=== PATIENT | female | born 1970 | race Caucasian/White ===

== ENCOUNTER 2020-01-19 14:26 | Emergency (ER) | payer OTHER, SELFPAY ==
[2020-01-19] VITALS (16 sets, daily range): BP systolic 124–138; BP diastolic 59–90; PULSE 84; RESP 18; TEMP 36.9; O2SAT 97–100
--- NOTE | ~2020-01-19 | CT_ITS ---
EXAMINATION: CT abdomen pelvis wo con DATE: 01/19/2020 16:30 INDICATION: Left flank pain. TECHNIQUE: Computed tomography (CT) of the abdomen and pelvis was performed without intravenous contr ast. Automated exposure control and iterative reconstruction technique were employed. The dose-length product was 1478.43 mGy-cm. COMPARISON: None FINDINGS: Lung bases are clear. Heart size is normal. No pericardial or pleural effusion. Diffuse hepatic steat osis. Cholecystectomy clips at the gallbladder fossa. Spleen, pancreas, bilateral adrenal glands are normal. 2-3 mm at least partially obstructing stone at the left ureteropelvic junction with mild juan c ectasis at the lower pole of the left kidney. No other urolithiasis including in the normal right kid terry or along the course of the ureters. Several phleboliths in the pelvis. Bladder and anteverted [place] maria teresa are normal. There is mild colonic diverticulosis with a sigmoid predominance. There is no adjace nt inflammatory change to suggest diverticulitis. Small bowel and appendix are normal. No free intrap eritoneal gas or fluid. No pathologically enlarged abdominal or pelvic lymphadenopathy. Bones are unr emarkable. IMPRESSION: 1. At least partially obstructing 2-3 mm stone at the left ureteropelvic junction with mild caliect[place] is at the lower pole of the left kidney. 2. Diffuse hepatic steatosis. Reviewed, dictated and finalized at location A. IMPRESSION: 1. At least partially obstructing 2-3 mm stone at the left ureteropelvic juncti on with mild caliectasis at the lower pole of the left kidney. 2. Diffuse hepatic steatosis.
[2020-01-19 15:20] LABS: Add Urine Microscopic? YES; Appearance Urine Clear (Clear); Bacteria Urine Trace /hpf; Bilirubin Urine Negative (Negative); Blood Urine 3+ (Negative); Color Urine Straw (Yellow); Glucose Urine UA Negative (Negative); Ketones Urine Negative (Negative); Leukocyte Esterase Ur Negative LEU/UL (Negative); Mucus Urine Rare /lpf; Nitrate Urine Negative (Negative); Protein Urine Negative (Negative); Specific Grav Ur 1.008 (1.001-1.035); Squamous Epithelial Cell Urine Rare /hpf (Few); Urobilinogen Urine Negative mg/dL (<2.0); WBC Urine 0-3 /hpf
--- NOTE | 2020-01-19 15:45 | ED.GENADULT ---
HPI - General Adult General Chief complaint: Urogenital-Female Stated complaint: left flank pain Time Seen by Provider: 01/19/20 15:33 History of Present Illness HPI narrative: Patient is a 49 y/o female complaining of left back pain starting yesterdays. She describes her pain an aching sensation. There is no pain radiation. She rates her pain as 7/10. She took Tylenol earlier which did not provide any relief. She has some nausea, but no vomiting. She has some blood in urine. She was seen in urgent care and was sent here for evaluation of possible kidney stone. Related Data Allergies Allergy/AdvReac Type Severity Reaction Status Date / Time No Known Allergies Allergy Mild Unverified 07/02/08 10:23 Review of Systems Constitutional: Constitutional: Denies chills, Denies fever(s), Denies headache(s) and Denies weakness Eyes: Eyes: Denies blurry vision ENT: Denies headache(s) and Denies neck pain Cardiovascular: Cardiovascular: Denies chest pain and Denies dyspnea Respiratory: Respiratory: Denies cough and Denies dyspnea Gastrointestinal: Gastrointestinal: Denies abdominal pain, Denies diarrhea, Denies nausea and Denies vomiting Genitourinary: Genitourinary: Reports hematuria, Denies dysuria and Reports flank pain Musculoskeletal: Musculoskeletal: Denies back pain and Denies neck pain Neurologic: Denies headache(s) and Denies weakness PMFSH Social History Social History Gender identity (if verbalized by the patient): Female Exam Const: General: no acute distress and well developed Orientation/consciousness: oriented to person, oriented to place, oriented to time and patient oriented x3 HENMT: Head: normocephalic Ears: external ears normal General nose exam: Normal external nose present Eyes: General: appearance normal, both eyes and all related structures Conjunctivae: conjunctivae normal Neck: Neck: normal visual inspection and full ROM Chest: Chest palpation & inspection: normal inspection of the chest and no tenderness Resp: Effort & Inspection: normal respiratory effort Auscultation: clear to auscultation bilaterally Cardio: Rate: regular rate Rhythm: regular rhythm GI: GI Palp: No abdominal tenderness and Yes Soft to palpation Skin: General skin exam: normal color and turgor normal Neuro: General: oriented to person, oriented to place, oriented to time and patient oriented x3 Cognition (Neuro): normal cognition Extrem: General: normal to inspection, full ROM and no pedal edema Psych: Appearance: grossly normal Mental Status: mental status grossly normal Affect: normal affect Course Reevaluation(s) Reevaluation #1: Patient is rechecked. She feels better and wants to go home. Date: 01/19/20 Time: 16:55 Vital Signs Vital signs: Vital Signs Temperature 36.9 C 01/19/20 14:29 Pulse Rate 84 01/19/20 14:29 Respiratory Rate 18 01/19/20 14:29 Blood Pressure 138/90 01/19/20 14:29 Pulse Oximetry 100 01/19/20 14:29 Temperature 36.9 C 01/19/20 14:29 Pulse Rate 84 01/19/20 14:29 Respiratory Rate 18 01/19/20 14:29 Blood Pressure 136/70 01/19/20 16:45 Pulse Oximetry 100 01/19/20 16:45 Medical Decision Making Vital Signs Vital Signs: Vital Signs Temperature 36.9 C 01/19/20 14:29 Pulse Rate 84 01/19/20 14:29 Respiratory Rate 18 01/19/20 14:29 Blood Pressure 138/90 01/19/20 14:29 Pulse Oximetry 100 01/19/20 14:29 Temperature 36.9 C 01/19/20 14:29 Pulse Rate 84 01/19/20 14:29 Respiratory Rate 18 01/19/20 14:29 Blood Pressure 136/70 01/19/20 16:45 Pulse Oximetry 100 01/19/20 16:45 Lab Data Result diagrams: 01/19/20 15:53 01/19/20 15:53 Labs: Lab Results 01/19/20 01/19/20 01/19/20 Range/Units 15:11 15:53 15:53 WBC 8.2 (4.5-10.0) K/mm3 RBC 4.80 (4.2-5.4) M/mm3 Hgb 15.0 (12.0-15.0) g/dL Hct 44.2 (37.0-47.0) % M
[2020-01-19] MEDS: SODIUM CHLORIDE 0.9% IV 1,000 ML 999 ML IV CONT (15:53)
[2020-01-19] MEDS: KETOROLAC 30 MG/ML VIAL (*BKC) IV PUSH (15:53)
[2020-01-19 15:59] LABS: Basophils Percent Auto 0.5 % (0.2-1.2); Eosinophils Absolute Auto 0.1 K/mm3 (0-0.3); Eosinophils Percent Auto 1.1 % (0-4.4); Hematocrit 44.2 % (37.0-47.0); Immature Granulocyte Absolute 0.03 K/mm3 (0.00-0.031); Immature Granulocyte Percent A 0.4 % (0-0.5); Lymphocytes Absolute Auto 1.61 K/mm3 (0.9-3.2); Lymphocytes Percent Auto 19.6 % (18.3-44.2); Mean Corpuscular HGB Conc 33.9 g/dl (32-36); Mean Corpuscular Hemoglobin 31.3 pg (26-34); Mean Corpuscular Volume 92.1 fl (80-100); Monocytes Absolute Auto 0.7 K/mm3 (0.1-0.6); Monocytes Percent Auto 8.9 % (2.6-8.5); Neutrophils Absolute Auto 5.7 K/mm3 (1.3-6.7); Neutrophils Percent Auto 69.5 % (45.5-73.1); Platelet Count Result 214 k/mm3 (150-375); Red Cell Distribution Width 12.2 % (11.5-14.5); White Blood Count 8.2 K/mm3 (4.5-10.0)
[2020-01-19 16:10] LABS: Alanine Aminotransferase 33 U/L (4-35); Albumin Level 4.5 g/dL (3.5-5.1); Alkaline Phosphatase 98 U/L (38-126); Aspartate Amino Transferase 36 U/L (14-36); Bilirubin,Total 0.6 mg/dL (0.2-1.3); Blood Urea Nitrogen 13 mg/dL (7-17); Calcium 9.2 mg/dL (8.4-10.2); Carbon Dioxide 26 mmol/L (22-30); Chloride 105 mmol/L (98-107); Estimated CRCL calculation 106 ml/min; Estimated Glomerular Filt Rate > 60; Glucose 101 mg/dL (65-105); Potassium 3.9 mmol/L (3.4-5.0); Sodium 138 mmol/L (137-145)
== END 2020-01-19 17:19 | disposition home or self-care (01) ==
PROVIDERS: Emergency Provider Emergency Medicine; PCP Family Medicine
DX: N20.1 Calculus of ureter (principal); K76.0 Fatty (change of) liver, not elsewhere classified
CPT/HCPCS: 36415; 74176; 80053; 81001; 81025; 85025; 96361; 96374; 99284; J1885; J7030

== ENCOUNTER 2020-01-24 13:05 | Outpatient (CLI) | payer OTHER, SELFPAY ==
--- NOTE | ~2020-01-24 | XR_ITS ---
XR abdomen/kub 1V DATE: 01/24/2020 13:18 INDICATION: Kidney stone TECHNIQUE: AP projection, 2 views COMPARISON: 01/19/[address] abdomen pelvis FINDINGS: There is a several millimeter faint calcific density overlying the expected position of the left ureter at the L4-5 level. There are multiple bilateral pelvic calcifications; there is a 4 mm calcification overlying the dista l left ureter. There is no KUB from 01/19/2024 comparison. Consider follow-up KUB examination or repea t noncontrast CT abdomen pelvis examination. No evidence of bowel obstruction. The psoas shadows are intact. No visceromegaly is evident. Surgical clips, right upper quadrant, consistent with cholecystectomy IMPRESSION: Possible mid left ureteral or distal left ureteral calcified stone Reviewed, dictated and finalized at Location A. Reviewed, dictated and finalized at location A.
== END 2020-01-24 13:06 | disposition home or self-care (01) ==
PROVIDERS: PCP Family Medicine; Visit Provider Urology
DX: N20.0 Calculus of kidney (principal)
CPT/HCPCS: 74018

== ENCOUNTER 2020-02-10 07:52 | Outpatient (CLI) | payer OTHER, SELFPAY ==
--- NOTE | ~2020-02-10 | CT_ITS ---
EXAMINATION: CT abdomen pelvis wo con DATE: 02/10/2020 08:29 INDICATION: Left ureteral stone TECHNIQUE: Computed tomography (CT) of the abdomen and pelvis was performed without intravenous contr ast. The dose-length product was 751.13 mGy-cm. Automated exposure control and iterative reconstructi on technique were employed. COMPARISON: CT dated 01/19/2020 FINDINGS: Lung bases are unremarkable. Borderline heart size. No pleural or pericardial effusion. No significant vascular abnormality. No lymphadenopathy. Fatty infiltration of the liver. Status post cholecystectomy. The spleen, pancreas, adrenal glands an d right kidney are unremarkable. There is a proximal left ureteral stone measuring 3 mm. Mild left hy dronephrosis. Nonobstructive bowel gas pattern. No abnormal pelvic masses or fluid collections. No fr ee air or free fluid. No significant soft tissue abnormality. IMPRESSION: 1. Proximal left ureteral stone measuring 3 mm with mild hydronephrosis. Reviewed, dictated and finalized at location B.
--- NOTE | ~2020-02-10 | XR_ITS ---
XR abdomen/kub 1V DATE: 02/10/2020 08:18 INDICATION: Left ureteral stone TECHNIQUE: AP projection, 2 views COMPARISON: 01/24/2020 KUB 01/19/2020 CT abdomen pelvis FINDINGS: There is no change in position of the previously reported calculus of the distal left urete r since 01/24/2020, measuring approximately 2 x 4 mm. No other urinary tract calcification is evident. The psoas shadows are intact. No visceromegaly is evident. Surgical clips overlying right upper quadrant, consistent with cholecystectomy. The bowel gas pattern is unremarkable, without evidence of obstruction. IMPRESSION: Persistent distal left ureteral approximately 2 x 4 mm calcified calculus Reviewed, dictated and finalized at Location A. Reviewed, dictated and finalized at location A. IMPRESSION: Persistent distal left ureteral approximately 2 x 4 mm calcified ca lculus
== END 2020-02-10 07:53 | disposition home or self-care (01) ==
LOC: ANHIMG 07:54
PROVIDERS: PCP Family Medicine; Visit Provider Urology
DX: N20.1 Calculus of ureter (principal)
CPT/HCPCS: 74018; 74176

== ENCOUNTER 2020-02-13 00:34 | Outpatient (CLI) | payer OTHER, SELFPAY ==
[2020-02-13 19:12] LABS: SARS-CoV-2 RNA PCR Negative
== END 2020-02-13 00:35 | disposition home or self-care (01) ==
LOC: ANHCOVIDDT 00:35
PROVIDERS: Anesthesiology; PCP Family Medicine; Visit Provider Urology
DX: Z01.812 Encounter for preprocedural laboratory examination (principal); Z11.59 Encounter for screening for other viral diseases
CPT/HCPCS: 87635; C9803; U0003

== ENCOUNTER 2020-02-13 08:52 | Outpatient (CLI) | payer OTHER, SELFPAY ==
--- NOTE | 2020-02-13 08:53 | ECG_ITS ---
Measurements Intervals [place] Rate: 73 P: 53 MO: 163 QRS: 18 QRSD: 88 T: 30 QT: 394 QTc: 435 Interpretive Statements SINUS RHYTHM LOW QRS VOLTAGE IN PRECORDIAL LEADS BORDERLINE ECG Electronically Signed On 02-13-2020 11:53:13 CDT by Lionel Koenig D.O.
== END 2020-02-13 08:53 | disposition home or self-care (01) ==
LOC: ANHSURGERY 08:53
PROVIDERS: PCP Family Medicine; Visit Provider Urology
DX: I10 Essential (primary) hypertension (principal); R94.31 Abnormal electrocardiogram [ECG] [EKG]
CPT/HCPCS: 93005

== ENCOUNTER 2020-02-14 04:06 | Day surgery (SDC) | payer OTHER, SELFPAY ==
[2020-02-12 14:53] VITALS: BMI 39.2
[2020-02-14] VITALS (10 sets, daily range): BP systolic 106–159; BP diastolic 68–95; PULSE 63–81; RESP 11–22; TEMP 36.2–36.6; O2SAT 97–100
--- NOTE | ~2020-02-14 | XR_ITS ---
XR abdomen/kub 1V 02/14/2020 12:27 INDICATION: Flank pain TECHNIQUE: KUB COMPARISON: None FINDINGS: Bowel gas pattern is normal. There is no evidence of free air, mass, organomegaly, ascites or obstruction. No abnormal calculi are seen. Calcifications in the pelvis are believed to be phleb oliths. The bones appear intact. IMPRESSION: 1: No acute abdominal abnormality identified. Reviewed, dictated and finalized at location B.
--- NOTE | ~2020-02-14 | XR_ITS ---
EXAMINATION: XR retrograde pyelo w/stent LT DATE: 02/14/2020 14:56 INDICATION: Left ureteral stone extraction TECHNIQUE: Fluoroscopic images from a left internal ureteral stent placement are submitted for review . 24 seconds of fluoroscopy time. 6 fluoroscopic images. FINDINGS: There is a left double-J internal ureteral stent projecting in expected position, with proximal [place] loop at the level of the renal pelvis and distal loop in the pelvis within the bladder lumen. IMPRESSION: 1. Left internal ureteral stent placement. Please refer to real-time procedural findings for detail s. Reviewed, dictated and finalized at location B. IMPRESSION: 1. Left internal ureteral stent placement. Please refer to real-time procedur al findings for details.
[2020-02-14] MEDS: LACTATED RINGERS 1,000 ML 30 ML IV CONT ×2 (13:10→15:00)
[2020-02-14 13:11] LABS: Glucose Point of Care 101 (65-105)
--- NOTE | 2020-02-14 13:34 | WPDANESEPPF ---
Anes - Initial Pre Proc Eval Procedure: Operation Date: 02/14/20 14:30 Proposed Procedures p Cystoscopy, Left Ureteroscopy, Left Retrograde Pyelogram, Left Stone Extraction, Left Stent Placement - Scott Leon MD s Possible Holmium Laser Procedure - Scott Leon MD Date/Time: 02/14/20 13:34 Surgeon: Scott Leon MD Pre Op Diagnosis: Left Kidney Stone Patient Data Age: 49 Gender: F Height: 5 ft 7 in Weight: 112.7 kg Last Vital Signs Temp 36.2 C L 02/14/20 12:36 Pulse 81 02/14/20 12:36 Resp 16 02/14/20 12:36 BP 121/76 02/14/20 12:36 Pulse Ox 97 02/14/20 12:36 Allergies Allergy/AdvReac Type Severity Reaction Status Date / Time No Known Allergies Allergy Verified 02/14/20 12:49 Home Medications Medication Instructions Recorded Confirmed Type hydrocodone-acetaminophen [Anna] 1 tablet PO Q6H PRN #20 tablet 01/19/20 02/14/20 Rx tamsulosin [Flomax] 0.4 mg PO DAILY #10 cap 01/19/20 02/14/20 Rx alprazolam 0.5 mg PO TID PRN 02/12/20 02/14/20 History aspirin [Aspir-81] 81 mg PO DAILY 02/12/20 02/14/20 History blood sugar diagnostic [Accu-Chek 02/12/20 02/12/20 History Susie Plus test strp] blood-glucose sensor [Dexcom G6 02/12/20 02/12/20 History Sensor] ergocalciferol (vitamin D2) 1,250 mcg PO WEEKLY 02/12/20 02/14/20 History [Vitamin D2] glimepiride 2 mg PO BID 02/12/20 02/14/20 History hydrochlorothiazide 25 mg PO DAILY 02/12/20 02/14/20 History levothyroxine 112 mcg PO DAILY 02/12/20 02/14/20 History meclizine 25 mg PO TID PRN 02/12/20 02/14/20 History metaxalone 800 mg PO TID PRN 02/12/20 02/14/20 History metformin 1,000 mg PO BID 02/12/20 02/14/20 History rosuvastatin 40 mg PO QTUTH 02/12/20 02/14/20 History semaglutide [Ozempic] 1 mg SUBCUT WEEKLY 02/12/20 02/14/20 History sumatriptan succinate [Zembrace 3 mg SUBCUT PRN PRN 02/12/20 02/14/20 History Symtouch] Laboratory Tests 02/14/20 13:09 POC Capillary Glucose 101 mg/dl mg/dl (65-105) Patient hx anesthesia problems: post op nausea/vomiting Family hx anesthesia problems: none [facility] Past Medical History Medical History (Updated 02/14/20 @ 13:36 by Mick Bahena MD) Diabetes Hypertension Hypothyroid Social History Social History Smoking packs per day: 0.5 Smoking cigarettes per day: 10.0 Smoking status: Former smoker Alcohol intake: never Last use: 1997 Living arrangements: with family Gender identity (if verbalized by the patient): Female Spiritual care concerns: No Anes - Eval Final PreProcedure Day of Procedure 02/14/20 13:34 Patient weight: obese Heart: regular rate and rhythm Lungs: clear to auscultation Airway: Mallampati scale class II Neurological: alert and oriented Last oral intake: >/= 8 hours ASA classification: III Emergent: no Anesthetic plan: proceed Anesthesia type and monitoring: general GIVS and standard monitoring Informed Consent: The patient's anesthetic plan and its attendant risks and benefits were discussed with the patient/family/POA. Questions were solicited and answers provided to the satisfaction of the patient/family/POA.
--- NOTE | 2020-02-14 14:16 | WPDHPUPDATE1 ---
History and Physical Update Update Date/Time: 02/14/20 14:16 History and Physical has been reviewed, including an updated exam of the patient. There are NO changes in the patient's condition. Risks, benefits, and alternatives have been discussed and questions answered. Patient agrees to proceed with procedure.
[2020-02-14] MEDS: ceFAZolin 2 GM/D5W 50 ML 2 GM/50 ML BAG IVPB (14:24)
[2020-02-14] MEDS: LIDOCAINE HCL 2% GEL UROJET 10 ML PKG MUCOUS MEM (14:55)
--- NOTE | 2020-02-14 14:57 | PM.PROC ---
Procedure Note - Detailed Date of procedure: 02/14/20 Pre-op diagnosis: Left Kidney Stone Left UPJ calculus 4-5 mm Post-op diagnosis: same Procedure performed: Cystoscopy, left retrograde pyelogram, left ureteroscopy with stone extraction, left ureteral stent placement 4.8 Syriac contour Description of procedure: Patient was taken to the operative suite and correctly identified. Once anesthesia was obtained she was placed in the dorsal lithotomy position and prepped and draped usual sterile fashion. Twenty-two Syriac scope was inserted in the bladder. There are no tumors noted. The left ureteral orifice was cannulated with a guidewire. Distal ureter was examined with a rigid ureteral scope. She did have some tightness in that distal ureter no stone was noted at this time. We thus used an 810 dilator as well as ureteral access sheath. A mini flexible ureteroscope was then inserted. The stone was noted lodged at the proximal UPJ area. Using an escape basket we retrieved the stone. This was sent for analysis. Reinspection of the ureter and collecting system revealed no residual stone. Pyelogram was then performed to confirm placement of the stent. 4.8 contour stent was then placed with the proximal end coiled in the renal pelvis and distal in the bladder. Bladder was drained. 2% viscous lidocaine was inserted into the urethra and patient is taken recovery room stable condition. She will be discharged home with follow-up in a week's time for stent removal. Anesthesia: GLMA Surgeon: Scott Leon MD Drains: Yes Packing: No Pathology: none sent Complications: No immediate complications Condition: stable Disposition: PACU
[2020-02-14 15:08] LABS: Glucose Point of Care 71 (65-105)
[2020-02-14] MEDS: SCOPOLAMINE 1.5 MG PATCH TRANSDERM (15:55)
[2020-02-14] MEDS: HYOSCYAMINE SULFATE 0.125 MG TABLET PO (16:06)
== END 2020-02-14 17:25 | disposition home or self-care (01) ==
PROVIDERS: PCP Family Medicine; Visit Provider Urology
PROC: (CPT 52352; principal; 2020-02-14 14:30)
DX: N20.1 Calculus of ureter (principal); I10 Essential (primary) hypertension; E03.9 Hypothyroidism, unspecified; E11.9 Type 2 diabetes mellitus without complications; Z87.891 Personal history of nicotine dependence; Z79.84 Long term (current) use of oral hypoglycemic drugs; Z79.82 Long term (current) use of aspirin; E66.9 Obesity, unspecified; Z68.38 Body mass index [BMI] 38.0-38.9, adult
CPT/HCPCS: 52332; 52352; 74018; 74420; 82365; 88300; A9270; C1769; C1894; C2617; J0690; J1100; J2250; J2405; J2704; J3010; J7120; Q9966

== ENCOUNTER 2021-01-15 15:50 | Outpatient (CLI) | payer OTHER, SELFPAY ==
--- NOTE | 2021-01-15 | ECG_ITS ---
Measurements Intervals [place] Rate: 72 P: 44 VA: 170 QRS: 34 QRSD: 89 T: 34 QT: 429 QTc: 473 Interpretive Statements SINUS RHYTHM BASELINE ARTIFACT- I, II, III, AVR, AVL NORMAL ECG Electronically Signed On 01-15-2021 16:16:38 CDT by Lionel Koenig D.O.
[2021-01-15 16:55] LABS: Anion Gap 5 mmol/L (8-16); Blood Urea Nitrogen 18 mg/dL (7-17); Calcium 9.2 mg/dL (8.4-10.2); Carbon Dioxide 31 mmol/L (22-30); Chloride 104 mmol/L (98-107); Estimated Glomerular Filt Rate > 60; Glucose 89 mg/dL (65-105); Potassium 3.6 mmol/L (3.4-5.0); Sodium 140 mmol/L (137-145)
== END 2021-01-15 15:51 | disposition home or self-care (01) ==
LOC: ANHLAB 15:52
PROVIDERS: PCP Family Medicine; Visit Provider Physician Assistant Surgical
DX: Z01.818 Encounter for other preprocedural examination (principal)
CPT/HCPCS: 36415; 80048; 93005

== ENCOUNTER 2021-03-12 14:45 | Outpatient (CLI) | payer OTHER, SELFPAY ==
--- NOTE | ~2021-03-12 | US_ITS ---
EXAMINATION: US thyroid DATE: 03/12/2021 15:06 INDICATION: Goiter. TECHNIQUE: Multiple ultrasound images of the thyroid were obtained. COMPARISON: Ultrasound 11/21/2018 FINDINGS: The right thyroid lobe measures 4.4 x 1.9 x 1.2 cm. The left thyroid lobe measures 3.7 x 1.3 x 1.1 c m. The thyroid is diffusely heterogeneous and hypoechoic. Vascularity is normal. IMPRESSION: 1. Heterogeneous thyroid, likely chronic lymphocytic ([place]) thyroiditis. Reviewed, dictated and finalized at location A.
== END 2021-03-12 14:46 | disposition home or self-care (01) ==
PROVIDERS: PCP Family Medicine; Visit Provider Internal Medicine Endocrinology, Diabetes & Metabolism
DX: E04.9 Nontoxic goiter, unspecified (principal)
CPT/HCPCS: 76536

== ENCOUNTER 2021-08-03 16:06 | Outpatient (CLI) | payer OTHER, SELFPAY ==
--- NOTE | ~2021-08-03 | CT_ITS ---
EXAMINATION: CT abdomen pelvis wo con EXAM DATE: 08/03/2021 16:23 INDICATION: Right flank pain. TECHNIQUE: Spiral CT of the abdomen and pelvis was performed without contrast. Axial, coronal and sag ittal images were reviewed. The dose-length product (DLP) for this examination was 603.70 mGy-cm. T he exposure was tailored according to patient size (auto mA exposure control), and iterative reconstr uction (ASIR) was used as additional dose reduction technique. Comparison is made to prior examinatio n from 02/10/2020. FINDINGS: Calcifications in the pelvis are believed to be phleboliths. There is no nephrolithiasis o r hydronephrosis. The uterus is unremarkable. The bladder is unremarkable. There is hepatic stea tosis without suspicious focal lesion identified. Spleen, adrenal glands, pancreas are unremarkable. There are cholecystectomy clips. There is no retroperitoneal or pelvic lymphadenopathy. The appendix is normal. The stomach and small bowel are unremarkable. There is expected amount of c olonic stool. No free intraperitoneal gas. The heart is normal in size. There are no pericardial or pleural effusions. The lung bases are unremarkable. There are no osteoblastic or osteolytic les ions identified. IMPRESSION: 1. No nephrolithiasis, hydronephrosis or acute intra-abdominal findings. 2. Hepatic steatosis. Reviewed, dictated and finalized at location A. ENTER INSPECTOR
== END 2021-08-03 16:07 | disposition home or self-care (01) ==
LOC: ANHIMG 16:11
PROVIDERS: PCP Family Medicine; Visit Provider Family Medicine
DX: R10.9 Unspecified abdominal pain (principal); K76.0 Fatty (change of) liver, not elsewhere classified
CPT/HCPCS: 74176

== ENCOUNTER 2022-03-04 07:03 | Outpatient (CLI) | payer OTHER, SELFPAY ==
--- NOTE | ~2022-03-04 | CT_ITS ---
EXAMINATION: CT brain wo con DATE: 03/04/2022 07:19 INDICATION: Generalized headache frontal and vertex pain and distention. Retro-orbital pain.. Intermi ttent dizziness. TECHNIQUE: Computed tomography (CT) of the head was performed without intravenous contrast. The mA wa s adjusted according to patient size. Iterative reconstruction technique was employed. Exam dose: 60 5.33 mGy-cm total exam DLP. COMPARISON: 12/23/2011 CT brain FINDINGS: There is mild cerebral atherosclerotic calcification. No intracranial mass lesion or hemorr mildred or cerebrovascular accident is detected. No midline shift or mass effect. Normal ventricular siz e. Normal israle-white matter differentiation. No subdural or epidural hematoma. No fracture or bone destruction of the cranial vault. The mastoid air cells and included paranasal si nuses are normally developed and aerated. No orbital mass lesion. IMPRESSION: Mild cerebral atherosclerosis Reviewed, dictated and finalized at Location A. Reviewed, dictated and finalized at location B.
== END 2022-03-04 07:04 | disposition home or self-care (01) ==
LOC: ANHIMG 07:06
PROVIDERS: PCP Family Medicine; Visit Provider Family Medicine
DX: R51.9 Headache, unspecified (principal); I67.2 Cerebral atherosclerosis
CPT/HCPCS: 70450

== ENCOUNTER → 2022-04-05 14:54 | Outpatient (CLI) | payer OTHER, SELFPAY ==
--- NOTE | ~2022-04-05 | MM_ITS ---
EXAMINATION: MM screening srinivas BI w megan HISTORY: Screening mammogram TECHNIQUE: Craniocaudal and mediolateral oblique 3-D tomosynthesis images were obtained and synthetic 2-D images were generated. CAD analysis was submitted and interpreted. COMPARISON: 10/01/2012 bilateral screening mammogram BREAST PARENCHYMAL COMPOSITION: The breasts are almost entirely fatty. FINDINGS: There is no evidence of suspicious mass, calcification, or architectural distortion to sugg est malignancy in either breast. There has been no suspicious interval change. IMPRESSION: 1. No mammographic evidence of malignancy. 2. Recommend routine screening mammography in one year. BI-RADS Category 1: Negative Reviewed, dictated and finalized at location A.
== END ==
PROVIDERS: PCP Family Medicine; Visit Provider Family Medicine
DX: Z12.31 Encounter for screening mammogram for malignant neoplasm of breast (principal)
CPT/HCPCS: 77063; 77067

== ENCOUNTER 2022-04-26 16:55 | Emergency (ER) | payer OTHER, SELFPAY ==
--- NOTE | 2022-04-26 17:04 | ED.URI ---
HPI - URI/Sore Throat General Chief Complaint: Upper Respiratory Infection Stated Complaint: sore throat, headache Time Seen by Provider: 04/26/22 17:04 History of Present Illness HPI Narrative: 51-year-old female presented for complaint of sore throat, headache, and sinus congestion, onset today. Endorses mild nausea and occasional cough. Denies shortness of breath, wheezing, vomiting, fevers or chills. She took Tylenol today for symptoms. 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 She states this is how it feels when she has strep throat. Related Data Home Medications Medication Instructions Recorded Confirmed alprazolam 0.5 mg tablet 0.5 mg PO TID PRN Anxiety 02/12/20 02/14/20 aspirin 81 mg tablet,delayed 81 mg PO DAILY 02/12/20 02/14/20 release (Aspir-) blood sugar diagnostic (Accu-Chek 02/12/20 02/12/20 Susie Plus test strips) blood-glucose sensor (Funtactix G6 02/12/20 02/12/20 Sensor device) ergocalciferol (vitamin D2) 1,250 1,250 mcg PO WEEKLY 02/12/20 02/14/20 mcg (50,000 unit) capsule (Vitamin D2) glimepiride 2 mg tablet 2 mg PO BID 02/12/20 02/14/20 hydrochlorothiazide 25 mg tablet 25 mg PO DAILY 02/12/20 02/14/20 levothyroxine 112 mcg capsule 112 mcg PO DAILY 02/12/20 02/14/20 meclizine 25 mg tablet 25 mg PO TID PRN Vertigo 02/12/20 02/14/20 metaxalone 800 mg tablet 800 mg PO TID PRN Pain 02/12/20 02/14/20 metformin 500 mg tablet,extended 1,000 mg PO BID 02/12/20 02/14/20 release 24 hr rosuvastatin 40 mg tablet 40 mg PO QTUTH 02/12/20 02/14/20 semaglutide 1 mg/dose (2 mg/1.5 1 mg subcut WEEKLY 02/12/20 02/14/20 mL) subcutaneous pen injector (Ozempic) sumatriptan succinate 3 mg/0.5 mL 3 mg subcut PRN PRN MIGRAINES 02/12/20 02/14/20 subcutaneous pen injector (ZembraLiazon Symtouch) semaglutide (weight loss) 2.4 mg subcut 04/26/22 mg/0.75 mL subcutaneous pen injector (Wegovy) Allergies Allergy/AdvReac Type Severity Reaction Status Date / Time No Known Allergies Allergy Verified 02/14/20 12:49 Review of Systems Review of Systems: CONSTITUTIONAL: Denies body aches, fever, chills, or sweats. EYES: Denies visual changes, redness, or discharge. ENT: Denies otalgia CARDIOVASCULAR: Denies chest pain, palpitations, or edema. RESPIRATORY: Denies dyspnea. GASTROINTESTINAL: Denies abdominal pain, vomiting, or diarrhea. SKIN: Denies rash, itching, or wounds. MUSCULOSKELETAL: Denies back pain, joint pain, or myalgia. NEUROLOGIC: Denies headache PMFSH Past Medical History Medical History Diabetes Hypertension Hypothyroid Social History Social History Smoking packs per day: 0.5 Smoking cigarettes per day: 10.0 Smoking status: Former smoker Alcohol intake: never Last use: 1997 Gender identity (if verbalized by the patient): Female Spiritual care concerns: No Exam Narrative: GENERAL: well-appearing EYES: conjunctivae clear ENT: Mucous membranes moist. TMs pearly [place] with normal light reflex bilaterally; no tragal tenderness. Oropharynx erythematous without lesions. Tonsils not enlarged. No drooling, no hoarseness, no trismus, uvula midline. No tripod positioning, hot potato voice, or soft palate swelling. NECK: Supple. No lymphadenopathy CHEST: Clear to auscultation, breath sounds equal. HEART: Regular rate and rhythm. No murmur heard. SKIN: Warm, dry, no rash. NEURO: Alert and oriented x3. Course Course Emergency Course: Patient is aware of diagnosis, understands and agrees to treatment plan. Anticipatory guidance given. Patient agrees to follow-up as directed and is aware of reasons to seek care at the emergency department. Portions of this record may have been created with voice recognition software Level of Care: Express Care Visit MDM - URI/Sore Throat MDM Narrative Medical decision making narrative: strep resul
[2022-04-26 17:06] VITALS: BP 127/80; PULSE 92; RESP 16; TEMP 36.6; O2SAT 100
== END 2022-04-26 17:21 | disposition home or self-care (01) ==
PROVIDERS: Emergency Provider Nurse Practitioner Family; PCP Family Medicine
DX: J02.9 Acute pharyngitis, unspecified (principal); E11.9 Type 2 diabetes mellitus without complications; I10 Essential (primary) hypertension; E03.9 Hypothyroidism, unspecified; Z87.891 Personal history of nicotine dependence; Z79.82 Long term (current) use of aspirin
CPT/HCPCS: 87081; 87880; 99213; G0463

== ENCOUNTER 2024-02-02 18:24 | Emergency (ER) | payer OTHER, SELFPAY ==
[2024-02-02 18:40] VITALS: BP 109/76; PULSE 72; RESP 16; TEMP 36.6; O2SAT 100
--- NOTE | 2024-02-02 19:21 | ED.GENADULT ---
HPI - General Adult General Chief complaint: Dental/Oral Stated complaint: JAW PAIN Time Seen by Provider: 02/02/24 19:12 Source: patient and RN notes reviewed Mode of arrival: ambulatory Limitations: no limitations History of Present Illness HPI narrative: Patient presents today complaining of pain to her right jaw area x3 days with some popping with opening and closing her mouth in the mornings. States pain has been worsening since onset. Currently rates her pain 5/10 and has been taking ibuprofen without much relief. States she does not grind or clench at night. Related Data Home Medications Medication Instructions Recorded Confirmed alprazolam 0.5 mg tablet 0.5 mg PO TID PRN Anxiety 02/12/20 02/14/20 aspirin 81 mg tablet,delayed 81 mg PO DAILY 02/12/20 02/14/20 release (Aspir-) blood sugar diagnostic (Accu-Chek 02/12/20 02/12/20 Susie Plus test strips) blood-glucose sensor (DexKineMed G6 02/12/20 02/12/20 Sensor device) ergocalciferol (vitamin D2) 1,250 1,250 mcg PO WEEKLY 02/12/20 02/14/20 mcg (50,000 unit) capsule (Vitamin D2) glimepiride 2 mg tablet 2 mg PO BID 02/12/20 02/14/20 hydrochlorothiazide 25 mg tablet 25 mg PO DAILY 02/12/20 02/14/20 levothyroxine 112 mcg capsule 112 mcg PO DAILY 02/12/20 02/14/20 meclizine 25 mg tablet 25 mg PO TID PRN Vertigo 02/12/20 02/14/20 metaxalone 800 mg tablet 800 mg PO TID PRN Pain 02/12/20 02/14/20 metformin 500 mg tablet,extended 1,000 mg PO BID 02/12/20 02/14/20 release 24 hr rosuvastatin 40 mg tablet 40 mg PO QTUTH 02/12/20 02/14/20 semaglutide 1 mg/dose (2 mg/1.5 1 mg subcut WEEKLY 02/12/20 02/14/20 mL) subcutaneous pen injector (Ozempic) sumatriptan succinate 3 mg/0.5 mL 3 mg subcut PRN PRN MIGRAINES 02/12/20 02/14/20 subcutaneous pen injector (Zembrace Symtouch) semaglutide (weight loss) 2.4 mg subcut 04/26/22 mg/0.75 mL subcutaneous pen injector (Wegovy) propranolol 80 mg capsule,24 mg PO 02/02/24 hr,extended release rimegepant 75 mg disintegrating mg 02/02/24 tablet (Nurtec ODT) tirzepatide 7.5 mg/0.5 mL mg subcut 02/02/24 02/02/24 subcutaneous pen injector (Mounjaro) Allergies Allergy/AdvReac Type Severity Reaction Status Date / Time No Known Allergies Allergy Verified 02/14/20 12:49 Review of Systems Review of Systems: CONSTITUTIONAL: Denies body aches, fever, chills, or sweats. EYES: Denies visual changes, redness, or discharge. ENT: Denies rhinorrhea, congestion, sore throat, or otalgia.+ right jaw pain CARDIOVASCULAR: Denies chest pain, palpitations, or edema. RESPIRATORY: Denies cough or dyspnea. GASTROINTESTINAL: Denies abdominal pain, nausea, vomiting, or diarrhea. GENITOURINARY: Denies dysuria or hematuria. SKIN: Denies rash, itching, or wounds. MUSCULOSKELETAL: Denies back pain, joint pain, or myalgia. NEUROLOGIC: Denies headache, numbness, tingling, or weakness. PSYCH: Denies depression or anxiety. [facility] Past Medical History Medical History Diabetes Hypertension Hypothyroid Social History Social History Smoking packs per day: 0.5 Smoking cigarettes per day: 10.0 Smoking status: Former smoker Alcohol intake: never Last use: 1997 Living arrangements: with family Gender identity (if verbalized by the patient): Female Spiritual care concerns: No Comments At time of signature, I have reviewed and agree with nursing past medical, surgical, social and family history unless otherwise noted. Please see nursing chart for further information. There is no relevant family history pertinent to the presenting complaint Exam Narrative: GENERAL: Well-appearing, well-nourished, and in no acute distress. HEAD: Normocephalic, atraumatic. EYES: EOMI. No redness or drainage. Conjunctivae normal. ENT: Mucous membranes pink and moist. Tenderness to the right TM j
== END 2024-02-02 19:31 | disposition home or self-care (01) ==
PROVIDERS: Emergency Provider Nurse Practitioner; PCP Physician Assistant
DX: M26.621 Arthralgia of right temporomandibular joint (principal); E11.9 Type 2 diabetes mellitus without complications; I10 Essential (primary) hypertension; E03.9 Hypothyroidism, unspecified; Z87.891 Personal history of nicotine dependence; Z79.82 Long term (current) use of aspirin
CPT/HCPCS: 99213; G0463

== ENCOUNTER 2024-05-23 09:13 | Emergency (ER) | payer OTHER, SELFPAY ==
[2024-05-23 09:37] VITALS: BP 124/86; PULSE 78; RESP 16; TEMP 36.6; O2SAT 100
--- NOTE | 2024-05-23 09:48 | ED.FEMALEGU ---
HPI - Female Genitourinary General Chief complaint: Urogenital-Female Stated complaint: Uti symptoms Source: patient and RN notes reviewed Mode of arrival: ambulatory Limitations: no limitations History of Present Illness HPI Narrative: 53-year-old female with hx DM presented for complaint of bilateral flank pain, urinary urgency and spasms at the end of urination. Onset yesterday. Also reports feeling cold and clammy and started with nausea and vomiting today. Took Pyridium this morning. Last UTI was about 4 months ago. History of nephrolithiasis 2019. Denies hematuria, abdominal pain, constipation, diarrhea. Related Data Home Medications Medication Instructions Recorded Confirmed alprazolam 0.5 mg tablet 0.5 mg PO TID PRN Anxiety 02/12/20 05/23/24 blood sugar diagnostic (Accu-Chek 02/12/20 05/23/24 Susie Plus test strips) blood-glucose sensor ([employer] [facility] G6 02/12/20 05/23/24 Sensor device) glimepiride 2 mg tablet 2 mg PO BID 02/12/20 02/02/24 hydrochlorothiazide 25 mg tablet 25 mg PO DAILY 02/12/20 05/23/24 levothyroxine 112 mcg capsule 112 mcg PO DAILY 02/12/20 05/23/24 propranolol 80 mg capsule,24 80 mg PO DIRECTED 02/02/24 05/23/24 hr,extended release rimegepant 75 mg disintegrating 75 mg DIRECTED 02/02/24 05/23/24 tablet (Nurtec ODT) tirzepatide 7.5 mg/0.5 mL 7.5 mg subcut DIRECTED 02/02/24 05/23/24 subcutaneous pen injector (Mounjaro) galcanezumab-gnlm 120 mg/mL 120 mg subcut MONTHLY 05/23/24 05/23/24 subcutaneous pen injector (Emgality Pen) Allergies Allergy/AdvReac Type Severity Reaction Status Date / Time No Known Allergies Allergy Verified 05/23/24 09:35 Review of Systems Review of Systems: CONSTITUTIONAL: Denies body aches, reports fever, chills CARDIOVASCULAR: Denies chest pain, palpitations, or edema. RESPIRATORY: Denies cough or dyspnea. GASTROINTESTINAL: Denies abdominal pain, nausea, vomiting, or diarrhea. GENITOURINARY: Reports dysuria, frequency, urgency, flank pain SKIN: Denies rash, itching, or wounds. [facility] Past Medical History Medical History Diabetes Hypertension Hypothyroid Social History Social History Smoking packs per day: 0.5 Smoking cigarettes per day: 10.0 Smoking status: Former smoker Alcohol intake: never Last use: 1997 Living arrangements: with family Gender identity (if verbalized by the patient): Female Spiritual care concerns: No Comments At time of signature, I have reviewed and agree with nursing past medical, surgical, social and family history unless otherwise noted. Please see nursing chart for further information. There is no relevant family history pertinent to the presenting complaint Exam Narrative: GENERAL: Well-appearing ENT: Mucous membranes pink and moist. NECK: Normal AROM. Supple. CHEST: No respiratory distress. Clear to auscultation. HEART: Regular rate and rhythm. ABDOMEN: Soft, nontender, nondistended, normal active bowel sounds. Bilateral CVA tenderness, R>L. SKIN: Warm, dry NEURO: No focal deficits. Alert and oriented x3. Gait steady. PSYCH: Normal affect. Course Course Emergency Course: Patient is aware of diagnosis, understands and agrees to treatment plan. Anticipatory guidance given. Patient agrees to follow-up as directed and is aware of reasons to seek care at the emergency department. Portions of this record may have been created with voice recognition software Level of Care: Express Care Visit Vital Signs Vital signs: Vital Signs Temperature 97.8 F 05/23/24 09:37 Pulse Rate 78 05/23/24 09:37 Respiratory Rate 16 05/23/24 09:37 Blood Pressure 124/86 05/23/24 09:37 Pulse Oximetry 100 05/23/24 09:37 Oxygen Delivery Room Air 05/23/24 09:37 Temperature 97.8 F 05/23/24 09:37 Pulse Rate 78 05/23/24 09:37 Respiratory Rate 16 05/23/24 09:37 Blood Pressure 124/86 05/23/24 09:37 Pulse Oximetry 100 05/23/24 09:37 Oxygen Delivery Room Air 05/23/24 09:37 Reviewed MDM - Female Genitourinary MDM Narrative Medical decision making narrative: Discussed physical exam findings c/w pyelonephritis, advised ER transfer. 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 She is overall stable, vss. Rx reviewed. She is aware of the risk of pyelonephritis and other worsening conditions. Advised supportive measures and signs/symptoms to go to the ER. Pt is appropriate for outpt treatment and f/u. Differential Diagnosis Differential diagnosis: Likely urinary tract infection, cystitis and other (pyelonephritis, renal colic, nephrolithiasis, bowel obstruction, dehydration, viral infection) Discharge Plan Discharge Clinical Impression: Urinary tract infection Patient Disposition: Home, Self-Care Condition: Stable Instructions: Antibiotic Form, Kidney Infection (ED) Additional Instructions: You were advised to transfer to the ER and you decline at this time. You were made aware of the risk of refusal including worsening of your condition and . Report to the ER immediately by calling 911 for any worsening symptoms. Take the antibiotic as prescribed The urine will be sent of for a culture to identify what type of bacteria is causing your infection. If the culture shows that the antibiotic will not get rid of your infection, you will be notified and a new antibiotic will be called in for you. Increase water intake you will need to follow up with your PCP, call to schedule an appointment. Go to the ER for any worsening symptoms or concerns (Fever, pain, vomiting and inability to maintain adequate hydration etc) Prescriptions: New ciprofloxacin HCl [Cipro] 500 mg tablet 500 mg PO Q12H 7 Days Qty: 14 0RF ondansetron 4 mg tablet,disintegrating 4 mg PO Q8H PRN (Reason: nausea and vomiting) Qty: 10 0RF No Action propranolol 80 mg capsule,extended release 24hr 80 mg PO DIRECTED Nurtec ODT 75 mg tablet,disintegrating 75 mg DIRECTED Mounjaro 7.5 mg/0.5 mL pen injector 7.5 mg SUBCUT DIRECTED Emgality Pen 120 mg/mL pen injector 120 mg SUBCUT MONTHLY glimepiride 2 mg tablet 2 mg PO BID Patient Comments: BEFORE MEALS Rx Instructions: BEFORE MEALS alprazolam 0.5 mg tablet 0.5 mg PO TID PRN (Reason: Anxiety) hydrochlorothiazide 25 mg tablet 25 mg PO DAILY (DME) [employer] G6 Sensor Device MISCELLANEOUS levothyroxine 112 mcg Capsule 112 mcg PO DAILY (DME) Accu-Chek Susie Plus test strp Strip MISCELLANEOUS Follow-up/Referrals: Jesse,MEG Garcia [Primary Care Provider] - Time of Disposition: 10:05
[2024-05-23] MEDS: ONDANSETRON HCL ODT 4 MG TABLET SUBLINGUAL (10:08)
[2024-05-23 10:32] LABS: EDUAAPPEAR Clear; EDUABILI 2+ (Negative); EDUABLOOD 3+ (Negative); EDUACOLOR1 Orange; EDUAGLUCOSE 1+ (Negative); EDUAKETONE 1+ (Negative); EDUALEUKO 3+ (Negative); EDUANITRATE Positive (Negative); EDUAPROTEIN 3+ (Negative)
== END 2024-05-23 10:11 | disposition home or self-care (01) ==
PROVIDERS: Emergency Provider Nurse Practitioner Family; PCP Physician Assistant
DX: N39.0 Urinary tract infection, site not specified (principal); E11.9 Type 2 diabetes mellitus without complications; I10 Essential (primary) hypertension; E03.9 Hypothyroidism, unspecified; Z87.891 Personal history of nicotine dependence; Z87.440 Personal history of urinary (tract) infections; Z87.442 Personal history of urinary calculi
CPT/HCPCS: 81003; 87086; 99213; A9270; G0463

== ENCOUNTER 2024-05-23 11:14 | Emergency (ER) | payer OTHER, SELFPAY ==
--- NOTE | ~2024-05-23 | CT_ITS ---
CT abdomen pelvis wo con Ordering provider: Vinny Perez PA-C History: 53 years Female with . L flank pain, N/V, Hx of stones . Comparison: August 03, 2021 Technique: CT abdomen and pelvis without IV and without oral contrast. Automated exposure control and iterative reconstruction technique were employed. The dose-length product was 1444.09 mGy-cm. Findings: VISUALIZED LOWER CHEST: Tiny nodule measuring 4 mm seen in the right lower lobe posteriorly. Pleural base tiny nodule also seen in the left lung base. [address] follow-up advised. UPPER ABDOMINAL ORGANS: Liver: Fat infiltration. Hepatomegaly. Gallbladder: Status post cholecystectomy. Spleen: Normal. Stomach/duodenum: Normal. Pancreas: Normal. Adrenals: Normal. Kidneys: Normal. PELVIC ORGANS: The bladder is underfilled. BOWEL AND MESENTERY: Colon: No evidence of diverticulitis. No evidence of appendicitis. Small Bowel: Normal. No obstruction. Peritoneum/mesentery: No free air or free fluid. No mesenteric lymphadenopathy. RETROPERITONEUM: Mild atheromatous disease of the abdominal aorta. No retroperitoneal lymphadenopat hy. MUSCULOSKELETAL: Superficial soft tissues: The superficial soft tissues are normal. Bones: Age appropriate degenerative changes of the spine. IMPRESSION: 1. No evidence of appendicitis, diverticulitis or intestinal obstruction. 2. Slight hepatomegaly with fat infiltration. Reviewed, dictated and finalized at location A.
[2024-05-23 11:16] VITALS: BP 135/93; PULSE 68; RESP 14; TEMP 36.3; O2SAT 100
--- NOTE | 2024-05-23 11:38 | PC.NURSE ---
Pt c/o increased nausea. Pt dry heaving in bed. made aware. Dr. Cole JUDD to administer 15mg toradol IVP stat, 4mg zofran IVP stat, 1L of NS IV bolus stat.
--- NOTE | 2024-05-23 11:40 | PC.NURSE ---
Pt reports unable to urinate at this time, will try again shortly.
[2024-05-23 11:42] LABS: Basophils Absolute Auto 0.1 K/mm3 (0.0-0.1); Basophils Percent Auto 0.4 % (0.2-1.2); Eosinophils Absolute Auto 0.1 K/mm3 (0-0.3); Eosinophils Percent Auto 0.6 % (0-4.4); Hematocrit 45.6 % (37.0-47.0); Hemoglobin 15.5 g/dL (12.0-15.0); Immature Granulocyte Absolute 0.04 K/mm3 (0.00-0.031); Immature Granulocyte Percent A 0.3 % (0-0.5); Lymphocytes Absolute Auto 2.06 K/mm3 (0.9-3.2); Lymphocytes Percent Auto 16.1 % (18.3-44.2); Mean Corpuscular Hemoglobin 30.8 pg (26-34); Mean Corpuscular Volume 90.7 fl (80-100); Mean Platelet Volume 11.5 fl (7.4-10.4); Monocytes Absolute Auto 0.8 K/mm3 (0.1-0.6); Monocytes Percent Auto 6.5 % (2.6-8.5); Neutrophils Absolute Auto 9.8 K/mm3 (1.3-6.7); Neutrophils Percent Auto 76.1 % (45.5-73.1); Platelet Count Result 220 k/mm3 (150-375); Red Blood Count 5.03 M/mm3 (4.2-5.4); Red Cell Distribution Width 11.8 % (11.5-14.5); White Blood Count 12.8 K/mm3 (4.5-10.0)
--- NOTE | 2024-05-23 11:47 | ED.FEMALEGU ---
HPI - Female Genitourinary General Chief complaint: Urogenital-Female Stated complaint: flank pain Time Seen by Provider: 05/23/24 11:42 Source: patient Mode of arrival: ambulatory Limitations: no limitations History of Present Illness HPI Narrative: This is a 53-year-old female with PMH of HTN, diabetes, ureteral stones who presents to the ED for chief complaint of left sided flank pain times 1-2 days. Reports yesterday she started having some urgency and frequency and mild left-sided flank pain. Today states the pain got much worse. Reports that she has had history of ureteral stones in the past with last occurrence in 2019 where she had to have the stone removed. Endorses nausea and vomiting. Denies associated fevers, chills, diarrhea, chest pain, shortness of breath, back pain. Related Data Home Medications Medication Instructions Recorded Confirmed alprazolam 0.5 mg tablet 0.5 mg PO TID PRN Anxiety 02/12/20 05/23/24 blood sugar diagnostic (Accu-Chek 02/12/20 05/23/24 Susie Plus test strips) blood-glucose sensor (Dexcom G6 02/12/20 05/23/24 Sensor device) glimepiride 2 mg tablet 2 mg PO BID 02/12/20 05/23/24 hydrochlorothiazide 25 mg tablet 25 mg PO DAILY 02/12/20 05/23/24 levothyroxine 112 mcg capsule 112 mcg PO DAILY 02/12/20 05/23/24 propranolol 80 mg capsule,24 80 mg PO DIRECTED 02/02/24 05/23/24 hr,extended release rimegepant 75 mg disintegrating 75 mg DIRECTED 02/02/24 05/23/24 tablet (Nurtec ODT) tirzepatide 7.5 mg/0.5 mL 7.5 mg subcut DIRECTED 02/02/24 05/23/24 subcutaneous pen injector (Mounjaro) galcanezumab-gnlm 120 mg/mL 120 mg subcut MONTHLY 05/23/24 05/23/24 subcutaneous pen injector (Emgality Pen) Allergies Allergy/AdvReac Type Severity Reaction Status Date / Time No Known Allergies Allergy Verified 05/23/24 09:35 Review of Systems Review of Systems: All systems as dictated in [facility] Past Medical History Medical History Diabetes Hypertension Hypothyroid Social History Social History Smoking packs per day: 0.5 Smoking cigarettes per day: 10.0 Smoking status: Former smoker Alcohol intake: never Last use: 1997 Living arrangements: with family Gender identity (if verbalized by the patient): Female Spiritual care concerns: No Exam Narrative: GENERAL: Well-appearing, well-nourished, and in no acute distress. HEAD: Normocephalic, atraumatic. EYES: PERRLA and EOMI. ENT: Nares clear, no rhinorrhea or epistaxis. Mucous membranes moist. Oropharynx without tonsillar hypertrophy exudate or other lesions. NECK: Supple. No adenopathy or masses. CHEST: No respiratory distress. Clear to auscultation. No wheezes rales or rhonchi HEART: Regular rate and rhythm. No murmur heard. Normal peripheral pulses. ABDOMEN: Left flank tenderness present. Negative right flank tenderness. Soft, otherwise nontender, nondistended, normal active bowel sounds. MSK: Normal range of motion. No edema. SKIN: Warm, dry, no rash. NEURO: Alert and oriented x4. No focal deficits. PSYCH: Normal mood and affect. Course Vital Signs Vital signs: Vital Signs Temperature 97.4 F L 05/23/24 11:16 Pulse Rate 68 05/23/24 11:16 Respiratory Rate 14 05/23/24 11:16 Blood Pressure 135/93 H 05/23/24 11:16 Pulse Oximetry 100 05/23/24 11:16 Oxygen Delivery Room Air 05/23/24 11:16 Temperature 97.4 F L 05/23/24 11:16 Pulse Rate 71 05/23/24 13:40 Respiratory Rate 16 05/23/24 13:40 Blood Pressure 121/82 05/23/24 13:40 Pulse Oximetry 100 05/23/24 13:40 Oxygen Delivery Room Air 05/23/24 11:16 MDM - Female Genitourinary MDM Narrative Medical decision making narrative: This is a 53-year-old female who presents to the ED for chief complaint of left flank pain beginning yesterday. Vitals are normal. Exam shows left flank tenderness. Lab work shows elevated white count of 12.8. CMP shows elevated blood glucose of 241. Urinalysis obscured due to using peridium however there is evidence of UTI with white blood cells and this does clinically fit the picture. CT abdomen pelvis: IMPRESSION: 1. No evidence of appendicitis, diverticulitis or intestinal obstruction. 2. Slight hepatomegaly with fat infiltration. Patient improved greatly with fluid, Toradol, Zofran. She was also given Rocephin IV here. Rx for cefdinir given. Patient will be discharged in stable condition. Supportive measures discussed and return precautions given. Patient is understanding and agreeable with plan for discharge with PCP follow-up. Lab Data 05/23/24 11:33 05/23/24 11:33 Labs: Lab Results 05/23/24 05/23/24 05/23/24 Range/Units 11:33 12:34 12:50 WBC 12.8 H (4.5-10.0) K/mm3 RBC 5.03 (4.2-5.4) M/mm3 Hgb 15.5 H (12.0-15.0) g/dL Hct 45.6 (37.0-47.0) % MCV 90.7 (80-100) fl MCH 30.8 (26-34) pg MCHC 34.0 (32-36) g/dl RDW 11.8 (11.5-14.5) % Plt Count 220 (150-375) k/mm3 MPV 11.5 H (7.4-10.4) fl Immature Gran % (Auto) 0.3 (0-0.5) % Neut % (Auto) 76.1 H (45.5-73.1) % Lymph % (Auto) 16.1 L (18.3-44.2) % [place] % (Auto) 6.5 (2.6-8.5) % Eos % (Auto) 0.6 (0-4.4) % Baso % (Auto) 0.4 (0.2-1.2) % Lymph # (Auto) 2.06 (0.9-3.2) K/mm3 [place] # (Auto) 0.8 H (0.1-0.6) K/mm3 Eos # (Auto) 0.1 (0-0.3) K/mm3 Baso # (Auto) 0.1 (0.0-0.1) K/mm3 Abs Immat Gran (auto) 0.04 H (0.00-0.031) K/mm3 Absolute Neuts (auto) 9.8 H (1.3-6.7) K/mm3 Absolute Nucleated RBC 0.000 (0.0-0.012) K/mm3 Nucleated RBC % 0.0 (0.0-0.2) % Sodium 135 L (137-145) mmol/L Potassium 3.4 (3.4-5.0) mmol/L Chloride 99 (98-107) mmol/L Carbon Dioxide 24 (22-30) mmol/L Anion Gap 12 (4-12) mmol/L BUN 12 D (7-17) mg/dL Creatinine 0.80 (0.7-1.0) mg/dL Estim Creat Clear Calc 82 ml/min Estimated GFR > 60 (59 - ) Glucose 241 H (65-110) mg/dL Calcium 9.4 (8.4-10.2) mg/dL Total Bilirubin 1.7 H (0.2-1.3) mg/dL AST 49 H (14-36) U/L ALT 41 H (6-35) U/L Alkaline Phosphatase 108 (38-126) U/L Total Protein 8.0 (6.3-8.2) g/dL Albumin 4.4 (3.5-5.1) g/dL Urine Color [place] H (Yellow) Urine Appearance Clear (Clear) Urine pH 5.5 (5.0-9.0) Ur Specific [employer] Mdl 1.020 (1.001-1.035) Urine Protein TNP Urine Glucose (UA) TNP Urine Ketones TNP Ur Blood (Man) TNP Urine Nitrate TNP Urine Bilirubin TNP Urine Urobilinogen TNP Add Ur Microanalysis Reviewed Leukocyte Esterase Rfl TNP Urine RBC 6-10 H (0-2) /hpf Urine WBC 51-100 H (0-3) /hpf Ur Squamous Epith Cells Occasional (Few) /hpf Urine Bacteria None seen /hpf Urine Casts 0-2 POC Urine HCG, Qual Negative (Negative) 05/23/24 Range/Units 12:50 WBC (4.5-10.0) K/mm3 RBC (4.2-5.4) M/mm3 Hgb (12.0-15.0) g/dL Hct (37.0-47.0) % MCV (80-100) fl MCH (26-34) pg MCHC (32-36) g/dl RDW (11.5-14.5) % Plt Count (150-375) k/mm3 MPV (7.4-10.4) fl Immature Gran % (Auto) (0-0.5) % Neut % (Auto) (45.5-73.1) % Lymph % (Auto) (18.3-44.2) % [place] % (Auto) (2.6-8.5) % Eos % (Auto) (0-4.4) % Baso % (Auto) (0.2-1.2) % Lymph # (Auto) (0.9-3.2) K/mm3 [place] # (Auto) (0.1-0.6) K/mm3 Eos # (Auto) (0-0.3) K/mm3 Baso # (Auto) (0.0-0.1) K/mm3 Abs Immat Gran (auto) (0.00-0.031) K/mm3 Absolute Neuts (auto) (1.3-6.7) K/mm3 Absolute Nucleated RBC (0.0-0.012) K/mm3 Nucleated RBC % (0.0-0.2) % Sodium (137-145) mmol/L Potassium (3.4-5.0) mmol/L Chloride (98-107) mmol/L Carbon Dioxide (22-30) mmol/L Anion Gap (4-12) mmol/L BUN (7-17) mg/dL Creatinine (0.7-1.0) mg/dL Estim Creat Clear Calc ml/min Estimated GFR (59 - ) Glucose (65-110) mg/dL Calcium (8.4-10.2) mg/dL Total Bilirubin (0.2-1.3) mg/dL AST (14-36) U/L ALT (6-35) U/L Alkaline Phosphatase (38-126) U/L Total Protein (6.3-8.2) g/dL Albumin (3.5-5.1) g/dL Urine Color (Yellow) Urine Appearance (Clear) Urine pH (5.0-9.0) Ur Specific [employer] Mdl (1.001-1.035) Urine Protein Urine Glucose (UA) Urine Ketones Ur Blood (Man) Urine Nitrate Urine Bilirubin Urine Urobilinogen Add Ur Microanalysis Leukocyte Esterase Rfl Urine RBC (0-2) /hpf Urine WBC (0-3) /hpf Ur Squamous Epith Cells (Few) /hpf Urine Bacteria /hpf Urine Casts POC Urine HCG, Qual Negative (Negative) Discharge Plan Discharge Clinical Impression: Urinary tract infection Patient Disposition: Home, Self-Care Condition: Stable Instructions: Antibiotic Form Additional Instructions: Your exam and workup today show no kidney stones. There is evidence of UTI. Please take cefdinir and Zofran as prescribed. Use Tylenol and ibuprofen regularly for pain control. Follow-up with PCP. If you have any new or worsening symptoms please return to the ER for further evaluation. Prescriptions: New cefdinir 300 mg capsule 300 mg PO Q12H 7 Days Qty: 14 0RF No Action propranolol 80 mg capsule,extended release 24hr 80 mg PO DIRECTED Nurtec ODT 75 mg tablet,disintegrating 75 mg DIRECTED Mounjaro 7.5 mg/0.5 mL pen injector 7.5 mg SUBCUT DIRECTED Emgality Pen 120 mg/mL pen injector 120 mg SUBCUT MONTHLY ciprofloxacin HCl [Cipro] 500 mg tablet 500 mg PO Q12H 7 Days Qty: 14 0RF ondansetron 4 mg tablet,disintegrating 4 mg PO Q8H PRN (Reason: nausea and vomiting) Qty: 10 0RF glimepiride 2 mg tablet 2 mg PO BID Patient Comments: BEFORE MEALS Rx Instructions: BEFORE MEALS alprazolam 0.5 mg tablet 0.5 mg PO TID PRN (Reason: Anxiety) hydrochlorothiazide 25 mg tablet 25 mg PO DAILY (DME) Dexcom G6 Sensor Device MISCELLANEOUS levothyroxine 112 mcg Capsule 112 mcg PO DAILY (DME) Accu-Chek Susie Plus test strp Strip MISCELLANEOUS Follow-up/Referrals: Jesse,MEG Garcia [Primary Care Provider] - Time of Disposition: 13:21
[2024-05-23] MEDS: KETOROLAC 15 MG/ML VIAL (*BKC) IV PUSH (11:50)
[2024-05-23] MEDS: SODIUM CHLORIDE 0.9% IV 1,000 ML 999 ML IV CONT (11:50)
[2024-05-23] MEDS: ONDANSETRON INJ 4 MG/2 ML VIAL IV PUSH (11:50)
[2024-05-23 11:53] LABS: Alanine Aminotransferase 41 U/L (6-35); Albumin Level 4.4 g/dL (3.5-5.1); Alkaline Phosphatase 108 U/L (38-126); Anion Gap 12 mmol/L (4-12); Aspartate Amino Transferase 49 U/L (14-36); Bilirubin,Total 1.7 mg/dL (0.2-1.3); Blood Urea Nitrogen 12 mg/dL (7-17); Calcium 9.4 mg/dL (8.4-10.2); Carbon Dioxide 24 mmol/L (22-30); Chloride 99 mmol/L (98-107); Estimated CRCL calculation 82 ml/min; Estimated Glomerular Filt Rate > 60; Glucose 241 mg/dL (65-110); Potassium 3.4 mmol/L (3.4-5.0); Sodium 135 mmol/L (137-145)
[2024-05-23 12:49] VITALS: BP 101/81; PULSE 73; RESP 20; O2SAT 97
[2024-05-23 12:52] LABS: BEDSIDEPREGUCG Negative (Negative)
[2024-05-23 13:03] LABS: Bacteria Urine None Seen /hpf; Need Manual Microscopic Reviewed; Non Pathogenic Casts 0-2; Squamous Epithelial Cell Urine Occasional /hpf (Few); WBC Urine 51-100 /hpf (0-3)
[2024-05-23 13:04] LABS: Add Urine Microscopic? YES; Appearance Urine Clear (Clear); Color Urine Orange (Yellow); pH Urine 5.5 (5.0-9.0)
[2024-05-23 13:40] VITALS: BP 121/82; PULSE 71; RESP 16; O2SAT 100
== END 2024-05-23 13:44 | disposition home or self-care (01) ==
PROVIDERS: Family Medicine; Emergency Provider Physician Assistant; PCP Physician Assistant
DX: N39.0 Urinary tract infection, site not specified (principal); I10 Essential (primary) hypertension; E11.9 Type 2 diabetes mellitus without complications; E03.9 Hypothyroidism, unspecified; Z87.442 Personal history of urinary calculi; Z87.891 Personal history of nicotine dependence; Z79.84 Long term (current) use of oral hypoglycemic drugs; Z79.85 Long-term (current) use of injectable non-insulin antidiabetic drugs; Z79.899 Other long term (current) drug therapy
CPT/HCPCS: 36415; 74176; 80053; 81001; 81025; 85025; 96361; 96374; 96375; 99284; J0696; J1885; J2405; J7030

== ENCOUNTER 2024-07-06 10:26 | Emergency (ER) | payer OTHER, SELFPAY ==
--- NOTE | 2024-07-06 11:21 | ED.URI ---
HPI - URI/Sore Throat General Chief Complaint: Upper Respiratory Infection Stated Complaint: Sore Throat/Cough/Headache Time Seen by Provider: 07/06/24 11:21 Source: patient and RN notes reviewed Mode of arrival: ambulatory Limitations: no limitations History of Present Illness HPI Narrative: 53-year-old female presented for complaint of cough, nasal congestion and drainage, sinus pressure, sore throat and fever. Onset 3 days. States she feels like it is hard to take deep breaths in the center chest hurts with coughing. Cough is nonproductive. Denies wheezing, nausea, vomiting, diarrhea or lethargy. Taking [id number] medicine without relief. MD elicited complaint: cough Related Data Home Medications Medication Instructions Recorded Confirmed alprazolam 0.5 mg tablet 0.5 mg PO TID PRN Anxiety 02/12/20 07/06/24 blood sugar diagnostic (Accu-Chek 02/12/20 05/23/24 Susie Plus test strips) blood-glucose sensor (So1 G6 02/12/20 05/23/24 Sensor device) glimepiride 2 mg tablet 2 mg PO BID 02/12/20 07/06/24 hydrochlorothiazide 25 mg tablet 25 mg PO DAILY 02/12/20 07/06/24 levothyroxine 112 mcg capsule 112 mcg PO DAILY 02/12/20 07/06/24 propranolol 80 mg capsule,24 80 mg PO DIRECTED 02/02/24 07/06/24 hr,extended release rimegepant 75 mg disintegrating 75 mg DIRECTED 02/02/24 07/06/24 tablet (Nurtec ODT) tirzepatide 7.5 mg/0.5 mL 7.5 mg subcut DIRECTED 02/02/24 07/06/24 subcutaneous pen injector (Mounjaro) galcanezumab-gnlm 120 mg/mL 120 mg subcut MONTHLY 05/23/24 07/06/24 subcutaneous pen injector (Emgality Pen) cyanocobalamin (vitamin B-12) 1,000 mcg IM DIRECTED 07/06/24 07/06/24 1,000 mcg/mL injection solution penicillin V potassium 500 mg 500 mg PO DIRECTED 07/06/24 07/06/24 tablet Allergies Allergy/AdvReac Type Severity Reaction Status Date / Time No Known Allergies Allergy Verified 07/06/24 11:28 Review of Systems Review of Systems: CONSTITUTIONAL: Endorses malaise, chills, sweats, fever EYES: Denies visual changes, redness, or discharge ENT: Reports rhinorrhea, congestion, sinus pain, sore throat CARDIOVASCULAR: Denies chest pain, palpitations, edema RESPIRATORY: Reports cough,dyspnea GASTROINTESTINAL: Denies abdominal pain, nausea, vomiting, diarrhea MUSCULOSKELETAL: Denies myalgia NEUROLOGIC: reports headache PMFSH Past Medical History Medical History Diabetes Hypertension Hypothyroid Social History Social History Smoking packs per day: 0.5 Smoking cigarettes per day: 10.0 Smoking status: Former smoker Alcohol intake: never Last use: 1997 Living arrangements: with family Gender identity (if verbalized by the patient): Female Spiritual care concerns: No Exam Narrative: GENERAL: Ill-appearing, nontoxic no acute distress. EYES: PERRLA, conjunctivae clear ENT: Mucous membranes moist. TM pearly is[place] with dull light reflex bilaterally; no tragal tenderness. Oropharynx not erythematous without lesions or exudate, no drooling, no hoarseness, no trismus, uvula midline. No tripod positioning, muffled voice, soft palate or pharyngeal wall bulging NECK: Supple. No lymphadenopathy CHEST: Right lower lung coarse. Frequent import coordination and production head cough. No respiratory distress, speaks in full sentences. HEART: Regular rate and rhythm. No murmur heard. SKIN: Warm, dry, no rash. NEURO: Alert and oriented x3. PSYCH: Normal mood and affect Course Course Emergency Course: Patient is aware of diagnosis, understands and agrees to treatment plan. Anticipatory guidance given. Patient agrees to follow-up as directed and is aware of reasons to seek care at the emergency department. Portions of this record may have been created with voice recognition software Level of Care: Express Care Visit Vital Signs Vital signs: reviewed MDM - URI/Sore Throat MDM Narrative Medical decision making narrative: Discussed physical exam findings negative flu, COVID. declined cxr. Advised stop penicillin, start azithromycin. Advised supportive measures and signs/symptoms to go to the ER. Pt is appropriate for outpt treatment and f/u. Differential Diagnosis Differential diagnosis: Likely upper respiratory infection, viral infection, bronchitis, pharyngitis and other (Pneumonia) Discharge Plan Discharge Clinical Impression: Acute lower respiratory infection Patient Disposition: Home, Self-Care Condition: Stable Instructions: Antibiotic Form, Pneumonia (ED) Additional Instructions: Pneumonia is a lung infection that can cause a fever, cough, and trouble breathing. How it spreads: When someone with bacterial pneumonia coughs, sneezes, or talks, they release respiratory droplets into the air that can be inhaled by others.?You can also get pneumonia by touching a contaminated surface or object and then touching your mouth or nose. You're generally contagious for around 48 hours after starting antibiotics and your fever goes away.? To prevent the spread of pneumonia, you can:? ? Get vaccinated? ? Wash your hands often with soap and water for 20 seconds? ? Cover your mouth with a tissue when you cough or sneeze? ? Avoid people who are already sick with pneumonia? ? Stay home when you have pneumonia Take antibiotics as directed until complete. Stop penicillin, start azithromycin Continue the steroid as previously prescribed eat small frequent meals. Get lots of rest and drink fluids. Alternate Tylenol and ibuprofen for pain/fever [id number] cough medication can cause drowsiness, take according to package directions If you have nasal congestion, you can take Zyrtec, Claritin along with Flonase spray Call your Primary Care Doctor and make a follow-up appointment in 3 days. Go to the ER for worsening symptoms or concerns Prescriptions: New azithromycin [Zithromax Z-Vincent] 250 mg tablet See Rx Instructions .ROUTE .COMPLEX Qty: 6 0RF Rx Instructions: For 250 mg dose pack: take 500 mg today (day 1), then 250 mg for 4 days (days 2-5) No Action propranolol 80 mg capsule,extended release 24hr 80 mg PO DIRECTED Nurtec ODT 75 mg tablet,disintegrating 75 mg DIRECTED Mounjaro 7.5 mg/0.5 mL pen injector 7.5 mg SUBCUT DIRECTED Emgality Pen 120 mg/mL pen injector 120 mg SUBCUT MONTHLY penicillin V potassium 500 mg tablet cyanocobalamin (vitamin B-12) 1,000 mcg/mL solution glimepiride 2 mg tablet 2 mg PO BID Patient Comments: BEFORE MEALS Rx Instructions: BEFORE MEALS alprazolam 0.5 mg tablet 0.5 mg PO TID PRN (Reason: Anxiety) hydrochlorothiazide 25 mg tablet 25 mg PO DAILY (DME) Dexcom G6 Sensor Device MISCELLANEOUS levothyroxine 112 mcg Capsule 112 mcg PO DAILY (DME) Accu-Chek Susie Plus test strp Strip MISCELLANEOUS Follow-up/Referrals: Jesse,MEG Garcia [Primary Care Provider] -
[2024-07-06 11:22] VITALS: BP 123/87; PULSE 77; RESP 16; TEMP 36.4; O2SAT 99
[2024-07-06 11:22] LABS: EDCOVIDSCREEN Negative (Negative); EDINFLUASCREEN Negative (Negative); EDINFLUBSCREEN Negative (Negative)
== END 2024-07-06 11:32 | disposition home or self-care (01) ==
PROVIDERS: Emergency Provider Nurse Practitioner Family; PCP Physician Assistant
DX: J22 Unspecified acute lower respiratory infection (principal); Z20.822 Contact with and (suspected) exposure to COVID-19; E11.9 Type 2 diabetes mellitus without complications; I10 Essential (primary) hypertension; E03.9 Hypothyroidism, unspecified; Z87.891 Personal history of nicotine dependence
CPT/HCPCS: 87426; 87804; 99213; G0463

== ENCOUNTER 2024-07-16 13:19 | Emergency (ER) | payer OTHER, SELFPAY ==
--- NOTE | ~2024-07-16 | XR_ITS ---
EXAMINATION: XR chest 2V 07/16/2024 14:14 INDICATION: Cough and wheezing PROCEDURE: 2 view chest COMPARISON: No prior studies for comparison. FINDINGS: The lungs are clear. The cardiomediastinal silhouette is within normal limits. There are no pleural effusions. There is no pneumothorax suspected. IMPRESSION: 1: NO ACUTE CARDIOPULMONARY DISEASE. Reviewed, dictated and finalized at location B. TOR
[2024-07-16 13:31] VITALS: BP 127/76; PULSE 76; RESP 16; TEMP 36.4; O2SAT 98
[2024-07-16 13:45] VITALS: PULSE 72; RESP 18; O2SAT 100
--- NOTE | 2024-07-16 13:53 | ED_ITS ---
HPI - URI/Sore Throat General Chief Complaint: Upper Respiratory Infection Stated Complaint: coughing/wheezing/congestion Time Seen by Provider: 07/16/24 13:42 Source: patient, RN notes reviewed and old records reviewed Mode of arrival: ambulatory Limitations: no limitations History of Present Illness HPI Narrative: 53 year old female presents to [facility] care with complaints of cough, wheezing and congestion which started the of this month with initially fevers, chills and sweats. Patient reports that she did a telemed visit on the and she was started on PCN and some prednisone but not feeling any better and came to clinic on the and they changed her medication to Azithromycin and gave her some Tessalon Perles. She was also given some promethazine cough syrup and Albuterol by her PCP office on the .. Patient presents today with continued cough and some congestion with no fever noted at this time but wheezing with feelings of congestion also MD elicited complaint: cough, rhinorrhea, nasal congestion and other (wheezing) Onset (ago): day(s) (12 days of total symptoms) Able to tolerate fluids by mouth: Yes Treatments prior to arrival: acetaminophen, ibuprofen, antibiotics and other (steroids, Benzonatate and inhaler) Related Data Home Medications ?Medication ?Instructions ?Recorded ?Confirmed ?Last Taken ?Type alprazolam 0.5 mg tablet 0.5 mg PO TID PRN Anxiety 02/12/20 07/06/24 02/14/20 11:00 History blood sugar diagnostic (Accu-Chek 02/12/20 05/23/24 Unknown History Susie Plus test strips) blood-glucose sensor (Dexcom G6 02/12/20 05/23/24 Unknown History Sensor device) glimepiride 2 mg tablet 2 mg PO BID 02/12/20 07/06/24 02/14/20 08:30 History hydrochlorothiazide 25 mg tablet 25 mg PO DAILY 02/12/20 07/06/24 02/13/20 History levothyroxine 112 mcg capsule 112 mcg PO DAILY 02/12/20 07/06/24 02/14/20 08:30 History propranolol 80 mg capsule,24 80 mg PO DIRECTED 02/02/24 07/06/24 Unknown History hr,extended release rimegepant 75 mg disintegrating 75 mg DIRECTED 02/02/24 07/06/24 Unknown History tablet (Nurtec ODT) tirzepatide 7.5 mg/0.5 mL 7.5 mg subcut DIRECTED 02/02/24 07/06/24 Unknown History subcutaneous pen injector (Mounjaro) galcanezumab-gnlm 120 mg/mL 120 mg subcut MONTHLY 05/23/24 07/06/24 Unknown History subcutaneous pen injector (Emgality Pen) cyanocobalamin (vitamin B-12) 1,000 mcg IM DIRECTED 07/06/24 07/06/24 Unknown History 1,000 mcg/mL injection solution albuterol 90 mcg-budesonide 80 inh inhalation 07/16/24 Unknown History mcg/actuation HFA aerosol inhaler (Airsupra) promethazine-DM 6.25 mg-15 mg/5 mL ml 07/16/24 Unknown History oral syrup Allergies Allergy/AdvReac Type Severity Reaction Status Date / Time No Known Allergies Allergy Verified 07/16/24 13:54 Review of Systems Review of Systems: CONSTITUTIONAL: Reports malaise, no recent chills, sweats, or fever. EYES: Denies visual changes, redness, or discharge. ENT: Reports rhinorrhea, congestion, sinus pain,no otalgia and no sore throat. CARDIOVASCULAR: Denies chest pain, palpitations, or edema. RESPIRATORY: Reports cough.?wheezing and some dyspnea GASTROINTESTINAL: Denies abdominal pain, nausea, vomiting, diarrhea SKIN: Denies rash or itching. MUSCULOSKELETAL: Denies myalgia. NEUROLOGIC: Denies headache. All systems reviewed & are unremarkable except as noted in HPI and below PMFSH Past Medical History Medical History (Updated 07/17/24 @ 00:01 by Cortez Allred) Hypothyroid Hypertension Diabetes Surgical History Surgical History (Updated 07/16/24 @ 14:15 by Farzana Valente NP) Hx of cholecystectomy Social History Social History Smoking packs per day: 0.5 Smoking cigarettes per day: 10.0 Smoking status: Former smoker Alcohol intake: never Last use: 1997 Living arrangements: with family Gender identity (if verbalized by the patient): Female Spiritual care concerns: No Comments At time of signature, agree with nursing past medical, surgical, social and family history. There is no relevant family history pertinent to the presenting complaint Exam Narrative: GENERAL: Well-appearing, well-nourished, and in no acute distress. HEAD: Normocephalic EYES: PERRLA, conjunctivae clear ENT: Nares clear, turbinates edematous and erythematous, clear discharge. Mucous membranes moist. TM pearly is[place] with dull light reflex bilaterally; no tragal tenderness. Oropharynx erythematous without lesions. Tonsils not enlarged and without exudate, no drooling, no hoarseness, no trismus, uvula midline.post nasal discharge NECK: Supple. No lymphadenopathy CHEST: Scattered wheezing throughout lung florez, breath sounds equal.positive for wheezing,no rhonchi, rales, or stridor. No respiratory distress, speaks in full sentences. cough SAO2 98% on room air HEART: Regular rate and rhythm. No murmur heard. SKIN: Warm, dry, no rash. NEURO: Alert and oriented x3. PSYCH: Normal mood and affect Course Course Emergency Course: Patient is aware of diagnosis, understands and agrees to treatment plan.? Anticipatory guidance given.? Patient agrees to follow-up as directed and is aware of reasons to seek care at the emergency department. Portions of this record may have been created with voice recognition software Level of Care: Express Care Visit Vital Signs Vital signs: Vital Signs Temperature 36.4 C 07/16/24 13:31 Pulse Rate 76 07/16/24 13:31 Respiratory Rate 16 07/16/24 13:31 Blood Pressure 127/76 07/16/24 13:31 Pulse Oximetry 98 07/16/24 13:31 Temperature 36.4 C 07/16/24 13:31 Pulse Rate 75 07/16/24 14:40 Respiratory Rate 20 07/16/24 14:40 Blood Pressure 127/76 07/16/24 13:31 Pulse Oximetry 100 07/16/24 14:40 Oxygen Delivery Room Air 07/16/24 13:45 Reviewed MDM - URI/Sore Throat MDM Narrative Medical decision making narrative: Differential diagnosis considered: Read virus, strep pharyngitis, allergic rhinitis, upper respiratory tract infection, sinusitis, rhinosinusitis, nasopharyngitis. viral pharyngitis, otitis media, otitis externa, pneumonia, bronchitis, viral cough syndrome, viral syndrome, and influenza.? Exam findings show no acute concerns or changes; patient is non-toxic appearing and is in no distress.? Patient is appropriate for outpatient treatment and follow-up. Patient received respiratory treatment while in clinic of Duo Nebulizer solution with decreased wheezing noted after treatment noted on auscultation Differential Diagnosis Differential diagnosis: Likely upper respiratory infection, sinusitis, viral infection, bronchitis and other (accute cough) Medical Records Attestation: I reviewed the patient's medical records. Lab Data Attestation: I reviewed the patient's lab results. Imaging Data Attestation: I personally reviewed and interpreted this imaging study as foll ows: My impression: no acute cardiopulmonary disease Radiologist's impression: [facility] [address] [facility] [address] XRay Report Signed Patient: Danielle Keller : 1970 MR#: [id number] Age: 53 Acct:[id number] Loc: [id number] ADM Date: 07/16/24Attending Dr: Ordering Physician: Farzana Valente APRN Date of Service: 07/16/24 Procedure(s): XR chest 2V Accession Number(s): [id number] cc: Jesse, Dannie WEAVER; Farzana Valente APRN~ EXAMINATION: XR chest 2V 07/16/2024 14:14 INDICATION: Cough and wheezing PROCEDURE: 2 view chest COMPARISON: No prior studies for comparison. FINDINGS: The lungs are clear. The cardiomediastinal silhouette is within normal limits. There are no pleural effusions. There is no pneumothorax suspected. IMPRESSION: 1: NO ACUTE CARDIOPULMONARY DISEASE. Reviewed, dictated and finalized at location B. [employer] Dictated By: Floyd Saldivar MD 07/16/24 1421 Signed By: <Electronically signed by Floyd Saldivar MD in OV> Critical Care Time Critical Care Time Critical Care Time: No Discharge Plan Discharge Clinical Impression: Bronchitis Patient Disposition: Home, Self-Care Condition: Stable Instructions: Antibiotic Form, Acute Bronchitis (ED) Additional Instructions: Increase fluids especially juices and water Fqop-wbi-jaxigij cough and cold medicine of your choice for your symptoms Tylenol ibuprofen for any fever pain Zyrtec Claritin or Slime daily include Coricidin brand decongestant Continue your inhaler/nebulizer as directed Steroids as directed--take with food heat to the face 20-30 minutes 4-6 times a day for pain Salt water gargles, throat lozenges or throat sprays as desired If your symptoms persist, change or worsen significantly before you can contact your personal physician then please, without delay, go to the emergency department for further evaluation. Follow-up with PCP in 7-10 days or sooner if needed Follow up with PCP soon in regards to your blood pressure which is elevated above threshold for referral. Blood pressure above 120/80 may indicate pre- hypertension. minimally elevated at 127/76 Patient Language: [place] Island[place] Prescriptions: New prednisone 20 mg tablet 20 mg PO BID Qty: 10 0RF Rx Instructions: take with food No Action propranolol 80 mg capsule,extended release 24hr 80 mg PO DIRECTED Nurtec ODT 75 mg tablet,disintegrating 75 mg DIRECTED Mounjaro 7.5 mg/0.5 mL pen injector 7.5 mg SUBCUT DIRECTED Emgality Pen 120 mg/mL pen injector 120 mg SUBCUT MONTHLY cyanocobalamin (vitamin B-12) 1,000 mcg/mL solution 1,000 mcg IM DIRECTED benzonatate 200 mg capsule 200 mg PO TID PRN (Reason: cough) Qty: 20 0RF promethazine-DM 6.25-15 mg/5 mL syrup Airsupra 90-80 mcg/actuation HFA aerosol inhaler INHALATION glimepiride 2 mg tablet 2 mg PO BID Patient Comments: BEFORE MEALS Rx Instructions: BEFORE MEALS alprazolam 0.5 mg tablet 0.5 mg PO TID PRN (Reason: Anxiety) hydrochlorothiazide 25 mg tablet 25 mg PO DAILY (DME) Dexcom G6 Sensor Device MISCELLANEOUS levothyroxine 112 mcg Capsule 112 mcg PO DAILY (DME) Accu-Chek Susie Plus test strp Strip MISCELLANEOUS Follow-up/Referrals: Jesse,MEG Garcia [Primary Care Provider] - Time of Disposition: 14:49 Quality Sara Coma Scale Eyes: Open Verbal: Oriented and Alert Motor: Follows Commands [place] Coma Total Score: 15
[2024-07-16] MEDS: ALBUTEROL SULFATE NEB 2.5 MG/3 ML INH INHALATION (14:18)
[2024-07-16] MEDS: IPRATROPIUM 0.5 MG/ALBUTEROL SULFATE 2.5 MG AMPUL.NEB 3 ML INHALATION (14:19)
[2024-07-16 14:40] VITALS: PULSE 75; RESP 20; O2SAT 100
== END 2024-07-16 14:52 | disposition home or self-care (01) ==
PROVIDERS: Emergency Provider Registered Nurse; PCP Physician Assistant
DX: J40 Bronchitis, not specified as acute or chronic (principal); E11.9 Type 2 diabetes mellitus without complications; I10 Essential (primary) hypertension; E03.9 Hypothyroidism, unspecified; Z87.891 Personal history of nicotine dependence
CPT/HCPCS: 71046; 99213; G0463

== ENCOUNTER 2024-08-26 08:03 | Emergency (ER) | payer OTHER, SELFPAY ==
[2024-08-26 08:10] VITALS: BP 116/72; PULSE 74; RESP 18; TEMP 36.2; O2SAT 100
--- NOTE | 2024-08-26 08:17 | ED.FEMALEGU ---
HPI - Female Genitourinary General Chief complaint: Urogenital-Female Stated complaint: UTI Symptoms Time Seen by Provider: 08/26/24 08:18 Source: patient and RN notes reviewed Mode of arrival: ambulatory Limitations: no limitations History of Present Illness HPI Narrative: 54-year-old female presented for complaint of suprapubic discomfort, bladder spasms with urinating, frequency and urgency. Onset this morning. Also endorses nausea and vomiting this morning. Denies hematuria, flank pain, constipation, diarrhea, fevers or chills. Took Pyridium this morning. Denies frequent UTIs. Related Data Home Medications ?Medication ?Instructions ?Recorded ?Confirmed ?Last Taken ?Type alprazolam 0.5 mg tablet 0.5 mg PO TID PRN Anxiety 02/12/20 08/26/24 02/14/20 11:00 History blood sugar diagnostic (Accu-Chek 02/12/20 05/23/24 Unknown History Susie Plus test strips) blood-glucose sensor (Dexcom G6 02/12/20 08/26/24 Unknown History Sensor device) glimepiride 2 mg tablet 2 mg PO BID 02/12/20 08/26/24 02/14/20 08:30 History hydrochlorothiazide 25 mg tablet 25 mg PO DAILY 02/12/20 08/26/24 02/13/20 History levothyroxine 112 mcg capsule 112 mcg PO DAILY 02/12/20 08/26/24 02/14/20 08:30 History propranolol 80 mg capsule,24 80 mg PO DIRECTED 02/02/24 08/26/24 Unknown History hr,extended release rimegepant 75 mg disintegrating 75 mg PO DIRECTED 02/02/24 08/26/24 Unknown History tablet (Nurtec ODT) tirzepatide 7.5 mg/0.5 mL 7.5 mg subcut DIRECTED 02/02/24 08/26/24 Unknown History subcutaneous pen injector (Mounjaro) galcanezumab-gnlm 120 mg/mL 120 mg subcut MONTHLY 05/23/24 08/26/24 Unknown History subcutaneous pen injector (Emgality Pen) cyanocobalamin (vitamin B-12) 1,000 mcg IM DIRECTED 07/06/24 08/26/24 Unknown History 1,000 mcg/mL injection solution Allergies Allergy/AdvReac Type Severity Reaction Status Date / Time No Known Allergies Allergy Verified 08/26/24 08:08 Review of Systems Review of Systems: CONSTITUTIONAL: Denies body aches, fever, chills, or sweats. CARDIOVASCULAR: Denies chest pain, palpitations, or edema. RESPIRATORY: Denies cough or dyspnea. GASTROINTESTINAL: Denies abdominal pain, nausea, vomiting, or diarrhea. GENITOURINARY: Reports dysuria, frequency, urgency, denies hematuria, flank pain SKIN: Denies rash, itching, or wounds. MUSCULOSKELETAL: Denies back pain or myalgia. [facility] Past Medical History Medical History Hypothyroid Hypertension Diabetes Surgical History Surgical History Hx of cholecystectomy Social History Social History Smoking packs per day: 0.5 Smoking cigarettes per day: 10.0 Smoking status: Former smoker Alcohol intake: never Last use: 1997 Living arrangements: with family Gender identity (if verbalized by the patient): Female Spiritual care concerns: No Comments At time of signature, I have reviewed and agree with nursing past medical, surgical, social and family history unless otherwise noted. Please see nursing chart for further information. There is no relevant family history pertinent to the presenting complaint Exam Narrative: GENERAL: Well-appearing ENT: Mucous membranes pink and moist. NECK: Normal AROM. Supple. CHEST: No respiratory distress. Clear to auscultation. HEART: Regular rate and rhythm. ABDOMEN: Soft, nontender, nondistended, normal active bowel sounds. No CVA tenderness SKIN: Warm, dry NEURO: No focal deficits. Alert and oriented x3. Gait steady. PSYCH: Normal affect. Course Course Emergency Course: Patient is aware of diagnosis, understands and agrees to treatment plan. Anticipatory guidance given. Patient agrees to follow-up as directed and is aware of reasons to seek care at the emergency department. Portions of this record may have been created with voice recognition software Level of Care: Express Care Visit Vital Signs Vital signs: Vital Signs Temperature 97.1 F L 08/26/24 08:10 Pulse Rate 74 08/26/24 08:10 Respiratory Rate 18 08/26/24 08:10 Blood Pressure 116/72 01/27/25 08:10 Pulse Oximetry 100 08/26/24 08:10 Oxygen Delivery Room Air 08/26/24 08:10 Temperature 97.1 F L 08/26/24 08:10 Pulse Rate 74 08/26/24 08:10 Respiratory Rate 18 08/26/24 08:10 Blood Pressure 116/72 08/26/24 08:10 Pulse Oximetry 100 08/26/24 08:10 Oxygen Delivery Room Air 08/26/24 08:10 Reviewed MDM - Female Genitourinary MDM Narrative Medical decision making narrative: Discussed physical exam findings Neg flu and Covid. Rx Cipro and ondansetron, will culture. Advised supportive measures and signs/symptoms to go to the ER. Pt is appropriate for outpt treatment and f/u. Differential Diagnosis Differential diagnosis: Likely urinary tract infection, vaginitis, cystitis and other Lab Data Labs: Lab Results 08/26/24 Range/Units 08:22 POC Urine Color [place] POC Urine Clarity Cloudy POC Urine pH 7.0 POC Ur Specif [place] 1.020 POC Urine Protein 2+ (Negative) POC Ur Glucose (UA) Trace (Negative) POC Urine Ketones Negative (Negative) POC Urine Blood 2+ (Negative) POC Urine Nitrite Positive (Negative) POC Urine Bilirubin Negative (Negative) POC Urine Urobilinogen 1.0 POC U Leukocyte Esteras Trace (Negative) Discharge Plan Discharge Clinical Impression: Dysuria Patient Disposition: Home, Self-Care Condition: Stable Instructions: Antibiotic Form, Urinary Tract Infection in Women (ED) Additional Instructions: Take the antibiotic as prescribed The urine will be sent of for a culture to identify what type of bacteria is causing your infection. If the culture shows that the antibiotic will not get rid of your infection, you will be notified and a new antibiotic will be called in for you. Increase water intake you will need to follow up with your PCP, call to schedule an appointment. Go to the ER for any worsening symptoms or concerns Patient Language: Bengali Prescriptions: New ciprofloxacin HCl [Cipro] 500 mg tablet 500 mg PO DAILY 3 Days Qty: 3 0RF ondansetron 4 mg tablet,disintegrating 4 mg PO Q8H PRN (Reason: nausea and vomiting) Qty: 8 0RF No Action propranolol 80 mg capsule,extended release 24hr 80 mg PO DIRECTED Nurtec ODT 75 mg tablet,disintegrating 75 mg PO DIRECTED Mounjaro 7.5 mg/0.5 mL pen injector 7.5 mg SUBCUT DIRECTED Emgality Pen 120 mg/mL pen injector 120 mg SUBCUT MONTHLY cyanocobalamin (vitamin B-12) 1,000 mcg/mL solution 1,000 mcg IM DIRECTED glimepiride 2 mg tablet 2 mg PO BID Patient Comments: BEFORE MEALS Rx Instructions: BEFORE MEALS alprazolam 0.5 mg tablet 0.5 mg PO TID PRN (Reason: Anxiety) hydrochlorothiazide 25 mg tablet 25 mg PO DAILY (DME) [employer] G6 Sensor Device MISCELLANEOUS levothyroxine 112 mcg Capsule 112 mcg PO DAILY (DME) Accu-Chek Susie Plus test strp Strip MISCELLANEOUS Follow-up/Referrals: Jesse,MEG Garcia [Primary Care Provider] - Stand Alone Forms: Work/School Release IP Time of Disposition: 08:58
[2024-08-26 08:24] LABS: EDUAAPPEAR Cloudy; EDUABILI Negative (Negative); EDUABLOOD 2+ (Negative); EDUACOLOR1 Orange; EDUAGLUCOSE Trace (Negative); EDUAKETONE Negative (Negative); EDUALEUKO Trace (Negative); EDUANITRATE Positive (Negative); EDUAPROTEIN 2+ (Negative)
[2024-08-26] MEDS: ONDANSETRON HCL ODT 4 MG TABLET SUBLINGUAL (08:32)
[2024-08-26 09:03] LABS: EDCOVIDSCREEN Negative (Negative); EDINFLUASCREEN Negative (Negative); EDINFLUBSCREEN Negative (Negative)
== END 2024-08-26 09:04 | disposition home or self-care (01) ==
PROVIDERS: Emergency Provider Nurse Practitioner Family; PCP Physician Assistant
DX: R30.0 Dysuria (principal); Z20.822 Contact with and (suspected) exposure to COVID-19; Z87.891 Personal history of nicotine dependence; E11.9 Type 2 diabetes mellitus without complications; Z79.84 Long term (current) use of oral hypoglycemic drugs; I10 Essential (primary) hypertension; E03.9 Hypothyroidism, unspecified
CPT/HCPCS: 81003; 87086; 87426; 87804; 99213; A9270; G0463

== ENCOUNTER 2024-10-08 12:27 | Emergency (ER) | payer OTHER, SELFPAY ==
--- NOTE | 2024-10-08 12:38 | ED_ITS ---
HPI - URI/Sore Throat General Chief Complaint: Upper Respiratory Infection Stated Complaint: flu like symptoms Time Seen by Provider: 10/08/24 12:50 Source: patient Mode of arrival: ambulatory Limitations: no limitations History of Present Illness HPI Narrative: Danielle is a 54-year-old female patient presenting to the clinic today with complaints possible flu like symptoms. She reports she has got cough, fatigue, nasal drainage, congestion, headache, scratchy throat, and body aches. No known fever. MD elicited complaint: sore throat and nasal congestion Related Data Home Medications ?Medication ?Instructions ?Recorded ?Confirmed ?Last Taken ?Type alprazolam 0.5 mg tablet 0.5 mg PO TID PRN Anxiety 02/12/20 10/08/24 02/14/20 11:00 History blood sugar diagnostic (Accu-Chek 02/12/20 05/23/24 Unknown History Susie Plus test strips) blood-glucose sensor (Dexcom G6 02/12/20 08/26/24 Unknown History Sensor device) hydrochlorothiazide 25 mg tablet 25 mg PO DAILY 02/12/20 10/08/24 02/13/20 History levothyroxine 112 mcg capsule 112 mcg PO DAILY 02/12/20 10/08/24 02/14/20 08:30 History propranolol 80 mg capsule,24 80 mg PO DIRECTED 02/02/24 10/08/24 Unknown History hr,extended release rimegepant 75 mg disintegrating 75 mg PO DIRECTED 02/02/24 10/08/24 Unknown History tablet (Nurtec ODT) tirzepatide 7.5 mg/0.5 mL 7.5 mg subcut DIRECTED 02/02/24 10/08/24 Unknown History subcutaneous pen injector (Mounjaro) galcanezumab-gnlm 120 mg/mL 120 mg subcut MONTHLY 05/23/24 10/08/24 Unknown History subcutaneous pen injector (Emgality Pen) cyanocobalamin (vitamin B-12) 1,000 mcg IM DIRECTED 07/06/24 10/08/24 Unknown History 1,000 mcg/mL injection solution Allergies Allergy/AdvReac Type Severity Reaction Status Date / Time No Known Allergies Allergy Verified 10/08/24 12:40 Review of Systems Review of Systems: Pertinent positives per HPI. Patient denies any fever, chills, rash, headache, visual changes, dizziness, shortness of breath, chest pain, palpitations, nausea, vomiting, diarrhea, constipation, abdominal pain, or any urinary issues. [facility] Past Medical History Medical History Hypothyroid Hypertension Diabetes Surgical History Surgical History Hx of cholecystectomy Social History Social History Smoking packs per day: 0.5 Smoking cigarettes per day: 10.0 Smoking status: Former smoker Alcohol intake: never Last use: 1997 Living arrangements: with family Gender identity (if verbalized by the patient): Female Spiritual care concerns: No Comments At the time of my signature, I reviewed and agree with the nursing past medical, surgical, social, and family history. There is no relevant family history pertinent to the patient complaint. Exam Narrative: General: Well-developed, well nourished, in no apparent distress Head: Normocephalic, atraumatic Eyes: Pupils equally round and reactive to light bilaterally, EOM intact, sclera and conjunctive clear, no discharge, lids normal Ears: TMs intact and clear, ear canals clear, no drainage, grossly hearing normal. Nose: Nares patent, clear nasal discharge, mild inflammation, no sinus tenderness. Mouth: Oral pharynx without lesions or masses, good dentition, MMM. Postnasal drip Neck: Supple, trachea midline, no enlargement of anterior or posterior cervical nodes, no thyroid masses or goiter palpable. Cardio: Regular rate and rhythm, s1 and s2 normal, no murmur appreciated. Resp: Clear to auscultation bilaterally, no rhonchi, rales, wheezing or rubs Course Course Emergency Course: Portions of this record may have been created with voice recognition software. Level of Care: Express Care Visit Vital Signs Vital signs: Vital Signs Temperature 36.4 C L 10/08/24 12:45 Pulse Rate 78 10/08/24 12:45 Respiratory Rate 16 10/08/24 12:45 Blood Pressure 124/90 10/08/24 12:45 Pulse Oximetry 100 10/08/24 12:45 Temperature 36.4 C L 10/08/24 12:45 Pulse Rate 78 10/08/24 12:45 Respiratory Rate 16 10/08/24 12:45 Blood Pressure 124/90 10/08/24 12:45 Pulse Oximetry 100 10/08/24 12:45 Vital signs reviewed MDM - URI/Sore Throat MDM Narrative Medical decision making narrative: At the time of visit patient is resting comfortably on the exam table. Patient appears to be nontoxic. Labs: Influenza testing was negative in the clinic today. Plan: I suspect patient has URI/viral syndrome. Supportive measures were d iscussed with the patient and they voiced understanding discharge instructions and agrees to treatment plan. Return precautions reviewed Differential Diagnosis Differential diagnosis: Likely upper respiratory infection, otitis media, sinusitis, viral infection, bronchitis, influenza, pharyngitis and other (COVID) Lab Data Labs: Lab Results 10/08/24 Range/Units 12:59 POC Influenza A Ag Negative (Negative) POC Influenza B Ag Negative (Negative) Discharge Plan Discharge Clinical Impression: Viral infection Upper respiratory infection Qualifiers: URI type: unspecified URI Qualified Code(s): J06.9 - Acute upper respiratory infection, unspecified Patient Disposition: Home, Self-Care Condition: Stable Instructions: Antibiotic Form, Viral Syndrome (ED), Cold Symptoms (ED) Additional Instructions: Influenza testing was negative in the clinic today. Take prescription medications only as prescribed Increase fluids and stay well hydrated Tylenol/motrin for pain/fever Flonase and OTC antihistamines as directed Vicks vapor rub to open sinuses Sinus rinses for congestion Cepacol spray, cough drops, throat lozenges, warm tea with honey/lemon, gargle salt water to soothe throat BRAT diet for diarrhea Clear liquids x 24 hours then advance as tolerated for nausea/vomiting Go to the ED if you develop a worsening in your condition- high fever not controlled by Tylenol or Motrin, dehydration, weakness, lethargy, shortness of breath, or chest pain. Follow up with your PCP in 3-5 days if symptoms persist. Patient Language: Tristanian Prescriptions: No Action propranolol 80 mg capsule,extended release 24hr 80 mg PO DIRECTED Nurtec ODT 75 mg tablet,disintegrating 75 mg PO DIRECTED Mounjaro 7.5 mg/0.5 mL pen injector 7.5 mg SUBCUT DIRECTED Emgality Pen 120 mg/mL pen injector 120 mg SUBCUT MONTHLY cyanocobalamin (vitamin B-12) 1,000 mcg/mL solution 1,000 mcg IM DIRECTED ondansetron 4 mg tablet,disintegrating 4 mg PO Q8H PRN (Reason: nausea and vomiting) Qty: 8 0RF alprazolam 0.5 mg tablet 0.5 mg PO TID PRN (Reason: Anxiety) hydrochlorothiazide 25 mg tablet 25 mg PO DAILY (DME) Dexcom G6 Sensor Device MISCELLANEOUS levothyroxine 112 mcg Capsule 112 mcg PO DAILY (DME) Accu-Chek Susie Plus test strp Strip MISCELLANEOUS Follow-up/Referrals: Jesse,MEG Garcia [Primary Care Provider] - Stand Alone Forms: Work/School Release IP Time of Disposition: 12:59 Quality NIHSS Nursing Documentation ED NIHSS nursing documentation: reviewed/agree
[2024-10-08 12:45] VITALS: BP 124/90; PULSE 78; RESP 16; TEMP 36.4; O2SAT 100
[2024-10-08 13:01] LABS: EDINFLUASCREEN Negative (Negative); EDINFLUBSCREEN Negative (Negative)
== END 2024-10-08 13:04 | disposition home or self-care (01) ==
PROVIDERS: Emergency Provider Nurse Practitioner Family; PCP Physician Assistant
DX: B34.9 Viral infection, unspecified (principal); J06.9 Acute upper respiratory infection, unspecified; F17.210 Nicotine dependence, cigarettes, uncomplicated; I10 Essential (primary) hypertension; E11.9 Type 2 diabetes mellitus without complications; E03.9 Hypothyroidism, unspecified
CPT/HCPCS: 87804; 99212; G0463

== ENCOUNTER 2024-10-31 18:35 | Emergency (ER) | payer OTHER, SELFPAY ==
--- NOTE | ~2024-10-31 | CT_ITS ---
EXAMINATION: CT cervical spine wo con DATE: 10/31/2024 19:33 INDICATION: Fall down stairs TECHNIQUE: Computed tomography (CT) of the cervical spine was performed without intravenous contrast. Automated exposure control and iterative reconstruction technique were employed. The dose-length pro duct was 510.19 mGy-cm. COMPARISON: None. FINDINGS: Vertebral Body Alignment: Intact. Reversed lordosis centered at C4-5. Craniocervical and atlantoaxial alignment: Moderate degenerative change. Alignment intact. Osseous structures/fracture: No evidence of a lytic or blastic process in the visualized spine. No e vidence of acute fracture. Cervical soft tissues: The paraspinal soft tissues planes are maintained. Degenerative changes: Mild degenerative changes are present, without severe central canal or neural f oraminal narrowing. IMPRESSION: No acute fracture or traumatic malalignment in the cervical spine. Reviewed, dictated and finalized at location K.
--- NOTE | ~2024-10-31 | XR_ITS ---
EXAM: XR knee RT 3V, XR knee LT 3V DATE: 10/31/2024 19:53 HISTORY: Fall down stairs . COMPARISON: None available. FINDINGS: Normal mineralization. No fracture or dislocation. No lytic or blastic lesion. Mild bilate ral tricompartmental osteoarthritic changes, more progressive in the left knee. Bilateral quadriceps enthesopathy. Small bilateral joint effusions. No erosion or periosteal change. Scattered vascular ca lcifications. IMPRESSION: No acute osseous finding in the left or right knees. Reviewed, dictated and finalized at location K. IMPRESSION: No acute osseous finding in the left or right knees.
--- NOTE | ~2024-10-31 | XR_ITS ---
EXAMINATION: XR ribs RT 2V Exam Date/Time: 10/31/2024 19:45 CDT HISTORY: Fall down stairs Comparison: 07/16/2024. RESULT: Lines, tubes, and devices: Cholecystectomy clips. Lungs and pleura: Clear. Cardiothymic silhouette: Stable. Other: No acute osseous or upper abdominal finding. IMPRESSION: No acute cardiopulmonary process. No acute osseous finding in the right ribs Reviewed, dictated and finalized at location K.
--- NOTE | ~2024-10-31 | XR_ITS ---
EXAM: XR scapula RT DATE: 10/31/2024 19:54 HISTORY: Fall down stairs . COMPARISON: None available. FINDINGS: Normal mineralization. No fracture or dislocation. No lytic or blastic lesion. Joint space s and physes are maintained. No erosion or periosteal change. Soft tissues within normal limits. IMPRESSION: No acute osseous finding in the right scapula. Reviewed, dictated and finalized at location K.
--- NOTE | ~2024-10-31 | CT_ITS ---
EXAMINATION: CT brain wo con DATE: 10/31/2024 19:33 INDICATION: Fall down stairs . TECHNIQUE: Computed tomography (CT) of the head was performed without intravenous contrast. The mA wa s adjusted according to patient size. Iterative reconstruction technique was employed. The dose-lengt h product was 605.33 mGy-cm. COMPARISON: 03/04/2022. FINDINGS: No acute intracranial hemorrhage or extra-axial fluid collection. No hydrocephalus, mass, or herniation. No acute ischemic infarct. Unremarkable dural venous sinus attenuation. No acute osseous abnormality. The aerated spaces are clear. 7 mm, saccular right MCA cerebral aneurysm at the level of the inferior right sylvian fissure, probab ly at a M2 branch origin. IMPRESSION: No acute intracranial process. 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 Recom mend CTA of the head and appropriate referral for future monitoring and potential intervention. Results reported telephonically to Dr. Watkins by Dr. Mendez at 7:53 PM and 7:56 PM on 10/31/2024. Reviewed, dictated and finalized at location K. IMPRESSION: No acute intracranial process. 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 Recommend CTA of the head and appropriate referral for future monitoring and potential intervention. Results reported telephonically to Dr. Watkins by Dr. Mendez at 7:53 PM and 7 :56 PM on 10/31/2024.
--- NOTE | ~2024-10-31 | CT_ITS ---
EXAMINATION: CTA brain DATE: 10/31/2024 21:13 INDICATION: anerusym TECHNIQUE: Computed tomographic angiography (CTA) of the head was performed without and with 100 mL O mnipaque-350 intravenous contrast. Automated exposure control and iterative reconstruction technique were employed. The dose-length product was 1062.16 mGy-cm. Maximum intensity projection and volume r endered 3D-reconstructions were created by the technologist on a separate workstation. COMPARISON: CT brain, same date. FINDINGS: CT BRAIN: No acute large vessel infarct, intracranial hemorrhage, mass, or hydrocephalus. CTA HEAD: Right anterior circulation saccular cerebral aneurysm at the level of the inferior right sylvian fiss ure, measuring up to 8x 5 mm, 3 mm neck. Aneurysm is directed laterally and originates at the bifurca tion of M2 branches. Lobular contour the inferior margin of the aneurysm (seen best in the axial and sagittal images). No large vessel occlusion, high flow vascular malformation, nidus or extravasation. Hypoplastic bilateral P1 segments, with a dominant flow coming from the bilateral posterior communic ating arteries. Symmetric parenchymal enhancement. Patent cerebral veins. IMPRESSION: No acute intracranial process. 8 x 5 mm right anterior circulation saccular cerebral aneurysm. Lobulated inferior margin may indicat e increased risk of aneurysm rupture. Recommend neurosurgical or neuro interventional consultation. Results reported telephonically to Dr. Watkins by Dr. Mendez at 9:33 PM on 10/31/2024. Reviewed, dictated and finalized at location K. IMPRESSION: No acute intracranial process. 8 x 5 mm right anterior circulation saccular cerebral aneurysm. Lobulated infer ior margin may indicate increased risk of aneurysm rupture. Recommend neurosurg ical or neuro interventional consultation. Results reported telephonically to Dr. Watkins by Dr. Mendez at 9:33 PM on 10/31/2024.
--- OUTSIDE RECORDS SUMMARY | 2024-10-31 18:37 | XMS_ITS | Clinical Summary ---
Author Organization [facility] Address [address] [place] [address] Care Team Providers Care Draw End Hand Name Role Phone Nhung Mello MD Primary Care Provider [phone] Source Comments [facility],non-owned Affiliates and Associated Physician Practices is amultiple site organization consisting of ambulatory clinics and hospital sitesin [place], [place], [place] and [place]. This disclosure is being madepursuant to the Care Everywhere program and may not contain all information available regarding this patient. Last updated 18.[facility] Allergies No known active allergies Medications * Be aware that medications may not be up to date on this document. Alwaysverify current medications with the patient. Medication Sig Dispensed Refills Start Date End Date Status LEVOTHYROXINE SODIUM PO Active fluticasone propionate (FLONASE) 50 MCG/ACT nasal spray Butterfield 2 sprays into each nostril once daily Active METFORMIN HCL PO Active POTASSIUM CHLORIDE ER PO Active SUMAtriptan Succinate (ZEMBRACE SYMTOUCH SC) Active fluticasone propionate (FLONASE) 50 MCG/ACT nasal sprayIndications:Acut e ethmoidal sinusitis, recurrence not specified Butterfield 2 sprays into each nostril once daily 1 bottles 10/04/2018 Active Semaglutide (OZEMPIC SC) Active ROSUVASTATIN CALCIUM PO Active HYDROCHLOROTHIAZIDE PO Active albuterol HFA (PROVENTIL;VENTOLIN;P ROAIR) 108 (90 Base) MCG/ACT inhalerIndications:Wh eezing Inhale 2 puffs by mouth every 6 hours as needed 1 Inhaler 11/30/2018 Active Family History Medical History Relation Name Comments Diabetes - Type 2 Father Hypertension Father Other - Cardiac Father heart diseas e Other - Cardiac Mother Heart diseas e Relation Name Status Comments Father Mother Social History Tobacco Use Types Packs/Day Years Used Date Smoking Tobacco: Former Smokeless Tobacco: Never PHQ-2 Answer Date Recorded PHQ2 TOTAL SCORE 0 02/20/2021 Sex and Gender Information Value Date Recorded Sex Assigned at Not on file Gender Identity Not on file Sexual Orientation Not on file Last Filed Vital Signs Vital Sign Reading Time Taken Comments Blood Pressure 136/90 11/30/2018 11:04 AM CDT Pulse 88 11/30/2018 11:04 AM CDT Temperature 36.7 C (98.1 F) 11/30/2018 11:04 AM CDT Respiratory Rate 16 11/30/2018 11:04 AM CDT Oxygen Saturation 98% 11/30/2018 11:04 AM CDT Inhaled Oxygen Concentration - - Weight 112.5 kg (248 lb) 11/30/2018 11:04 AM CDT Height 170.2 cm (5' 7 ) 11/30/2018 11:04 AM CDT Body Mass Index 38.84 11/30/2018 11:04 AM CDT Plan of Treatment Health Maintenance Due Date Last Done Comments COLOGUARD (AGES 45-75) - COL ON CA SCREENING 1968 COLON MONITORING 1968 COLONOSCOPY - COLON CA SCREENING 1968 CT COLONOGRAPHY - COLON CA SCREENING 1968 Colorectal Cancer Screening 1968 FIT - COLON CA SCREENING 1968 FLEX SIG - COLON CA SCREENING 1968 MAMMOGRAM 1968 PAP SMEAR 1968 HIV SCREENING 1983 HEPATITIS C SCREENING 07/18/1986 DTAP/TDAP/TD VACCINES (1 - Tdap) 1987 HEPATITIS B VACCINE (1 of 3 - 19+ 3-dose series) 1987 PNEUMOCOCCAL VACCINE 50+ (1 of 1 - PCV) 2018 ZOSTER VACCINE (1 of 2) 2018 COVID-19 VACCINE ( - 2023-2 5 season) 2024 INFLUENZA VACCINE (#1) 2024 04/30/2015 DEPRESSION SCREENING 07/31/2024 HIB VACCINE Aged Out No longer eligi ble based on patient's age to complete this topic HPV VACCINE Aged Out No longer eligi ble based on patient's age to complete this topic MENINGOCOCCAL (Group B) VACC INE SHARED DECISION-MAKING Aged Out No longer eligibl e based on patient's age to complete this topic MENINGOCOCCAL GROUPS A/C/Y/W VACCINE Aged Out No longer eligible b ased on patient's age to complete this topic PNEUMOCOCCAL VACCINE Aged Out No long er eligible based on patient's age to complete this topic Care Teams Draw End Hand Relationship Specialty Start Date End Date Nhung Mello MD [address] [place] [address] [address] [place] [address] PCP - General Family Medicine 11/23/16
--- OUTSIDE RECORDS SUMMARY | 2024-10-31 18:37 | XMS_ITS | Clinical Summary ---
Author Organization [facility] Address [address] [place] [address] Care Team Providers Care Chip Mucker Name Role Phone Unavailable Primary Care Provider Unavailabl e Social History Tobacco Use Types Packs/Day Years Used Date Smoking Tobacco: Never Assessed Comments Unknown Sex and Gender Information Value Date Recorded Sex Assigned at Not on file Legal Sex Female 3:05 PM CDT Gender Identity Not on file Sexual Orientation Not on file Plan of Treatment Health Maintenance Due Date Last Done Comments Hepatitis C Virus (HCV) Screening 1968 TdaP Immunization 1968 Hepatitis B Immunization (1 of 3 - 19+ 3-dose series) 1987 Pap Smear 1989 Cervical Cancer Screening (CCS) 1998 HPV/Cotest 1998 Colonoscopy 2013 Colorectal Cancer Screening 2013 Cologuard 2018 Immunochemical Fecal Occult Blood 2018 Mammogram 2018 Pneumococcal Immunization (50+ years) (1 of 1 - PCV) 2018 Zoster Immunization (1 of 2) 2018 Influenza Immunization (#1) 2024 10/0 09/2019, 05/01/2018, 04/29/2017, Additional history exists SARS-COV-2 Immunization ( season) 2024 09/16/2020, 08/06/2020 Respiratory Syncytial Virus (RSV) Immunization (Adult) (1 - 1-dose 75+ series) 2043 Meningococcal Immunization (ACWY) Aged Out No longer eligible based on patient's age to complete this topic Pneumococcal Immunization Combined Aged Out No longer eligible based on patient's age to complete this topic Rotavirus Immunization Aged Out No lo nger eligible based on patient's age to complete this topic
--- OUTSIDE RECORDS SUMMARY | 2024-10-31 18:38 | XMS_ITS | Continuity of Care Document ---
Author Organization [facility] Address [address] [place] [address] Phone Care Team Providers Care Child Care Associate Teacher Name Role Phone Jefferson PT,MPT,ATC, Vinny Unavailable Unavai lable Procedures Procedure Date PT Evaluation Low Complexity Therapeutic Activities Neuromuscular Re-Ed Advance Directives Directive Yes / No Effective Date File Name No Information Encounters Encounter Description Practice Location Reason(s) For Visit Diagnoses Date Provider Providers Copied on Encounter [facility], [address], [place], [place], [id number], tel:[phone] [place] No Information 4 Ronny [place], [place], [place]. [facility], [address], [place], [place], [id number], tel:[phone] [place] No Information 3 Ligia [place]. . Referring Provider: Sylvester Layne, [address], [place], [address]. tel:[phone] Family History Family Member Type Diagnosis Age At Onset No Information Payers Payer name Insurance type Covered green party ID Authoriza tiike(s) [employer] CI [id number] Social History Type Description Quantity Date Captured Comments Sex Female Smoking Status No Information Chief Complaint And Reason For Visit No Information Reason For Referral Reason For Referral No Information History Of Present Illness Encounter Date Complaint History Of Prese nt Illness No Information Functional Status Date Functional Assessmen t No Information Instructions Date Instruction Additional Infor darya Giving encouragement to exercise Related to Overweight Giving encouragement to exercise Related to Overweight Assessments Type Assessment Date No Information Patient Care Teams Name Effective Dates (start - stop) Status Members No Information
--- OUTSIDE RECORDS SUMMARY | 2024-10-31 18:38 | XMS_ITS | Encounter Summary ---
Author Organization [facility] Address [address] [place] [address] Care Team Providers Care Security System Administrator Name Role Phone Nhung Mello MD Primary Care Provider [phone] Dannie Molina Primary Care Provider + Encounter Details Date Type Department Care Team (Late st Contact Info) Description 12/22/2011 Orders Only [facility] [place] [facility] Information Management [address] [place] [id number] Scanning, Provider Social History Tobacco Use Types Packs/Day Years Used Date Smoking Tobacco: Never Assessed Alcohol Use Standard Drinks/Week Comments Yes 0 (1 standard drink = 0.6 oz pur e alcohol) Comments Unknown Sex and Gender Information Value Date Recorded Sex Assigned at Not on file Legal Sex Female 2:02 AM SURVEYOR HELPER Gender Identity Female 11/28/2018 12:54 PM CDT Sexual Orientation Straight 11/28/2018 12 :54 PM CDT documented as of this encounter Plan of Treatment Not on file documented as of this encounter Procedures Procedure Name Priority Date/Time Associated Diagnosis Comments CARDIOLOGY DOCUMENT SCAN 12/22/2011 documented in this encounter Results * SCAN - CARDIOLOGY (12/22/2011) Anatomical Region Laterality Modality Other us Provider Scanning CV CARDIAC SERVICES PROCEDURES Final Result documented in this encounter Visit Diagnoses Not on filedocumented in this encounter Care Teams Security System Administrator Relationship Specialty Start Date End Date Nhung Mello MD [address] [place] [address] [place] [address] PCP - General 12/21/11 03/25/24 Dannie Molina PA [address] [place] [address] PCP - General Internal Medicine 03/26/24 documented as of this encounter
--- OUTSIDE RECORDS SUMMARY | 2024-10-31 18:38 | XMS_ITS | Clinical Summary ---
Author [place] [facility] [place] [address] Address [address] [place] [address] Care Team Providers Care Wheat Washer Name Role Phone Dannie Molina Primary Care Provider + Allergies Active Allergy Reactions Criticality Noted Date Comments Rjzmifh-Mcm-Uuq Reductase Inhibitors Muscle pain Medium 03/25/2024 Medications ALPRAZolam (XANAX) 0.5 mg tablet Take 1 tablet (0.5 mg total) by mouth as needed 09/18/19 19 Active ibuprofen (ADVIL,MOTRIN) 200 mg tab/cap Take by mouth as needed for pain Active cyanocobalamin (Vitamin B-12) 1,000 mcg/mL injection INJECT 1 ML ONCE A WEEK IN THE MORNING 01/13/20 24 Active Emgality Pen 120 mg/mL pen injector 03/12/20 24 Active propranolol LA (INDERAL LA) 80 mg 24 hr capsule Take by mouth daily 01/16/20 24 Active hydroCHLOROthiazi de (HYDRODIURIL) 50 mg tablet Take 1 tablet (50 mg total) by mouth daily Active ondansetron ODT (ZOFRAN-ODT) 4 mg disintegrating tablet DISSOLVE 1 TABLET IN MOUTH EVERY 8 HOURS NEEDED FOR NAUSEA AND VOMITING 05/23/20 24 Active Nurtec ODT tablet,disintegra ting 07/08/20 24 Active glimepiride (AMARYL) 2 mg tabletIndications :type 2 diabetes mellitus Take 1 tablet (2 mg total) by mouth daily before dinner 90 tablet 3 07/15/20 24 2024 Active Dexcom G7 Sensor deviceIndications :Type 2 diabetes mellitus with hyperglycemia, without long-term current use of insulin ([facility]) Continuous glucose monitor. Change every 10 days. 10 each 3 07/15/20 Active Synthroid 100 mcg tabletIndications :Acquired hypothyroidism Take 1 tablet (100 mcg total) by mouth daily 90 tablet 3 10/08/19 25 2025 Active glucose blood test stripIndications: Type 2 diabetes mellitus with hyperglycemia, without long-term current use of insulin ([facility]) Use to check blood sugars 2x a day 300 strip 10/08/19 Active tirzepatide (Mounjaro) 12.5 mg/0.5 mL pen injector injectionIndicati ons:Type 2 diabetes mellitus with hyperglycemia, without long-term current use of insulin ([facility]) Inject 0.5 mL (12.5 mg total) under the skin every 7 days 2 mL 2 10/22/19 Active Dexcom G6 Transmitter device One each every 90 days 3 each 3 03/26/20 24 2024 Discontinued Airsupra 90-80 mcg/actuation HFA aerosol inhaler INHALE 2 PUFFS BY MOUTH FOUR TIMES DAILY FOR 10 DAYS NEEDED 07/12/20 24 2024 Discontinued promethazine-DM (PROMETHAZINE-DM) 1.25-3 mg/mL syrup TAKE 5 ML BY MOUTH EVERY 4 HOURS FOR 10 DAYS NEEDED 07/12/20 24 2024 Discontinued tirzepatide (MOUNJARO) 7.5 mg/0.5 mL pen injectorIndicatio ns:Type 2 diabetes mellitus with hyperglycemia, without long-term current use of insulin ([facility]) Inject 7.5 mg under the skin every 7 days 6 mL 3 07/15/20 24 2024 Discontinued Synthroid 112 mcg tabletIndications :Acquired hypothyroidism Take 1 tablet (112 mcg total) by mouth daily 90 tablet 3 07/16/20 24 2024 Discontinued Active Problems Problem Noted Date Diagnosed Date Statin intolerance 10/07/2024 Hypertension associated with type 2 diabetes gabriel litus 07/15/2024 Assessment & Plan (07/15/2024 9:27 AM MAKEUP SALES ADVISOR): Chronic problem. Controlled on current propranolol LA 80mg daily, HCTZ 50mg daily Type 2 diabetes mellitus wit h hyperglycemia, without long-term current use of insulin 03/25/2024 Assessment & Plan (07/15/2024 10:09 AM MAKEUP SALES ADVISOR): Chronic problem. A1c worsened from 6.5% 03/25/24 to now 7.9%. Increased nausea with 10mg mounjaro & very little intake. BG still have risen. Will put Dexcom back on & then restart Glimepiride 2mg with dinner. Decrease your Mounjaro back to 7.5mg due to nausea & very low appetite with the Mounjaro 10mg Dexcom G7 sent in. Current medications: Glimepiride 2mg with dinner Mounjaro 7.5 mg weekly DM eye exam UTD on labs. Discussed with Danielle Keller: Strive for regular exercise (30min most days) and diet (get at least 4-5 servings of fruit and veggies daily, avoid processed foods, increase lean protein intake and decrease carb portions as well as fruit juices, regular soda & desserts). Watch carbs and simple sugars. Check the blood sugar: Dexcom G7. Check the feet daily for skin breakdown and infection. Assessment & Plan (03/25/2024 4:20 PM CDT): Chronic overall well controlled A1c 6.5%, at goal Plan to stop glimepiride Increase Mounjaro to 10 mg subcu weekly Recommend annual dilated eye exam We will try to be obtain patient last eye exam copy Hyperlipidemia associated with type 2 diabetes quentin watson 03/25/2024 Assessment & Plan (07/15/2024 9:24 AM MAKEUP SALES ADVISOR): Chronic problem. Not on any statins; statin intolerance (myalgias). Last lipid panel: 03/27/24 LDL=81, QR=042. Assessment & Plan (03/25/2024 4:20 PM CDT): Patient defers statin therapy she failed atorvastatin due to myalgias Patient did not want to try other statin therapy Acquired hypothyroidism 03/25/2024 Assessment & Plan (07/15/2024 9:26 AM MAKEUP SALES ADVISOR): Chronic problem. Currently taking Synthroid 112 mcg daily. Aware to take 1st thing in morning, 30-60 minutes before food/drink/other medications. Clinically euthyroid but biochemically subclinical hyperthyroidism. Will repeat TFTs today. Verified that she uses mychart. Aware to check results/results letter in mychart. Will contact by phone if needed. Assessment & Plan (03/25/2024 4:19 PM CDT): Chronic, unknown status Patient currently on Synthroid 100 mcg oral daily Recheck thyroid function test today and further plans based on it Class 2 severe obesity due t o excess calories with serious comorbidity and body mass index (BMI) of 37.0 to 37.9 in adult 03/25/2024 Assessment & Plan (03/25/2024 4:19 PM CDT): Chronic, worsening Discussed about healthy lifestyle habits advise to work on healthy diet, avoid processed foods , increase vegetables and protein and cut back on carb portions and also avoid fruit juices and regular soda and desserts Increase physical activity , recommend at least 150 min of aerobic activity per week and include resistance training 2 x weekly Vitamin D deficiency 03/25/2024 Assessment & Plan (07/15/2024 10:02 AM MAKEUP SALES ADVISOR): Vitamin D normal when checked 03/27/24. Assessment & Plan (03/25/2024 4:21 PM CDT): Check levels today and further plans based on it Tinnitus 09/16/2022 Encounters Date Type Department Care Team Description 10/21/2024 Telephone [facility] Diabetes and Endocrinology [address] [place] [phone] Flaca Merritt MD 10/07/2024 9:15 AM CDT Office Visit [facility] Diabetes and Endocrinology [address] [place] [phone] Flaca Merritt MD Type 2 diabetes mellitus with hyperglycemia, without long-term current use of insulin (HCC) (Primary Dx); Acquired hypothyroidism; Statin intolerance 10/07/2024 Telephone [facility] [address] [address] Flaca Merritt MD 10/02/2024 Results Follow-Up [facility] Diabetes and Endocrinology [address] [place] [address] Herminia Noguera NP from Last 3 Months Surgical History Surgery Date Site/Laterality Comments ENDOMETRIAL ABLATION CHOLECYSTECTOMY KNEE ARTHROSCOPY W/ LATERAL RELEASE 07/31/2020 - 021 SPLENECTOMY, TOTAL Medical History Medical History Date Comments Hypertension Hypertension Hypothyroidism Hypothyroidism Hx Other Medical Glucose intoler ance Adiposity Obesity Hx Other Medical Migraines Dizziness Diabetes mellitus (HCC) Acid indigestion Migraines Anxiety Kidney stone Family History Medical History Relation Name Comments Hypertension Brother 2 1 Hypertension; Depression Father Get settles Diabetes Father Get settles Heart attack Father Get settles Myocardial I nfarction; Heart disease Father Get settles Hypertension Father Get settles Atrial fibrillation Mother Yana settles COPD Mother Yana settles Hypertension Mother Yana settles Other Sister 2 ruptured cerebr al aneurysm; Relation Name Status Comments Brother 1 Alive Brother 2 1 Father Get settles (Age 74) Mother Yana settles Alive Sister 1 Alive Sister 2 Social History Tobacco Use Types Packs/Day Years Used Date Smoking Tobacco: Former Cigarettes Q uit: 07/31/1997 Smokeless Tobacco: Never Tobacco Cessation:Counseling Given: Not Answered Alcohol Use Standard Drinks/Week Comments Yes 0 (1 standard drink = 0.6 oz pur e alcohol) 1-2 drinks monthly Comments No Sex and Gender Information Value Date Recorded Sex Assigned at Not on file Legal Sex Female 2:02 AM MAKEUP SALES ADVISOR Gender Identity Female 11/28/2018 12:54 PM CDT Sexual Orientation Straight 11/28/2018 12 :54 PM CDT Obstetrics History Last Filed Vital Signs Vital Sign Reading Time Taken Comments Blood Pressure 122/80 10/07/2024 9:16 AM CDT Pulse 68 10/07/2024 9:16 AM CDT Temperature - - Respiratory Rate 15 10/07/2024 9:16 AM CDT Oxygen Saturation 98% 10/27/2021 1:51 PM CDT Inhaled Oxygen Concentration - - Weight 93.4 kg (206 lb) 10/07/2024 9:16 AM CDT Height 168.9 cm (5' 6.5 ) 10/07/2024 9:16 AM CDT Body Mass Index 32.75 10/07/2024 9:16 AM CDT Plan of Treatment Health Maintenance Due Date Last Done Comments Breast Cancer Screening-Mammogram 1968 Cervical Cancer Screening 1968 Colon Cancer Screening-Colonoscopy 1968 Depression Screening 1968 Hepatitis C Screening 1968 Hepatitis B Screening 1986 Regular Well Visit/Exam 18-64 1986 Pneumococcal vaccine <65 (1 of 2 - PCV) 1987 Zoster Vaccine (1 of 2) 2018 Covid-19 Vaccine (3 - 2023-2 5 season) 2024 09/16/2020, 08/06/2020 Dilated Eye Exam 07/17/2024 07/17/2023 Foot Exam 03/25/2025 03/25/2024 Albumin Creatinine Ratio, Urine 03/27/2025 Lipid Panel 03/27/2025 03/27/2024, 09/01, 08/03/2018 eGFR 03/27/2025 03/27/2024 Hemoglobin A1C 04/09/2025 10/07/2024, 06/30, 03/25/2024 DTaP/Tdap/Td Vaccine (2 - Td or Tdap) 04/11/2032 04/11/2022 Influenza Vaccine Completed 05/18/2024, , 05/02/2020, Additional history exists Procedures Procedure Name Priority Date/Time Associated Diagnosis Comments POCT HEMOGLOBIN A1C Routine 10/07/2024 9 :18 AM CDT Type 2 diabetes mellitus with hyperglycemia, without long-term current use of insulin (HCC) POCT GLUCOSE Routine 10/07/2024 9:17 AM CDT Type 2 diabetes mellitus with hyperglycemia, without long-term current use of insulin (HCC) TSH Routine 10/01/2024 7:35 AM MAKEUP SALES ADVISOR Acquired hypothyroidism T4, FREE Routine 10/01/2024 7:35 AM MAKEUP SALES ADVISOR Acquired hypothyroidism COMPREHENSIVE METABOLIC PANEL Routine 03/27/2024 8:49 AM CDT LIPID PANEL Routine 03/27/2024 8:49 AM CDT ALBUMIN CREATININE RATIO, URINE Routine 03/27/2024 8:49 AM CDT HM DIABETES EYE EXAM Routine 07/17/2023 8:29 AM MAKEUP SALES ADVISOR from Last 3 Months or Most Recently Relevant to Health Maintenance Results * POCT hemoglobin A1c (10/07/2024 9:18 AM CDT) Hemoglobin A1C, POC 6.3 4.0 - 5.6 % Blood 10/07/2024 9:18 AM CDT Flaca Alaniz MD POINT OF CARE TEST ORDERABLES Final Result * POCT glucose (10/07/2024 9:17 AM CDT) Glucose Blood, POC 191 mg/dL Blood 10/07/2024 9:17 AM CDT Flaca Alaniz MD POINT OF CARE TEST ORDERABLES Final Result * (ABNORMAL) TSH (10/01/2024 7:35 AM MAKEUP SALES ADVISOR) TSH 0.08(L) 0.40 - 4.50 mIU/L [email or web address] Blood 10/01/2024 7:35 AM MAKEUP SALES ADVISOR 10/01/2024 7:36 AM MAKEUP SALES ADVISOR Narrative [facility] - 10/01/2024 5:33 PM MAKEUP SALES ADVISOR FASTING:YES FASTING: YES us Herminia Noguera EPIC AMBULATORY ANALYST LAB BLOOD ORDERABLES Janki l Result [email or web address] [address] [place] [address] * T4, free (10/01/2024 7:35 AM MAKEUP SALES ADVISOR) Pathologist [facility] Free T4 1.7 0.8 - 1.8 ng/dL [email or web address] Blood 10/01/2024 7:35 AM MAKEUP SALES ADVISOR 10/01/2024 7:36 AM MAKEUP SALES ADVISOR Narrative [facility] - 10/01/2024 5:33 PM MAKEUP SALES ADVISOR FASTING:YES FASTING: YES us Herminia Noguera NP LAB BLOOD ORDERABLES Janki l Result [facility] [address] [place] [address] * Albumin Creatinine Ratio, Urine (03/27/2024 8:49 AM CDT) Pathologist [facility] Creatinine, ur 20 20 - 275 mg/dL [facility] Microalbumin, ur <0.2 See Note: mg/dL [facility] Comment: Reference Range: Reference Range Not established Microalbumin/creat ratio NOTE <30 mg/g creat [facility] Comment: NOTE: The urine albumin value is less than 0.2 mg/dL therefore we are unable to calculate excretion and/or creatinine ratio. The ADA defines abnormalities in albumin excretion as follows: Albuminuria Category Result (mg/g creatinine) Normal to Mildly increased <30 Moderately increased 30-299 Severely increased > OR = 300 The ADA recommends that at least two of three specimens collected within a 3-6 month period be abnormal before considering a patient to be within a diagnostic category. 03/27/2024 8:49 AM CDT 03/27/2024 8:50 AM CDT Flaca Alaniz MD LAB URINE ORDERABLE S Final Result [facility] [address] [phone] * Lipid panel (03/27/2024 8:49 AM CDT) [facility] Cholesterol 167 <200 mg/dL Kirit KaboodleSuha Cervantes HDL 66 > OR = 50 mg/dL [facility] Triglycerides 103 <150 mg/dL [facility] Cervantes LDL 81 mg/dL (calc) [facility] Cerv[facility] Comment: Reference range: <100 Desirable range <100 mg/dL for primary prevention; <70 mg/dL for patients with CHD or diabetic patients with > or = 2 CHD risk factors. LDL-C is now calculated using the Johnathon calculation, which is a validated novel method providing better accuracy than the Friedewald equation in the estimation of LDL-C. Camilo RIVERS et al. SWEETIE. 2013;310(19): 9690-9812 (http://education.[employer]/faq/HWZ205) Chol/HDL ratio 2.5 <5.0 (calc) [facility] Cervantes Non-HDL, (LDL+VLDL) 101 <130 mg/dL (calc) [facility] Cervantes Comment: For patients with diabetes plus 1 major ASCVD risk factor, treating to a non-HDL-C goal of <100 mg/dL (LDL-C of <70 mg/dL) is considered a therapeutic option. 03/27/2024 8:49 AM CDT 03/27/2024 8:50 AM CDT Flaca Alaniz MD LAB BLOOD ORDERABLE S Final Result [facility] [address] [place] [address] * (ABNORMAL) Comprehensive metabolic panel (03/27/2024 8:49 AM CDT) Pathologist [facility] Glucose 148(H) 65 - 99 mg/dL Kirit Cervantes Comment: Fasting reference interval For someone without known diabetes, a glucose value >125 mg/dL indicates that they may have diabetes and this should be confirmed with a follow-up test. BUN 15 7 - 25 mg/dL Kirit KaboodleSuha Cervantes Creatinine 0.81 0.50 - 1.03 mg/dL [email or web address] Cervantes eGFR 86 > OR = 60 mL/min/1.7 3m2 Kirit KaboodleSuha Cervantes BUN/creat ratio SEE NOTE: 6 - 22 (calc) Kirit Oreilly-Letty Cervantes Comment: Not Reported: BUN and Creatinine are within reference range. Sodium 136 135 - 146 mmol/L [facility]-Let[facility] Cervantes Potassium, pl 4.1 3.5 - 5.3 mmol/L [facility]Let[facility] Cervantes Chloride 102 98 - 110 mmol/L [facility] Oreilly-Letty Cervantes CO2 27 20 - 32 mmol/L [facility] Calcium 9.0 8.6 - 10.4 mg/dL Kirit Oreilly-Letty Cervantes Protein, sr 6.6 6.1 - 8.1 g/dL [facility] Oreilly-Letty Cervantes Albumin 4.2 3.6 - 5.1 g/dL Kirit Oreilly-S benson Cervantes GLOBULIN 2.4 1.9 - 3.7 g/dL (calc) Kirit Oreilly-Letty Cervantes Alb/glob ratio 1.8 1.0 - 2.5 (calc) Kirit Oreilly-Letty Cervantes Bilirubin, total 0.8 0.2 - 1.2 mg/dL [facility] Oreilly-Letty Cervantes Alk phos 78 37 - 153 U/L [facility] Oreilly-Letty Cervantes AST 31 10 - 35 U/L Kirit Oreilly-Letty Cervantes ALT (SGPT) 38(H) 6 - 29 U/L Kirit Oreilly-Letty Cervantes 03/27/2024 8:49 AM CDT 03/27/2024 8:50 AM CDT Flaca Alaniz MD LAB BLOOD ORDERABLE S Final Result [facility] [address] [place] [address] * DIABETES EYE EXAM (07/17/2023 8:29 AM MAKEUP SALES ADVISOR) us Historical Provider HEALTH MAINTENANCE Edited Result - Final from Last 3 Months or Most Recently Relevant to Health Maintenance Insurance [facility] [id number] Care Teams Wheat Washer Relationship Specialty Start Date End Date Dannie Molina PA [address] [place] [address] PCP - General Internal Medicine 03/26/24
--- OUTSIDE RECORDS SUMMARY | 2024-10-31 18:38 | XMS_ITS | Referral Summary ---
Author Organization [facility] [address] Address [address] [place] [address] Care Team Providers Care Body Component Engineer Name Role Phone Dannie Molina Primary Care Provider + Encounters Date Type Department Care Team Description 10/21/2024 Telephone [facility] Diabetes and Endocrinology [address] [place] [phone] Flaca Merritt MD 10/07/[address] [address] Flaca Merritt MD 10/07/2024 9:15 AM CDT Office Visit [facility] Diabetes and Endocrinology [address] [place] [phone] Flaca Merritt MD Type 2 diabetes mellitus with hyperglycemia, without long-term current use of insulin (HCC) (Primary Dx); Acquired hypothyroidism; Statin intolerance 10/02/2024 Results Follow-Up [facility] Diabetes and Endocrinology [address] [place] [phone] Herminia Noguera NP from Last 3 Months Allergies Active Allergy Reactions Criticality Noted Date Comments Vtchdnp-Ral-Tud Reductase Inhibitors Muscle pain Medium 03/25/2024 Medications ALPRAZolam (XANAX) 0.5 mg tablet Take 1 tablet (0.5 mg total) by mouth as needed 09/18/19 Active ibuprofen (ADVIL,MOTRIN) 200 mg tab/cap Take by mouth as needed for pain Active cyanocobalamin (Vitamin B-12) 1,000 mcg/mL injection INJECT 1 ML ONCE A WEEK IN THE MORNING 01/13/20 Active Emgality Pen 120 mg/mL pen injector 03/12/20 Active propranolol LA (INDERAL LA) 80 mg 24 hr capsule Take by mouth daily 01/16/20 Active hydroCHLOROthiazi de (HYDRODIURIL) 50 mg tablet Take 1 tablet (50 mg total) by mouth daily Active ondansetron ODT (ZOFRAN-ODT) 4 mg disintegrating tablet DISSOLVE 1 TABLET IN MOUTH EVERY 8 HOURS NEEDED FOR NAUSEA AND VOMITING 05/23/20 Active Nurtec ODT tablet,disintegra ting 07/08/20 Active glimepiride (AMARYL) 2 mg tabletIndications :type 2 diabetes mellitus Take 1 tablet (2 mg total) by mouth daily before dinner 90 tablet 3 07/15/20 24 2024 Active Dexcom G7 Sensor deviceIndications :Type 2 diabetes mellitus with hyperglycemia, without long-term current use of insulin ([facility]) Continuous glucose monitor. Change every 10 days. 10 each 3 07/15/20 24 Active Synthroid 100 mcg tabletIndications :Acquired hypothyroidism Take 1 tablet (100 mcg total) by mouth daily 90 tablet 3 10/08/19 25 2025 Active glucose blood test stripIndications: Type 2 diabetes mellitus with hyperglycemia, without long-term current use of insulin ([facility]) Use to check blood sugars 2x a day 300 strip 10/08/19 Active tirzepatide (Mounjaro) 12.5 mg/0.5 mL pen injector injectionIndicati ons:Type 2 diabetes mellitus with hyperglycemia, without long-term current use of insulin ([facility]) Inject 0.5 mL (12.5 mg total) under the skin every 7 days 2 mL 2 10/22/19 25 Active Dexcom G6 Transmitter device One each [...] without long-term current use of insulin (HCC) Inject 7.5 mg under the skin every 7 days 6 mL 3 07/15/20 24 2024 Discontinued Synthroid 112 mcg tabletIndications :Acquired hypothyroidism Take 1 tablet (112 mcg total) by mouth daily 90 tablet 3 07/16/20 24 2024 Discontinued Active Problems Problem Noted Date Diagnosed Date Statin intolerance 10/07/2024 Hypertension associated with type 2 diabetes gabriel litus 07/15/2024 Assessment & Plan (07/15/2024 9:27 AM MACHINE OPERATOR HAY STACKER): Chronic problem. Controlled on current propranolol LA 80mg daily, HCTZ 50mg daily Type 2 diabetes mellitus wit h hyperglycemia, without long-term current use of insulin 03/25/2024 Assessment & Plan (07/15/2024 10:09 AM MACHINE OPERATOR HAY STACKER): Chronic problem. A1c worsened from 6.5% 03/25/24 [...] 03/25/2024 Assessment & Plan (07/15/2024 9:24 AM MACHINE OPERATOR HAY STACKER): Chronic problem. Not on any statins; statin intolerance (myalgias). Last lipid panel: 03/27/24 LDL=81, MW=524. Assessment & Plan (03/25/2024 4:20 PM CDT): Patient defers statin therapy she failed atorvastatin due to myalgias Patient did not want to try other statin therapy Acquired hypothyroidism 03/25/2024 Assessment & Plan (07/15/2024 9:26 AM MACHINE OPERATOR HAY STACKER): Chronic problem. Currently taking Synthroid 112 mcg [...] 03/25/2024 Assessment & Plan (07/15/2024 10:02 AM MACHINE OPERATOR HAY STACKER): Vitamin D normal when checked 03/27/24. Assessment & Plan (03/25/2024 4:21 PM CDT): Check levels today and further plans based on it Tinnitus 09/16/2022 Social History Tobacco Use Types Packs/Day Years Used Date Smoking Tobacco: Former Cigarettes Q uit: 07/31/1997 Smokeless Tobacco: Never Tobacco Cessation:Counseling Given: Not Answered Alcohol Use Standard Drinks/Week Comments Yes 0 (1 standard drink = 0.6 oz pur e alcohol) 1-2 drinks monthly Comments No Sex and Gender Information Value Date Recorded Sex Assigned at Not on file Legal Sex Female 2:02 AM MACHINE OPERATOR HAY STACKER Gender Identity Female 11/28/2018 12:54 PM CDT Sexual Orientation Straight 11/28/2018 12 :54 PM CDT Last Filed Vital Signs Vital Sign Reading [...] 10/07/2024 9:16 AM CDT Plan of Treatment Not on file Procedures Procedure Name Priority Date/Time Associated Diagnosis Comments POCT HEMOGLOBIN A1C Routine 10/07/2024 9 :18 AM CDT Type 2 diabetes mellitus with hyperglycemia, without long-term current use of insulin (HCC) POCT GLUCOSE Routine 10/07/2024 9:17 AM CDT Type 2 diabetes mellitus with hyperglycemia, without long-term current use of insulin (HCC) TSH Routine 10/01/2024 7:35 AM MACHINE OPERATOR HAY STACKER Acquired hypothyroidism T4, FREE Routine 10/01/2024 7:35 AM MACHINE OPERATOR HAY STACKER Acquired hypothyroidism COMPREHENSIVE METABOLIC PANEL Routine 03/27/2024 8:49 AM CDT LIPID PANEL Routine 03/27/2024 8:49 AM CDT ALBUMIN CREATININE RATIO, URINE Routine 03/27/2024 8:49 AM CDT DIABETES EYE EXAM Routine 07/17/2023 8:29 AM MACHINE OPERATOR HAY STACKER from Last 3 Months or Most Recently [...] Result * (ABNORMAL) TSH (10/01/2024 7:35 AM MACHINE OPERATOR HAY STACKER) TSH 0.08(L) 0.40 - 4.50 mIU/L [email or web address] Blood 10/01/2024 7:35 AM MACHINE OPERATOR HAY STACKER 10/01/2024 7:36 AM MACHINE OPERATOR HAY STACKER Narrative [facility] - 10/01/2024 5:33 PM MACHINE OPERATOR HAY STACKER FASTING:YES FASTING: YES Herminia Noguera BUSINESS EXECUTIVE LAB BLOOD ORDERABLES Janki l Result [email or web address] [address] [place] [address] * T4, free (10/01/2024 7:35 AM MACHINE OPERATOR HAY STACKER) [facility] Free T4 1.7 0.8 - 1.8 ng/dL [email or web address] Blood 10/01/2024 7:35 AM MACHINE OPERATOR HAY STACKER 10/01/2024 7:36 AM MACHINE OPERATOR HAY STACKER Narrative [facility] - 10/01/2024 5:33 PM MACHINE OPERATOR HAY STACKER FASTING:YES FASTING: YES us Herminia Noguera NP LAB BLOOD ORDERABLES Janki l Result [facility] [address] [place] [address] * Albumin Creatinine Ratio, Urine (03/27/2024 8:49 AM CDT) [facility] Creatinine, ur 20 20 - 275 mg/dL [...] MD LAB URINE ORDERABLE S Final Result [facility] [address] [address] * Lipid panel (03/27/2024 8:49 AM CDT) [facility] Cholesterol 167 <200 mg/dL [facility] Cervantes HDL 66 > OR = 50 [...] of LDL-C. Camilo RIVERS et al. SWEETIE. 2013;310(23): 2455-9606 (http://education.TimeLab/faq/LTB733) Chol/HDL ratio 2.5 <5.0 (calc) [facility] Non-HDL, (LDL+VLDL) 101 <130 mg/dL (calc) [facility] C[facility] Comment: For patients with diabetes plus 1 major ASCVD risk factor, treating to a non-HDL-C goal of <100 mg/dL (LDL-C of <70 mg/dL) is considered a therapeutic option. 03/27/2024 8:49 AM CDT 03/27/2024 8:50 AM CDT Flaca Alaniz MD LAB BLOOD ORDERABLE S Final Result [facility] [address] [place] [address] * (ABNORMAL) Comprehensive metabolic panel (03/27/2024 8:49 AM CDT) [facility] Glucose 148(H) 65 - 99 mg/dL [facility] Comment: Fasting reference interval For someone without known diabetes, a glucose value >125 mg/dL indicates that they may have diabetes and this should be confirmed with a follow-up test. BUN 15 7 - 25 mg/dL [facility] Creatinine 0.81 0.50 - 1.03 mg/dL [facility] eGFR 86 > OR = 60 mL/min/1.7 3m2 [facility] BUN/creat ratio SEE NOTE: 6 - 22 (calc) [facility] C[facility] Comment: Not Reported: BUN and Creatinine are within reference range. Sodium 136 135 - 146 mmol/L [facility] Potassium, pl 4.1 3.5 - 5.3 mmol/L [facility] Chloride 102 98 - 110 mmol/L [facility] CO2 27 20 - 32 mmol/L [facility] Calcium 9.0 8.6 - 10.4 mg/dL [facility] Protein, sr 6.6 6.1 - 8.1 g/dL [facility] Albumin 4.2 3.6 - 5.1 g/dL [facility] GLOBULIN 2.4 1.9 - 3.7 [...] LAB BLOOD ORDERABLE S Final Result [facility] Cervantes [address] [place] [address] * DIABETES EYE EXAM (07/17/2023 8:29 AM MACHINE OPERATOR HAY STACKER) us Historical Provider HEALTH MAINTENANCE Edited Result - Final from Last 3 Months or Most Recently Relevant to Health Maintenance Insurance [facility] [id number] Care Teams Body Component Engineer Relationship Specialty Start Date End Date Dannie Molina PA [address] [place] [address] PCP - General Internal Medicine 03/26/24
--- OUTSIDE RECORDS SUMMARY | 2024-10-31 18:38 | XMS_ITS | Encounter Summary ---
Author Organization [facility] Address [address] [place] [address] Care Team Providers Care Tree Care Foreman Name Role Phone Dannie Molina Primary Care Provider + Encounter Details Date Type Department Care Team (Late st Contact Info) Description 10/02/2024 Results Follow-Up [facility] Diabetes and Endocrinology [address] [place] [phone] [place] [address] [address] Social History Tobacco Use Types Packs/Day Years Used Date Smoking Tobacco: Former Cigarettes Q uit: 07/31/1997 Smokeless Tobacco: Never Alcohol Use Standard Drinks/Week Comments Yes 0 (1 standard drink = 0.6 oz pur e alcohol) 1-2 drinks monthly Comments No Sex and Gender Information Value Date Recorded Sex Assigned at Not on file Legal Sex Female 2:02 AM CLINICAL DATA RESEARCH Gender Identity Female 11/28/2018 12:54 PM CDT Sexual Orientation Straight 11/28/2018 12 :54 PM CDT documented as of this encounter Miscellaneous Notes * Result Encounter Note - Herminia Noguera NP - 10/02/2024 4:27 PM CLINICAL DATA RESEARCH Will discuss results at 10/07/24 appt. ICAL DATA RESEARCH documented in this encounter Plan of Treatment Not on file documented as of this encounter Visit Diagnoses Not on filedocumented in this encounter Care Teams Tree Care Foreman Relationship Specialty Start Date End Date Dannie Molina PA [address] [place] [address] PCP - General Internal Medicine 03/26/24 documented as of this encounter
[2024-10-31 18:40] VITALS: BP 140/82; PULSE 70; RESP 18; TEMP 36; O2SAT 100
--- OUTSIDE RECORDS SUMMARY | 2024-10-31 19:27 | XMS_ITS | Clinical Summary ---
Author Organization [facility] [address] Address [address] [place] [address] Care Team Providers Care Dental Hygiene Professor Name Role Phone Dannie Moilna Primary Care Provider + Allergies Active Allergy Reactions Criticality Noted Date Comments Ddfijpu-Nqz-Niz Reductase Inhibitors Muscle pain Medium 03/25/2024 Medications [...] hyperglycemia, without long-term current use of insulin ([facility]) Continuous glucose monitor. Change every 10 days. 10 each 3 07/15/20 Active Synthroid 100 mcg tabletIndications :Acquired hypothyroidism Take 1 tablet (100 mcg total) by mouth daily 90 tablet 3 10/08/19 25 2025 Active glucose blood test stripIndications: Type 2 diabetes mellitus with hyperglycemia, without long-term current use of insulin ([facility]) Use to check blood sugars 2x a day 300 strip 10/08/19 Active tirzepatide (Mounjaro) 12.5 mg/0.5 mL pen injector injectionIndicati ons:Type 2 diabetes mellitus with hyperglycemia, without long-term current use of insulin ([facility]) Inject 0.5 mL (12.5 mg [...] hyperglycemia, without long-term current use of insulin ([facility]) Inject 7.5 mg under the [...] 07/15/2024 Assessment & Plan (07/15/2024 9:27 AM ETHANOL OPERATIONS MANAGER): Chronic problem. Controlled on current propranolol LA 80mg daily, HCTZ 50mg daily Type 2 diabetes mellitus wit h hyperglycemia, without long-term current use of insulin 03/25/2024 Assessment & Plan (07/15/2024 10:09 AM ETHANOL OPERATIONS MANAGER): Chronic problem. A1c worsened from 6.5% 03/25/24 [...] 03/25/2024 Assessment & Plan (07/15/2024 9:24 AM ETHANOL OPERATIONS MANAGER): Chronic problem. Not on any statins; statin intolerance (myalgias). Last lipid panel: 03/27/24 LDL=81, XI=066. Assessment & Plan (03/25/2024 4:20 PM CDT): Patient defers statin therapy she failed atorvastatin due to myalgias Patient did not want to try other statin therapy Acquired hypothyroidism 03/25/2024 Assessment & Plan (07/15/2024 9:26 AM ETHANOL OPERATIONS MANAGER): Chronic problem. Currently taking Synthroid 112 mcg [...] 03/25/2024 Assessment & Plan (07/15/2024 10:02 AM ETHANOL OPERATIONS MANAGER): Vitamin D normal when checked 03/27/24. Assessment & Plan (03/25/2024 4:21 PM CDT): Check levels today and further plans based on it Tinnitus 09/16/2022 Encounters Date Type Department Care Team Description 10/21/[address] [facility] Diabetes and Endocrinology [address] [place] [phone] Flaca Merritt MD 10/07/2024 9:15 AM CDT Office Visit [facility] Diabetes and Endocrinology [address] [place] [phone] Flaca Merritt MD Type 2 diabetes mellitus with hyperglycemia, without long-term current use of insulin (HCC) (Primary Dx); Acquired hypothyroidism; Statin intolerance 10/07/2024 Telephone [facility] [address] [facility] [address], [place] [address] Flaca Merritt MD 10/02/2024 Results Follow-Up [facility] Diabetes and Endocrinology [address] [place] [address] Herminia Noguera NP from Last [...] on file Legal Sex Female 2:02 AM ETHANOL OPERATIONS MANAGER Gender Identity Female 11/28/2018 12:54 PM CDT [...] insulin (HCC) TSH Routine 10/01/2024 7:35 AM ETHANOL OPERATIONS MANAGER Acquired hypothyroidism T4, FREE Routine 10/01/2024 7:35 AM ETHANOL OPERATIONS MANAGER Acquired hypothyroidism COMPREHENSIVE METABOLIC PANEL Routine 03/27/2024 8:49 AM CDT LIPID PANEL Routine 03/27/2024 8:49 AM CDT ALBUMIN CREATININE RATIO, URINE Routine 03/27/2024 8:49 AM CDT HM DIABETES EYE EXAM Routine 07/17/2023 8:29 AM ETHANOL OPERATIONS MANAGER from Last 3 Months or Most Recently [...] Result * (ABNORMAL) TSH (10/01/2024 7:35 AM ETHANOL OPERATIONS MANAGER) TSH 0.08(L) 0.40 - 4.50 mIU/L [facility] Blood 10/01/2024 7:35 AM ETHANOL OPERATIONS MANAGER 10/01/2024 7:36 AM ETHANOL OPERATIONS MANAGER Narrative [facility] - 10/01/2024 5:33 PM ETHANOL OPERATIONS MANAGER FASTING:YES FASTING: YES us Herminia Noguera GOURMET COFFEE ATTENDANT LAB BLOOD ORDERABLES Janki l Result [facility] [address] [place] [address] * T4, free (10/01/2024 7:35 AM ETHANOL OPERATIONS MANAGER) Pathologist [facility] Free T4 1.7 0.8 - 1.8 ng/dL [facility] Blood 10/01/2024 7:35 AM ETHANOL OPERATIONS MANAGER 10/01/2024 7:36 AM ETHANOL OPERATIONS MANAGER Narrative [facility] - 10/01/2024 5:33 PM ETHANOL OPERATIONS MANAGER FASTING:YES FASTING: YES us Herminia Noguera NP LAB BLOOD ORDERABLES Janki l Result [facility] [address] [place] [address] * Albumin Creatinine Ratio, Urine (03/27/2024 8:49 AM CDT) Pathologist [facility] Creatinine, ur 20 20 - 275 mg/dL [...] MD LAB URINE ORDERABLE S Final Result [facility] [address] [address] * Lipid panel (03/27/2024 8:49 AM CDT) [facility] Cholesterol 167 <200 mg/dL [facility] HDL 66 > OR = 50 [...] LDL-C. Camilo RIVERS et al. SWEETIE. 2013;310(19): 3251-2114 (http://education.Celsion/faq/LJJ623) Chol/HDL ratio 2.5 <5.0 (calc) [facility] Non-HDL, (LDL+VLDL) 101 <130 mg/dL (calc) [facility] C[facility] Comment: For patients with diabetes plus 1 major ASCVD risk factor, treating to a non-HDL-C goal of <100 mg/dL (LDL-C of <70 mg/dL) is considered a therapeutic option. 03/27/2024 8:49 AM CDT 03/27/2024 8:50 AM CDT Flaca Alaniz MD LAB BLOOD ORDERABLE S Final Result [facility] [address] [place] [address] * (ABNORMAL) Comprehensive metabolic panel (03/27/2024 8:49 AM CDT) Pathologist [facility] Glucose 148(H) 65 - 99 mg/dL [facility] C[facility] Comment: Fasting reference interval For someone without known diabetes, a glucose value >125 mg/dL indicates that they may have diabetes and this should be confirmed with a follow-up test. BUN 15 7 - 25 mg/dL [facility] Creatinine 0.81 0.50 - 1.03 mg/dL [facility] C[facility] eGFR 86 > OR = 60 mL/min/1.7 3m2 [facility] BUN/creat ratio SEE NOTE: 6 - [...] LAB BLOOD ORDERABLE S Final Result [facility] [address] [place] [address] * DIABETES EYE EXAM (07/17/2023 8:29 AM ETHANOL OPERATIONS MANAGER) us Historical Provider HEALTH MAINTENANCE Edited Result - Final from Last 3 Months or Most Recently Relevant to Health Maintenance Insurance [facility] [id number] Care Teams Dental Hygiene Professor Relationship Specialty Start Date End Date Dannie Molina PA [address] [place] [address] PCP - General Internal Medicine 03/26/24
--- OUTSIDE RECORDS SUMMARY | 2024-10-31 19:27 | XMS_ITS | Encounter Summary ---
Author Organization [facility] Address [address] [facility] [facility] [address] [place] [address] Care Team Providers Care Dental Scheduling Coordinator Name Role Phone Nhung Mello MD Primary Care Provider [phone] Dannie Molina Primary Care Provider + Encounter Details Date Type Department Care Team (Late st Contact Info) Description 12/22/2011 Orders Only [facility] Information Management [address] [place] [address] Scanning, Provider Social History Tobacco Use Types Packs/Day Years Used Date Smoking Tobacco: Never Assessed Alcohol Use Standard Drinks/Week Comments Yes 0 (1 standard drink = 0.6 oz pur e alcohol) Comments Unknown Sex and Gender Information Value Date Recorded Sex Assigned at Not on file Legal Sex Female 2:02 AM NATIONAL EXPANSION RECRUITER Gender Identity Female 11/28/2018 12:54 PM CDT [...] on filedocumented in this encounter Care Teams Dental Scheduling Coordinator Relationship Specialty Start Date End Date Nhung Mello MD [address] [place] [address] [place] [address] PCP - General 12/21/11 03/25/24 Dannie Molina PA [address] [place] [address] PCP - General Internal Medicine 03/26/24 documented as of this encounter
--- OUTSIDE RECORDS SUMMARY | 2024-10-31 19:27 | XMS_ITS | Encounter Summary ---
Author Organization [facility] Address [address] [place] [address] Care Team Providers Care Header Up Name Role Phone Dannie Molina Primary Care Provider + Encounter Details Date Type Department Care Team (Late st Contact Info) Description 10/02/2024 Results Follow-Up [facility] Diabetes and Endocrinology [address] [place] [phone] [place] [address] [address] Social History Tobacco Use Types Packs/Day Years Used Date Smoking Tobacco: Former Cigarettes Q uit: 07/31/1997 Smokeless Tobacco: Never Alcohol Use Standard Drinks/Week Comments Yes 0 (1 standard drink = 0.6 oz pur e alcohol) 1-2 drinks monthly Comments No Sex and Gender Information Value Date Recorded Sex Assigned at Not on file Legal Sex Female 2:02 AM FRONT LOAD TRASH TRUCK DRIVER Gender Identity Female 11/28/2018 12:54 PM CDT Sexual Orientation Straight 11/28/2018 12 :54 PM CDT documented as of this encounter Miscellaneous Notes * Result Encounter Note - Herminia Noguera NP - 10/02/2024 4:27 PM FRONT LOAD TRASH TRUCK DRIVER Will discuss results at 10/07/24 appt. T LOAD TRASH TRUCK DRIVER documented in this encounter Plan of Treatment Not on file documented as of this encounter Visit Diagnoses Not on filedocumented in this encounter Care Teams Header Up Relationship Specialty Start Date End Date Dannie Molina PA [address] [place] [address] PCP - General Internal Medicine 03/26/24 documented as of this encounter
--- OUTSIDE RECORDS SUMMARY | 2024-10-31 19:27 | XMS_ITS | Clinical Summary ---
Author Organization [facility] Address [address] [place] [address] Care Team Providers Care Band Cutter Name Role Phone Nhung Mello MD Primary Care Provider [phone] Source Comments [facility],non-owned Affiliates and Associated Physician Practices is amultiple site organization consisting of ambulatory clinics and hospital sitesin [place], [place], [place] and [place]. This disclosure is being madepursuant to the Care Everywhere program and may not contain all information available regarding this patient. Last updated 18.[facility] Allergies No known active allergies Medications * Be aware that medications may not be up to date on this document. Alwaysverify current medications with the patient. Medication Sig Dispensed Refills Start Date End Date Status LEVOTHYROXINE SODIUM PO Active fluticasone propionate (FLONASE) 50 MCG/ACT nasal spray Lazbuddie 2 sprays into each nostril once daily Active METFORMIN HCL PO Active POTASSIUM CHLORIDE ER PO Active SUMAtriptan Succinate (ZEMBRACE SYMTOUCH SC) Active fluticasone propionate (FLONASE) 50 MCG/ACT nasal sprayIndications:Acut e ethmoidal sinusitis, recurrence not specified Lazbuddie 2 sprays into each nostril once daily [...] age to complete this topic Care Teams Band Cutter Relationship Specialty Start Date End Date Nhung Mello MD [address] [place] [address] [address] [place] [address] PCP - General Family Medicine 11/23/16
--- OUTSIDE RECORDS SUMMARY | 2024-10-31 19:27 | XMS_ITS | Data Portability ---
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 She is here for follow-up of her left shoulder. She feels that the diclofenac has helped more than the naproxen. She went to physical therapy for 1 visit has been doing home exercise program. Her recent MRI scan demonstrated a partial-thicknes s tear of the supraspinatus tendon that involves approximately 60% of the bursal side of the tendon and measures 9.5 mm anterior to posterior. I have discussed with her that it is not uncommon for a tear of this type to continue to be symptomatic despite non operative treatment and if so she can undergo surgical repair. She notes that some days her symptoms are still severe but some days her shoulder hardly bothers her so she has noticed some improvement. 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 She notes that she will be unable to take any time off work for the 1st 90 days Due to job requirements. I have discussed with her that if her shoulder becomes asymptomatic it would be very reasonable to observe. If at some point in the future she develops worsening symptoms again a new MRI scan would be recommended as usually worsening symptoms indicates enlargement of the tear. I have discussed with her that I would not recommend cortisone injections which tend to soften the tendon and are not going to help her avoid surgery but only give her temporary relief and the results of surgery after more than 1 injection are poor. She would like to stay in the diclofenac for now. We discussed the possibility of side effects such as bleeding ulcer liver problems kidney problems and I would recommend that she have blood work done including a CMP and CBC in 2 months since she will be on the diclofenac by for 3 months by then. She plans to follow-up for further evaluation approximately 3 months and if anything changes the meantime she will call. Impression: Moderately high-grade bursal sided partial thickness tear supraspinatus tendon left shoulder. Patient like to observe for now. 20 minutes were spent total care this patient more than half the time spent in [id number] care. [email or web address] Not available 10/01/2023 17:05:45 Plan of Treatment Reminders Order Date Submit Date Provider Last Modified By Organization Details Last Modified Time Details Appointments Follow Up 15 2024 09:00A M MEG Sanabria Not available Not available Not available Lab ccp (cyclic citrullin ated peptide) igg, serum 2024 025 [facility], [address], [place], [address], 10/14/2024 14:18:08 amylase, serum or plasma 2024 025 [employer] [facility], [address], [place], [address], 10/14/2024 14:18:13 lipase, serum or plasma 2024 025 [employer] [facility], [address], [place], [address], 10/14/2024 14:18:14 noninvasi ve colorecta l cancer DNA + occult blood screening , QL, stool 2024 025 [email or web address] [facility] (Cologuard Orders Only), [address], [address], [place], [address], 10/22/2024 09:32:58 TSH + free T4, serum 2024 025 [email or web address] [facility], [address], [place], [address], 10/22/2024 09:32:58 vitamin B12 + folate, serum or blood 2024 025 EUGENIA [facility], [address], [place], [address], 10/14/2024 14:18:11 vitamin D, 25-hydrox y, total, serum 2024 025 [facility], [address], [place], [address], 10/14/2024 14:18:12 TSH, serum or plasma 2024 025 [facility], [address], [place], [address], 10/14/2024 14:18:09 T4, free, serum 2024 025 [email or web address] [facility], [address], [place], [address], 10/22/2024 09:32:58 CBC w/ auto diff 2024 025 [email or web address] [facility], [address], [place], [address], 10/22/2024 09:32:58 iron + TIBC + ferritin, serum 2024 025 [facility], [address], [place], [address], 10/14/2024 14:17:59 erythrocy te sedimenta tion rate by westergre n method 2024 025 [facility], [address], [place], [address], 10/14/2024 14:18:02 ALEENA (antinucl ear antibodie s) screen, ifa, serum 2024 025 [facility], [address], [place], [address], 10/14/2024 14:18:05 rf (rheumato id factor), serum 2024 025 [place] [facility], [address], [place], [address], 10/14/2024 14:18:06 erythrocy te sedimenta tion rate by westergre n method 2024 [email or web address] [facility], [address], [place], [address], 10/22/2024 09:32:58 C-reactiv e protein, quantitat manjinder, serum or plasma 2024 025 [place] [facility], [address], [place], [address], 10/14/2024 14:18:07 magnesium , serum or plasma 2024 025 [facility], [address], [place], [address], 10/14/2024 14:18:00 CBC w/ auto diff 2024 025 [place] [facility], [address], [place], [address], 10/14/2024 14:18:03 vitamin B1 (thiamine ), blood 2023 024 [facility], [address], [place], [address], 04/05/2024 09:50:41 folate, serum 2023 024 [email or web address], [address], [place], [address], 04/05/2024 09:50:41 vitamin B12, serum 2023 024 [email or web address], [address], [place], [address], 04/05/2024 09:50:42 ALEENA (antinucl ear antibodie s) screen, ifa, serum 2023 024 [facility], [address], [place], [address], 04/05/2024 09:50:42 ccp (cyclic citrullin ated peptide) igg, serum 2023 024 [email or web address] [facility], [address], [place], [address], 04/05/2024 09:50:42 rheumatoi d factor IgM, QN, IA, serum 2023 024 [email or web address], [address], [place], [address], 04/05/2024 09:50:42 erythrocy te sedimenta tion rate by westergre n method 2023 024 [email or web address] [facility], [address] [place], [place] [address], [place], [address], 04/05/2024 09:50:42 CRP, high sensitivi ty, csf 2023 024 [email or web address] [facility], [address], [place], [address], 04/05/2024 09:50:42 ESR (erythroc yte sedimenta tion rate), blood 2023 024 [email or web address] [employer] [facility], [address], [place], [address], 04/05/2024 09:50:42 HbA1c (hemoglob in A1c), blood 2023 024 [email or web address] [facility], [address], [place], [address], 04/05/2024 09:50:41 PPD (purified protein derivativ e), skin test [address] [place], [place], [address], 01/17/2024 11:50:45 Referral None recorded. Procedures None recorded. Surgeries None recorded. Imaging CT, chest, w/o contrast 2024 025 [email or web address] Not available 09/04/2024 11:01:15 MAMMO, screening , digital, bilateral 2023 024 56 [facility], [address] [place] [address] , [place], [address], 04/12/2024 09:15:04 Medication Orders meclizine 12.5 mg tablet 2024 025 [facility] [place], [address], 10/10/2024 12:40:06 metoclopr amide 10 mg tablet 2024 025 [email or web address] 00 [facility] [address], [address] [place], [address], 10/11/2024 12:00:16 ondansetr on 8 mg disintegr ating tablet 2024 025 [facility] [address], [address] [place], [address], 10/10/2024 12:40:06 ciproflox acin 500 mg tablet 2024 025 [facility] [address] [place], [address], 10/11/2024 12:00:46 thiamine HCl (vitamin B1) 100 mg tablet 2024 025 [facility] [address] [place], [address], 10/10/2024 12:40:58 triamcino lone acetonide 40 mg/mL suspensio n for injection 2024 025 Not available 09/04/2024 13:37:14 hydrocodo ne 10 mg-acetam inophen 325 mg tablet 2023 024 [facility] [address] [place], [address], 09/04/2024 10:42:46 Patient TargetsNo targets recorded. Patient InstructionsNo instructions recorded. Reason for Referral None Reported. Results Created Date Observation Date Name Description Value Unit Range Abnormal Flag Note LastModifiedBy Organization Detail LastModifiedTime 01/17/2001/17/2024 PPD (connor fied prote in deriv ative ), skin test TB negati ve Not Available [facility]_[address], [place], [address], 01/15/2024 09:06:23 03/12/20 24 03/15/2024 MEASL ES, MUMPS , AND RUBEL LA (MMR) AB (IGG) PANEL , IMMUN E STATU S measles Ab (IgG), immune status 118.00 AU/mL normal AU/mL Inter preta tion ----- ----- ----- ---- <13.5 0 Not consi stent with immun ity 13.50 -16.4 9 Equiv ocal >16.4 9 Consi stent with immun ity The prese nce of measl es IgG sugge sts immun izati on or past or curre nt infec tion with measl es virus . For addit ional infor tao monzon e refer to http: //[facility] adriano lora ics.c om/fa q/FAQ 162 (This link is being provi ded for infor purvi burdick/ educa brock l purpo ses only. ) Not Available [facility] [address] [address] [place], [address], 03/15/2024 17:12:27 03/12/2003/15/2024 MEASL ES, MUMPS , AND RUBEL LA (MMR) AB (IGG) PANEL , IMMUN E STATU S mumps virus Ab (IgG), immune status 51.30 AU/mL normal AU/mL Inter preta tion ----- -- ----- ----- ----- - <9.00 Not consi stent with immun ity 9.00- 10.99 Equiv ocal >10.9 9 Consi stent with immun ity The prese nce of mumps IgG antib corbin sugge sts immun izati on or past or curre nt infec tion with mumps virus . Not Available [facility] [address] [address] [place], [address], 03/15/2024 17:12:27 03/12/20 24 03/15/2024 MEASL ES, MUMPS , AND RUBEL LA (MMR) AB (IGG) PANEL , IMMUN E STATU S rubella Ab (IgG), immune status 10.50 index normal Index Inter preta tion ----- ----- ----- ---- <0.90 Not consi stent with immun ity 0.90- 0.99 Equiv ocal > or = 1.00 Consi stent with immun ity The prese nce of rubel la IgG antib corbin sugge sts immun izati on or past or curre nt infec tion with rubel la virus . Not Available [facility] [address] [address] [place], [address], 03/15/2024 17:12:27 03/12/20 24 03/15/2024 TEST AUTHO RIZAT ION test name: TERENCE Saenz, AJAY, AND ELLY Peter ( Not Available [facility] [address] [address] , [place], [address], 03/15/2024 17:12:28 03/12/20 24 03/15/2024 TEST AUTHO RIZAT ION test code: 5259SB Not Available [facility] [address] [address] , [place], [address], 03/15/2024 17:12:28 03/12/2003/15/2024 TEST AUTHO RIZAT ION client contact: FRANCHESKA Greenberg Not Available [address] , [place], [address], 03/15/2024 17:12:28 03/12/2003/15/2024 TEST AUTHO RIZAT ION report always message signature The labor atory testi ng on this patie nt was verba lly reque sted or confi rmed by the order ing physi tyrell or his or her autho rized repre senta tive after conta ct with an emplo sanderson of [facility] ostjoann sShaquille Gale al regul ation s requi re that we maint ain on file writt en autho rizat ion for all labor atory testi ng. Accor dingl y we are askin g that the order ing physi tyrell or his or her autho rized repre senta tive sign a copy of this repor t and promp tly retur n it to the clien t servi ce repre senta tive. Signa ture: __ Not Available [facility] [address], [place], [address], 03/15/2024 17:12:28 03/12/20 24 03/15/2024 TEST AUTHO ZANDER MA ro Fax florentino agosto: [phone] Not Available [address], [address], 03/15/2024 17:12:28 03/12/20 24 03/15/2024 QUANT IFERO N(R)- TB GOLD PLUS, 1 TUBE quantiferon( R)-TB gold plus, 1 tube NEGATI VE negati ve normal Negat manjinder test resul t. M. tuber culos is compl ex infec tion unlik ugo. Not Available [address], [address], 03/15/2024 17:12:28 03/12/20 24 03/15/2024 QUANT IFERO N(R)- TB GOLD PLUS, 1 TUBE nil 0.02 IU/mL normal Not Available [address], [address], 03/15/2024 17:12:28 03/12/20 24 03/15/2024 QUANT IFERO N(R)- TB GOLD PLUS, 1 TUBE mitogen-nil 9.85 IU/mL normal Not Available [address], [address], 03/15/2024 17:12:28 03/12/20 24 03/15/2024 QUANT IFERO N(R)- TB GOLD PLUS, 1 TUBE TB1-nil 0.03 IU/mL normal Not Available [address], [address], 03/15/2024 17:12:28 03/12/20 24 03/15/2024 QUANT IFERO N(R)- TB GOLD PLUS, 1 TUBE TB2-nil 0.01 IU/mL normal The Nil tube value refle cts the backg round inter feron gamma immun e respo nse of the patie nt's blood sampl e. This value has been subtr acted from the patie nt's displ ayed TB and Mitog en resul ts. Lower than expec lynn resul ts with the Mitog en tube preve nt false -nega tive Quant ifero n readi ngs by detec robert a patie nt with a poten tial immun e suppr essiv e condi tion and/o r subop timal pre-a nalyt ical speci men handl ing. The TB1 Antig en tube is coate d with the M. tuber culos is-sp ecifi c antig ens desig arnoldo to elici t respo nses from TB antig en prime d CD4+ helpe r T-lym phocy fabiana. The TB2 Antig en tube is coate d with the M. tuber culos is-sp ecifi c antig ens desig arnoldo to elici t respo nses from TB antig en prime d CD4+ helpe r and CD8+ cytot oxic T-lym phocy fabiana. For addit ional infor tao monzon e refer to https ://ed ucati on.qu mendelHashParade/f aq/FA Q204 (This link is being provi ded for infor purvi burdick/ kelli gutiérrez l purpo ses only. ) Not Available [facility] [address] [place], [address], 03/15/2024 17:12:28 04/10/20 24 04/13/2024 FOLAT E, SERUM folate, serum 6.8 NG/mL normal Refer ence Range Low: <3.4 Borde rline : 3.4-5 .4 Yana l: >5.4 Not Available [facility] [address] [place], [address], 04/13/2024 18:27:15 04/10/20 24 04/13/2024 VITAM IN B12 vitamin B12 1186 pg/mL 200-11 00 high Not Available [facility] [address] [place], [address], 04/13/2024 18:27:15 04/10/20 24 04/13/2024 VITAM IN B1 (THIA MINE) , SERUM /PLAS MA, LC/MS /MS vitamin B1 (thiamine), serum/plasma , lc/MS/MS 6 nmol/ L 8-30 low (Note ) Vitam in suppl ement ation withi n 24 hours prior to blood draw may affec t the accur acy of the resul ts. This test was devel oped and its edwin tical perfo rmanc e lorin cteri stics have been deter mined by AIT ostic s. It has not been clear ed or appro christiana by FDA. This assay has been valid ated pursu ant to the CLIA regul ation s and is used for clini alhaji purpo ses. MDF med fusio n [address] [facility] [address] [place] [address] [phone] Kelly Rodriguez MD, PhD Not Available [facility] [address] [place], [address], 04/13/2024 18:27:15 04/10/20 24 04/13/2024 HEMOG LOBIN A1C hemoglobin A1C 7.0 %_of_ total _HGB <5.7 high For someo ne witho ut known diabe fabiana, a hemog lobin A1c value of 6.5% or great er indic ates that they may have diabe fabiana and this shoul d be confi rmed with a follo w-up test. For someo ne with known diabe fabiana, a value <7% indic ates that their diabe fabiana is well contr olled and a value great er than or equal to 7% indic ates subop timal contr ol. A1c targe ts shoul d be indiv idual ized based on durat ion of diabe fabiana, age, comor bid condi tions , and other consi derat ions. Curre ntly, no conse nsus exist s regar ding use of hemog lobin A1c for diagn osis of diabe fabiana for child pradeep. This test was perfo rmed on the [employer]by xochilt c503 platf orm. Effec tive , a chapman e in test platf orms from the Abbot t Archi tect to the [employer] xochilt c503 may have shift ed HbA1c resul ts robin red to histo rical resul ts. Based on labor atory valid ation testi ng condu cted at [facility] , the [employer] platf orm relat manjinder to the Abbot Wander (f. [employer]) platf orm had an avera ge incre ase in HbA1c value of < or = 0.3%. This diffe rence is withi n accep lynn varia bilit y estab lishe d by the Sheryl burdick [employer] hemog lobin Stand alisonz ation Progr am. Note that not all indiv idual s will have had a shift in their resul ts and direc t robin rison s betwe en histo rical and curre nt resul ts for testi ng condu cted on diffe rent platf orms is not recom shayan d. Not Available [address] [address] [place], [address], 04/13/2024 18:27:16 04/10/20 24 04/17/2024 RHEUM ATOID FACTO R (IGM) rheumatoid factor (IgM) <5 U <=6 Not Available [address] [address] [place], [address], 04/17/2024 13:30:55 04/10/20 24 04/17/2024 SED RATE BY MODIF IED WESTE RGREN sed rate by modified westergren 2 mm/h < or = 30 normal Not Available [facility] [address] [address] [place], [address], 04/17/2024 13:30:55 04/10/20 24 04/17/2024 RHEUM ATOID FACTO R rheumatoid factor <10 IU/mL <14 normal Not Available [facility] [address] [address] [place], [address], 04/17/2024 13:30:56 04/10/2004/17/2024 C-ESAU CTIVE PROTE IN C-reactive protein <3.0 mg/L <8.0 normal Not Available [facility] [address] [address], [place], [address], 04/17/2024 13:30:56 04/10/20 24 04/17/2024 ALEENA CASCA DE(AN A,IFA W/RFL AND REFL 11 AB CASCA DE) ALEENA screen, ifa NEGATI VE negati ve normal ALEENA IFA is a first line scree n for detec ting the prese nce of up to appro ximat ugo 150 autoa ntibo dies in vario us autoi mmune disea ses. A negat manjinder ALEENA IFA resul t sugge sts an ALEENA-a ssoci ated autoi mmune disea se is not prese nt at this time, and does not refle x furth er. If there is high clini alhaji suspi cion for Sjogr en's syndr ome, testi ng for anti- SS-A/ Ro antib corbin shoul d be consi dered . Anti- Priya-1 antib corbin shoul d be consi dered for clini irving suspe cted infla mmato ry myopa alvaro . AC-0: Negat manjinder Inter natio nal Conse nsus on ALEENA Patte rns (http s://d oi.or g/10. 1515/ ccl- 2017- 0052) For addit ional infor tao monzon e refer to http: //[facility] adriano mclain.Que stDia gnost ics.c om/fa q/FAQ 177 (This link is being provi ded for infor purvi burdick/ educa brock l purpo ses only. ) Not Available [facility] [address], [place], [address], 04/17/2024 13:30:57 07/16/20 24 07/16/2024 XR, chest , 2 view No observ ation record ed. [email or web address] [address] [facility] , [place], [address], 07/18/2024 14:20:18 Result Notes None recorded. Problems Name Problem SNOMED Code Status Onset Date Resolution Date Notes Provider Name and Address Organization Details Recorded Time Mixed anxiety and depressive disorder 603907280 Active 2022 Not Available [facility] 3 14:11:49 Essential tremor 971216324 Active 2022 [facility] Available [facility] 3 14:11:49 Dyslipidem ia 322876149 Active 2022 Not Available [facility] 3 14:11:49 Nausea and vomiting 63210856 Active 2022 Not Available [facility] 3 14:11:49 Migraine 24458055 Active 2022 Not Available [facility] 3 14:11:49 Nausea 656682573 Active 2022 Not Available [facility] 3 14:11:49 Type 2 diabetes mellitus without complicati on 207344584 Active 2022 Not Available [facility] 3 14:11:49 Restless legs 57824051 Active 2022 Not Available [facility] 3 14:11:49 Dizziness 409860827 Active 2022 Not Available [facility] 3 14:11:49 Chronic low back pain 101846952 Active 2022 Not Available [facility] 3 14:11:49 Vitamin B12 deficiency (non anemic) 77709132 Active 2022 Not Available [facility] 3 14:11:49 Painful urging to urinate 07738025 Active 2022 Not Available [facility] 3 14:11:49 Strain of muscle of left shoulder 8149364012837 9105 Active 2022 Not Available [facility] 3 14:11:49 Acute sinusitis 20412852 Active 2022 MEG Sanabria [address], [address] [facility], [place], [address] , [facility] [employer] [facility] 3 09:26:51 Acute pharyngiti s 056359002 Active 2022 MEG Sanabria [address], [address], [place], [address] , [employer] [facility] [employer] [facility] 3 09:30:34 Supraspina tus tear 819000765 Active 2022 MEG Sanabria [address], [address], [place], [address] , [facility] [employer] [facility] [employer] [facility] 3 15:03:10 Pain of left shoulder joint 8536374189022 9109 Active 2022 DULCE [place] null, [place] [employer] [facility] [employer] [facility] 3 10:29:09 Tuberculos is screening Active 2023 MEG Sanabria [address], [address], [place], [address] , [employer] [facility] [employer] [facility] 4 14:00:17 Under immunized 654729193 Active 2023 MEG Sanabria [address], [address], [place], [address] , [employer] [facility] 4 14:01:02 Eruption of skin of face Active 2023 MEG Sanabria [address], [address], [place], [address] , [employer] [facility] 4 09:46:51 Screening for malignant neoplasm of breast Active 2023 MEG Sanabria [address], [address], [place], [address] , [employer] [facility] 4 09:49:25 Adult health examinatio n Active 2023 MEG Sanabria [address], [address], [place], [address] , [employer] [facility] 4 09:58:37 Thiamine deficiency 418685213 Active 2023 MEG Sanabria [address], [address], [place], [address] , [employer] [facility] 4 15:59:36 Pneumonia 821807199 Active 2023 MEG Sanabria [address], [address], [place], [address] , [employer] [place] [employer] [facility] 4 11:28:29 Perioral dermatitis 401163400 Active 2024 HOLLY Carbajal [address], [address], [place], [address] , [place] [facility] 5 10:50:35 Allergic contact dermatitis 598331014 Active 2024 HOLLY Carbajal [address], [address], [place], [address] , [employer] [facility] 5 10:51:12 Nodule of lung 089221462 Active 2024 HOLLY Carbajal [address], [address], [place], [address] , [employer] [place] [employer] [facility] 5 11:00:23 Vertigo 965371281 Active 2024 MEG Sanabria [address], [address], [place], [address] , [employer] [employer] [facility] 5 12:38:42 Screening for malignant neoplasm of colon Active 2024 MEG Sanabria [address], [address], [place], [address] , [employer] [facility] [employer] [facility] 5 12:45:05 Benign paroxysmal positional vertigo 722907801 Active Not Available [facility] 3 14:11:49 Hypothyroi dism due to Sierra' s thyroiditi s 119919257 Active 2021 Not Available [facility] 3 14:11:49 Labyrinthi tis [id number] Active Not Available [facility] 3 14:11:49 Fibromyosi tis 82667545 Active Not Available [facility] 3 14:11:49 Low back pain 749224651 Active Not Available [facility] 3 14:11:49 Polyuria 31061084 Active Not Available [facility] 3 14:11:49 Current tear of medial cartilage AND/OR meniscus of knee Active 2020 Not Available [facility] 3 14:11:49 Sinusitis 01291537 Active Not Available [facility] 3 14:11:49 Hypertensi ve disorder 85614006 Active Not Available [facility] 3 14:11:49 Hypothyroi dism 07021496 Active Not Available [facility] 3 14:11:49 Dizziness of unknown cause 767321735 Active Not Available [facility] 3 14:11:49 Type 2 diabetes mellitus 15697700 Active 2021 Not Available [facility] 3 14:11:49 Uncontroll ed type 2 diabetes mellitus 301769132 Active Not Available [facility] 3 14:11:49 Well controlled type 2 diabetes mellitus 662468917 Active 2021 Not Available [facility] 3 14:11:49 Anxiety 82542518 Active 2021 Not Available [facility] 3 14:11:49 Essential hypertensi on 62175624 Active Not Available [facility] 3 14:11:49 Diarrhea 39367403 Active Not Available [facility] 3 14:11:49 Candidiasi s of vagina 68718962 Active Not Available [facility] 3 14:11:49 Diabetes mellitus 03594226 Active Not Available [facility] 3 14:11:49 Fatigue 24162701 Active Not Available [facility] 3 14:11:49 Problem Notes None recorded. Procedures Surgical History Date Name Laterality Status Provider Name and Address Organization Details Recorded Time 04/05/20 22 mammography completed Not Available [facility] 09/28/2022 04:41:38 02/10/20 21 Knee Surgery completed Not Available [facility] 09/28/2022 04:41:38 Cholecystectomy completed Not Available [facility] 09/28/2022 04:41:38 endometrial ablation completed Not Available [facility] 09/28/2022 04:41:38 Imaging Results Imaging Date Name Status LastModified by Organiz [facility] Details LastModified Time 07/16/2024 XR, chest, 2 view completed [email or web address] [facility] [address], [place], [address], 07/18/2024 14:20:18 Procedure Notes None recorded. Medical Equipment None Reported. Allergies No known drug allergies Medications Name Sig Start Date Stop Date Status Note LastModified by Organization Details LastModified Time Prescript ion - Renewal active Not Available Not Available Not Available Prescript ion - Prior Authoriza tion Request active Not Available Not Available Not Available carisopro dol 350 mg tablet Take 1 tablet 3 times a day by oral route for 30 days. 07/19 completed Not Available Not Available Not Available cyclobenz aprine 10 mg tablet Take 1 tablet at bedtime , po a day 09/04 completed Not Available Not Available Not Available amoxicill in 500 mg capsule 01/08 completed Not Available Not Available Not Available metformin 500 mg tablet Take 1 tablet by oral route. 12/15 completed Not Available Not Available Not Available promethaz ine-DM 6.25 mg-15 mg/5 mL oral syrup Take 5 mL every 4 hours by oral route as needed for 10 days. 09/04 completed Not Available Not Available Not Available potassium chloride ER 10 mEq capsule,e xtended release TAKE 1 CAPSULE BY MOUTH ONCE DAILY 04/12 completed Not Available Not Available Not Available prednison e 10 mg tablet TAKE 3 TABLETS BY MOUTH ONCE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 hour to eat or have her coffee in morning and up to 4 hours if ever taking any heartburn or reflux medication s to help optimize absorption . Discussed paleo like diet with restrictio n of GMOs to help with energy and to optimize absorption of vitamins and minerals and reduce inflammati on. Vitamin B1 2 deficiency (non anemic) 84394936 E53.8 Trial on B12 injections as her levels are low normal range and she has fatigue. Spent up to 25 minutes preparing to see the patient (eg, review of tests), obtaining and/or reviewing separately obtained history, performing a medically appropriat e examinatio n and evaluation , counseling and educating the patient, ordering medication s, tests, along with documentin g clinical informatio n in the electronic health record, independen tly interpreti ng results and communicat ing results to the patient. Patient can be followed by PCP - she/he is aware of my resignatio n and last day of May 12. If needed his/her PCP can refer patient to another endocrinol ogist in the area. All questions /concerns answered and refills necessary at visit today. [id number] MEG Sanabria [facility] Shekhar ruiz [address] [facility] [place] [address] 06/09/2023 11:35:54 06/09/2023 12:10:38 Chronic low back pain 551263672 M54.50 Strain of muscle of left shoulder 8734587072 1950799 S46.912A [id number] MEG Sanabria [facility] Shekhar ruiz [address] [place] [address] [place] [address] 06/29/2023 09:12:41 06/29/2023 09:57:01 Acute sinusitis 02110713 J01.90 Acute pharyngitis 158240 003 J02.9 [id number] Sylvester Layne MD [facility] [place] [address] [place] [address] 07/19/2023 09:47:44 07/26/2023 15:09:49 Pain of left shoulder joint 0330287499 3708546 M25.536 [id number] MEG Florez [facility] [place] [address] [place] [address] 09/01/2023 09:34:00 09/01/2023 10:25:56 Pain of left shoulder joint 5864342508 6788533 M25.106 [id number] Sylvester Layne MD [facility] [place] [address] [place] [address] 09/29/2023 08:49:10 10/02/2023 08:41:56 Pain of left shoulder joint 4263082882 3204380 M25.523 [id number] MEG Sanabria [facility] [address] [place] [address] [place] [address] 01/15/2024 08:58:24 01/29/2024 11:12:50 Tuberculosis screening 352537298 Z11.1 [id number] MEG Sanabria [facility] [address] [place] [address] 03/29/2024 09:03:00 03/29/2024 09:53:04 Type 2 diabetes mellitus without complication 006121628 E11.9 Chronic low back pain 27 8479987 M54.50 Vitamin B1 2 deficiency (non anemic) 79277282 E53.8 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 Nodule of lung 485746411 R91.1 Incidental finding 4 mm [id number] MEG Sanabria [facility] [address] [address] 10/10/2024 12:13:26 10/10/2024 14:04:14 Nausea and vomiting 82676542 R11.2 Vertigo 360736505 R42 Thiamine deficiency 3993 84237 E51.9 Fatigue 45790735 R53.83 Screening for malignant neoplasm of colon 507276258 Z12.11 Health Concerns Section Related Observation LastModified by Organization Detai ls LastModified Time None Recorded Concern Status LastModified by Organization Details LastModified Time None Recorded Advance Directives Directive None Recorded Payers Encounter Date Sequence Insurance Name Policy Number Policy Montalvo Covered Member ID Montalvo Member ID Guarantor Name 09/29/2023 1 [employer] Danielle G Krishna [id number] OI [id number] SOI Danielle G Krishna 01/15/2024 1 [employer] Danielle G Krishna [id number] OI [id number] SOI Danielle G Krishna 03/29/2024 1 [employer] Danielle G Krishna [id number] OI [id number] SOI Danielle G Krishna 09/04/2024 1 [employer] Danielle G Krishna [id number] OI [id number] SOI Danielle G Krishna 10/10/2024 1 [employer] Danielle G Krishna [id number] OI [id number] SOI Danielle G Krishna Notes Date Note Type Note Provider Name and Address Organization Details Recorded Time 09/29/2023 text/html Sylvester Layne MD [address], [place], [address], [facility] [employer] [facility] 10/01/2023 17:06:00 03/29/2024 text/html fatigue , insomnia , brain fog , some nausea , facial rash , comes and goes , not affected by the sun MEG Sanabria [address], [place], [address], [place] [employer] 04/02/2024 08:36:28 09/04/2024 text/html Gladis Keller is a 54 year old female patient here today with concerns of rash around eyes States this occurred first on 08/18/24 after using new eye cream. Took 2 weeks to resolve.On 08/23/24 this began again. She notes she has not used anything new this timeDry and flaking on JUAN FRANCISCO eyelids. Notes all serums are burning. Had CT abdomin in 04/2024 that showed lung nodules, recommend CT in 6 month for FU HOLLY Carbajal [address], [place], [address], [employer] 09/04/2024 11:04:01 10/10/2024 text/html facial rash helped with prednisone MEG Sanabria [address], [place], [address], [employer] 10/19/2024 11:26:28 OBGyn Episode No OBEpisode recorded.
--- OUTSIDE RECORDS SUMMARY | 2024-10-31 19:27 | XMS_ITS | Clinical Summary ---
Author Organization [facility] Address [address] [place] [address] Care Team Providers Care Four Slide Machine Setter Name Role Phone Unavailable Primary Care Provider [...]
--- OUTSIDE RECORDS SUMMARY | 2024-10-31 19:27 | XMS_ITS | Referral Summary ---
Author Organization [facility] [address] Address [address] [place] [address] Care Team Providers Care Tinner Helper Name Role Phone Dannie Molina Primary Care Provider + Encounters Date Type Department Care Team Description 10/21/2024 Telephone [facility] Diabetes and Endocrinology [address] [place] [address] Flaca Merritt MD 10/07/[address] [address] Flaca Merritt MD 10/07/2024 9:15 AM CDT Office Visit [facility] Diabetes and Endocrinology [address] [place] [address] Flaca Merritt MD Type 2 diabetes mellitus with hyperglycemia, without long-term current use of insulin (HCC) (Primary Dx); Acquired hypothyroidism; Statin intolerance 10/02/2024 Results Follow-Up [facility] Diabetes and Endocrinology [address] [place] [address] Herminia Noguera NP from Last 3 Months Allergies Active Allergy Reactions Criticality Noted Date Comments Rhvjqba-Xvu-Nbd Reductase Inhibitors Muscle pain Medium 03/25/2024 Medications [...] long-term current use of insulin ([facility]) Continuous glucose monitor. Change every 10 days. 10 each 3 07/15/20 24 Active Synthroid 100 mcg tabletIndications :Acquired hypothyroidism Take 1 tablet (100 mcg total) by mouth daily 90 tablet 3 10/08/19 25 2025 Active glucose blood test stripIndications: Type 2 diabetes mellitus with hyperglycemia, without long-term current use of insulin ([facility]) Use to check blood sugars 2x a day 300 strip 10/08/19 Active tirzepatide (Mounjaro) 12.5 mg/0.5 mL pen injector injectionIndicati ons:Type 2 diabetes mellitus with hyperglycemia, without long-term current use of insulin ([facility]) Inject 0.5 mL (12.5 mg total) [...] 07/15/2024 Assessment & Plan (07/15/2024 9:27 AM CISO): Chronic problem. Controlled on current propranolol [place] 80mg daily, HCTZ 50mg daily Type 2 diabetes mellitus wit h hyperglycemia, without long-term current use of insulin 03/25/2024 Assessment & Plan (07/15/2024 10:09 AM CISO): Chronic problem. A1c worsened from 6.5% 03/25/24 [...] 03/25/2024 Assessment & Plan (07/15/2024 9:24 AM CISO): Chronic problem. Not on any statins; statin intolerance (myalgias). Last lipid panel: 03/27/24 LDL=81, SI=620. Assessment & Plan (03/25/2024 4:20 PM CDT): Patient defers statin therapy she failed atorvastatin due to myalgias Patient did not want to try other statin therapy Acquired hypothyroidism 03/25/2024 Assessment & Plan (07/15/2024 9:26 AM CISO): Chronic problem. Currently taking Synthroid 112 mcg [...] 03/25/2024 Assessment & Plan (07/15/2024 10:02 AM CISO): Vitamin D normal when checked 03/27/24. Assessment [...] on file Legal Sex Female 2:02 AM CISO Gender Identity Female 11/28/2018 12:54 PM CDT [...] insulin (HCC) TSH Routine 10/01/2024 7:35 AM CISO Acquired hypothyroidism T4, FREE Routine 10/01/2024 7:35 AM CISO Acquired hypothyroidism COMPREHENSIVE METABOLIC PANEL Routine 03/27/2024 8:49 AM CDT LIPID PANEL Routine 03/27/2024 8:49 AM CDT ALBUMIN CREATININE RATIO, URINE Routine 03/27/2024 8:49 AM CDT DIABETES EYE EXAM Routine 07/17/2023 8:29 AM CISO from Last 3 Months or Most Recently [...] Result * (ABNORMAL) TSH (10/01/2024 7:35 AM CISO) TSH 0.08(L) 0.40 - 4.50 mIU/L [facility] Blood 10/01/2024 7:35 AM CISO 10/01/2024 7:36 AM CISO Narrative [facility] - 10/01/2024 5:33 PM CISO FASTING:YES FASTING: YES Herminia Noguera PUBLIC INFORMATION OFFICER LAB BLOOD ORDERABLES Janki l Result [facility] [address] [place] [address] * T4, free (10/01/2024 7:35 AM CISO) [facility] Free T4 1.7 0.8 - 1.8 ng/dL [facility] Blood 10/01/2024 7:35 AM CISO 10/01/2024 7:36 AM CISO Narrative [facility] - 10/01/2024 5:33 PM CISO FASTING:YES FASTING: YES us Herminia Noguera NP LAB BLOOD ORDERABLES Janki l Result [facility] [address] [place] [address] * Albumin Creatinine Ratio, Urine (03/27/2024 8:49 AM CDT) [facility] Creatinine, ur 20 20 - 275 [...] MD LAB URINE ORDERABLE S Final Result [facility] [address] [address] * Lipid panel (03/27/2024 8:49 AM CDT) [facility] Cholesterol 167 <200 mg/dL Kirit WakeMateSuha Cervantes HDL 66 > OR = 50 [...] of LDL-C. Camilo RIVERS et al. SWEETIE. 2013;310(64): 4463-0414 (http://education.G-mode/faq/KZX348) Chol/HDL ratio 2.5 <5.0 (calc) Kirit Cervantes Non-HDL, (LDL+VLDL) 101 <130 mg/dL (calc) [facility]irit Cervantes Comment: For patients with diabetes plus 1 major ASCVD risk factor, treating to a non-HDL-C goal of <100 mg/dL (LDL-C of <70 mg/dL) is considered a therapeutic option. 03/27/2024 8:49 AM CDT 03/27/2024 8:50 AM CDT Flaca Alaniz MD LAB BLOOD ORDERABLE S Final Result KIRIT VizcarraMaira [address] [place] [address] * (ABNORMAL) Comprehensive metabolic panel (03/27/2024 8:49 AM CDT) [facility] Glucose 148(H) 65 - 99 mg/dL [...] ORDERABLE S Final Result KIRIT [address]reillySt Cervantes [address] [place] [address] * DIABETES EYE EXAM (07/17/2023 8:29 AM CISO) us Historical Provider HEALTH MAINTENANCE Edited Result - Final from Last 3 Months or Most Recently Relevant to Health Maintenance Insurance [facility] [id number] Care Teams Tinner Helper Relationship Specialty Start Date End Date Dannie Molina PA [address] [place] [address] PCP - General Internal Medicine 03/26/24
--- OUTSIDE RECORDS SUMMARY | 2024-10-31 19:27 | XMS_ITS | Continuity of Care Document ---
Author Organization [facility] Address [address] [place] [address] [place] [address] Phone Care Team Providers Care Delimer Name Role Phone Jefferson PT,MPT,ATC, Vinny Unavailable Unavai lable Procedures Procedure Date PT Evaluation Low Complexity Neuromuscular Re-Ed Therapeutic Activities Advance Directives Directive Yes / No Effective Date File Name No Information Encounters Encounter Description Practice Location Reason(s) For Visit Diagnoses Date Provider Providers Copied on Encounter [facility], [address] [place] [address], [place], [place], [id number], tel:[phone] [place] No Information 4 [place]. [facility], [address], [place], [place], [address], tel:[phone] [place] No Information 3 Ligia Westfall. . Referring Provider: Sylvester Layne, [address] [facility] [address], [place], [address]. tel:[phone] Family History Family Member Type Diagnosis Age At Onset No Information Payers Payer name Insurance type Covered green party ID Authoriza tiike(s) [employer] [id number] Social History Type Description Quantity Date Captured [...]
--- NOTE | 2024-10-31 19:29 | ED.FALL ---
HPI - Fall General Chief Complaint: Fall Stated Complaint: Fall down stairs-multiple injuries. No LOC Time Seen by Provider: 10/31/24 19:02 History of Present Illness HPI Narrative: 54-year-old female with no pertinent past medical history presenting to the emergency department after falling down 4-5 stairs. She tripped accidentally while carrying some laundry and fell forward. Did strike her head on the right side and her knees on the ground. Carpeted surface and denies any loss consciousness. Patient does not take any blood thinners. She is complaining of a headache in the right side of her head as well as some nauseousness. Headache has worsened in intensity but she is not taking anything for pain prior to arrival. This occurred several hours ago. Patient has a history of migraines and takes Nurtec as well as monthly injections for this but her headache does not feel similar to a migraine headache. She does not have any symptoms prior to the fall and there is no prodromal event. She was otherwise in her normal state of health. Currently complaining of left knee pain, right scapular/shoulder pain and head and neck pain. No vision changes, chest pain, shortness a breath, abdominal pain, low back pain, neuropathy or any neurological complaints. No loss consciousness or continence. Related Data Home Medications ?Medication ?Instructions ?Recorded ?Confirmed ?Last Taken ?Type alprazolam 0.5 mg tablet 0.5 mg PO TID PRN Anxiety 02/12/20 10/08/24 02/14/20 11:00 History blood sugar diagnostic (Accu-Chek 02/12/20 05/23/24 Unknown History Susie Plus test strips) blood-glucose sensor (Dexcom G6 02/12/20 08/26/24 Unknown History Sensor device) hydrochlorothiazide 25 mg tablet 25 mg PO DAILY 02/12/20 10/08/24 02/13/20 History levothyroxine 112 mcg capsule 112 mcg PO DAILY 02/12/20 10/08/24 02/14/20 08:30 History propranolol 80 mg capsule,24 80 mg PO DIRECTED 02/02/24 10/08/24 Unknown History hr,extended release rimegepant 75 mg disintegrating 75 mg PO DIRECTED 02/02/24 10/08/24 Unknown History tablet (Nurtec ODT) tirzepatide 7.5 mg/0.5 mL 7.5 mg subcut DIRECTED 02/02/24 10/08/24 Unknown History subcutaneous pen injector (Mounjaro) galcanezumab-gnlm 120 mg/mL 120 mg subcut MONTHLY 05/23/24 10/08/24 Unknown History subcutaneous pen injector (Emgality Pen) cyanocobalamin (vitamin B-12) 1,000 mcg IM DIRECTED 07/06/24 10/08/24 Unknown History 1,000 mcg/mL injection solution Allergies Allergy/AdvReac Type Severity Reaction Status Date / Time No Known Allergies Allergy Verified 10/31/24 18:36 Review of Systems Review of Systems: As reviewed above in [facility] Past Medical History Medical History Hypothyroid Hypertension Diabetes Surgical History Surgical History Hx of cholecystectomy Social History Social History Smoking packs per day: 0.5 Smoking cigarettes per day: 10.0 Smoking status: Former smoker Alcohol intake: never Last use: 1997 Living arrangements: with family Gender identity (if verbalized by the patient): Female Spiritual care concerns: No Exam Narrative: GENERAL: [Well-appearing, well-nourished, and in no acute distress.] HEAD: Normocephalic, right-sided occipital/parietal scalp hematoma without bleeding. EYES: [PERRLA and EOMI.] ENT: Nares clear, no rhinorrhea or epistaxis. Mucous membranes moist. NECK: Supple. Tenderness over the paracervical muscles in the right-sided neck, no restricted range of motion. CHEST: [Clear to auscultation. No respiratory distress.] HEART: [Regular rate and rhythm]. No murmur heard. [Normal peripheral pulses.] ABDOMEN: [Soft, nondistended], [nontender], [No rigidity or guarding] EXTREMITIES: Normal range of motion. [No edema.] Tenderness over the left patella medially, no overlying skin changes. Full range of motion and extensor mechanisms are intact bilaterally. Tenderness over the right scapula without any deformity. No midline tenderness to the spine. Moving all extremities. SKIN: Warm, dry, no rash. NEURO: [No focal deficits]. Alert and oriented [x3.] PSYCH: [Normal mood and affect.] Course Vital Signs Vital signs: Vital Signs Temperature 36.0 C L 10/31/24 18:40 Pulse Rate 70 10/31/24 18:40 Respiratory Rate 18 10/31/24 18:40 Blood Pressure 140/82 10/31/24 18:40 Pulse Oximetry 100 10/31/24 18:40 Oxygen Delivery Room Air 10/31/24 18:40 Temperature 36.9 C 10/31/24 21:58 Pulse Rate 78 10/31/24 22:02 Respiratory Rate 20 10/31/24 22:02 Blood Pressure 135/88 10/31/24 22:02 Pulse Oximetry 99 10/31/24 22:02 Oxygen Delivery Room Air 10/31/24 18:40 MDM - Fall MDM Narrative Medical decision making narrative: 54-year-old otherwise healthy female presenting after a fall down several stairs. Fall was mechanical in nature, no prodromal symptoms. She started developing a headache afterwards with some nauseousness. She has a history of migraines but this headache does not resemble a migraine. She is complaining of bilateral knee pain left worse than right, some paracervical neck pain and right scapular pain. Patient's examination is very reassuring. She does have a parietal/occipital scalp hematoma but no bleeding. No neurological deficits. Moving all extremities and has an intact extensor mechanism in both knees. Able ambulate. Vital signs are normal. Suspicion presently is for potential concussion versus musculoskeletal strain from the fall. Intracranial pathology such as subarachnoid or epidural/subdural hematoma or less likely. Rib fractures or scapular fracture less likely but still on the differential. She was provide analgesia with morphine, Toradol and Zofran. Basic laboratory studies were obtained as well as CT images of her head neck and x-rays of her bilateral knees, rib series, scapula on the right side. Patient was re-evaluated frequently. She was also given Robaxin for her muscle pain. Patient's laboratory studies show a leukocytosis of 13.8, hemoglobin 15.1, normal platelet count. Coagulation panel within normal limits, electrolytes unremarkable. Normal renal function panel. Normal glucose. Patient's x-rays were unremarkable without any traumatic injuries. CT of the cervical spine showed no fracture. CT noncontrast of the brain shows a 7 mm saccular cerebral aneurysm in the M1/M2 distribution. Radiology Dr. Mendez called and told me but these findings. Previous CT scans did not have this evident which means that this has largely enlarged and over the proceeding CT most recently in 2021. I went and re-evaluated the patient and she is still having headache and nausea. History is provided additional antiemetics. Recommendations are to obtain a CT angiography at this time for better delineation and how urgent this would be. CT angiography ordered which shows concerning findings including an interval increase by 1 mm compared to the scan just 2 hours prior. Saccular aneurysm measuring 8 x 5 mm with inferior margin that is lobulated with increased risk for rupture. Recommendations for neuro surgical/Neurointerventional evaluation per my discussions with Dr. Mendez about these findings. Given patient's traumatic injury with the underlying newly found cerebral aneurysm with interval enlargement between scans and morphology concerning for impending rupture patient was made emergent transfer to a higher level of care center for trauma evaluation and neurosurgical evaluation. I discussed the CT findings with the patient and the at bedside and they verbalized understanding the need for emergent transfer to higher level of care. [facility] was contacted and I was connected with the emergency department and spoke to Dr. Diop. We went over patient's clinical exam and history as well as the imaging findings with concern for aneurysm enlargement with increased risk of rupture. Patient was accepted to the emergency department and an air evac ambulance was arranged as there is a significant delay in ground transportation at this time per our discussions with the construction secretary and ground units. Patient remains hemodynamically stable and neurovascularly intact during my reassessments. Air evac has arrived within 10 minutes and she is transferred successfully. Medical Records Attestation: I reviewed the patient's medical records. Lab Data Attestation: I reviewed the patient's lab results. 10/31/24 19:56 10/31/24 19:56 Labs: Lab Results 10/31/24 Range/Units 19:56 WBC 13.8 H (4.5-10.0) K/mm3 RBC 4.77 (4.2-5.4) M/mm3 Hgb 15.1 H (12.0-15.0) g/dL Hct 43.9 (37.0-47.0) % MCV 92.0 (80-100) fl MCH 31.7 (26-34) pg MCHC 34.4 (32-36) g/dl RDW 12.0 (11.5-14.5) % Plt Count 242 (150-375) k/mm3 MPV 10.8 H (7.4-10.4) fl Immature Gran % (Auto) 0.3 (0-0.5) % Neut % (Auto) 65.6 (45.5-73.1) % Lymph % (Auto) 23.8 (18.3-44.2) % [place] % (Auto) 9.6 H (2.6-8.5) % Eos % (Auto) 0.3 (0-4.4) % Baso % (Auto) 0.4 (0.2-1.2) % Lymph # (Auto) 3.28 H (0.9-3.2) K/mm3 [place] # (Auto) 1.3 H (0.1-0.6) K/mm3 Eos # (Auto) 0.0 (0-0.3) K/mm3 Baso # (Auto) 0.1 (0.0-0.1) K/mm3 Abs Immat Gran (auto) 0.04 H (0.00-0.031) K/mm3 Absolute Neuts (auto) 9.1 H (1.3-6.7) K/mm3 Absolute Nucleated RBC 0.000 (0.0-0.012) K/mm3 Nucleated RBC % 0.0 (0.0-0.2) % PT 13.2 (11.1-14.7) Seconds INR 1.0 APTT 23.2 (22.3-36.8) Seconds Sodium 138 (137-145) mmol/L Potassium 3.8 (3.4-5.0) mmol/L Chloride 106 (98-107) mmol/L Carbon Dioxide 22 (22-30) mmol/L Anion Gap 10 (4-12) mmol/L BUN 19 H (7-17) mg/dL Creatinine 0.91 (0.7-1.0) mg/dL Estim Creat Clear Calc 69 ml/min Estimated GFR > 60 (59 - ) Glucose 87 (65-110) mg/dL Calcium 9.4 (8.4-10.2) mg/dL Imaging Data Attestation: I personally reviewed and interpreted this imaging study as follows: My impression: Impressions Head CT 10/31/24 19:40 IMPRESSION: No acute intracranial process. 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 Recommend CTA of the head and appropriate referral for future monitoring and potential intervention. Results reported telephonically to Dr. Watkins by Dr. Mendez at 7:53 PM and 7:56 PM on 10/31/2024. Cervical Spine CT 10/31/24 20:02 IMPRESSION: No acute fracture or traumatic malalignment in the cervical spine. Knee X-Ray 10/31/24 20:16 IMPRESSION: No acute osseous finding in the left or right knees. Knee X-Ray 10/31/24 20:16 IMPRESSION: No acute osseous finding in the left or right knees. Scapula X-Ray 10/31/24 20:17 IMPRESSION: No acute osseous finding in the right scapula. Ribs X-Ray 10/31/24 20:18 IMPRESSION: No acute cardiopulmonary process. No acute osseous finding in the right ribs CT Brain Angiography 10/31/24 21:24 IMPRESSION: No acute intracranial process. 8 x 5 mm right anterior circulation saccular cerebral aneurysm. Lobulated inferior margin may indicate increased risk of aneurysm rupture. Recommend neurosurgical or neuro interventional consultation. Results reported telephonically to Dr. Watkins by Dr. Mendez at 9:33 PM on 10/31/2024. Critical Care Time Critical Care Time Critical Care Time: Yes Total Critical Care Time: 75 Discharge Plan Discharge Clinical Impression: Cerebral aneurysm without rupture, CHI (closed head injury), Hematoma of right parietal scalp, Fall down stairs, Headache, post-traumatic, acute Patient Disposition: Acute Care Hospital Condition: Serious Patient Language: Citizen Of [place] Prescriptions: No Action propranolol 80 mg capsule,extended release 24hr 80 mg PO DIRECTED Nurtec ODT 75 mg tablet,disintegrating 75 mg PO DIRECTED Mounjaro 7.5 mg/0.5 mL pen injector 7.5 mg SUBCUT DIRECTED Emgality Pen 120 mg/mL pen injector 120 mg SUBCUT MONTHLY cyanocobalamin (vitamin B-12) 1,000 mcg/mL solution 1,000 mcg IM DIRECTED ondansetron 4 mg tablet,disintegrating 4 mg PO Q8H PRN (Reason: nausea and vomiting) Qty: 8 0RF alprazolam 0.5 mg tablet 0.5 mg PO TID PRN (Reason: Anxiety) hydrochlorothiazide 25 mg tablet 25 mg PO DAILY (DME) Dexcom G6 Sensor Device MISCELLANEOUS levothyroxine 112 mcg Capsule 112 mcg PO DAILY (DME) Accu-Chek Susie Plus test strp Strip MISCELLANEOUS Follow-up/Referrals: Jesse,MEG Garcia [Primary Care Provider] - Time of Disposition: 22:00
[2024-10-31] MEDS: methocarbamoL 750 MG TABLET PO (20:01)
[2024-10-31] MEDS: MORPHINE SULFATE (*CRX) 4 MG/ML INJ IV PUSH (20:01)
[2024-10-31] MEDS: ONDANSETRON INJ 4 MG/2 ML VIAL IV PUSH ×2 (20:01→21:55)
[2024-10-31] MEDS: KETOROLAC 15 MG/ML VIAL (*BKC) IV PUSH (20:01)
[2024-10-31 20:04] LABS: Basophils Absolute Auto 0.1 K/mm3 (0.0-0.1); Basophils Percent Auto 0.4 % (0.2-1.2); Eosinophils Percent Auto 0.3 % (0-4.4); Hematocrit 43.9 % (37.0-47.0); Hemoglobin 15.1 g/dL (12.0-15.0); Immature Granulocyte Absolute 0.04 K/mm3 (0.00-0.031); Immature Granulocyte Percent A 0.3 % (0-0.5); Lymphocytes Absolute Auto 3.28 K/mm3 (0.9-3.2); Lymphocytes Percent Auto 23.8 % (18.3-44.2); Mean Corpuscular HGB Conc 34.4 g/dl (32-36); Mean Corpuscular Hemoglobin 31.7 pg (26-34); Mean Platelet Volume 10.8 fl (7.4-10.4); Monocytes Absolute Auto 1.3 K/mm3 (0.1-0.6); Monocytes Percent Auto 9.6 % (2.6-8.5); Neutrophils Absolute Auto 9.1 K/mm3 (1.3-6.7); Neutrophils Percent Auto 65.6 % (45.5-73.1); Platelet Count Result 242 k/mm3 (150-375); Red Blood Count 4.77 M/mm3 (4.2-5.4); White Blood Count 13.8 K/mm3 (4.5-10.0)
[2024-10-31 20:13] LABS: Anion Gap 10 mmol/L (4-12); Blood Urea Nitrogen 19 mg/dL (7-17); Calcium 9.4 mg/dL (8.4-10.2); Carbon Dioxide 22 mmol/L (22-30); Chloride 106 mmol/L (98-107); Estimated CRCL calculation 69 ml/min; Estimated Glomerular Filt Rate > 60; Glucose 87 mg/dL (65-110); Potassium 3.8 mmol/L (3.4-5.0); Sodium 138 mmol/L (137-145)
[2024-10-31 20:16] LABS: Prothrombin Time 13.2 Seconds (11.1-14.7)
[2024-10-31 20:17] LABS: Partial Thromboplastin Time 23.2 Seconds (22.3-36.8)
[2024-10-31 21:45] VITALS: BP 133/87; PULSE 79; RESP 18; O2SAT 100
[2024-10-31] MEDS: LORazepam INJ (*CRX) 2 MG/ML VIAL 1 MG IV PUSH (21:55)
--- NOTE | 2024-10-31 21:55 | PC.NURSE ---
upon return from CTA patient was vomiting. spoke with dr calloway, ativan and khoi orders placed. meds given. patient updated at this time on plan to transfer to [facility] ER via helicopter.
[2024-10-31 21:58] VITALS: BP 133/87; PULSE 80; RESP 18; TEMP 36.9; O2SAT 98
[2024-10-31 22:02] VITALS: BP 135/88; PULSE 78; RESP 20; O2SAT 99
== END 2024-10-31 22:08 | disposition short-term general hospital (02) ==
LOC: ANHED 19:25
PROVIDERS: Emergency Provider Student in an Organized Health Care Education/Training Program; PCP Physician Assistant
DX: I67.1 Cerebral aneurysm, nonruptured (principal); S00.03XA Contusion of scalp, initial encounter; G44.319 Acute post-traumatic headache, not intractable; I10 Essential (primary) hypertension; E03.9 Hypothyroidism, unspecified; E11.9 Type 2 diabetes mellitus without complications; Z90.49 Acquired absence of other specified parts of digestive tract; Z87.891 Personal history of nicotine dependence; Z79.85 Long-term (current) use of injectable non-insulin antidiabetic drugs; Z79.899 Other long term (current) drug therapy; W10.9XXA Fall (on) (from) unspecified stairs and steps, initial encounter
CPT/HCPCS: 36415; 70450; 70496; 71100; 72125; 73010; 73562; 80048; 85025; 85610; 85730; 96374; 96375; 96376; 99291; A9270; J1885; J2060; J2270; J2405; Q9967

== ENCOUNTER 2025-02-15 09:54 | Emergency (ER) | payer OTHER, SELFPAY ==
[2025-02-15 10:02] VITALS: BP 132/88; PULSE 71; RESP 16; TEMP 36.1; O2SAT 100
--- NOTE | 2025-02-15 10:21 | ED.GENADULT ---
HPI - General Adult General Chief complaint: Extremity Problem,Nontraumatic Stated complaint: Shoulder Pain Time Seen by Provider: 02/15/25 10:09 Source: patient and RN notes reviewed Mode of arrival: ambulatory Limitations: no limitations History of Present Illness HPI narrative: Patient presents today with a 3 day history of right-sided neck and posterior shoulder pain. No injury, trauma, heavy lifting. Patient states the pain was present when she woke up in the morning. Pain increases with neck and right arm movements. She has tried a few doses of Flexeril, [place], ibuprofen without much improvement. She has also tried ice, heat, massage, and 10s unit without much improvement. She does report some very mild tingling to her fingers as well. Related Data Home Medications ?Medication ?Instructions ?Recorded ?Confirmed ?Last Taken ?Type alprazolam 0.5 mg tablet 0.5 mg PO TID PRN Anxiety 02/12/20 10/08/24 02/14/20 11:00 History blood sugar diagnostic (Accu-Chek 02/12/20 05/23/24 Unknown History Susie Plus test strips) blood-glucose sensor (Dexcom G6 02/12/20 08/26/24 Unknown History Sensor device) hydrochlorothiazide 25 mg tablet 25 mg PO DAILY 02/12/20 10/08/24 02/13/20 History levothyroxine 112 mcg capsule 112 mcg PO DAILY 02/12/20 10/08/24 02/14/20 08:30 History propranolol 80 mg capsule,24 80 mg PO DIRECTED 02/02/24 10/08/24 Unknown History hr,extended release rimegepant 75 mg disintegrating 75 mg PO DIRECTED 02/02/24 10/08/24 Unknown History tablet (Nurtec ODT) tirzepatide 7.5 mg/0.5 mL 7.5 mg subcut DIRECTED 02/02/24 10/08/24 Unknown History subcutaneous pen injector (Mounjaro) galcanezumab-gnlm 120 mg/mL 120 mg subcut MONTHLY 05/23/24 10/08/24 Unknown History subcutaneous pen injector (Emgality Pen) cyanocobalamin (vitamin B-12) 1,000 mcg IM DIRECTED 07/06/24 10/08/24 Unknown History 1,000 mcg/mL injection solution Allergies Allergy/AdvReac Type Severity Reaction Status Date / Time No Known Allergies Allergy Verified 10/31/24 18:36 [facility] Past Medical History Medical History Hypothyroid Hypertension Diabetes Surgical History Surgical History Hx of cholecystectomy Social History Social History Smoking packs per day: 0.5 Smoking cigarettes per day: 10.0 Smoking status: Former smoker Alcohol intake: never Last use: 1997 Living arrangements: with family Gender identity (if verbalized by the patient): Female Spiritual care concerns: No Comments At time of signature, I have reviewed and agree with nursing past medical, surgical, social and family history unless otherwise noted. Please see nursing chart for further information. There is no relevant family history pertinent to the presenting complaint Exam Narrative: GENERAL: Well-appearing, well-nourished, and in mild pain distress HEAD: Normocephalic, atraumatic. EYES: EOMI. No redness or drainage. Conjunctivae normal. ENT: Mucous membranes pink and moist. NECK: Decreased range of motion due to pain. No bony pain of the cervical spine. Tenderness to the right cervical paraspinal muscles that extends to the posterior shoulder at the scapular border. CHEST: No respiratory distress. MUSCULOSKELETAL: No bony tenderness the thoracic spine. Decreased range of motion of the right arm in all directions due to pain in the posterior shoulder. Distal sensation intact. Capillary refill normal. Radial pulse normal. 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 SKIN: Warm, dry, no rash. Capillary refill normal. Normal skin turgor. NEURO: No focal deficits. Alert and oriented x3. Gait steady. PSYCH: Normal affect. No signs of depression or anxiety. Course Course Level of Care: Express Care Visit Vital Signs Vital signs: Vital Signs Temperature 97 F L 02/15/25 10:02 Pulse Rate 71 02/15/25 10:02 Respiratory Rate 16 02/15/25 10:02 Blood Pressure 132/88 02/15/25 10:02 Pulse Oximetry 100 02/15/25 10:02 Temperature 97 F L 02/15/25 10:02 Pulse Rate 71 02/15/25 10:02 Respiratory Rate 16 02/15/25 10:02 Blood Pressure 132/88 02/15/25 10:02 Pulse Oximetry 100 02/15/25 10:02 Reviewed Medical Decision Making MDM Narrative Medical decision making narrative: 54-year-old female patient presents with right neck and posterior right shoulder pain that increases with movement of the neck and right arm x3 days without improvement of home interventions. Upon exam there is tenderness to the right trapezius and right cervical paraspinal muscles. Neurovascularly intact. Patient will be treated for muscle strain and spasms with prednisone, methocarbamol. She had a few Flexeril at home that she tried that were not helpful. Patient is diabetic and is aware that prednisone can raise her blood sugar. She will additionally take some Aleve for her discomfort. Vital signs stable. Anticipatory guidance given. Differential Diagnosis Differential Diagnosis: Cervical strain, trapezius strain, cervical radiculopathy Vital Signs Vital Signs: Vital Signs Temperature 97 F L 02/15/25 10:02 Pulse Rate 71 02/15/25 10:02 Respiratory Rate 16 02/15/25 10:02 Blood Pressure 132/88 02/15/25 10:02 Pulse Oximetry 100 02/15/25 10:02 Temperature 97 F L 02/15/25 10:02 Pulse Rate 71 02/15/25 10:02 Respiratory Rate 16 02/15/25 10:02 Blood Pressure 132/88 02/15/25 10:02 Pulse Oximetry 100 02/15/25 10:02 Critical Care Time Critical Care Time Critical Care Time: No Discharge Plan Discharge Clinical Impression: Spasm of right trapezius muscle, Cervical muscle strain Patient Disposition: Home Condition: Stable Instructions: Cervical Strain (ED), Muscle Strain (DC) Additional Instructions: Please take the prednisone and methocarbamol as directed. Do not drive within 6 hours of taking the methocarbamol as it can make you drowsy. Please follow-up with your PCP next week if symptoms are not improving. Start taking the Aleve or ibuprofen at home for pain as well. Use a heating pad to help relax your muscles. Your blood pressure was elevated above 120/80 today at Urgent Care. This puts you above the threshold for follow up. Please schedule a followup visit with your personal physician as soon as possible, for further evaluation and treatment. Even blood pressure exceeding 120/80 may indicate pre-hypertension. Patient Language: Surinamese Prescriptions: New prednisone 20 mg tablet 40 mg PO DAILY 5 Days Qty: 10 0RF methocarbamol 1,000 mg tablet 1,000 mg PO QID PRN (Reason: muscle spasm) Qty: 20 0RF No Action propranolol 80 mg capsule,extended release 24hr 80 mg PO DIRECTED Nurtec ODT 75 mg tablet,disintegrating 75 mg PO DIRECTED Mounjaro 7.5 mg/0.5 mL pen injector 7.5 mg SUBCUT DIRECTED Emgality Pen 120 mg/mL pen injector 120 mg SUBCUT MONTHLY cyanocobalamin (vitamin B-12) 1,000 mcg/mL solution 1,000 mcg IM DIRECTED ondansetron 4 mg tablet,disintegrating 4 mg PO Q8H PRN (Reason: nausea and vomiting) Qty: 8 0RF alprazolam 0.5 mg tablet 0.5 mg PO TID PRN (Reason: Anxiety) hydrochlorothiazide 25 mg tablet 25 mg PO DAILY (DME) Dexcom G6 Sensor Device MISCELLANEOUS levothyroxine 112 mcg Capsule 112 mcg PO DAILY (DME) Accu-Chek Susie Plus test strp Strip MISCELLANEOUS Follow-up/Referrals: Saúl,Deneen cMcormick, CORPORATE LAW ASSISTANT [Primary Care Provider] - Time of Disposition: 10:30
== END 2025-02-15 10:34 | disposition home or self-care (01) ==
PROVIDERS: Emergency Provider Nurse Practitioner
DX: R25.2 Cramp and spasm (principal); S16.1XXA Strain of muscle, fascia and tendon at neck level, initial encounter; X58.XXXA Exposure to other specified factors, initial encounter; E11.9 Type 2 diabetes mellitus without complications; Z79.85 Long-term (current) use of injectable non-insulin antidiabetic drugs; I10 Essential (primary) hypertension; E03.9 Hypothyroidism, unspecified; Z87.891 Personal history of nicotine dependence
CPT/HCPCS: 99213; G0463

== ENCOUNTER 2025-02-18 17:58 | Emergency (ER) | payer OTHER, SELFPAY ==
--- NOTE | ~2025-02-18 | CT_ITS ---
EXAMINATION: CT brain wo con DATE: 02/18/2025 18:14 INDICATION: aneurysm . TECHNIQUE: Computed tomography (CT) of the head was performed without intravenous contrast. The mA wa s adjusted according to patient size. Iterative reconstruction technique was employed. The dose-lengt h product was 681.00 mGy-cm. COMPARISON: None. FINDINGS: No acute intracranial hemorrhage or extra-axial fluid collection. No hydrocephalus, mass, or herniation. No acute ischemic infarct. Unremarkable dural venous sinus attenuation. No acute osseous abnormality. The aerated spaces are clear. Grossly stable right anterior circulation aneurysm. IMPRESSION: No acute intracranial process. Specific, there is no CT evidence of intracranial hemorrhage. Grossly stable right anterior circulation cerebral aneurysm in the inferior right sylvian fissure. Reviewed, dictated and finalized at location K. IMPRESSION: No acute intracranial process. Specific, there is no CT evidence of intracrania l hemorrhage. Grossly stable right anterior circulation cerebral aneurysm in the inferior rig ht sylvian fissure.
[2025-02-18 18:00] VITALS: BP 163/91; PULSE 64; RESP 16; TEMP 36.3; O2SAT 100
--- OUTSIDE RECORDS SUMMARY | 2025-02-18 18:01 | XMS_ITS | Clinical Summary ---
Author Organization [facility] [address] Address [address] [place] [address] Care Team Providers Care Toolroom Checker Name Role Phone Dannie Molina Primary Care Provider + Allergies Active Allergy Reactions Criticality Noted Date Comments Ggnhbtj-Oxh-Hec Reductase Inhibitors Muscle pain Medium 03/25/2024 Medications [...] Take by mouth daily 01/16/20 24 Active hydroCHLOROthiazid e (HYDRODIURIL) 50 mg tablet Take 1 tablet (50 mg total) by mouth daily Active ondansetron ODT (ZOFRAN-ODT) 4 mg disintegrating tablet DISSOLVE 1 TABLET IN MOUTH EVERY 8 HOURS NEEDED FOR NAUSEA AND VOMITING 05/23/20 24 Active Nurtec ODT tablet,disintegrat ing 07/08/20 24 Active Dexcom G7 Sensor deviceIndications: Type 2 diabetes mellitus with hyperglycemia, without long-term current use of insulin (HCC) Continuous glucose monitor. Change every 10 days. 10 each 3 07/15/20 24 Active Synthroid 100 mcg tabletIndications: Acquired hypothyroidism Take 1 tablet (100 mcg total) by mouth daily 90 tablet 3 10/08/19 25 026 Active glucose blood test stripIndications:T ype 2 diabetes mellitus with hyperglycemia, without long-term current use of insulin (HCC) Use to check blood sugars 2x a day 300 strip 10/08/19 25 Active metoclopramide (REGLAN) 10 mg tablet Take 1 tablet 4 times a day by oral route before meal(s) for 14 days. 10/11/19 25 Active amoxicillin-clavul anate (AUGMENTIN) 875-125 mg per tablet 09/18/19 25 Active methylPREDNISolone (MEDROL DOSEPACK) 4 mg Dosepack 09/20/19 25 Active tirzepatide (Mounjaro) 12.5 mg/0.5 mL pen injector injectionIndicatio ns:Type 2 diabetes mellitus with hyperglycemia, without long-term current use of insulin ([facility]) INJECT 12.5MG SUBCUTANEOUSLY ONCE WEEKLY 12 mL 1 12/31/19 25 Active tirzepatide (Mounjaro) 12.5 mg/0.5 mL pen injector injectionIndicatio ns:Type 2 diabetes mellitus with hyperglycemia, without long-term current use of insulin ([facility]) Inject 0.5 mL (12.5 mg total) under the skin every 7 days 6 mL 1 12/28/19 25 Active Active Problems Problem Noted Date Diagnosed Date Benign paroxysmal positional vertigo 11/15/2024 Labyrinthitis 11/15/2024 Candidiasis of vagina 11/15/2024 Diarrhea 11/15/2024 Dizziness of unknown cause 11/15/2024 Fatigue 11/15/2024 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 Controlled on current propranolol LA 80mg daily, HCTZ 50mg daily Pneumonia 07/11/2024 Thiamine deficiency 06/24/2024 Rash and other nonspecific skin eruption 024 Type 2 diabetes mellitus wit h hyperglycemia, without long-term current use of insulin 03/25/2024 Assessment & Plan (07/15/2024 10:09 AM ABRASIVE MIXER): Chronic problem. A1c worsened from 6.5% 03/25/24 [...] 03/25/2024 Assessment & Plan (07/15/2024 9:24 AM ABRASIVE MIXER): Chronic problem. Not on any statins; statin intolerance (myalgias). Last lipid panel: 03/27/24 LDL=81, PH=416. Assessment & Plan (03/25/2024 4:20 PM CDT): Patient defers statin therapy she failed atorvastatin due to myalgias Patient did not want to try other statin therapy Acquired hypothyroidism 03/25/2024 Assessment & Plan (07/15/2024 9:26 AM ABRASIVE MIXER): Chronic problem. Currently taking Synthroid 112 mcg daily. Aware to take 1st thing in morning, 30-60 minutes before food/drink/other medications. Clinically euthyroid but biochemically subclinical hyperthyroidism. Will repeat TFTs today. Verified that she uses mychart. Aware to check results/results letter in [employer]. Will contact by phone if needed. Assessment [...] 03/25/2024 Assessment & Plan (07/15/2024 10:02 AM ABRASIVE MIXER): Vitamin D normal when checked 03/27/24. Assessment & Plan (03/25/2024 4:21 PM CDT): Check levels today and further plans based on it Underimmunized 03/12/2024 Pain in joint of left shoulder 07/18/2023 Tear of supraspinatus tendon 07/02/2023 Acute pharyngitis 06/28/2023 Acute sinusitis 06/28/2023 Muscle strain of left shoulder 06/08/2023 Painful urging to urinate 05/03/2023 Vitamin B12 deficiency (non anemic) 04/27/2023 Chronic low back pain 03/27/2023 Dizziness 03/27/2023 Restless legs 03/27/2023 Nausea 11/29/2022 Migraine 11/24/2022 Nausea and vomiting 11/04/2022 Dyslipidemia 11/01/2022 Essential tremor 09/29/2022 Mixed anxiety and depressive disorder 09/29/2022 Tinnitus 09/16/2022 Anxiety 05/10/2022 Diabetes mellitus 05/10/2022 Well controlled type 2 diabetes mellitus 022 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 Other tear of medial meniscu s, current injury, left knee, initial encounter 12/08/2020 Encounters Date Type Department Care Team Description 12/24/2024 9:20 AM CDT Office Visit [facility] [address] [place] [address] [facility] 6th [place] [address] [place] [address] Gael Mendoaz MD Cerebral aneurysm, nonruptured (Primary Dx) 12/24/2024 8:31 AM CDT - 12/24/2024 11:59 PM CDT Hospital Encounter [facility] ([facility]) [address] [place] [address] Discharge Disposition: Discharge to home or self care 12/24/2024 8:29 AM CDT - 12/24/2024 11:59 PM CDT Hospital Encounter [facility] ([facility]) [address] [place] [address] Discharge Disposition: Discharge to home or self care 12/24/2024 8:28 AM CDT - 12/24/2024 11:59 PM CDT Hospital Encounter [facility] ([facility]) [address] [place] [address] Discharge Disposition: Discharge to home or self care 12/24/2024 8:26 AM CDT - 12/24/2024 11:59 PM CDT Hospital Encounter [facility] ([facility]) [address] [place] [address] Discharge Disposition: Discharge to home or self care 12/24/2024 8:18 AM CDT - 12/24/2024 11:59 PM CDT Hospital Encounter [facility] ([facility]) [address] [place] [address] Discharge Disposition: Discharge to home or self care 12/24/2024 7:51 AM CDT - 12/24/2024 11:59 PM CDT Hospital Encounter [facility] ([facility]) [address] [place] [address] Discharge Disposition: Discharge to home or self care 12/24/2024 Telephone [facility] [address] [facility] 6th [place] [address] [place] [address] Zunilda Moon, MEGHANN 11/25/2024 Telephone [facility] Special[facility] [id number] [place] [address] [address] [place] [address] Flaca Merritt MD from Last 3 Months Immunizations Immunization Administration Dates Next Due Hep A, Adult 10/22/2015 Influenza, Quadrivalent, Raina l Culture-based MDCK, Preservative Free, Antibiotic Free, Intramuscular 05/13/2016 Influenza, Quadrivalent, Spl it, Preservative Free, Intramuscular 06/01/2022,05/02/2020,05/01/2018,04/29 Influenza, Trivalent, IM (MDV) 04/30/2015 Influenza, Unspecified 05/18/2024 Tdap 04/11/2022 Surgical History Surgery Date Site/Laterality Comments ENDOMETRIAL [...] Father Get settles (Age 74) Mother Yana álvarez Alive Sister 1 Alive Sister 2 Social [...] on file Legal Sex Female 2:02 AM ABRASIVE MIXER Gender Identity Female 11/28/2018 12:54 PM CDT Sexual Orientation Straight 11/28/2018 12 :54 PM CDT Obstetrics History Last Filed Vital Signs Vital Sign Reading Time Taken Comments Blood Pressure 112/78 12/24/2024 9:03 AM CDT Pulse 61 12/24/2024 9:03 AM CDT Temperature - - Respiratory Rate 15 10/07/2024 9:16 AM CDT Oxygen Saturation 98% 10/27/2021 1:51 PM CDT Inhaled Oxygen Concentration - - Weight 95.1 kg (209 lb 9.6 oz) 12/24/2024 9:03 A M CDT Height 168.9 cm (5' 6.5) 12/24/2024 9:03 AM CDT Body Mass Index 33.32 12/24/2024 9:03 AM CDT Plan of Treatment Health Maintenance Due Date Last Done Comments Breast Cancer Screening-Mammogram 1968 Cervical Cancer Screening 1968 Colon Cancer Screening-Colonoscopy 1968 Depression Screening 1968 Hepatitis C Screening 1968 Meningococcal B Vaccine (1 o f 5 - Increased Risk) 1978 Hepatitis B Screening 1986 Regular Well Visit/Exam 18-64 1986 Pneumococcal vaccine <65 (1 of 2 - PCV) 1987 Zoster Vaccine (1 of 2) 2018 Covid-19 Vaccine (3 - 2023-2 5 season) 2024 09/16/2020, 08/06/2020 Dilated Eye Exam 07/17/2024 07/17/2023 Foot Exam 03/25/2025 03/25/2024 Albumin Creatinine Ratio, Urine 03/27/2025 Lipid Panel 03/27/2025 03/27/2024, 09/01, 08/03/2018 eGFR 03/27/2025 03/27/2024 Influenza Vaccine (#1) 2025 , 06/01/2022, 05/02/2020, Additional history exists Hemoglobin A1C 04/09/2025 10/07/2024, 06/30, 03/25/2024 DTaP/Tdap/Td Vaccine (2 - Td or Tdap) 04/11/2032 04/11/2022 Procedures Procedure Name Priority Date/Time Associated Diagnosis Comments NEURO CT OUTSIDE REFERENCE Routine 12/24/2024 8:[address] OUTSIDE REFERENCE Routine 12/24/2024 8:[address] OUTSIDE REFERENCE Routine 12/24/2024 8:28 AM CDT NEURO MR OUTSIDE REFERENCE Routine 12/24/2024 8:[address] OUTSIDE REFERENCE Routine 12/24/2024 8:[address] OUTSIDE REFERENCE Routine 12/24/2024 7:51 AM CDT POCT HEMOGLOBIN A1C Routine 10/07/2024 9 :18 AM CDT Type 2 diabetes mellitus with hyperglycemia, without long-term current use of insulin (HCC) COMPREHENSIVE METABOLIC PANEL Routine 03/27/2024 8:49 AM CDT LIPID PANEL Routine 03/27/2024 8:49 AM CDT ALBUMIN CREATININE RATIO, URINE Routine 03/27/2024 8:49 AM CDT HM DIABETES EYE EXAM Routine 07/17/2023 8:29 AM ABRASIVE MIXER from Last 3 Months or Most Recently Relevant to Health Maintenance Results * Neuro CT Outside Reference (12/24/2024 8:31 AM CDT) Impressions [facility] - 12/24/2024 8:31 AM CDT These images are for Reference purposes only and have not been reviewed by [facility]. There will be no report generated by a [facility] Radiologist. Narrative [facility] - 12/24/2024 8:31 AM CDT EXAMINATION: Images For Reference Purposes Only us Gael Mendoza MD IMG CT PROCEDURES Final Resul t Performing Organization Address [facility] de Phone Number [email or web address] * Neuro CT Outside Reference (12/24/2024 8:29 AM CDT) Impressions [facility] - 12/24/2024 8:29 AM CDT These images are for Reference purposes only and have not been reviewed by [facility]. There will be no report generated by a [facility] Radiologist. Narrative [facility] - 12/24/2024 8:29 AM CDT EXAMINATION: Images For Reference Purposes Only us Gael Mendoza MD IMG CT PROCEDURES Final Resul t Performing Organization Address [facility] de Phone Number [email or web address] * Neuro CT Outside Reference (12/24/2024 8:28 AM CDT) Impressions [facility] - 12/24/2024 8:28 AM CDT These images are for Reference purposes only and have not been reviewed by [facility]. There will be no report generated by a [facility] Radiologist. Narrative [facility] - 12/24/2024 8:28 AM CDT EXAMINATION: Images For Reference Purposes Only us Gael Mendoza MD IMG CT PROCEDURES Final Resul t Performing Organization Address [facility] de Phone Number [email or web address] * Neuro MR Outside Reference (12/24/2024 8:26 AM CDT) Impressions [facility] - 12/24/2024 8:26 AM CDT These images are for Reference purposes only and have not been reviewed by [facility]. There will be no report generated by a [facility] Radiologist. Narrative [facility] - 12/24/2024 8:26 AM CDT EXAMINATION: Images For Reference Purposes Only us Gael Mendoza MD IMG MRI PROCEDURES Final Resu lt Performing Organization Address [facility] de Phone Number [email or web address] * Neuro CT Outside Reference (12/24/2024 8:18 AM CDT) Impressions [facility] - 12/24/2024 8:18 AM CDT These images are for Reference purposes only and have not been reviewed by [facility]. There will be no report generated by a [facility] Radiologist. Narrative [facility] - 12/24/2024 8:18 AM CDT EXAMINATION: Images For Reference Purposes Only us Gael Mendoza MD IMG CT PROCEDURES Final Resul t Performing Organization Address [facility] de Phone Number [email or web address] * Neuro CT Outside Reference (12/24/2024 7:51 AM CDT) Impressions [facility] - 12/24/2024 7:51 AM CDT These images are for Reference purposes only and have not been reviewed by [facility]. There will be no report generated by a [facility] Radiologist. Narrative [facility] - 12/24/2024 7:51 AM CDT EXAMINATION: Images For Reference Purposes Only us Gael Mendoza MD IMG CT PROCEDURES Final Resul t Performing Organization Address [facility] de Phone Number [email or web address] * POCT hemoglobin A1c (10/07/2024 9:18 AM CDT) Hemoglobin A1C, POC 6.3 4.0 - 5.6 % Blood 10/07/2024 9:18 AM CDT Flaca Alaniz MD POINT OF CARE TEST ORDERABLES Final Result * Albumin Creatinine Ratio, Urine (03/27/2024 8:49 AM CDT) Creatinine, ur 20 20 - 275 mg/dL [...] MD LAB URINE ORDERABLE S Final Result [facility] [address] [place] [address] * Lipid panel (03/27/2024 8:49 AM CDT) Cholesterol 167 <200 mg/dL [facility] HDL 66 > OR = 50 mg/dL [facility] Triglycerides 103 <150 mg/dL [facility] LDL 81 mg/dL (calc) [facility] Comment: Reference range: <100 Desirable range <100 mg/dL for primary prevention; <70 mg/dL for patients with CHD or diabetic patients with > or = 2 CHD risk factors. LDL-C is now calculated using the Camilo-Cowan calculation, which is a validated novel method providing better accuracy than the Friedewald equation in the estimation of LDL-C. Camilo SS et al. SWEETIE. 2013;310(19): 4858-4830 (http://education.StyleTrek/faq/QJG101) Chol/HDL ratio 2.5 <5.0 (calc) [facility] Non-HDL, (LDL+VLDL) 101 <130 mg/dL (calc) [facility] Comment: For patients with diabetes plus 1 major ASCVD risk factor, treating to a non-HDL-C goal of <100 mg/dL (LDL-C of <70 mg/dL) is considered a therapeutic option. 03/27/2024 8:49 AM CDT 03/27/2024 8:50 AM CDT Flaca Alaniz MD LAB BLOOD ORDERABLE S Final Result [facility] [address] [place] [address] * (ABNORMAL) Comprehensive metabolic panel (03/27/2024 8:49 AM CDT) Glucose 148(H) 65 - 99 mg/dL [facility] Comment: Fasting reference interval For someone without known diabetes, a glucose value >125 mg/dL indicates that they may have diabetes and this should be confirmed with a follow-up test. BUN 15 7 - 25 mg/dL [facility] Creatinine 0.81 0.50 - 1.03 mg/dL [facility] eGFR 86 > OR = 60 mL/min/1.7 3m2 [facility] BUN/creat ratio SEE NOTE: 6 - 22 (calc) [facility] Comment: Not Reported: BUN and Creatinine are within reference range. Sodium 136 135 - 146 mmol/L [facility] Potassium, pl 4.1 3.5 - 5.3 mmol/L [facility] Chloride 102 98 - 110 mmol/L [facility] CO2 27 20 - 32 mmol/L [facility] Calcium 9.0 8.6 - 10.4 mg/dL [facility] Protein, sr 6.6 6.1 - 8.1 g/dL [facility] Albumin 4.2 3.6 - 5.1 g/dL [facility] GLOBULIN 2.4 1.9 - 3.7 g/dL (calc) [facility] Alb/glob ratio 1.8 1.0 - 2.5 (calc) [facility] Bilirubin, total 0.8 0.2 - 1.2 mg/dL [facility] Alk phos 78 37 - 153 U/L [facility] AST 31 10 - 35 U/L [facility] ALT (SGPT) 38(H) 6 - 29 U/L [facility] 03/27/2024 8:49 AM CDT 03/27/2024 8:50 AM CDT Flaca Alaniz MD LAB BLOOD ORDERABLE S Final Result [facility] [employer] [facility] [address] [place] [address] * DIABETES EYE EXAM (07/17/2023 8:29 AM ABRASIVE MIXER) Historical Provider HEALTH MAINTENANCE Edited Result - Final from Last 3 Months or Most Recently Relevant to Health Maintenance Insurance [employer] [facility] [id number] [facility] [id number] Care Teams Toolroom Checker Relationship Specialty Start Date End Date Dannie Molina PA [address] [place] [id number] PCP - General Internal Medicine 03/26/24
--- OUTSIDE RECORDS SUMMARY | 2025-02-18 18:01 | XMS_ITS | Data Portability ---
Author Organization [place] [facility] Kenzei, Main Office Address [address] [place] [address] Care Team Providers Care Housing Quality Standard Inspector Name Role Phone ERIK MOLINA Primary Care Provider [phone] ERIK MOLINA Referring Provider [phone] Assessment No assessment recorded. Plan of Treatment Reminders Order Date Submit Date Provider Last Modified By Organization Details Last Modified Time Details Appointments None recorded. Lab ccp (cyclic citrullina lynn peptide) igg, serum 2024 025 [facility], [address], [place], [address], 5 14:18:08 amylase, serum or plasma 2024 025 [facility], [address], [place], [address], 5 14:18:13 lipase, serum or plasma 2024 025 [facility], [address], [place], [address], 5 14:18:14 noninvasiv e colorectal cancer DNA + occult blood screening, QL, stool 2024 025 [facility] (Cologuard Orders Only), [address], [address], [place], [address], 5 09:32:58 TSH + free T4, serum 2024 025 [facility], [address], [place], [address], 09:32:58 vitamin B12 + folate, serum or blood 2024 025 EUGENIA [facility], [address], [place], [address], 14:18:11 vitamin D, 25-hydroxy , total, serum 2024 025 [facility], [address], [place], [address], 14:18:12 TSH, serum or plasma 2024 025 [facility], [address], [place], [address], 14:18:09 T4, free, serum 2024 025 [email or web address] [facility], [address], [place], [address], 5 09:32:58 CBC w/ auto diff 2024 025 [email or web address] [facility], [address], [place], [address], 5 09:32:58 iron + TIBC + ferritin, serum 2024 025 [facility], [address], [place], [address], 5 14:17:59 erythrocyt e sedimentat ion rate by westergren method 2024 025 [facility], [address], [place], [address], 5 14:18:02 ALEENA (antinucle ar antibodies ) screen, ifa, serum 2024 [facility], [address], [place], [address], 5 14:18:05 rf (rheumatoi d factor), serum 2024 [facility], [address], [place], [address], 5 14:18:06 erythrocyt e sedimentat ion rate by westergren method 2024 [email or web address] [facility], [address], [place], [address], 5 09:32:58 C-reactive protein, quantitati ve, serum or plasma 2024 [facility], [address], [place], [address], 14:18:07 magnesium, serum or plasma 2024 [facility], [address], [place], [address], 5 14:18:00 CBC w/ auto diff 2024 [facility], [address], [place], [address], 5 14:18:03 Referral counseling referral - Prefers Virtual. Please call patient to schedule an appointmen t. Thank you. 2024 [facility], [address] [place] [address], [address], 13:08:29 mental health counselor referral - Please call patient to schedule an appointmen viola Thank you. 2024 025 [facility], [address] [facility], [place], [address], 12:58:46 Procedures None recorded. Surgeries None recorded. Imaging CT, chest, w/o contrast - Please call patient to schedule. 2024 025 [email or web address] [facility] (One Call Scheduling), [address] [place] [address], [place], [address], 10:02:13 Medication Orders Mounjaro 10 mg/0.5 mL subcutaneo us pen injector 2024 025 [facility] [address] [place], [address], 5 08:59:58 omeprazole 20 mg capsule,de layed release 2024 025 [facility] [address] [place], [address], 5 08:59:59 alprazolam 0.5 mg tablet 2024 025 [facility] [address] [place], [address], 5 17:33:19 buspirone 10 mg tablet 2024 025 [facility] [address] [place], [address], 5 17:33:17 alprazolam 0.5 mg tablet 2024 025 [facility] [address], [address] [place], [address], 5 09:40:31 meclizine 12.5 mg tablet 2024 025 [facility] [address] [place], [address], 5 08:36:20 metoclopra mide 10 mg tablet 2024 025 [email or web address] [facility] [address] [place], [address], 5 12:00:16 ondansetro n 8 mg disintegra ting tablet 2024 025 [facility] [address], [address] [facility], [place], [address], 5 12:40:06 ciprofloxa farrah 500 mg tablet 2024 025 [email or web address] [facility] [address] [place], [address], 17:30:37 thiamine HCl (vitamin B1) 100 mg tablet 2024 025 [facility] [address] [place], [address], 5 12:40:58 triamcinol one acetonide 40 mg/mL suspension for injection 2024 025 Not available 08:37:08 Patient TargetsNo targets recorded. Patient Instructions Encounter Date Encounter Id Patient Instructions Last Modified By Organization Details Last Modified Time 11/11/2024 [id number] sees one neurologist tomorrow , then another the end of month , wants a second opinion . [email or web address] Not available 11/11/2024 09:54:49 Reason for Referral Mental Health Counselor Refe rral for Chronic depression Please call patient to schedule an appointment. Thank you. Referring Physician: Issac Onofre, Family Medicine, Encounter Date: 01/15/2025 Counseling Referral for Reac tive depression (situational) Prefers Virtual. Please call patient to schedule an appointment. Thank you. Referring Physician: Deneen Hays, Family Medicine, Encounter Date: 02/11/2025 Results Created Date Observation Date Name Description Value Unit Range Abnormal Flag Note LastModifiedBy Organization Detail LastModifiedTime 10/11/1910/14/2024 IRON, TIBC AND ANASTACIA TIN PANEL iron, total 195 mcg/d L 45-160 high Not Available [address], [address], 10/14/2024 14:17:59 10/11/19 25 10/14/2024 IRON, TIBC AND ANASTACIA TIN PANEL iron binding capacity 387 mcg/d L_(ca lc) 250-45 0 normal Not Available [address], [address], 10/14/2024 14:17:59 10/11/19 25 10/14/2024 IRON, TIBC AND ANASTACIA TIN PANEL % saturation 50 %_(ca lc) 16-45 high Not Available [address], [address], 10/14/2024 14:17:59 10/11/19 25 10/14/2024 IRON, TIBC AND ANASTACIA TIN PANEL ferritin 142 NG/mL 16-232 normal Not Available [address], [address], 10/14/2024 14:17:59 10/11/19 25 10/14/2024 MAGNE SIUM magnesium 1.9 mg/dL 1.5-2. 5 normal Not Available [address], [address], 10/14/2024 14:18:00 10/11/19 25 10/14/2024 SED RATE BY MODIF IED WESTE RGREN sed rate by modified westergren 6 mm/h < or = 30 normal Not Available [address], [address], 10/14/2024 14:18:02 10/11/19 25 10/14/2024 CBC (INCL UDES DIFF/ PLT) white blood cell count 8.6 thous and/u L 3.8-10 .8 normal Not Available [address], [address], 10/14/2024 14:18:03 10/11/19 25 10/14/2024 CBC (INCL UDES DIFF/ PLT) red blood cell count 5.36 marisa on/uL 3.80-5 .10 high Not Available [address], [address], 10/14/2024 14:18:03 10/11/19 25 10/14/2024 CBC (INCL UDES DIFF/ PLT) hemoglobin 17.4 g/dL 11.7-1 5.5 high Not Available [address], [address], 10/14/2024 14:18:03 10/11/19 25 10/14/2024 CBC (INCL UDES DIFF/ PLT) hematocrit 50.3 % 35.0-4 5.0 high Not Available [address], [address], 10/14/2024 14:18:03 10/11/19 25 10/14/2024 CBC (INCL UDES DIFF/ PLT) MCV 93.8 fL 80.0-1 00.0 normal Not Available [address], [address], 10/14/2024 14:18:03 10/11/19 25 10/14/2024 CBC (INCL UDES DIFF/ PLT) MCH 32.5 pg 27.0-3 3.0 normal Not Available [address], [address], 10/14/2024 14:18:03 10/11/19 25 10/14/2024 CBC (INCL UDES DIFF/ PLT) MCHC 34.6 g/dL 32.0-3 6.0 normal For adult s, a sligh t decre ase in the calcu lated MCHC value (in the range of 30 to 32 g/dL) is most likel y not clini irving signi ficshelby t; fran er, it shoul d be inter prete d with cauti on in corre latio n with other red cell bao eters and the patie nt's clini alhaji condi tion. Not Available [address], [address], 10/14/2024 14:18:03 10/11/1910/14/2024 CBC (INCL UDES DIFF/ PLT) RDW 12.3 % 11.0-1 5.0 normal Not Available [address], [address], 10/14/2024 14:18:03 10/11/19 25 10/14/2024 CBC (INCL UDES DIFF/ PLT) platelet count 289 thous and/u L 140-40 0 normal Not Available [address], [address], 10/14/2024 14:18:03 10/11/19 25 10/14/2024 CBC (INCL UDES DIFF/ PLT) MPV 11.9 fL 7.5-12 .5 normal Not Available [address], [address], 10/14/2024 14:18:03 10/11/19 25 10/14/2024 CBC (INCL UDES DIFF/ PLT) absolute neutrophils 5659 cells /uL 1500-7 800 normal Not Available [address], [address], 10/14/2024 14:18:03 10/11/19 25 10/14/2024 CBC (INCL UDES DIFF/ PLT) absolute lymphocytes 1995 cells /uL 850-39 00 normal Not Available [facility] [address], [place], [address], 10/14/2024 14:18:03 10/11/19 25 10/14/2024 CBC (INCL UDES DIFF/ PLT) absolute monocytes 860 cells /uL 200-95 0 normal Not Available [address], [address], 10/14/2024 14:18:03 10/11/19 25 10/14/2024 CBC (INCL UDES DIFF/ PLT) absolute eosinophils 43 cells /uL 15-500 normal Not Available [address], [address], 10/14/2024 14:18:03 10/11/19 25 10/14/2024 CBC (INCL UDES DIFF/ PLT) absolute basophils 43 cells /uL 0-200 normal Not Available [address], [address], 10/14/2024 14:18:03 10/11/19 25 10/14/2024 CBC (INCL UDES DIFF/ PLT) neutrophils 65.8 % normal Not Available [address], [address], 10/14/2024 14:18:03 10/11/19 25 10/14/2024 CBC (INCL UDES DIFF/ PLT) lymphocytes 23.2 % normal Not Available [address], [address], 10/14/2024 14:18:03 10/11/19 25 10/14/2024 CBC (INCL UDES DIFF/ PLT) monocytes 10.0 % normal Not Available [address], [address], 10/14/2024 14:18:03 10/11/19 25 10/14/2024 CBC (INCL UDES DIFF/ PLT) eosinophils 0.5 % normal Not Available [address] [place], [address], 10/14/2024 14:18:03 10/11/19 25 10/14/2024 CBC (INCL UDES DIFF/ PLT) basophils 0.5 % normal Not Available [address] [address] [place], [address], 10/14/2024 14:18:03 10/11/19 25 10/14/2024 ALEENA SCREE N, IFA, W/REF L TITER AND PATTE RN ALEENA screen, ifa NEGATI VE negati ve normal ALEENA IFA is a first line scree n for detec ting the prese nce of up to appro ximat ugo 150 autoa ntibo dies in vario us autoi mmune disea ses. A negat delma ALEENA IFA resul t sugge sts an ALEENA-a ssoci ated autoi mmune disea se is not prese nt at this time, but is not defin itive . If there is high clini alhaji suspi cion for Sjogr en's syndr ome, testi ng for anti- SS-A/ Ro antib corbin shoul d be consi dered . Anti- Priya-1 antib corbin shoul d be consi dered for clini irving suspe cted infla mmato ry myopa alvaro . AC-0: Negat delma Inter natio nal Conse nsus on ALEENA Patte rns (http s://d oi.or g/10. 1515/ [facility]- 2017- 0052) For addit ional infor tao monzon e refer to http: //[facility] mclain.Que stDia gnost ics.c om/fa q/FAQ 177 (This link is being provi ded for infor purvi burdick/ educa brock l purpo ses only. ) Not Available [address] [address] [address], [place], [address], 10/14/2024 14:18:05 10/11/19 25 10/14/2024 RHEUM ATOID FACTO R rheumatoid factor <10 IU/mL <14 normal Not Available [facility] [address] [address] [address], [place], [address], 10/14/2024 14:18:06 10/11/19 25 10/14/2024 C-ESAU CTIVE PROTE IN C-reactive protein <3.0 mg/L <8.0 normal Not Available [address], [address], 10/14/2024 14:18:07 10/11/19 25 10/14/2024 CYCLI C CITRU LLINA LYNN PEPTI DE (CCP) AB (IGG) cyclic citrullinate d peptide (ccp) Ab (IgG) <16 units normal Refer ence Range Negat delma: <20 Weak Posit delma: 20-39 Moder ate Posit delma: 40-59 Stron g Posit delma: >59 Not Available [address], [address], 10/14/2024 14:18:08 10/11/19 25 10/14/2024 TSH TSH 0.31 mIU/L 0.40-4 .50 low Not Available [address], [address], 10/14/2024 14:18:09 10/11/19 25 10/14/2024 VITAM IN B12/F OLATE , SERUM PANEL vitamin B12 1175 pg/mL 200-11 00 high Not Available [address], [address], 10/14/2024 14:18:11 10/11/19 25 10/14/2024 VITAM IN B12/F OLATE , SERUM PANEL folate, serum 10.4 NG/mL normal Refer ence Range Low: <3.4 Borde rline : 3.4-5 .4 Yana l: >5.4 Not Available [address], [address], 10/14/2024 14:18:11 10/11/19 10/14/2024 VITAM IN D,25- OH,TO JOHN,I A vitamin D,25-oh,tota l,ia 37 NG/mL 30-100 normal Vitam in D Statu s 25-OH Vitam in D: Defic iency : <20 ng/mL Insuf ficie ncy: 20 - 29 ng/mL Optim al: > or = 30 ng/mL For 25-OH Vitam in D testi ng on patie nts on D2-mijares pplem entat ion and patie nts for whom quant itati on of D2 and D3 fract ions is requi red, the [facility] e[facility](TM ) 25-OH VIT D, (D2,D 3), LC/MS /MS is recom shayan d: order code 68525 (natalia ents >2yrs ). See Note 1 Note 1 For addit ional infor tao monzon refer to http: //[facility].Kalen stDia gnost ics.c om/fa q/FAQ 199 (This link is being provi ded for infor purvi burdick/ kelli be purpo ses only. ) Not Available [facility] [address] [address] [place], [address], 10/14/2024 14:18:12 10/11/1910/14/2024 AMYLA SE amylase 33 U/L 21-101 normal Not Available [facility] [address] [address] [place], [address], 10/14/2024 14:18:13 10/11/19 25 10/14/2024 LIPAS E lipase 45 U/L 7-60 normal Not Available [facility] [address] [address] [place], [address], 10/14/2024 14:18:14 10/21/1910/20/2024 COLOG UARD cologuard result reportable NEGATI VE negati ve normal NEGAT DELMA TEST RESUL T. A negat delma Colog uard resul t indic ates a low likel ihood that a color ectal cance r (CRC) or advan leo adeno ma (festus omato us polyp s with more advan leo pre-m align ant featu res) is prese nt. The [facility] emergency department e that a perso n with a negat delma Colog uard test has a color ectal cance r is less than 1 in 1500 (nega tive predi ctive value >99.9 %) or has an advan leo adeno ma is less than 5.3% (nega tive predi ctive value 94.7% ). These data are based on a prosp ectiv e cross -sect ional study of ,00 0 indiv idual s at [facility] risk for color ectal cance r who were scree arnoldo with both Colog uard and colon oscop y. (Radha Park. et al, N Engl J Med 2014; 370(1 4):12 86-12 97) The yana l value (refe rence range ) for this assay is negat delma. COLOG UARD RE-SC REENI NG RECOM MENDA TION: Perio dic color ectal cance r scree karuna is an impor tant part of preve ntive healt hcare for asymp tomat ic indiv idual s at marsing ge risk for color ectal cance r. Follo wing a negat delma Colog uard resul t, the Ameri can Cance r Socie ty and U.S. Multi -Soci ety Task Force scree karuna guide lines recom mend a Colog uard re-sc reeni ng inter de of 3 years . Refer ences : Ameri can Cance r Socie ty Guide line for Color ectal Cance r Scree karuna: https ://loida w.can cer.o rg/ca ncer/ colon -rect al-ca ncer/ detec tion- diagn osis- stagi ng/ac s-rec ommen datio ns.ht ml.; Emery CASE, Rosa MEDINA, Rico GEORGE, Color ectal Cance r Scree karuna: Recom menda tions for Physi cians and Patie nts from the U.S. Multi -Soci ety Task Force on Color ectal Cance r Scree karuna , Chetan ernandez rolog y 2017; 112:1 016-1 030. TEST DESCR IPTIO N: [place] site algor ithmi c edwin sis of stool DNA-b iomar kers with hemog lobin immun oassa y. Quant itati ve value s of indiv idual bioma rkers are not repor table and are not assoc iated with indiv idual bioma rker resul t refer ence range s. Colog uard is inten ded for color ectal cance r scree karuna of adult s of eithe r sex, 45 years or older , who are at [facility] for color ectal cance r (CRC) . Colog uard has been appro christiana for use by the U.S. FDA. The perfo rmanc e of Colog uard was estab lishe d in a cross secti onal study of [facility] adult s aged 50-84 . Colog uard perfo rmanc e in patie nts ages 45 to 49 years was estim ated by sub-g roup edwin sis of near- age group s. Colon oscop ies perfo rmed for a posit delma resul t may find as the most clini irving signi fican t lesio n: color ectal cance r [4.0% ], advan leo adeno ma (incl uding sessi le lyndon lynn polyp s great er than or equal to 1cm diame ter) [20%] or non- advan leo adeno ma [31%] ; or no color ectal neopl jaime [45%] . These estim ates are deriv ed from a prosp ectiv e cross -sect ional scree karuna study of ,00 0 indiv idual s at [facility] risk for color ectal cance r who were scree arnoldo with both Colog uard and colon oscop y. (Radha Montoya et al, N Engl J Med 2014; 370(1 4):12 86-12 97.) Colog uard may produ ce a false negat delma or false posit delma resul t (no color ectal cance r or preca ncero us polyp prese nt at colon oscop y follo w up). A negat delma Colog uard test resul t does not guara ntee the absen ce of CRC or advan leo adeno ma (pre- cance r). The curre nt Colog uard scree karuna inter de is every 3 years . (Erma burrows Cance r Socie ty and U.S. Multi -Soci ety Task Force ). Colog uard perfo rmanc e data in a 10,00 0 patie nt pivot al study using colon oscop y as the refer ence metho d can be acces sed at the follo wing locat ion: www.e xactl abs.c om/re sults . Addit ional descr iptio n of the Colog uard test proce ss, warni ngs and preca ution s can be found at www.c ologu sheri.c om. Not Available [facility] (Cologuard Orders Only) [address], [place], [address], 10/24/2024 12:17:39 11/02/19 25 10/31/2024 CT, brain , w/o contr ast No observ ation record ed. [email or web address] [facility] [address], [place], [address], 01/15/2025 17:22:57 Result Notes None recorded. Problems Name Problem SNOMED Code Status Onset Date Resolution Date Notes Provider Name and Address Organization Details Recorded Time Benign paroxysmal positional vertigo 632976443 Active Not Available [facility] 3 14:11:49 Labyrinthi tis 55208021 Active Not Available [facility] 3 14:11:49 Fibromyosi tis 50338682 Active Not Available [facility] 3 14:11:49 Low back pain 656963942 Active Not Available [facility] 3 14:11:49 Polyuria 50252867 Active Not Available [facility] 3 14:11:49 Sinusitis 82512502 Active Not Available [facility] 3 14:11:49 Hypertensi ve disorder 40368161 Active Not Available [facility] 3 14:11:49 Hypothyroi dism 63168607 Active Not Available [facility] 3 14:11:49 Dizziness of unknown cause 631596271 Active Not Available [facility] 3 14:11:49 Uncontroll ed type 2 diabetes mellitus 694923728 Active Not Available [facility] 3 14:11:49 Essential hypertensi on 62741867 Active Not Available [facility] 3 14:11:49 Diarrhea 63479882 Active Not Available [facility] 3 14:11:49 Candidiasi s of vagina 15456016 Active Not Available [facility] 3 14:11:49 Diabetes mellitus 76522302 Active Not Available [facility] 3 14:11:49 Fatigue 13868580 Active Not Available [facility] 3 14:11:49 Current tear of medial cartilage AND/OR meniscus of knee Active 2020 Not Available [facility] 3 14:11:49 Hypothyroi dism due to Sierra' s thyroiditi s 983685408 Active 2021 Not Available [facility] 3 14:11:49 Type 2 diabetes mellitus 88690919 Active 2021 Issac Onofre MD [address] [facility], [address], [address] , [facility] [employer] [facility] 5 17:31:52 Well controlled type 2 diabetes mellitus 942883373 Active 2021 Not Available [facility] 3 14:11:49 Anxiety 43428233 Active 2021 Not Available [facility] 3 14:11:49 Mixed anxiety and depressive disorder 677607887 Active 2022 Not Available [facility] 3 14:11:49 Essential tremor 099338018 Active 2022 Not Available [facility] 3 14:11:49 Dyslipidem ia 304179909 Active 2022 Not Available [facility] 3 14:11:49 Nausea and vomiting 65145513 Active 2022 Not Available [facility] 3 14:11:49 Migraine 00686733 Active 2022 Issac Onofre MD [address], [address], [place], [address] , [place] [facility] 5 17:31:25 Nausea 145544848 Active 2022 Not Available [facility] 3 14:11:49 Type 2 diabetes mellitus without complicati on 120774317 Active 2022 Not Available [facility] 3 14:11:49 Restless legs 04950949 Active 2022 Not Available [facility] 3 14:11:49 Dizziness 425894949 Active 2022 Not Available [facility] 3 14:11:49 Chronic low back pain 314393883 Active 2022 Not Available [facility] 3 14:11:49 Vitamin B12 deficiency (non anemic) 76608124 Active 2022 Not Available [facility] 3 14:11:49 Painful urging to urinate 08525391 Active 2022 Not Available [facility] 3 14:11:49 Strain of muscle of left shoulder 8991941499319 9105 Active 2022 Not Available [facility] 3 14:11:49 Acute sinusitis 32673913 Active 2022 MEG Sanabria [address], [address], [place], [address] , [facility] 3 09:26:51 Acute pharyngiti s 936883256 Active 2022 MEG Sanabria [address], [address], [place], [address] , [place] [facility] 3 09:30:34 Supraspina tus tear 589530069 Active 2022 MEG Sanabria [address], [address], [place], [address] , [place] [facility] 3 15:03:10 Pain of left shoulder joint 6312601803704 9109 Active 2022 Shana Nicola, DULCE null, [place] [facility] 3 10:29:09 Tuberculos is screening Active 2023 MEG Sanabria [address], [address], [place], [address] , [facility] [place] [facility] 4 14:00:17 Under immunized 700670385 Active 2023 MEG Sanabria [address], [address], [place], [address] , [facility] - [facility] 4 14:01:02 Eruption of skin of face Active 2023 MEG Sanabria [address], [address], [place], [address] , [facility] - [facility] 4 09:46:51 Screening for malignant neoplasm of breast Active 2023 MEG Sanabria [address], [address], [place], [address] , [facility] - [facility] 4 09:49:25 Adult health examinatio n Active 2023 MEG Sanabria [address], [address], [place], [address] , [facility] 4 09:58:37 Thiamine deficiency 770519263 Active 2023 MEG Sanabria [address], [address], [place], [address] , [facility] 4 15:59:36 Pneumonia 524990519 Active 2023 MEG Sanabria [address], [address], [place], [address] , [facility] 4 11:28:29 Perioral dermatitis 233450969 Active 2024 HOLLY Carbajal [address], [address], [place], [address] , [facility] 5 10:50:35 Allergic contact dermatitis 378402120 Active 2024 HOLLY Carbajal [address], [address], [place], [address] , [employer] - [facility] [employer] [facility] 5 10:51:12 Nodule of lung 172483470 Active 2024 HOLLY Carbajal [address], [address], [place], [address] , [facility] [employer] [facility] 5 11:00:23 Vertigo 067330056 Active 2024 MEG Sanabria [address], [address] [address], [place], [address] , [employer] [facility] 5 12:38:42 Screening for malignant neoplasm of colon Active 2024 MEG Sanabria [address], [address], [place], [address] , [employer] [facility] 5 12:45:05 Intracrani al aneurysm 791826362 Active [address] brain 10/31 MEG Sanabria [address], [address], [place], [address] , [employer] [facility] 5 13:28:56 Hemoglobin above reference range 810156823 Active 2024 MEG Sanabria [address], [address], [place], [address] , [employer] [facility] 5 10:43:12 Chronic anxiety 394234483 Active 2024 Issac Onofre MD [address], [address], [place], [address] , [employer] [facility] 5 17:26:38 Chronic depression 915524854 Active 2024 Issac Onofre MD [address], [address], [place], [address] , [employer] [facility] 5 17:28:05 Sierra thyroiditi s 84219728 Active 2024 Issac Onofre MD [address], [address], [place], [address] , [facility] 5 17:32:05 Obese class I [id number] 07 Active 2024 Issac Onofre MD [address], [address], [place], [address] , [facility] 5 17:47:58 Reactive depression (situation al) 36428979 Active 2024 HOLLY Carbajal [address], [address], [place], [address] , [facility] 5 08:51:00 Gastroesop hageal reflux disease without esophagiti s 914261502 Active 2024 HOLLY Carbajal [address], [address], [place], [address] , [facility] 5 08:53:31 Problem Notes None recorded. Procedures Surgical History Date Name Laterality Status Provider Name and Address Organization Details Recorded Time 04/05/20 22 mammography completed Not Available [facility] 09/28/2022 04:41:38 02/10/20 21 Knee Surgery completed Not Available [facility] 09/28/2022 04:41:38 Cholecystectomy completed Not Available [facility] 09/28/2022 04:41:38 endometrial ablation completed Not Available [facility] 09/28/2022 04:41:38 Imaging Results None recorded. Procedure Notes None recorded. Medical Equipment None Reported. Allergies No known drug allergies Medications Name Sig Start Date Stop Date Status Note LastModified by Organization Details LastModified Time Prescript ion - Renewal 02/11 completed Not Available Not Available Not Available Prescript [...] Take 1 tablet by mouth once daily active Not Available Not Available No t Available hydrocodo ne 5 mg-acetam inophen 325 [...] day by oral route for 30 days. 02/11 completed Not Available Not Available Not Available ciproflox acin 500 mg tablet Take 1 tablet every 12 hours by oral route for 10 days. 01/15 completed Not Available Not Available Not Available sulfameth oxazole 800 mg-trimet hoprim 160 mg [...] TABLET BY MOUTH TWICE DAILY BEFORE MEAL(S) 02/11 completed Not Available Not Available Not Available ondansetr on 8 mg disintegr ating [...] Not Available alprazola m 0.5 mg tablet TAKE 1 TABLET BY MOUTH THREE TIMES DAILY NEEDED active Not Available Not Available No [...] administ ered by the provider 07/14 completed [facility]: [phone] 4- Not Available Not Available Not Available dexametha [...] n route as directed for 1 day. 02/11 completed Not Available Not Available Not Available cyanocoba zulay (vit B-12) 1,000 mcg/mL injection solution INJECT 1 ML ONCE A WEEK IN THE MORNING 02/11 completed Not Available Not Available Not Available levothyro xine 125 mcg tablet TAKE ONE TABLET BY MOUTH ONCE DAILY 09/03 completed Not Available Not Available Not Available buspirone 10 mg tablet TAKE 1 TABLET BY MOUTH THREE TIMES DAILY NEEDED active Not Available Not Available No t Available propranol ol ER 80 mg capsule,2 4 hr,extend ed release TAKE 1 CAPSULE BY MOUTH EVERY DAY active Not Available Not Available No t Available Advair Diskus 500 mcg-50 mcg/dose powder for inhalatio n INHALE 1 INHALATI ON PO Q 12 H 10/22 completed Not Available Not Available Not Available omeprazol e 20 mg capsule,d elayed release Take 1 capsule twice a day by oral route before meal(s) for 30 days. 2024 active Not Available Not Available Not Avai lable lisinopri l 20 mg-hydroc hlorothia zide 25 mg tablet TAKE ONE TABLET BY MOUTH ONCE DAILY active Not Available Not Available No t Available diclofena c sodium 75 mg tablet,de layed release TAKE 1 TABLET BY MOUTH TWICE DAILY WITH MEALS 03/29 completed Not Available Not Available Not Available insulin syringe U-100 with needle 1 mL 31 gauge x /16 USE 1 SUBCUTAN EOUSLY ONCE A WEEK 02/11 completed Not Available Not Available Not Available hydrochlo rothiazid e 25 mg tablet [...] pack Take by oral route as directed 01/15 completed Not Available Not Available Not Available albuterol sulfate HFA 90 mcg/actua tion [...] DAILY WITH A LARGE GLASS OF WATER. 11/11 completed Not Available Not Available Not Available tobramyci n 0.3 %-dexamet hasone 0.1 [...] administ ered by the provider 07/14 completed [facility]: [id number] 01-14 Not Available Not Available Not Available metformin [...] Available Not Available Not Available Flucelvax Quad 9369-9094 (PF) 60 mcg (15 mcg x 4)/0.5 mL IM syringe 11/29 completed Not Available Not Available Not Available Lomaira 8 mg tablet Take 1 tablet by oral route. 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 active Not Available Not Available No t Available Nurtec ODT 03/05 completed Not Available Not Available Not Available Fluzone Quad 9622-9775 (PF) 60 mcg (15 mcg x 4)/0.5 [...] injector INJECT 7.5MG SUBCUTAN EOUSLY ONCE WEEKLY 02/11 completed Not Available Not Available Not Available Mounjaro 5 mg/0.5 mL subcutane ous pen injector INJECT 5 MG SUB-Q EVERY WEEK 03/27 completed Not Available Not Available Not Available Mounjaro 15 mg/0.5 mL subcutane ous pen injector 15 mg sub cut. every week 03/29 completed Not Available Not Available Not Available Mounjaro 10 mg/0.5 mL subcutane ous pen injector Inject 10 mg every week by subcutan eous route for 90 days. 2024 active Not Available Not Available Not Avai lable Mounjaro 12.5 mg/0.5 mL subcutane ous pen injector INJECT 12.5MG SUBCUTAN EOUSLY ONCE WEEKLY active Not Available Not Available No t Available Dexcom G7 Sensor device CHANGE EVERY 10 DAYS active Not Available Not Available No t Available Airsupra 90 mcg-80 mcg/actua tion HFA aerosol inhaler Inhale 2 inhalati ons 4 times a day by inhalati on route as needed for 10 days. 11/11 completed Not Available Not Available Not Available Vitals Date Recorded Body height Body mass index (BMI) Body weight Body temperature Respiratory rate Oxygen saturation Oxygen saturation in Arterial blood by Pulse oximetry Heart rate Systolic And Diastolic Provider Name and Address Organization Details Last Updated DateTime 5 168.91 cm 33.4 kg/m2 28674.5 g 96.8 [degF] 20 /min 99 % 99 % 77 /min 128/90 mm[Hg] Nancy Sandoval RN [facility] [employer] [facility] 5 10:45:55 Date Recorded Body height Body mass index (BMI) Body weight Body temperature Heart rate Oxygen saturation Oxygen saturation in Arterial blood by Pulse oximetry Systolic And Diastolic Provider Name and Address Organization Details Last Updated DateTime 5 168.91 cm 32.1 kg/m2 17458.6 6 g 96.4 [degF] 79 /min 95 % 95 % 120/80 mm[Hg] Obdulia Rodriguez [facility] [employer] [facility] 5 12:30:07 Date Recorded Body height Body mass index (BMI) Body weight Body temperature Oxygen saturation Oxygen saturation in Arterial blood by Pulse oximetry Heart rate Systolic And Diastolic Provider Name and Address Organization Details Last Updated DateTime 5 168.91 cm 33.1 kg/m2 46019.2 1 g 97.1 [degF] 99 % 99 % 70 /min 122/84 mm[Hg] Jazmin Fuentes Brittani [facility] [employer] [facility] 5 09:30:57 Date Recorded Body height Body mass index (BMI) Body weight Body temperature Oxygen saturation Oxygen saturation in Arterial blood by Pulse oximetry Heart rate Systolic And Diastolic Provider Name and Address Organization Details Last Updated DateTime 5 168.91 cm 32.5 kg/m2 55629.2 9 g 97 [degF] 97 % 97 % 105 /min 110/80 mm[Hg] Jessica Peng RN [facility] 5 17:17:36 Date Recorded Body height Body mass index (BMI) Body weight Body temperature Heart rate Respiratory rate Oxygen saturation Oxygen saturation in Arterial blood by Pulse oximetry Systolic And Diastolic Provider Name and Address Organization Details Last Updated DateTime 5 168.91 cm 31.9 kg/m2 14412.5 7 g 96.8 [degF] 70 /min 20 /min 99 % 99 % 124/82 mm[Hg] Nancy Sandoval RN [facility] 5 08:40:26 Social History Question Answer Notes LastModified by Organizat ion Details LastModified Time Tobacco Smoking Status Never [facility] 10:15:52 What Is Your Level Of Caffeine Consumption? Occasional [id number] Information not available 09/28/2022 In The 14 Days Before Symptom Onset, Have You Had Close Contact With A Laboratory-confir med COVID-19 While That Case Was Ill? No [email or web address] Information not available 07/19/2023 In The 14 Days Before Symptom Onset, Have You Had Close Contact With A Person Who Is Under Investigation For COVID-19 While That Person Was Ill? No [email or web address] Information not available 07/19/2023 What Is The Highest Grade Or Level Of School You Have Completed Or The Highest Degree You Have Received? [id number] [email or web address] Information not available 07/19/2023 Have There Been Any Changes To Your Family Or Social Situation? Yes Information no t available 02/11/2025 Where Do You Live? [facility] Information not available 02/11/2025 Do You Have Any Pets? Yes Information not available 02/11/2025 What Is Your Relationship Status? [id number] Information not available 09/28/2022 Do You Use Your Seat Belt Or Car Seat Routinely? Yes [email or web address] Information not available 07/19/2023 Do You Have Smoke And Carbon Monoxide Detectors In Your Home? Yes Information not available 02/11/2025 Do You Participate In Social Media? Yes [email or web address] Information not available 07/19/2023 Have You Recently Traveled Abroad? No [email or web address] Information not available 07/19/2023 Sex: Female Functional Status Question Answer Note LastModified by Organizat ion Details LastModified Time Do you use any illicit or recreational drugs? No [email or web address] Information not available 07/19/2023 What is your level of alcohol consumption? 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 [id number] Information not available 02/11/2025 Family History Relationship Description Onset Age of this Age Resolved Age Notes LastModified by Organization Details LastModified Time Father Heart disease [id number] Not available 09/28/2022 04:41:45 Father Diabetes mellitus [id number] Not available 09/28/2022 04:41:45 Father History of hypertension [email or web address] Not available 08:27:34 Mother History of hypertension [email or web address] Not available 08:27:34 Mother Moderate chronic obstructive pulmonary disease [email or web address] Not available 02/11 08:27:34 Medical History Condition Response DIABETES, TYPE Y HISTORY OF DRUG ABUSE Y EYE PROBLEMS Y HEADACHES/MIGRAINES Y Gynecological HistoryNo gynecological history recorded. Obstetrics History GPAL:G 0 P 0 0 0 0 Immunizations Vaccine Type Date Status Note Provider Nam e and Address Organization Details Recorded Time Influenza, split virus, trivalent, preservative 2 completed Nancy Sandoval RN [facility] [place] [employer] [facility] 02/11/2025 08:33:36 Influenza, split virus, trivalent, preservative 5 completed Not Available [facility] 06/26/2023 14:11:51 Past Encounters Encounter ID Performer Location Encounter Start Date Encounter Closed Date Diagnosis/Indication Diagnosis SNOMED-CT Code Diagnosis ICD10 Code Diagnosis Note [id number] Norm Molina MD [facility] [place] [address] [place] [address] 11/12/2020 00:00:00 11/12/2020 15:07:58 [id number] Norm Molina MD [facility] [place] [address] [place] [address] 12/08/2020 00:00:00 12/08/2020 15:42:41 [id number] Norm Molina MD [facility] [place] [address] [place] [address] 02/23/2021 00:00:00 02/23/2021 14:38:54 [id number] Yarelis Kirby MD [facility] [place] [address] [place] [address] 03/05/2021 00:00:00 03/05/2021 17:07:18 [id number] Nhung Mello MD [facility] [address] [place] [address] 07/14/2021 00:00:00 07/14/2021 12:43:55 [id number] Yarelis Kirby MD [facility] [place] [address] [place] [address] 09/27/2021 00:00:00 09/27/2021 18:10:29 [id number] Nhung Mello MD [facility] [address] [place] [address] 01/20/2022 00:00:00 01/20/2022 09:13:04 [id number] Nhung Mello MD [facility] [place] [address] [place] [address] 03/01/2022 00:00:00 03/01/2022 12:34:53 [id number] [facility] [place] [address] [place] [address] 05/10/2022 00:00:00 05/10/2022 15:20:55 [id number] Nhung Mello MD [facility] [facility] [address] [place] [address] 06/15/2022 00:00:00 06/15/2022 18:41:53 [id number] Nhung Mello MD [facility] [place] [address] [place] [address] [place] [address] 07/20/2022 00:00:00 07/20/2022 20:45:03 [id number] Nhung Mello MD [facility] [place] [address] [place] [address] [place] [address] 09/30/2022 09:07:45 09/30/2022 09:27:11 Mixed anxiety and depressive disorder 877165603 F41.8 Will wean of wellbutrin x 2 weeks. Will start trintellix 5 mg and 10 mg samples given. F/u in 6 weeks. Essential tremor 9630449 09 G25.0 [id number] Nhung Mello MD [facility] [place] [address] [place] [address] 11/04/2022 08:54:05 11/04/2022 09:19:13 Mixed anxiety and depressive disorder 483849646 F41.8 F/u in 6-8 weeks. Continue trintellix but take with zofran. Nausea and vomiting 1693 1999 R11.2 Essential tremor 3049990 09 G25.0 Will increase the propranolo l to 80 mg ER [id number] Nhung Mello MD [facility] [place] [address] [place] [address] 11/24/2022 11:43:36 11/24/2022 12:37:15 Migraine 97197333 G43.909 starter pack given of emgality. More samples of nurtec given. Take nurtec daily.Note written to be off from work 11/24/22-. Mixed anxi ety and depressive disorder 580591855 F41.8 Continue trintellix but take with zofran. Doing well with this. [id number] Nhung Mello MD [facility] [place] [address] 12/15/2022 11:51:46 12/15/2022 12:26:25 Mixed anxiety and depressive disorder 559419940 F41.8 Increase trintellix to 20 mg and take with zofran. Doing well with this. Anxiety 61112297 F41.9 [id number] Nhung Mello MD [facility] Shekhar ruiz [facility] [place] [address] 02/16/2023 08:50:59 02/16/2023 09:30:15 Low back pain 625026882 M54.50 Use NSAIDs and finish out steroids. Use hydrocodon e for the pain. Type 2 tyshawn betes mellitus without complication 078081679 E11.9 Wants to get on mounjaro but her A1C is not high enough. She is going to appeal this. Anxiety 96355758 F41.9 Continue alprazolam [id number] Nhung Mello MD [facility] [address] [place] [address] 03/27/2023 09:15:17 03/27/2023 10:19:58 Adult health examination 833943462 Z00.00 Mammogram due in 04/22 Restless legs 83243984 G 25.81 May want to try something for this. Trying to get off meds. 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 Recommende d up to 150 minutes of moderate level activity/e xercise weekly. Hypothyroidism 23299594 E03.9 FT4 high normal range- continue on [...] on. Vitamin B1 2 deficiency (non anemic) 94691406 E53.8 Trial on B12 injections as her [...] answered and refills necessary at visit today. [id number] Nhung Mello MD [facility] [place] [address] [place] [address] [place] [address] 06/09/2023 11:35:54 06/09/2023 12:10:38 Chronic low back pain 486797545 M54.50 Strain of muscle of left shoulder 8761578070 0796314 S46.912A [id number] Nhung Mello MD [facility] [place] [address] [place] [address] [place] [address] 06/29/2023 09:12:41 06/29/2023 09:57:01 Acute sinusitis 83482922 J01.90 Acute pharyngitis 890971 003 J02.9 [id number] Sylvester Layne MD [facility] [place] [address] [place] [address] 07/19/2023 09:47:44 07/26/2023 15:09:49 Pain of left shoulder joint 9578709879 7795558 M25.747 [id number] Sylvester Layne MD [facility] [place] [address] [place] [address] 09/01/2023 09:34:00 09/01/2023 10:25:56 Pain of left shoulder joint 7202490320 8194215 M25.768 [id number] Sylvester Layne MD [facility] [place] [address] [place] [address] 09/29/2023 08:49:10 10/02/2023 08:41:56 Pain of left shoulder joint 3990171644 2612313 M25.973 [id number] Issac Onofre MD [facility] [place] [address] [place] [address] [place] [address] 01/15/2024 08:58:24 01/29/2024 11:12:50 Tuberculosis screening 129112005 Z11.1 [id number] Issac Onofre MD [facility] [place] [address] [place] [address] [place] [address] 03/29/2024 09:03:00 03/29/2024 09:53:04 Type 2 diabetes mellitus without complication 409842939 E11.9 Chronic low back pain 27 1741895 M54.50 Vitamin B1 2 deficiency (non anemic) 89612364 E53.8 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 Nodule of lung 654419914 R91.1 Incidental finding 4 mm [id number] Issac Onofre MD [address] [address] 10/10/2024 12:13:26 10/10/2024 14:04:14 Nausea and vomiting 63995031 R11.2 Vertigo 998855904 R42 Thiamine deficiency 3993 14766 E51.9 Fatigue 72613332 R53.83 Screening for malignant neoplasm of colon 963430800 Z12.11 [id number] Issac Onofre MD [address] [address] 11/11/2024 09:17:40 11/11/2024 09:48:47 Anxiety 95416209 F41.9 Long-term current use of benzodiazepine 2123192106 4106172 Z79.009 [id number] Issac Onofre MD [address] [address] 01/15/2025 17:07:13 01/17/2025 10:47:30 of relative 239449468 Z63.4 Chronic anxiety 54735259 9 F41.9 Chronic depression 25200 0009 F32.A Migraine 70135131 G43.90 9 Type 2 tyshawn betes mellitus 99216384 E11.8 Sierra thyroiditis 21 283146 E06.3 Obese class I 6668287210 95585 E66.433 [id number] Issac Onofre MD [facility] [address] [address] 02/11/2025 08:26:25 02/11/2025 09:02:06 Reactive depression (situational) 18765671 F43.21 Vraylar 1.5 mg given in officeRece nt of grandchild Gastroesop hageal reflux disease without esophagitis 262640968 K21.9 Worse with mealsDoes take zofran Type 2 tyshawn betes mellitus without complication 730961365 Z79.4 Will decrease mounjaro due to N/V/Gerd Health Concerns Section Related Observation LastModified by Organization Detai ls LastModified Time None Recorded Concern Status LastModified by Organization Details LastModified Time None Recorded Advance Directives Directive None Recorded Payers Insurance Date Sequence Insurance Name Policy Number Policy Montalvo Covered Member ID Montalvo Member ID Guarantor Name 02/11/2025 [facility] Danielle Keller SELF SELF Danielle Keller 02/12/2025 1 [employer] - OPEN ACCESS Danielle Keller [id number] OI [id number] SOI Danielle Keller 02/11/2025 1 [employer] - OPEN ACCESS [id number] Danielle Keller [id number] OI Danielle Keller Notes Date Note Type Note Provider Name and Address Organization Details Recorded Time 09/04/2024 text/html Gladis Keller is a 54 [...] month for FU HOLLY Carbajal [address], [place], [address], [place] 09/04/2024 11:04:01 10/10/2024 text/html facial rash help ed with prednisone MEG Sanabria [address], [place], [address], [place] 10/19/2024 11:26:28 11/11/2024 text/html fell October [address] . [facility] ,hit head, no loc, CT showed aneurysm airlifted to [facility]. given morphine at [place]. her sister had a brain aneurysm , she is very worried . MEG Sanabria [address], [place], [address], [place] 11/21/2024 13:33:43 01/15/2025 text/html ACV: Her anxiety is not controlled. Pt lost her 1st unborn grand kid (son's) yesterday night and she is very emotional due to that. Pt denies any SI/HI. Pt is on Alprazolam for last several years. Pt has not seen any counsellor/Psych for this in the past. Pt doesn't want to take any SSRI/SNRI for this. Pt's daughter will be having a baby in 2 weeks too. Pt lives with her and has good family support. 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 Pt is f/u with Endo and Neuro for her other chronic conditions and is on meds by them. Issac Onofre MD [address], [place], [address], [employer] [facility] [place] 01/15/2025 17:48:51 02/11/2025 text/html Gladis Keller is a 54 year old female patient here today for a 1 month FU. She is going through a lot emotionally now, she recently had a still born grandson and has a 2 week old grandson that she is not allowed to see.She notes that since the passing of her grandson two weeks ago, she cannot eat, she has abdominal pain and N/V. She has been taking buspar 10 mg BID and Alprazolam 0.5 mg 1-2 times per day. She notes if she takes any more alprazolam she will fall asleep.She previously took trintellix and found this made her too nauseous. She She recently found a 7 mm brain aneurysm, she saw two neuro surgeons and was told surgery could be prolonged if needed. She has hypothyroidism, last TSH 0.31 10/10/24. Synthroid was decreased 112 mcg to 100 mcg. This is managed endocrinology Deneen Hays, COMPOSING MACHINE OPERATOR [address] [facility], [facility] [address], [place], [address], [facility] [employer] [facility] 02/11/2025 09:03:11 OBGyn Episode No OBEpisode recorded.
--- OUTSIDE RECORDS SUMMARY | 2025-02-18 18:01 | XMS_ITS | Encounter Summary ---
Author Organization [facility] Address [address] [place] [address] Care Team Providers Care Baby Formula Worker Name Role Phone Nhung Mello MD Primary Care Provider [phone]- [phone] Dannie Molina Primary Care Provider + Encounter Details Date Type Department Care Team (Late st Contact Info) Description 12/22/2011 Orders Only 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
--- OUTSIDE RECORDS SUMMARY | 2025-02-18 18:01 | XMS_ITS | Referral Summary ---
Author Organization [facility] [address] Address [address] [place] [address] Care Team Providers Care Account Officer Name Role Phone Dannie Molina Primary Care Provider + Encounters Date Type Department Care Team Description 12/24/2024 Telephone [place] [id number] [facility] 6[address] [place] [address] [place] [address] Zunilda Moon RN 12/24/2024 8:31 AM CDT - 12/24/2024 11:59 PM CDT Hospital Encounter [facility] ([facility]) [address] [place] [address] Discharge Disposition: Discharge to home or self care 12/24/2024 8:29 AM CDT - 12/24/2024 11:59 PM CDT Hospital Encounter [facility] ([facility]) [address] [place] [address] Discharge Disposition: Discharge to home or self care 12/24/2024 8:28 AM CDT - 12/24/2024 11:59 PM CDT Hospital Encounter [facility] ([facility]) [address] [place] [address] Discharge Disposition: Discharge to home or self care 12/24/2024 8:26 AM CDT - 12/24/2024 11:59 PM CDT Hospital Encounter [facility] ([facility]) [address] [place] [address] Discharge Disposition: Discharge to home or self care 12/24/2024 8:18 AM CDT - 12/24/2024 11:59 PM CDT Hospital Encounter [facility] ([facility]) [address] [place] [address] Discharge Disposition: Discharge to home or self care 12/24/2024 7:51 AM CDT - 12/24/2024 11:59 PM CDT Hospital Encounter [facility] ([facility]) [address] [place] [address] Discharge Disposition: Discharge to home or self care 12/24/2024 9:20 AM CDT Office Visit [facility] Neurosurgery [address] [place] [address] for Advanced Medicine 6th [place] [address] [place] [id number] Gael Mendoza MD Cerebral aneurysm, nonruptured (Primary Dx) 11/25/2024 Telephone [facility] [address] [place] [address] Corbin Alaniz, Flaca Alaniz MD from Last 3 Months Allergies Active Allergy Reactions Criticality Noted Date Comments Zlwhnaa-Kij-Cuv Reductase Inhibitors Muscle pain Medium 03/25/2024 Medications [...] hyperglycemia, without long-term current use of insulin ([facility]) Continuous glucose monitor. Change every 10 days. 10 each 3 07/15/20 24 Active Synthroid 100 mcg tabletIndications: Acquired hypothyroidism Take 1 tablet (100 mcg total) by mouth daily 90 tablet 3 10/08/19 25 026 Active glucose blood test stripIndications:T ype 2 diabetes mellitus with hyperglycemia, without long-term current use of insulin ([facility]) Use to check blood sugars [...] hyperglycemia, without long-term current use of insulin ([facility]) INJECT 12.5MG SUBCUTANEOUSLY ONCE WEEKLY 12 mL 1 12/31/19 25 Active tirzepatide (Mounjaro) 12.5 mg/0.5 mL pen injector injectionIndicatio ns:Type 2 diabetes mellitus with hyperglycemia, without long-term current use of insulin ([facility]) Inject 0.5 mL (12.5 mg [...] 07/15/2024 Assessment & Plan (07/15/2024 9:27 AM BREAKDOWN MAN): Chronic problem. Controlled on current propranolol LA 80mg daily, HCTZ 50mg daily Pneumonia 07/11/2024 Thiamine deficiency 06/24/2024 Rash and other nonspecific skin eruption 024 Type 2 diabetes mellitus wit h hyperglycemia, without long-term current use of insulin 03/25/2024 Assessment & Plan (07/15/2024 10:09 AM BREAKDOWN MAN): Chronic problem. A1c worsened from 6.5% 03/25/24 [...] copy Hyperlipidemia associated with type 2 diabetes m shirley 03/25/2024 Assessment & Plan (07/15/2024 9:24 AM BREAKDOWN MAN): Chronic problem. Not on any statins; statin intolerance (myalgias). Last lipid panel: 03/27/24 LDL=81, VW=901. Assessment & Plan (03/25/2024 4:20 PM CDT): Patient defers statin therapy she failed atorvastatin due to myalgias Patient did not want to try other statin therapy Acquired hypothyroidism 03/25/2024 Assessment & Plan (07/15/2024 9:26 AM BREAKDOWN MAN): Chronic problem. Currently taking Synthroid 112 mcg daily. Aware to take 1st thing in morning, 30-60 minutes before food/drink/other medications. Clinically euthyroid but biochemically subclinical hyperthyroidism. Will repeat TFTs today. Verified that she uses mychart. Aware to check results/results letter in [facility]. Will contact by phone if needed. Assessment [...] 03/25/2024 Assessment & Plan (07/15/2024 10:02 AM BREAKDOWN MAN): Vitamin D normal when checked 03/27/24. Assessment [...] current injury, left knee, initial encounter 12/08/2020 Immunizations Immunization Administration Dates Next Due Hep A, Adult 10/22/2015 Influenza, Quadrivalent, Raina l Culture-based MDCK, Preservative Free, Antibiotic Free, Intramuscular 05/13/2016 Influenza, Quadrivalent, Spl it, Preservative Free, Intramuscular 06/01/2022,05/02/2020,05/01/2018,04/29 Influenza, Trivalent, IM (MDV) 04/30/2015 Influenza, Unspecified 05/18/2024 Tdap 04/11/2022 Social History Tobacco Use Types Packs/Day Years Used Date Smoking Tobacco: Former Cigarettes Q uit: 07/31/1997 Smokeless Tobacco: Never Tobacco Cessation:Counseling Given: Not Answered Alcohol Use Standard Drinks/Week Comments Yes 0 (1 standard drink = 0.6 oz pur e alcohol) 1-2 drinks monthly Comments No Sex and Gender Information Value Date Recorded Sex Assigned at Not on file Legal Sex Female 2:02 AM BREAKDOWN MAN Gender Identity Female 11/28/2018 12:54 PM CDT [...] 12/24/2024 9:03 AM CDT Plan of Treatment Not on [...] DIABETES EYE EXAM Routine 07/17/2023 8:29 AM BREAKDOWN MAN from Last 3 Months or Most Recently Relevant to Health Maintenance Results * Neuro CT Outside Reference (12/24/2024 8:31 AM CDT) Impressions RAD[facility]PACS[facility] - 12/24/2024 8:31 AM CDT These images are for Reference purposes only and have not been reviewed by [facility]. There will be no report generated by a [facility] Radiologist. Narrative RAD_PACS_[facility] - 12/24/2024 8:31 AM CDT EXAMINATION: Images For Reference Purposes Only us Gael Mendoza MD IMG CT PROCEDURES Final Resul t Performing Organization Address [facility] Co de Phone Number [email or web address] * Neuro CT Outside Reference (12/24/2024 8:29 AM CDT) Impressions [facility] - 12/24/2024 8:29 AM CDT These images are for Reference purposes only and have not been reviewed by [facility]. There will be no report generated by a [facility] Radiologist. Narrative [facility] - 12/24/2024 8:29 AM CDT EXAMINATION: Images For Reference Purposes Only us Gael Mendoza MD IMG CT PROCEDURES Final Resul t Performing Organization Address [facility] de Phone Number [email or web address] * Neuro CT Outside Reference (12/24/2024 8:28 AM CDT) Impressions [facility] - 12/24/2024 8:28 AM CDT These images are for Reference purposes only and have not been reviewed by [facility]. There will be no report generated by a [facility] Radiologist. Narrative [facility] - 12/24/2024 8:28 AM CDT EXAMINATION: Images For Reference Purposes Only us Gael Mendoza MD IMG CT PROCEDURES Final Resul t Performing Organization Address [facility] de Phone Number [email or web address] * Neuro MR Outside Reference (12/24/2024 8:26 AM CDT) Impressions [facility] - 12/24/2024 8:26 AM CDT These images are for Reference purposes only and have not been reviewed by [facility]. There will be no report generated by a [facility] Radiologist. Narrative RAD_PACS_[facility] - 12/24/2024 8:26 AM CDT EXAMINATION: Images For Reference Purposes Only us Gael Mendoza MD IMG MRI PROCEDURES Final Resu lt Performing Organization Address [facility] de Phone Number [email or web address] * Neuro CT Outside Reference (12/24/2024 8:18 AM CDT) Impressions RAD_PACS_[facility] - 12/24/2024 8:18 AM CDT These images are for Reference purposes only and have not been reviewed by [facility]. There will be no report generated by a [facility] Radiologist. Narrative RAD_PACS_[facility] - 12/24/2024 8:18 AM CDT EXAMINATION: Images For Reference Purposes Only us Gael Mendoza MD IMG CT PROCEDURES Final Resul t Performing Organization Address [facility] de Phone Number [email or web address] * Neuro CT Outside Reference (12/24/2024 7:51 AM CDT) Impressions RAD_PACS_[facility] - 12/24/2024 7:51 AM CDT These images are for Reference purposes only and have not been reviewed by [facility]. There will be no report generated by a [facility] Radiologist. Narrative RAD_PACS_[facility] - 12/24/2024 7:51 AM CDT EXAMINATION: Images For Reference Purposes Only us Gael Mendoza MD IMG CT PROCEDURES Final Resul t Performing Organization Address [facility] de Phone Number RAD_[email or web address] * POCT hemoglobin [...] LAB URINE ORDERABLE S Final Result [facility] [address] [place] [address] * Lipid panel (03/27/2024 8:49 AM CDT) Cholesterol 167 <200 mg/dL [facility] HDL 66 > OR = 50 mg/dL [facility] Triglycerides 103 <150 mg/dL [facility] LDL 81 mg/dL (calc) [facility] Comment: Reference range: <100 Desirable range <100 mg/dL for primary prevention; <70 mg/dL for patients with CHD or diabetic patients with > or = 2 CHD risk factors. LDL-C is now calculated using the Camilo-Cowan calculation, which is a validated novel method providing better accuracy than the Friedewald equation in the estimation of LDL-C. Camilo SS et al. SWEETIE. 2013;310(19): 5085-5749 (http://education.Textic/faq/MGT573) Chol/HDL ratio 2.5 <5.0 (calc) [facility] Non-HDL, (LDL+VLDL) 101 <130 mg/dL (calc) [facility] Comment: For patients with diabetes plus 1 major ASCVD risk factor, treating to a non-HDL-C goal of <100 mg/dL (LDL-C of <70 mg/dL) is considered a therapeutic option. 03/27/2024 8:49 AM CDT 03/27/2024 8:50 AM CDT us Flaca Alaniz MD LAB BLOOD ORDERABLE S Final Result [facility] [address] [place] [address] * (ABNORMAL) Comprehensive metabolic panel (03/27/2024 8:49 AM CDT) Glucose 148(H) 65 - 99 mg/dL [facility] Comment: Fasting reference interval For someone without known diabetes, a glucose value >125 mg/dL indicates that they may have diabetes and this should be confirmed with a follow-up test. BUN 15 7 - 25 mg/dL [facility] Creatinine 0.81 0.50 - 1.03 mg/dL [facility] eGFR 86 > OR = 60 mL/min/1.7 3m2 [facility] BUN/creat ratio SEE NOTE: 6 - 22 (calc) [facility] Comment: Not Reported: BUN and Creatinine are within reference range. Sodium 136 135 - 146 mmol/L [facility] Potassium, pl 4.1 3.5 - 5.3 mmol/L [facility] Chloride 102 98 - 110 mmol/L [facility] CO2 27 20 - 32 mmol/L [facility] Calcium 9.0 8.6 - 10.4 mg/dL [facility] Protein, sr 6.6 6.1 - 8.1 g/dL [facility] Albumin 4.2 3.6 - 5.1 g/dL [facility] GLOBULIN 2.4 1.9 - 3.7 g/dL (calc) [facility] Alb/glob ratio 1.8 1.0 - 2.5 (calc) [facility] Bilirubin, total 0.8 0.2 - 1.2 mg/dL [facility] Alk phos 78 37 - 153 U/L [facility] AST 31 10 - 35 U/L [facility] ALT (SGPT) 38(H) 6 - 29 U/L [facility] 03/27/2024 8:49 AM CDT 03/27/2024 8:50 AM CDT Flaca lAaniz MD LAB BLOOD ORDERABLE S Final Result Performing Organization Address City/State/[facility] Co de Phone Number [facility] [address] [place] [address] * DIABETES EYE EXAM (07/17/2023 8:29 AM BREAKDOWN MAN) Historical Provider HEALTH MAINTENANCE Edited Result - Final from Last 3 Months or Most Recently Relevant to Health Maintenance Insurance [employer] [facility] [id number] [facility] [id number] Care Teams Account Officer Relationship Specialty Start Date End Date Dannie Molina PA [address] [place] [address] PCP - General Internal Medicine 03/26/24
--- OUTSIDE RECORDS SUMMARY | 2025-02-18 18:01 | XMS_ITS | Clinical Summary ---
Author Organization [facility] Address [address] [place] [address] Care Team Providers Care Rn Imcu Name Role Phone Unavailable Primary Care Provider [...]
--- OUTSIDE RECORDS SUMMARY | 2025-02-18 18:01 | XMS_ITS | Clinical Summary ---
Author Organization [facility] [employer] Address [address] [place] [address] Care Team Providers Care Game Manager Name Role Phone Unknown, Provider Primary Care Provider Unavaila ble Source Comments [facility] [employer],non-owned Affiliates and Associated Physician Practices is amultiple site organization consisting of ambulatory clinics and hospital sitesin [place], [place], [place] and [place]. This disclosure is being madepursuant to the Care Everywhere program and may not contain all information available regarding this patient. Last updated 18.[employer] Allergies No known active allergies Medications * Be aware that medications may not be up to date on this document. Always verify current medications with the patient. SUMAtriptan Succinate (ZEMBRACE SYMTOUCH SC) Active ALPRAZolam (Xanax) 0.5 MG tablet Take 1 (one) tablet by mouth 3 times daily as needed Active Continuous Glucose Sensor (Dexcom G7 Sensor) MISC CHANGE EVERY 10 DAYS 5 Active Mounjaro 12.5 MG/0.5ML injection Inject 12.5 (twelve and one-half) mg subcutaneously every 7 days (once a week) 3 Active levothyroxine (Synthroid) 100 MCG tablet Take 1 (one) tablet by mouth once daily 5 Active Emgality 120 MG/ML auto-injector pen USE DIRECTED ONCE A MONTH 3 Active propranolol ER 24hr (Inderal LA) 80 MG capsule Take 1 (one) capsule by mouth once daily Active Nurtec 75 MG tablet DISSOLVE 1 TABLET BY MOUTH AT ONSET OF HEADACHE 4 Active ondansetron, disintegrating , (Zofran ODT) 4 MG tablet DISSOLVE 1 TABLET IN MOUTH EVERY 8 HOURS NEEDED FOR NAUSEA AND VOMITING Active ondansetron, disintegrating , (Zofran ODT) [address] 1 tablet three times a day by translingual route as needed. 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 Trauma 11/01/2024 Diverticulosis 11/01/2024 Encounters Date Type Department Care Team Description 12/24/2024 1:15 PM CDT Office Visit [facility] - Neurosurgery [address] [place] [address] Moe Farrell MD Brain aneurysm (HCC) (Primary Dx) 12/24/2024 Travel 12/19/2024 Travel 12/13/2024 7:13 AM CDT - 12/13/2024 2:50 PM CDT Hospital Encounter [facility] [address] [place] [address] Moe Farrell MD [facility] Discharge Disposition: Home or Self Care from Last 3 Months Family History Medical History Relation Name Comments Diabetes - Type 2 Father Hypertension Father Other - Cardiac Father heart diseas e Other - Cardiac Mother Heart diseas e Relation Name Status Comments Father Mother Social History Tobacco Use Types Packs/Day Years Used Date Smoking Tobacco: Former Smokeless Tobacco: Never Tobacco Cessation:Counseling Given: No Comments:Quit 26 years ago Alcohol Use Standard Drinks/Week Comments Yes 0 (1 standard drink = 0.6 oz pur e alcohol) rarely AUDIT-C Answer Date Recorded Q1: How often do you have a drink containing alcohol? Never 12/13/2024 Q2: How many drinks containi ng alcohol do you have on a typical day when you are drinking? Patient does not drink Q3: How often do you have si x or more drinks on one occasion? Never 12/13/2024 PHQ-2 Answer Date Recorded PHQ2 TOTAL SCORE 0 02/20/2021 Comments No Sex and Gender Information Value Date Recorded Sex Assigned at Female 11/01/2024 1:25 PM CDT Legal Sex Female 11:04 AM CDT Gender Identity Female 11/01/2024 1:25 PM CDT Sexual Orientation Straight 11/01/2024 1: 25 PM CDT Last Filed Vital Signs Vital Sign Reading Time Taken Comments Blood Pressure 102/71 12/24/2024 1:16 PM CDT Pulse 70 12/24/2024 1:16 PM CDT Temperature 36.2 C (97.2 F) 12/24/2024 1:16 PM CDT Respiratory Rate 13 12/13/2024 2:30 PM CDT Oxygen Saturation 94% 12/24/2024 1:16 PM CDT Inhaled Oxygen Concentration 21% 12/13/2024 1 :30 PM CDT Weight 94.8 kg (209 lb) 12/24/2024 1:16 PM CDT Height 153.9 cm (5' 0.6) 12/24/2024 1:16 PM CDT Body Mass Index 40.01 12/24/2024 1:16 PM CDT Plan of Treatment Health Maintenance Due Date Last Done Comments COLON MONITORING 1968 COLONOSCOPY - COLON CA SCREENING 1968 CT COLONOGRAPHY - COLON CA SCREENING 1968 FIT - COLON CA SCREENING 1968 FLEX SIG - COLON CA SCREENING 1968 LIPID TESTING 1968 MAMMOGRAM 1968 HIV SCREENING 1983 HEPATITIS C SCREENING 07/18/1986 DTAP/TDAP/TD VACCINES (1 - Tdap) 1987 HEPATITIS B VACCINE (1 of 3 - 19+ 3-dose series) 1987 PAP SMEAR 1989 PNEUMOCOCCAL VACCINE 50+ (1 of 1 - PCV) 2018 ZOSTER VACCINE (1 of 2) 2018 COVID-19 VACCINE (3 - 2023- season) 2024 09/16/2020, 08/06/2020 DEPRESSION SCREENING 07/31/2024 INFLUENZA VACCINE (#1) 2025 , 05/18/2023, 06/01/2022, Additional history exists COLOGUARD (AGES 45-75) - COLON CA SCREENING 10/21/2027 10/20/2024 Colorectal Cancer Screening 10/21/2027 SCREENING FOR DIABETES 12/14/2027 5, 12/13/2024, 10/31/2024, Additional history exists HIB VACCINE Aged Out No longer eligi ble based on patient's age to complete this topic HPV VACCINE Aged Out No longer eligi ble based on patient's age to complete this topic MENINGOCOCCAL (Group B) VACCINE SHARED DECISION-MAKING Aged Out No longer eligible based on patient's age to complete this topic MENINGOCOCCAL GROUPS A/C/Y/W VACCINE Aged Out No longer eligible based on patient's age to complete this topic Procedures Procedure Name Priority Date/Time Associated Diagnosis Comments IR CAROTID CEREBRAL ANGIOGRAM Routine 12/13/2024 1:06 PM CDT Cerebral aneurysm (HCC) GLUCOSE - POINT OF CARE Routine 12/13/2024 7:57 AM CDT PT-INR [facility] AM Draw 12/13/2024 7:51 AM CDT Saccular aneurysm (HCC) CBC W AUTO DIFFERENTIAL AM Draw 12/13/2024 7:51 AM CDT Saccular aneurysm (HCC) BASIC METABOLIC PANEL (CALCIUM TOTAL) AM Draw 12/13/2024 7:51 AM CDT Saccular aneurysm (HCC) from Last 3 Months Results * IR Carotid Cerebral Angiogram (12/13/2024 1:06 PM CDT) Anatomical Region Laterality Modality Head X-Ray Angiograph y 12/13/2024 1:11 PM CDT Impressions 12/17/2024 12:55 PM CDT Impression: 1.Right complex shaped MCA bifurcation measuring 6.2 mm X 4.7 mm X 2.9 mm (neck) 2.Bilateral posterior cerebral arteries I, Dr. Deep Cordon, was present and performed/supervised the entire procedure. Moderate sedation on this adult patient was ordered by me, administered intravenously in my presence, and monitored by the procedure nurse as an independent trained observer who was present throughout the procedure. The following parameters were monitored: oxygen saturation, heart rate, blood pressure, and response to care. For details on pre-moderate sedation and post-moderate sedation patient evaluation, please review the evaluation forms in [facility]. For details on monitored clinical parameters during the intra-service sedation time, please review the procedure nurse documentation in [facility]. Deep Alfred MD have personally reviewed and interpreted this examination/study. > Interpreting Provider: Deep Cordon MD on 12/17/2024 12:55 PM Narrative 12/17/2024 12:55 PM CDT Procedure: Diagnostic Catheter Cerebral Angiogram Comparison Study: CTA dated 10/31/2024 History: The patient is a 54 year old right handed woman with Right MCA bifurcation saccular aneurysm. Plan is for diagnostic cerebral angiogram to characterize aneurysm angio-architecture. Insurance Representative: Dr. Jennifer Cordon Therapeutic Activities Services Worker(s): Conner Aldana G Kaur Vessels: Ultrasound Guided Access of Radial Artery Right Vertebral Artery Angiogram: Cerebral Right Internal Carotid Artery Angiogram: Cerebral 3D Aundrea CT was obtained by injection of contrast with the catheter in the right internal carotid. The data was sent to a [employer] work station and analyzed with surface rendering. Anesthesia: Dr. Jennifer Alfred was personally present during the entire procedure. The entire procedure was performed under my supervision. Moderate sedation on this adult patient was ordered by the convertible power shovel operator, administered intravenously in my presence, and monitored by the procedure nurse as an independent trained observer who was present throughout the procedure. The following parameters were monitored: oxygen saturation, heart rate, blood pressure, and response to care. Intra-service sedation start time was 1223 and end time was 1252 during which I was present. Total physician intra-service sedation time was 29 minutes. For details on sedation patient evaluation, please review the evaluation in [facility]. For details on monitored clinical parameters during the intra-service sedation time, please review the procedure nurse documentation in [facility]. Procedural detail: The risks, benefits, and alternatives to procedure were discussed in detail with the patient and her family. These included but were not limited to the risk of blood loss, vessel injury, stroke, renal injury, and contrast allergy. The patient was brought to the biplane angiography suite where she underwent prep and drape procedures. Limited ultrasound of the right radial artery demonstrated a patent vessel. A israel scale image was documented. The right radial artery was accessed using a micropuncture needle. Following a series of exchanges, a 5 Australian 11 cm Glidesheath slender was placed in the radial artery. A radial angiogram was performed through the sheath. A spasmolytic cocktail containing 3000u heparin, 2.5mg verapamil, and 200mcg of nitroglycerin was administered. A 5 Australian Glidecath Bustos 2 diagnostic catheter along with a 0.035 Glidewire was navigated into the aortic arch. The catheter used to select the right subclavian artery followed by the right vertebral artery and a cerebral angiogram was obtained. The catheter was returned to the arch and used to select the left common carotid artery and a cerebral angiogram was obtained. The catheter was returned to the arch and used to select the brachiocephalic artery followed by the right common carotid artery then the right internal carotid artery and a cerebral angiogram was obtained. 3D Aundrea CT was obtained by injection of contrast with the catheter in the right internal carotid. All catheters and sheaths were removed from the arterial system. Hemostasis was achieved using a Terumo radial band closure device. Hemostasis was immediate at the end of the closure procedure. The right radial artery pulse was palpable at the end of the closure procedure. The patient tolerated the procedure without immediate complications. She was returned to the recovery area in hemodynamically stable condition and neurologically unchanged. The estimated blood loss was less than 10 mL. A total of 4.4 minutes of fluoroscopic time and 88 ml of Isovue-300 contrast were utilized for the study. Findings: There was good arterial, capillary, and venous opacification of all angiographic runs. The right vertebral artery angiogram reveals a V3, V4, and vertebrobasilar junction that are normal in course and caliber. There is reflux of contrast into the contralateral vertebral artery with visualization of the left posterior inferior cerebellar artery. The major vessels to the cerebellum are normal in course and caliber. The basilar artery are normal in course and caliber. The posterior cerebral arteries appear to branch from the superior cerebellar arteries but are otherwise normal in course and caliber. The venous drainage is also normal. The left common carotid artery angiogram reveals a normal carotid bifurcation. The visualized branches of the external carotid artery are normal in course and caliber. The cervical segment of the internal carotid artery is normal in course and caliber. The internal carotid artery reveals a normal course and caliber of the intracranial segments of the internal carotid artery. There is a large PComm with filling of the left posterior cerebral artery. The middle cerebral artery and anterior cerebral artery are also normal in course and caliber as is the venous drainage. The right internal carotid artery cerebral angiogram reveals a normal course and caliber of the intracranial segments of the internal carotid artery. There is a large caliber PComm with filling of the right posterior cerebral artery and the proximal basilar artery. The middle cerebral artery and anterior cerebral artery are also normal in course and caliber. There is reflux of contrast into the contralateral anterior cerebral artery through an anterior communicating artery. The venous drainage is normal. Procedure Note Deep Cordon MD - 12/17/2024 Procedure: Diagnostic Catheter Cerebral Angiogram Comparison Study: CTA dated 10/31/2024 History: The patient is a 54 year old right handed woman with Right MCA bifurcation saccular aneurysm. Plan is for diagnostic cerebral angiogramto characterize aneurysm angio-architecture. Insurance Representative: Dr. Jennifer Cordon Therapeutic Activities Services Worker(s): Conner Aldana G Kaur Vessels: Ultrasound Guided Access of Radial Artery Right Vertebral Artery Angiogram: Cerebral Right Internal Carotid Artery Angiogram: Cerebral 3D Aundrea CT was obtained by injection of contrast with the catheter inthe right internal carotid. The data was sent to a [employer] work station and analyzed with surface rendering. Anesthesia: I, Dr. Jennifer Cordon was personally present during the entire procedure.The entire procedure was performed under my supervision. Moderate sedationon this adult patient was ordered by the convertible power shovel operator, administeredintravenously in my presence, and monitored by the procedure nurse as an independent trained observer who was present throughout the procedure. The following parameters were monitored: oxygen saturation, heart rate, bloodpressure, and response to care. Intra-service sedation start time was 1223 and end time was 1252 during which I was present. Total physician intra-service sedation time was 29 minutes. For details on sedation patientevaluation, please review the evaluation in [facility]. For details on monitored clinical parameters during the intra-service sedation time, please review the procedure nurse documentation in [facility]. Procedural detail: The risks, benefits, and alternatives to procedure were discussed indetail with the patient and her family. These included but were not limited to the risk of blood loss, vessel injury, stroke, renal injury, andcontrast allergy. The patient was brought to the biplane angiography suite whereshe underwent prep and drape procedures. Limited ultrasound of the right radial artery demonstrated a patent vessel. A israel scale image was documented. The right radial artery was accessed using a micropuncture needle. Following a series of exchanges, a 5 Australian 11 cm Glidesheath slender was placed in the radial artery. A radial angiogram wasperformed through the sheath. A spasmolytic cocktail containing 3000u heparin,2.5mg verapamil, and 200mcg of nitroglycerin was administered. A 5 Australian Glidecath [employer] 2 diagnostic catheter along with a 0.035 Glidewire was navigated into the aortic arch. The catheter used to select the right subclavian artery followed by the right vertebral artery and a cerebral angiogram was obtained. The catheter was returned to the arch and used to select the left common carotid artery and a cerebral angiogram was obtained. The catheter was returned to the arch and used to select the brachiocephalic artery followed by the right common carotid artery thenthe right internal carotid artery and a cerebral angiogram was obtained. 3D Aundrea CT was obtained by injection of contrast with the catheter inthe right internal carotid. All catheters and sheaths were removed from the arterial system.Hemostasis was achieved using a Terumo radial band closure device. Hemostasis was immediate at the end of the closure procedure. The right radial artery pulse was palpable at the end of the closure procedure. The patient tolerated the procedure without immediate complications. She was returned to the recovery area in hemodynamically stable conditionand neurologically unchanged. The estimated blood loss was less than 10 mL. A total of 4.4 minutes of fluoroscopic time and 88 ml of Isovue-300 contrast were utilized for the study. Findings: There was good arterial, capillary, and venous opacification of all angiographic runs. The right vertebral artery angiogram reveals a V3, V4, andvertebrobasilar junction that are normal in course and caliber. There is reflux ofcontrast into the contralateral vertebral artery with visualization of the left posterior inferior cerebellar artery. The major vessels to thecerebellum are normal in course and caliber. The basilar artery are normal incourse and caliber. The posterior cerebral arteries appear to branch from the superior cerebellar arteries but are otherwise normal in course and caliber. The venous drainage is also normal. The left common carotid artery angiogram reveals a normal carotid bifurcation. The visualized branches of the external carotid artery are normal in course and caliber. The cervical segment of the internalcarotid artery is normal in course and caliber. The internal carotid arteryreveals a normal course and caliber of the intracranial segments of the internal carotid artery. There is a large PComm with filling of the leftposterior cerebral artery. The middle cerebral artery and anterior cerebral artery are also normal in course and caliber as is the venous drainage. The right internal carotid artery cerebral angiogram reveals a normal course and caliber of the intracranial segments of the internal carotid artery. There is a large caliber PComm with filling of the rightposterior cerebral artery and the proximal basilar artery. The middle cerebralartery and anterior cerebral artery are also normal in course and caliber.There is reflux of contrast into the contralateral anterior cerebral artery through an anterior communicating artery. The venous drainage is normal. Impression: 1.Right complex shaped MCA bifurcation measuring 6.2 mm X 4.7 mm X 2.9mm (neck) 2.Bilateral posterior cerebral arteries I, Dr. Deep Cordon, was present and performed/supervised theentire procedure. Moderate sedation on this adult patient was ordered by me, administered intravenously in my presence, and monitored by theprocedure nurse as an independent trained observer who was present throughout the procedure. The following parameters were monitored: oxygen saturation, heart rate, blood pressure, and response to care. For details on pre-moderate sedation and post-moderate sedation patient evaluation,please review the evaluation forms in [facility]. For details on monitored clinical parameters during the intra-service sedation time, please review the procedure nurse documentation in [facility]. IDeep MD have personally reviewed and interpreted this examination/study. > Interpreting Provider: Deep Cordon MD on 12/17/2024 12:55 PM us Moe Farrell MD IR ORDERABLES Final Result * (ABNORMAL) GLUCOSE - POINT OF CARE (12/13/2024 7:57 AM CDT) Glucose WB/POC 164(H) 70 - 99 mg/dL 12/16/2024 7:08 AM CDT [facility] Specimen Type Cap Fingerstick 2024 7:08 AM CDT [facility] Blood BLOOD SPECIMEN / Unknown 12/13/2024 7:57 AM CDT 12/16/2024 7:08 AM CDT Moe Farrell MD LAB - POINT OF CARE ORDERABL ES Final Result Performing Organization Address [facility] de Phone Number [facility] [address] [place] [address], [facility] [phone] * PT-INR [facility] (12/13/2024 7:51 AM CDT) PT 12.1 12.1 - 14.8 Seconds 12/13/2024 8:30 AM T [facility] INR 0.9 See Comment 12/13/2024 8:30 AM [facility] Comment:The suggested therap eutic range for standard coumadin (warfarin) therapy is an INR of 2.0-3.0. For high-risk patients (Mechanical Mitral Valve Prosthesis, etc.), the suggested prophylactic therapeutic range is an INR of 2.5-3.5. Blood BLOOD SPECIMEN / Unknown Venipuncture / Unknown 12/13/2024 7:51 AM CDT 12/13/2024 8:22 AM CDT us Fabian Sim MD LAB - COAGULATION ORDERABLES Final Result Performing Organization Address [facility] Co de Phone Number [facility] [address] [place] [address], [facility] [phone] * (ABNORMAL) CBC W AUTO DIFFERENTIAL (12/13/2024 7:51 AM CDT) WBC 5.6 4.0 - 10.7 x10E9/L 12/13/2024 8:23 AM CDT [facility] RBC Count 5.09 3.90 - 5.20 x10E12/L 12/13/2024 8:23 AM T [facility] Hemoglobin 16.3(H) 11.9 - 15.8 g/dL 12/13/2024 8:23 AM [facility] Hematocrit 46.7(H) 34.8 - 46.1 % 12/13/2024 8:23 AM [facility] MCV 91.7 80.0 - 98.0 fL 12/13/2024 8:23 AM [facility] MCH 32.0 26.7 - 33.6 pg 12/13/2024 8:23 AM [facility] MCHC 34.9 31.7 - 36.3 g/dL 12/13/2024 8:23 AM [facility] RDW-CV 12.3 11.3 - 14.8 % 12/13/2024 8:23 AM [facility] Platelet Count 210 150 - 420 x10E9/L 12/13/2024 8:23 AM [facility] MPV 11.2 7.8 - 11.4 fL 12/13/2024 8:23 AM [facility] Neutrophil % 60.4 41.0 - 74.0 % 12/13/2024 8:23 AM [facility] Lymphocyte % 26.4 17.0 - 47.0 % 12/13/2024 8:23 AM [facility] Monocyte % 9.2 3.0 - 11.0 % 12/13/2024 8:23 AM [facility] Eosinophil % 2.5 0.0 - 7.0 % 12/13/2024 8:23 AM [facility] Basophil % 1.3 0.0 - 1.6 % 12/13/2024 8:23 AM [facility] Immature Granulocytes % 0.2 0.0 - 1.0 % 12/13/2024 8:23 AM [facility] Neutrophil Absolute 3.37 1.60 - 7.50 x10E9/L 12/13/2024 8:23 AM [facility] Lymphocyte Absolute 1.47 1.00 - 4.40 x10E9/L 12/13/2024 8:23 AM [facility] Monocyte Absolute 0.51 0.15 - 1.00 x10E9/L 12/13/2024 8:23 AM [facility] Eosinophil Absolute 0.14 0.00 - 0.60 x10E9/L 12/13/2024 8:23 AM [facility] Basophil Absolute 0.07 0.00 - 0.13 x10E9/L 12/13/2024 8:23 AM [facility] Blood BLOOD SPECIMEN / Unknown Venipuncture / Unknown 12/13/2024 7:51 AM CDT 12/13/2024 8:17 AM T us Fabian Sim MD LAB - HEMATOLOGY ORDERABLES Final Result [facility] [address] [place] [address], [facility] [phone] * (ABNORMAL) BASIC METABOLIC PANEL (CALCIUM TOTAL) (12/13/2024 7:51 AM [facility]) BUN 16 7 - 26 mg/dL 12/13/2024 9:06 AM [facility] Creatinine 0.93 0.56 - 0.96 mg/dL 12/13/2024 9:06 AM [facility] Sodium 143 136 - 145 mmol/L 12/13/2024 9:06 AM [facility] Potassium 3.4(L) 3.5 - 4.5 mmol/L 12/13/2024 9:06 AM [facility] Chloride 106 98 - 107 mmol/L 12/13/2024 9:06 AM [facility] CO2 27 22 - 29 mmol/L 12/13/2024 9:06 AM [facility] Glucose 155(H) 70 - 99 mg/dL 12/13/2024 9:06 AM [facility] Calcium 9.0 8.4 - 10.2 mg/dL 12/13/2024 9:06 AM [facility] Anion Gap 10 6 - 16 12/13/2024 9:06 AM [facility] BUN/Creatinine Ratio 17 7 - 23 12/13/2024 9:06 AM [facility] Osmolality Calculated 300(H) 275 - 295 mOsm/kg 12/13/2024 9:06 AM CDT [facility] eGFR by CKD-EPI 72(L) >=90 mL/min/1.7 3 m2 12/13/2024 9:06 AM CDT [facility] Blood BLOOD SPECIMEN / Unknown Venipuncture / Unknown 12/13/2024 7:51 AM CDT 12/13/2024 8:21 AM CDT Fabian Sim MD LAB - CHEMISTRY ORDERABLES F inal Result [facility] [address] [place] [address], [facility] [phone] from Last 3 Months Insurance [employer] Care Teams Game Manager Relationship Specialty Start Date End Date Unknown, Provider PCP - General 11/12/24
--- OUTSIDE RECORDS SUMMARY | 2025-02-18 18:01 | XMS_ITS | Continuity of Care Document ---
Author Organization [facility] Address [address] [place] [address] Phone Care Team Providers Care Fabrication Operator Name Role Phone Jefferson PT,MPT,ATC, Vinny Unavailable Unavai lable Procedures Procedure Date PT Evaluation Low Complexity Neuromuscular Re-Ed Therapeutic Activities Advance Directives Directive Yes / No Effective Date File Name No Information Encounters Encounter Description Practice Location Reason(s) For Visit Diagnoses Date Provider Providers Copied on Encounter [facility], [address], [place], [place], [address], tel:[phone] [place] No Information 4 Ronny [place], [place], [place]. [facility], [address], [place], [place], [address], tel:[phone] [place] No Information 3 Ligia Westfall. . Referring Provider: Sylvester Layne, [address], [place], [address]. tel:[phone] Family History Family Member Type Diagnosis Age At Onset No Information Payers Payer name Insurance type Covered constitution party ID Authoriza tiike(s) [employer] CI [id number] Social History Type Description Quantity Date Captured [...]
--- NOTE | 2025-02-18 18:04 | ECG_ITS ---
Test Date: 2025-02-18 18:19:39 Measurements Intervals [place] Rate: 60 P: 54 FL: 154 QRS: 0 QRSD: 82 T: 4 QT: 422 QTc: 422 Interpretive Statements SINUS RHYTHM LOW QRS VOLTAGE IN PRECORDIAL LEADS [QRS DEFLECTION < 1.0 mV IN CHEST LEADS] NONSPECIFIC T-WAVE ABNORMALITY ABNORMAL ECG No previous ECG available for comparison Electronically Signed On 02-19-2025 10:00:03 CDT by Misha Espinoza M.D.
--- NOTE | 2025-02-18 18:05 | ED.HA ---
HPI - Headache General Chief Complaint: Recheck/Abnormal Lab/Rx Stated Complaint: headache, HTN, has brain aneurysm Time Seen by Provider: 02/18/25 18:00 Focused HPI: Patient is a 54-year-old female who presents to the ER with a headache. She reports she was diagnosed with a brain aneurysm in October 2024. Patient reports she has a neurologist at [facility]. She reports this morning she got up to go to the bathroom at 5:00 a.m. and was dizzy. Patient reports she also noted vision changes and states ?I feel like there is a film across my eyes.She endorses a slight intermittent headache. Patient reports her blood pressures have also been elevated today. She endorses a history of diabetes, migraines, anxiety, depression. Patient reports she is also on steroids right now due to right shoulder pain. She reports her blood sugar readings have been in the 300s. Patient also endorses increased urination. GENERAL: Ill-appearing, well-nourished, and in no acute distress. HEAD: Normocephalic, atraumatic. CHEST: Clear to auscultation. ?No respiratory distress. HEART: Regular rate and rhythm.? NEURO: ?Alert and oriented x3. Increased anxiety. Cranial nerves intact Patient screened in triage and initial orders placed.? ?Additional care and disposition to be based upon?diagnostic testing and treatment. Related Data Home Medications ?Medication ?Instructions ?Recorded ?Confirmed ?Last Taken ?Type alprazolam 0.5 mg tablet 0.5 mg PO TID PRN Anxiety 02/12/20 10/08/24 02/14/20 11:00 History blood sugar diagnostic (Accu-Chek 02/12/20 05/23/24 Unknown History Susie Plus test strips) blood-glucose sensor (Dexcom G6 02/12/20 08/26/24 Unknown History Sensor device) hydrochlorothiazide 25 mg tablet 25 mg PO DAILY 02/12/20 10/08/24 02/13/20 History levothyroxine 112 mcg capsule 112 mcg PO DAILY 02/12/20 10/08/24 02/14/20 08:30 History propranolol 80 mg capsule,24 80 mg PO DIRECTED 02/02/24 10/08/24 Unknown History hr,extended release rimegepant 75 mg disintegrating 75 mg PO DIRECTED 02/02/24 10/08/24 Unknown History tablet (Nurtec ODT) tirzepatide 7.5 mg/0.5 mL 7.5 mg subcut DIRECTED 02/02/24 10/08/24 Unknown History subcutaneous pen injector (Mounjaro) galcanezumab-gnlm 120 mg/mL 120 mg subcut MONTHLY 05/23/24 10/08/24 Unknown History subcutaneous pen injector (Emgality Pen) cyanocobalamin (vitamin B-12) 1,000 mcg IM DIRECTED 07/06/24 10/08/24 Unknown History 1,000 mcg/mL injection solution Allergies Allergy/AdvReac Type Severity Reaction Status Date / Time No Known Allergies Allergy Verified 10/31/24 18:36 [facility] Past Medical History Medical History Hypothyroid Hypertension Diabetes Surgical History Surgical History Hx of cholecystectomy Social History Social History Smoking packs per day: 0.5 Smoking cigarettes per day: 10.0 Smoking status: Former smoker Alcohol intake: never Last use: 1997 Living arrangements: with family Gender identity (if verbalized by the patient): Female Spiritual care concerns: No Course Vital Signs Vital signs: Vital Signs Temperature 36.3 C L 02/18/25 18:00 Pulse Rate 64 02/18/25 18:00 Respiratory Rate 16 02/18/25 18:00 Blood Pressure 163/91 H 02/18/25 18:00 Pulse Oximetry 100 02/18/25 18:00 Oxygen Delivery Room Air 02/18/25 18:00 Temperature 36.3 C L 02/18/25 18:00 Pulse Rate 64 02/18/25 18:00 Respiratory Rate 16 02/18/25 18:00 Blood Pressure 163/91 H 02/18/25 18:00 Pulse Oximetry 100 02/18/25 18:00 Oxygen Delivery Room Air 02/18/25 18:00 MDM - Headache Lab Data 02/18/25 18:07 02/18/25 18:07 Labs: Lab Results 07/22/25 07/22/25 07/22/25 Range/Units 18:05 18:07 19:23 WBC 13.0 H (4.5-10.0) K/mm3 RBC 5.06 (4.2-5.4) M/mm3 Hgb 16.0 H (12.0-15.0) g/dL Hct 46.2 (37.0-47.0) % MCV 91.3 (80-100) fl MCH 31.6 (26-34) pg MCHC 34.6 (32-36) g/dl RDW 12.1 (11.5-14.5) % Plt Count 247 (150-375) k/mm3 MPV 11.0 H (7.4-10.4) fl Immature Gran % (Auto) 0.5 (0-0.5) % Neut % (Auto) 86.7 H (45.5-73.1) % Lymph % (Auto) 7.2 L (18.3-44.2) % [place] % (Auto) 5.5 (2.6-8.5) % Eos % (Auto) 0.0 (0-4.4) % Baso % (Auto) 0.1 L (0.2-1.2) % Lymph # (Auto) 0.94 (0.9-3.2) K/mm3 [place] # (Auto) 0.7 H (0.1-0.6) K/mm3 Eos # (Auto) 0.0 (0-0.3) K/mm3 Baso # (Auto) 0.0 (0.0-0.1) K/mm3 Abs Immat Gran (auto) 0.07 H (0.00-0.031) K/mm3 Absolute Neuts (auto) 11.3 H (1.3-6.7) K/mm3 Absolute Nucleated RBC 0.000 (0.0-0.012) K/mm3 Nucleated RBC % 0.0 (0.0-0.2) % PT 13.5 (11.1-14.7) Seconds INR 1.0 APTT 22.2 L (22.3-36.8) Seconds Sodium 136 L (137-145) mmol/L Potassium 3.8 (3.4-5.0) mmol/L Chloride 98 (98-107) mmol/L Carbon Dioxide 28 (22-30) mmol/L Anion Gap 10 (4-12) mmol/L BUN 15 (7-17) mg/dL Creatinine 0.87 (0.7-1.0) mg/dL Estim Creat Clear Calc Not Reportable Estimated GFR > 60 (59 - ) Glucose 286 H (65-110) mg/dL POC Capillary Glucose 267 H (65-105) mg/dl Calcium 9.7 (8.4-10.2) mg/dL Total Bilirubin 1.0 (0.2-1.3) mg/dL AST 31 (14-36) U/L ALT 30 (6-35) U/L Alkaline Phosphatase 105 (38-126) U/L Total Protein 8.0 (6.3-8.2) g/dL Albumin 4.6 (3.5-5.1) g/dL Urine Color Yellow (Yellow) Urine Appearance Clear (Clear) Urine pH 8.0 (5.0-9.0) Ur Specific [place] 1.009 (1.001-1.035) Urine Protein Negative (Negative) mg/dL Urine Glucose (UA) Trace H (Negative) mg/dL Urine Ketones Negative (Negative) mg/dL Ur Blood (Man) Negative (Negative) Urine Nitrate Negative (Negative) Urine Bilirubin Negative (Negative) Urine Urobilinogen 0.2 (<2.0) mg/dL Leukocyte Esterase Rfl Trace H (Negative) MELVIN/UL Urine RBC 0-2 (0-2) /hpf Urine WBC 0-5 (0-3) /hpf Ur Squamous Epith Cells None seen (Few) /hpf Urine Bacteria None seen /hpf Urine Casts 0-2 Discharge Plan Discharge Clinical Impression: Headache Patient Disposition: Elopement After Seen by Prov Patient Language: Wolof Prescriptions: No Action propranolol 80 mg capsule,extended release 24hr 80 mg PO DIRECTED Nurtec ODT 75 mg tablet,disintegrating 75 mg PO DIRECTED Mounjaro 7.5 mg/0.5 mL pen injector 7.5 mg SUBCUT DIRECTED Emgality Pen 120 mg/mL pen injector 120 mg SUBCUT MONTHLY cyanocobalamin (vitamin B-12) 1,000 mcg/mL solution 1,000 mcg IM DIRECTED ondansetron 4 mg tablet,disintegrating 4 mg PO Q8H PRN (Reason: nausea and vomiting) Qty: 8 0RF prednisone 20 mg tablet 40 mg PO DAILY 5 Days Qty: 10 0RF methocarbamol 1,000 mg tablet 1,000 mg PO QID PRN (Reason: muscle spasm) Qty: 20 0RF alprazolam 0.5 mg tablet 0.5 mg PO TID PRN (Reason: Anxiety) hydrochlorothiazide 25 mg tablet 25 mg PO DAILY (DME) Dexcom G6 Sensor Device MISCELLANEOUS levothyroxine 112 mcg Capsule 112 mcg PO DAILY (DME) Accu-Chek Susie Plus test strp Strip MISCELLANEOUS Follow-up/Referrals: Saúl,Deneen Mccormick, [employer] [Primary Care Provider] -
[2025-02-18 18:11] LABS: Hematocrit 46.2 % (37.0-47.0); Hemoglobin 16.0 g/dL (12.0-15.0); Immature Granulocyte Percent A 0.5 % (0-0.5); Lymphocytes Absolute Auto 0.94 K/mm3 (0.9-3.2); Mean Corpuscular HGB Conc 34.6 g/dl (32-36); Mean Corpuscular Hemoglobin 31.6 pg (26-34); Mean Corpuscular Volume 91.3 fl (80-100); Nucleated Red Blood Cells Absolute Auto 0.000 K/mm3 (0.0-0.012); Nucleated Red Blood Cells Perc 0.0 % (0.0-0.2); Platelet Count Result 247 k/mm3 (150-375); Red Blood Count 5.06 M/mm3 (4.2-5.4); White Blood Count 13.0 K/mm3 (4.5-10.0)
[2025-02-18 18:32] LABS: INR 1.0; Prothrombin Time 13.5 Seconds (11.1-14.7)
[2025-02-18 18:33] LABS: Alanine Aminotransferase 30 U/L (6-35); Albumin Level 4.6 g/dL (3.5-5.1); Alkaline Phosphatase 105 U/L (38-126); Anion Gap 10 mmol/L (4-12); Aspartate Amino Transferase 31 U/L (14-36); Bilirubin,Total 1.0 mg/dL (0.2-1.3); Blood Urea Nitrogen 15 mg/dL (7-17); Calcium 9.7 mg/dL (8.4-10.2); Carbon Dioxide 28 mmol/L (22-30); Chloride 98 mmol/L (98-107); Estimated Glomerular Filt Rate > 60; Glucose 286 mg/dL (65-110); Partial Thromboplastin Time 22.2 Seconds (22.3-36.8); Potassium 3.8 mmol/L (3.4-5.0); Sodium 136 mmol/L (137-145); Total Protein 8.0 g/dL (6.3-8.2)
[2025-02-18 19:56] LABS: Add Urine Microscopic? YES; Appearance Urine Clear (Clear); Glucose Urine UA Trace mg/dL (Negative); Leukocyte Esterase Ur Trace LEU/UL (Negative); Nitrate Urine Negative (Negative); Non Pathogenic Casts 0-2; Specific Grav Ur 1.009 (1.001-1.035)
--- NOTE | 2025-02-18 22:09 | PC.NURSE ---
Patient approached triage desk stating that she is leaving because she seen her CT results on her patient portal. Pt advised to be seen at the nearest ED if symptoms warrant return. Pt ambulated to ED exit with steady gait and no signs for concern at this time. IV removed with tip intact.
--- OUTSIDE RECORDS SUMMARY | 2025-02-18 23:20 | XMS_ITS | Continuity of Care Document ---
Author Organization [facility] Address [address] [place] [address] Phone Care Team Providers Care Industrial Waste Treatment Technician Name Role Phone Jefferson PT,MPT,ATC, Vinny Unavailable Unavai lable Procedures Procedure Date PT Evaluation Low Complexity Neuromuscular Re-Ed Therapeutic Activities Advance Directives Directive Yes / No Effective Date File Name No Information Encounters Encounter Description Practice Location Reason(s) For Visit Diagnoses Date Provider Providers Copied on Encounter [facility], [address], [place], [place], [address], tel:[phone] [place] No Information 4 Ronny [place], [place], [place]. [facility], [address], [place], [place], [address], tel:[phone] [place] No Information 3 Ligia Westfall. . Referring Provider: Sylvester Layne, [address], [place], [address]. tel:[phone] Family History Family Member Type Diagnosis Age At Onset No Information Payers Payer name Insurance type Covered libertarian ID Authoriza tiike(s) [employer] CI [id number] Social History Type Description Quantity Date Captured [...]
--- OUTSIDE RECORDS SUMMARY | 2025-02-18 23:20 | XMS_ITS | Clinical Summary ---
Author Organization [facility] [address] Address [address] [place] [address] Care Team Providers Care Hat Conditioner Name Role Phone Dannie Molina Primary Care Provider + Allergies Active Allergy Reactions Criticality Noted Date Comments Twcmbly-Yjc-Rmb Reductase Inhibitors Muscle pain Medium 03/25/2024 Medications [...] hyperglycemia, without long-term current use of insulin ([facility]) INJECT 12.5MG SUBCUTANEOUSLY ONCE WEEKLY 12 mL 1 12/31/19 25 Active tirzepatide (Mounjaro) 12.5 mg/0.5 mL pen injector injectionIndicatio ns:Type 2 diabetes mellitus with hyperglycemia, without long-term current use of insulin ([facility]) Inject 0.5 mL (12.5 [...] 07/15/2024 Assessment & Plan (07/15/2024 9:27 AM WELDING TEACHER): Chronic problem. Controlled on current propranolol [place] 80mg daily, HCTZ 50mg daily Pneumonia 07/11/2024 Thiamine deficiency 06/24/2024 Rash and other nonspecific skin eruption 024 Type 2 diabetes mellitus wit h hyperglycemia, without long-term current use of insulin 03/25/2024 Assessment & Plan (07/15/2024 10:09 AM WELDING TEACHER): Chronic problem. A1c worsened from 6.5% 03/25/24 [...] 03/25/2024 Assessment & Plan (07/15/2024 9:24 AM WELDING TEACHER): Chronic problem. Not on any statins; statin intolerance (myalgias). Last lipid panel: 03/27/24 LDL=81, VH=660. Assessment & Plan (03/25/2024 4:20 PM CDT): Patient defers statin therapy she failed atorvastatin due to myalgias Patient did not want to try other statin therapy Acquired hypothyroidism 03/25/2024 Assessment & Plan (07/15/2024 9:26 AM WELDING TEACHER): Chronic problem. Currently taking Synthroid 112 mcg daily. Aware to take 1st thing in morning, 30-60 minutes before food/drink/other medications. Clinically euthyroid but biochemically subclinical hyperthyroidism. Will repeat TFTs today. Verified that she uses mychart. Aware to check results/results letter in [employer]. Will contact by phone if needed. Assessment [...] 03/25/2024 Assessment & Plan (07/15/2024 10:02 AM WELDING TEACHER): Vitamin D normal when checked 03/27/24. Assessment [...] Description 12/24/2024 9:20 AM CDT Office Visit [facility] Neuro[facility] [address] [place] [address] Advanced Medicine 6th [place] [address] [place] [address] Gael Mendoza MD Cerebral aneurysm, nonruptured (Primary Dx) 12/24/2024 8:31 AM CDT - 12/24/2024 11:59 PM CDT Hospital Encounter [facility] ([facility]) [address] [place] [address] Discharge Disposition: Discharge to home or self care 12/24/2024 8:29 AM CDT - 12/24/2024 11:59 PM CDT Hospital Encounter [facility] ([facility]) [address] [place] [address] Discharge Disposition: Discharge to home or self care 12/24/2024 8:28 AM CDT - 12/24/2024 11:59 PM CDT Hospital Encounter [facility] ([facility]) [address] [place] [address] Discharge Disposition: Discharge to home or self care 12/24/2024 8:26 AM CDT - 12/24/2024 11:59 PM CDT Hospital Encounter [facility] ([facility]) [address] [place] [address] Discharge Disposition: Discharge to home or self care 12/24/2024 8:18 AM CDT - 12/24/2024 11:59 PM CDT Hospital Encounter [facility] ([facility]) [address] [place] [address] Discharge Disposition: Discharge to home or self care 12/24/2024 7:51 AM CDT - 12/24/2024 11:59 PM CDT Hospital Encounter [facility] ([facility]) [address] [place] [address] Discharge Disposition: Discharge to home or self care 12/24/2024 Telephone [facility] [address] [facility] 6th [place] [address] [place] [address] Zunilda Moon, MEGHANN 11/25/2024 Telephone [facility] [address] [place] [address] [address] [place] [address] Flaca Merritt MD from Last [...] on file Legal Sex Female 2:02 AM WELDING TEACHER Gender Identity Female 11/28/2018 12:54 PM CDT [...] DIABETES EYE EXAM Routine 07/17/2023 8:29 AM WELDING TEACHER from Last 3 Months or Most Recently Relevant to Health Maintenance Results * Neuro CT Outside Reference (12/24/2024 8:31 AM CDT) Impressions [facility] - 12/24/2024 8:31 AM CDT These images are for Reference purposes only and have not been reviewed by [facility]. There will be no report generated by a [facility] Radiologist. Narrative [facility] - 12/24/2024 8:31 AM CDT EXAMINATION: Images For Reference Purposes Only us Gael Mendoza MD IMG CT PROCEDURES Final Resul t Performing Organization Address [facility] de Phone Number [email or web address] * Neuro CT Outside Reference (12/24/2024 8:29 AM CDT) Impressions [facility] - 12/24/2024 8:29 AM CDT These images are for Reference purposes only and have not been reviewed by [facility]. There will be no report generated by a [facility] Radiologist. Narrative [facility] - 12/24/2024 8:29 AM CDT EXAMINATION: Images For Reference Purposes Only us Gael Mendoza MD IMG CT PROCEDURES Final Resul t Performing Organization Address [facility] de Phone Number [email or web address] * Neuro CT Outside Reference (12/24/2024 8:28 AM CDT) Impressions [facility] - 12/24/2024 8:28 AM CDT These images are for Reference purposes only and have not been reviewed by [facility]. There will be no report generated by a [facility] Radiologist. Narrative [facility] - 12/24/2024 8:28 AM CDT EXAMINATION: Images For Reference Purposes Only us Gael Mendoza MD IMG CT PROCEDURES Final Resul t Performing Organization Address [facility] de Phone Number [email or web address] * Neuro MR Outside Reference (12/24/2024 8:26 AM CDT) Impressions [facility] - 12/24/2024 8:26 AM CDT These images are for Reference purposes only and have not been reviewed by [facility]. There will be no report generated by a [facility] Radiologist. Narrative [facility] - 12/24/2024 8:26 AM CDT EXAMINATION: Images For Reference Purposes Only us Gael Mendoza MD IMG MRI PROCEDURES Final Resu lt Performing Organization Address [facility] de Phone Number [email or web address] * Neuro CT Outside Reference (12/24/2024 8:18 AM CDT) Impressions [facility] - 12/24/2024 8:18 AM CDT These images are for Reference purposes only and have not been reviewed by [facility]. There will be no report generated by a [facility] Radiologist. Narrative [facility] - 12/24/2024 8:18 AM CDT EXAMINATION: Images For Reference Purposes Only us Gael Mendoza MD IMG CT PROCEDURES Final Resul t Performing Organization Address [facility] de Phone Number [email or web address] * Neuro CT Outside Reference (12/24/2024 7:51 AM CDT) Impressions [facility] - 12/24/2024 7:51 AM CDT These images are for Reference purposes only and have not been reviewed by [facility]. There will be no report generated by a [facility] Radiologist. Narrative RAD_PACS[facility] - 12/24/2024 7:51 AM CDT EXAMINATION: Images For Reference Purposes Only us Gael Mendoza MD IMG CT PROCEDURES Final Resul t Performing Organization Address [facility] de Phone Number [email or web address] * POCT hemoglobin [...] LAB URINE ORDERABLE S Final Result [facility] [address] [place] [address] * Lipid panel (03/27/2024 8:49 AM CDT) [...] LDL-C. Camilo SS et al. SWEETIE. 2013;310(19): 3594-3897 (http://education.Mumumío/faq/WWB734) Chol/HDL ratio 2.5 <5.0 (calc) [facility] Non-HDL, (LDL+VLDL) 101 <130 mg/dL (calc) [facility] C[facility] Comment: For patients with diabetes plus 1 major ASCVD risk factor, treating to a non-HDL-C goal of <100 mg/dL (LDL-C of <70 mg/dL) is considered a therapeutic option. 03/27/2024 8:49 AM CDT 03/27/2024 8:50 AM CDT Flaca Alaniz MD LAB BLOOD ORDERABLE S Final Result [facility] [address] [place] [address] * (ABNORMAL) Comprehensive metabolic panel (03/27/2024 8:49 AM CDT) Glucose 148(H) 65 - 99 mg/dL [facility] Comment: Fasting reference interval For someone without known diabetes, a glucose value >125 mg/dL indicates that they may have diabetes and this should be confirmed with a follow-up test. BUN 15 7 - 25 mg/dL [facility] Cervantes Creatinine 0.81 0.50 - 1.03 mg/dL [facility] eGFR 86 > OR = 60 mL/min/1.7 3m2 [facility] BUN/creat ratio SEE NOTE: 6 - 22 (calc) [facility] Comment: Not Reported: BUN and Creatinine are within reference range. Sodium 136 135 - 146 mmol/L [facility] Potassium, pl 4.1 3.5 - 5.3 mmol/L [facility] Chloride 102 98 - 110 mmol/L [facility] CO2 27 20 - 32 mmol/L [facility] Calcium 9.0 8.6 - 10.4 [...] LAB BLOOD ORDERABLE S Final Result [facility] [employer] [facility] [address] [place] [address] * DIABETES EYE EXAM (07/17/2023 8:29 AM WELDING TEACHER) Historical Provider HEALTH MAINTENANCE Edited Result - Final from Last 3 Months or Most Recently Relevant to Health Maintenance Insurance ProtAb [facility] [id number] [facility] [id number] Care Teams Hat Conditioner Relationship Specialty Start Date End Date Dannie Molina PA [address] [place] [address] PCP - General Internal Medicine 03/26/24
--- OUTSIDE RECORDS SUMMARY | 2025-02-18 23:20 | XMS_ITS | Clinical Summary ---
Author Organization [facility] Address [address] [place] [address] Care Team Providers Care Sock Folder Name Role Phone Unavailable Primary Care Provider [...]
--- OUTSIDE RECORDS SUMMARY | 2025-02-18 23:20 | XMS_ITS | Encounter Summary ---
Author Organization [facility] Address [address] [place] [address] Care Team Providers Care Air Compressor Engineer Name Role Phone Nhung Mello MD Primary Care Provider [phone] Dannie Molina Primary Care Provider + Encounter Details Date Type Department Care Team (Late st Contact Info) Description 12/22/2011 [facility] Management [address] [place] [address] Scanning, Provider Social History Tobacco Use Types Packs/Day Years Used Date Smoking Tobacco: Never Assessed Alcohol Use Standard Drinks/Week Comments Yes 0 (1 standard drink = 0.6 oz pur e alcohol) Comments Unknown Sex and Gender Information Value Date Recorded Sex Assigned at Not on file Legal Sex Female 2:02 AM INSULATOR HELPER Gender Identity Female 11/28/2018 12:54 PM [...] on filedocumented in this encounter Care Teams Air Compressor Engineer Relationship Specialty Start Date End Date Nhung Mello MD [address] [place] [address] [place] [address] PCP - General 12/21/11 03/25/24 Dannie Molina PA [address] [place] [address] PCP - General Internal Medicine 03/26/24 documented as of this encounter
--- OUTSIDE RECORDS SUMMARY | 2025-02-18 23:20 | XMS_ITS | Clinical Summary ---
Author Organization [facility] Address [address] [place] [address] Care Team Providers Care Coordinator Skill Training Program Name Role Phone Unknown, Provider Primary Care Provider Unavaila ble Source Comments [facility],non-owned Affiliates and Associated Physician Practices is amultiple site organization consisting of ambulatory clinics and hospital sitesin [place], [place], [place] and [place]. This disclosure is being madepursuant to the Care Everywhere program and may not contain all information available regarding this patient. Last updated 18.[employer] [facility] Allergies No known active allergies Medications * [...] Description 12/24/2024 1:15 PM CDT Office Visit [facility] - [facility] [address] [place] [address] Moe Farrell MD Brain aneurysm (HCC) (Primary Dx) 12/24/2024 Travel 12/19/2024 Travel 12/13/2024 7:13 AM CDT - 12/13/2024 2:50 PM CDT Hospital Encounter [facility] [address] [place] [address] Moe Farrell MD [facility] Discharge Disposition: [...] evaluation, please review the evaluation forms in [facility]. For details on monitored clinical parameters during the intra-service sedation time, please review the procedure nurse documentation in [facility]. Deep Alfred MD have personally reviewed and interpreted this examination/study. > Interpreting Provider: Deep Cordon MD on 12/17/2024 12:55 PM Narrative 12/17/2024 12:55 PM CDT Procedure: Diagnostic Catheter Cerebral Angiogram Comparison Study: CTA dated 10/31/2024 History: The patient is a 54 year old right handed woman with Right MCA bifurcation saccular aneurysm. Plan is for diagnostic cerebral angiogram to characterize aneurysm angio-architecture. Petroleum Supply Specialist: Dr. Jennifer Cordon Threat Monitoring Analyst(s): Conner Aldana G Kaur Vessels: Ultrasound Guided Access of Radial Artery Right Vertebral Artery Angiogram: Cerebral Right Internal Carotid Artery Angiogram: Cerebral 3D Aundrea CT was obtained by injection of contrast with the catheter in the right internal carotid. The data was sent to a DashThis work station and analyzed with surface rendering. Anesthesia: Dr. Jennifer Alfred was personally present during the entire procedure. The entire procedure was performed under my supervision. Moderate sedation on this adult patient was ordered by the field artillery radar operator, administered intravenously in my presence, and [...] patient evaluation, please review the evaluation in [facility]. For details on monitored clinical parameters during the intra-service sedation time, please review the procedure nurse documentation in [facility]. Procedural detail: The risks, benefits, and [...] Following a series of exchanges, a 5 [place] 11 cm Glidesheath slender was placed in the radial artery. A radial angiogram was performed through the sheath. A spasmolytic cocktail containing 3000u heparin, 2.5mg verapamil, and 200mcg of nitroglycerin was administered. A 5 [place] Glidecath Bustos 2 diagnostic catheter along with [...] for diagnostic cerebral angiogramto characterize aneurysm angio-architecture. Petroleum Supply Specialist: Dr. Jennifer Cordon Threat Monitoring Analyst(s): Conner Aldana G Kaur Vessels: Ultrasound Guided Access of Radial Artery Right Vertebral Artery Angiogram: Cerebral Right Internal Carotid Artery Angiogram: Cerebral 3D Aundrea CT was obtained by injection of contrast with the catheter inthe right internal carotid. The data was sent to a DashThis work station and analyzed with surface rendering. Anesthesia: I, Dr. Jennifer Cordon was personally present during the entire procedure.The entire procedure was performed under my supervision. Moderate sedationon this adult patient was ordered by the field artillery radar operator, administeredintravenously in my presence, and monitored [...] sedation patientevaluation, please review the evaluation in [facility]. For details on monitored clinical parameters during the intra-service sedation time, please review the procedure nurse documentation in [facility]. Procedural detail: The risks, benefits, and [...] Following a series of exchanges, a 5 [place] 11 cm Glidesheath slender was placed in the radial artery. A radial angiogram wasperformed through the sheath. A spasmolytic cocktail containing 3000u heparin,2.5mg verapamil, and 200mcg of nitroglycerin was administered. A 5 [place] Glidecath Reduxio 2 diagnostic catheter along with a 0.035 [...] patient evaluation,please review the evaluation forms in [facility]. For details on monitored clinical parameters during the intra-service sedation time, please review the procedure nurse documentation in [facility]. IDeep MD have personally reviewed and interpreted this examination/study. > Interpreting Provider: Deep Cordon MD on 12/17/2024 12:55 PM us Moe Farrell MD IR ORDERABLES Final Result * (ABNORMAL) GLUCOSE - POINT OF CARE (12/13/2024 7:57 AM CDT) Glucose WB/POC 164(H) 70 - 99 mg/dL 12/16/2024 7:08 AM CDT [facility] Specimen Type Cap Fingerstick 2024 7:08 AM CDT [facility] Blood BLOOD SPECIMEN / Unknown 12/13/2024 7:57 AM CDT 12/16/2024 7:08 AM CDT Moe Farrell MD LAB - POINT OF CARE ORDERABL ES Final Result Performing Organization Address [facility] de Phone Number [facility] [address] [place] [address], [facility] [phone] * PT-INR [facility] (12/13/2024 7:51 AM CDT) PT 12.1 12.1 - 14.8 Seconds 12/13/2024 8:30 AM T [facility] INR 0.9 See Comment 12/13/2024 8:30 AM [facility] Comment:The suggested therap eutic range for standard coumadin (warfarin) therapy is an INR of 2.0-3.0. For high-risk patients (Mechanical Mitral Valve Prosthesis, etc.), the suggested prophylactic therapeutic range is an INR of 2.5-3.5. Blood BLOOD SPECIMEN / Unknown Venipuncture / Unknown 12/13/2024 7:51 AM CDT 12/13/2024 8:22 AM CDT us Fabian Sim MD LAB - COAGULATION ORDERABLES Final Result Performing Organization Address [facility] Co de Phone Number [facility] [address] [place] [address], [facility] [phone] * (ABNORMAL) CBC W AUTO DIFFERENTIAL (12/13/2024 7:51 AM CDT) WBC 5.6 4.0 - 10.7 x10E9/L 12/13/2024 8:23 AM CDT [facility] RBC Count 5.09 3.90 - 5.20 x10E12/L 12/13/2024 8:23 AM T [facility] Hemoglobin 16.3(H) 11.9 - 15.8 g/dL 12/13/2024 8:23 AM [facility] Hematocrit 46.7(H) 34.8 - 46.1 % 12/13/2024 8:23 AM [facility] MCV 91.7 80.0 - 98.0 fL 12/13/2024 8:23 AM [facility] MCH 32.0 26.7 - 33.6 pg 12/13/2024 8:23 AM [facility] MCHC 34.9 31.7 - 36.3 g/dL 12/13/2024 8:23 AM [facility] RDW-CV 12.3 11.3 - 14.8 % 12/13/2024 8:23 AM [facility] Platelet Count 210 150 - 420 x10E9/L 12/13/2024 8:23 AM [facility] MPV 11.2 7.8 - 11.4 fL 12/13/2024 8:23 AM [facility] Neutrophil % 60.4 41.0 - 74.0 % 12/13/2024 8:23 AM [facility] Lymphocyte % 26.4 17.0 - 47.0 % 12/13/2024 8:23 AM [facility] Monocyte % 9.2 3.0 - 11.0 % 12/13/2024 8:23 AM [facility] Eosinophil % 2.5 0.0 - 7.0 % 12/13/2024 8:23 AM [facility] Basophil % 1.3 0.0 - 1.6 % 12/13/2024 8:23 AM [facility] Immature Granulocytes % 0.2 0.0 - 1.0 % 12/13/2024 8:23 AM [facility] Neutrophil Absolute 3.37 1.60 - 7.50 x10E9/L 12/13/2024 8:23 AM [facility] Lymphocyte Absolute 1.47 1.00 - 4.40 x10E9/L 12/13/2024 8:23 AM [facility] Monocyte Absolute 0.51 0.15 - 1.00 x10E9/L 12/13/2024 8:23 AM [facility] Eosinophil Absolute 0.14 0.00 - 0.60 x10E9/L 12/13/2024 8:23 AM [facility] Basophil Absolute 0.07 0.00 - 0.13 x10E9/L 12/13/2024 8:23 AM [facility] Blood BLOOD SPECIMEN / Unknown Venipuncture / Unknown 12/13/2024 7:51 AM CDT 12/13/2024 8:17 AM T us Fabian Sim MD LAB - HEMATOLOGY ORDERABLES Final Result [facility] [address] [place] [address], [facility] [phone] * (ABNORMAL) BASIC METABOLIC PANEL (CALCIUM TOTAL) (12/13/2024 7:[address] [facility]) BUN 16 7 - 26 mg/dL 12/13/2024 9:06 AM [facility] Creatinine 0.93 0.56 - 0.96 mg/dL 12/13/2024 9:06 AM [facility] Sodium 143 136 - 145 mmol/L 12/13/2024 9:06 AM [facility] Potassium 3.4(L) 3.5 - 4.5 mmol/L 12/13/2024 9:06 AM [facility] Chloride 106 98 - 107 mmol/L 12/13/2024 9:06 AM [facility] CO2 27 22 - 29 mmol/L 12/13/2024 9:06 AM [facility] Glucose 155(H) 70 - 99 mg/dL 12/13/2024 9:06 AM [facility] Calcium 9.0 8.4 - 10.2 mg/dL 12/13/2024 9:06 AM [facility] Anion Gap 10 6 - 16 12/13/2024 9:06 AM [facility] BUN/Creatinine Ratio 17 7 - 23 12/13/2024 9:06 AM [facility] Osmolality Calculated 300(H) 275 - 295 mOsm/kg 12/13/2024 9:06 AM CDT [facility] eGFR by CKD-EPI 72(L) >=90 mL/min/1.7 3 m2 12/13/2024 9:06 AM CDT [facility] Blood BLOOD SPECIMEN / Unknown Venipuncture / Unknown 12/13/2024 7:51 AM CDT 12/13/2024 8:21 AM CDT Fabian Sim MD LAB - CHEMISTRY ORDERABLES F inal Result [facility] [address] [place] [address], [facility] [phone] from Last 3 Months Insurance [employer] Care Teams Coordinator Skill Training Program Relationship Specialty Start Date End Date Unknown, Provider PCP - General 11/12/24
--- OUTSIDE RECORDS SUMMARY | 2025-02-18 23:20 | XMS_ITS | Referral Summary ---
Author Organization [facility] [address] Address [address] [place] [address] Care Team Providers Care Personal Banking Representative Name Role Phone Dannie Molina Primary Care Provider + Encounters Date Type Department Care Team Description 12/24/2024 Telephone [place] [id number] [facility] [address] [place] [address] [place] [address] Zunilda Moon RN 12/24/2024 8:31 AM CDT - 12/24/2024 11:59 PM CDT Hospital Encounter [facility] ([facility]) [address] [place] [address] Discharge Disposition: Discharge to home or self care 12/24/2024 8:29 AM CDT - 12/24/2024 11:59 PM CDT Hospital Encounter [facility] ([facility]) [address] [place] [address] Discharge Disposition: Discharge to home or self care 12/24/2024 8:28 AM CDT - 12/24/2024 11:59 PM CDT Hospital Encounter [facility] ([facility]) [address] [place] [address] Discharge Disposition: Discharge to home or self care 12/24/2024 8:26 AM CDT - 12/24/2024 11:59 PM CDT Hospital Encounter [facility] ([facility]) [address] [place] [address] Discharge Disposition: Discharge to home or self care 12/24/2024 8:18 AM CDT - 12/24/2024 11:59 PM CDT Hospital Encounter [facility] ([facility]) [address] [place] [address] Discharge Disposition: Discharge to home or self care 12/24/2024 7:51 AM CDT - 12/24/2024 11:59 PM CDT Hospital Encounter [facility] ([facility]) [address] [place] [address] Discharge Disposition: Discharge to home or self care 12/24/2024 9:20 AM CDT Office Visit [facility] Neurosurgery [address] [place] [address] for [facility] [address]th [place] [address] [place] [address] Gael Mendoza MD Cerebral aneurysm, nonruptured (Primary Dx) 11/25/2024 Telephone [facility] [address] [place] [address] Corbin Alaniz, Flaca Alaniz MD from Last 3 Months Allergies Active Allergy Reactions Criticality Noted Date Comments Fgxqibl-Tnd-Wky Reductase Inhibitors Muscle pain Medium 03/25/2024 Medications [...] hyperglycemia, without long-term current use of insulin ([facility]) Continuous glucose monitor. Change every 10 days. 10 each 3 07/15/20 24 Active Synthroid 100 mcg tabletIndications: Acquired hypothyroidism Take 1 tablet (100 mcg total) by mouth daily 90 tablet 3 10/08/19 25 026 Active glucose blood test stripIndications:T ype 2 diabetes mellitus with hyperglycemia, without long-term current use of insulin ([facility]) Use to check blood sugars 2x a [...] hyperglycemia, without long-term current use of insulin ([facility]) INJECT 12.5MG SUBCUTANEOUSLY ONCE WEEKLY 12 mL 1 12/31/19 25 Active tirzepatide (Mounjaro) 12.5 mg/0.5 mL pen injector injectionIndicatio ns:Type 2 diabetes mellitus with hyperglycemia, without long-term current use of insulin ([facility]) Inject 0.5 mL (12.5 mg total) under [...] 07/15/2024 Assessment & Plan (07/15/2024 9:27 AM LAUNCH ENGINEER): Chronic problem. Controlled on current propranolol LA 80mg daily, HCTZ 50mg daily Pneumonia 07/11/2024 Thiamine deficiency 06/24/2024 Rash and other nonspecific skin eruption 024 Type 2 diabetes mellitus wit h hyperglycemia, without long-term current use of insulin 03/25/2024 Assessment & Plan (07/15/2024 10:09 AM LAUNCH ENGINEER): Chronic problem. A1c worsened from 6.5% 03/25/24 [...] 03/25/2024 Assessment & Plan (07/15/2024 9:24 AM LAUNCH ENGINEER): Chronic problem. Not on any statins; statin intolerance (myalgias). Last lipid panel: 03/27/24 LDL=81, XI=003. Assessment & Plan (03/25/2024 4:20 PM CDT): Patient defers statin therapy she failed atorvastatin due to myalgias Patient did not want to try other statin therapy Acquired hypothyroidism 03/25/2024 Assessment & Plan (07/15/2024 9:26 AM LAUNCH ENGINEER): Chronic problem. Currently taking Synthroid 112 mcg daily. Aware to take 1st thing in morning, 30-60 minutes before food/drink/other medications. Clinically euthyroid but biochemically subclinical hyperthyroidism. Will repeat TFTs today. Verified that she uses mychart. Aware to check results/results letter in [employer]. Will contact by phone if needed. Assessment [...] 03/25/2024 Assessment & Plan (07/15/2024 10:02 AM LAUNCH ENGINEER): Vitamin D normal when checked 03/27/24. Assessment [...] on file Legal Sex Female 2:02 AM LAUNCH ENGINEER Gender Identity Female 11/28/2018 12:54 PM CDT [...] DIABETES EYE EXAM Routine 07/17/2023 8:29 AM LAUNCH ENGINEER from Last 3 Months or Most Recently Relevant to Health Maintenance Results * Neuro CT Outside Reference (12/24/2024 8:31 AM CDT) Impressions RAD_PACS_[facility] - 12/24/2024 8:31 AM CDT These images are for Reference purposes only and have not been reviewed by [facility]. There will be no report generated by a [facility] Radiologist. Narrative RAD_PACS_[facility] - 12/24/2024 8:31 AM CDT EXAMINATION: Images For Reference Purposes Only us Gael Mendoza MD IMG CT PROCEDURES Final Resul t Performing Organization Address [facility] Co de Phone Number [email or web address] * Neuro CT Outside Reference (12/24/2024 8:29 AM CDT) Impressions [facility] - 12/24/2024 8:29 AM CDT These images are for Reference purposes only and have not been reviewed by [facility]. There will be no report generated by a [facility] Radiologist. Narrative [facility]_P[facility] - 12/24/2024 8:29 AM CDT EXAMINATION: Images For Reference Purposes Only us Gael Mendoza MD IMG CT PROCEDURES Final Resul t Performing Organization Address [facility] de Phone Number [email or web address] * Neuro CT Outside Reference (12/24/2024 8:28 AM CDT) Impressions [facility]_PACS_[facility] - 12/24/2024 8:28 AM CDT These images are for Reference purposes only and have not been reviewed by [facility]iology. There will be no report generated by a [facility] Radiologist. Narrative [facility]_P[facility] - 12/24/2024 8:28 AM CDT EXAMINATION: Images For Reference Purposes Only us Gael Mendoza MD IMG CT PROCEDURES Final Resul t Performing Organization Address [facility] de Phone Number [email or web address] * Neuro MR Outside Reference (12/24/2024 8:26 AM CDT) Impressions [facility]_P[facility] - 12/24/2024 8:26 AM CDT These images are for Reference purposes only and have not been reviewed by [facility]. There will be no report generated by a [facility] Radiologist. Narrative RAD_PACS_[facility] - 12/24/2024 8:26 AM CDT EXAMINATION: Images For Reference Purposes Only us Gael Mendoza MD IMG MRI PROCEDURES Final Resu lt Performing Organization Address [facility] de Phone Number [email or web address] * Neuro CT Outside Reference (12/24/2024 8:18 AM CDT) Impressions RAD_PACS_[facility] - 12/24/2024 8:18 AM CDT These images are for Reference purposes only and have not been reviewed by [facility]. There will be no report generated by a [facility] Radiologist. Narrative RAD_PACS_[facility] - 12/24/2024 8:18 AM CDT EXAMINATION: Images For Reference Purposes Only us Gael Mendoza MD IMG CT PROCEDURES Final Resul t Performing Organization Address [facility] de Phone Number [email or web address] * Neuro CT Outside Reference (12/24/2024 7:51 AM CDT) Impressions RAD_PACS_[facility] - 12/24/2024 7:51 AM CDT These images are for Reference purposes only and have not been reviewed by [facility]. There will be no report generated by a [facility] Radiologist. Narrative RAD_PACS_[facility] - 12/24/2024 7:51 AM CDT EXAMINATION: Images For Reference Purposes Only us Gael Mendoza MD IMG CT PROCEDURES Final Resul t Performing Organization Address [facility] de Phone Number [email or web address] * POCT [...] LAB URINE ORDERABLE S Final Result [facility] [address] [place] [address] * Lipid panel (03/27/2024 8:49 AM CDT) [...] LDL-C. Camilo SS et al. SWEETIE. 2013;310(19): 3910-0546 (http://education.Genomind/faq/RFZ714) Chol/HDL ratio 2.5 <5.0 (calc) [facility] Non-HDL, (LDL+VLDL) 101 <130 mg/dL (calc) [facility] Comment: For patients with diabetes plus 1 major ASCVD risk factor, treating to a non-HDL-C goal of <100 mg/dL (LDL-C of <70 mg/dL) is considered a therapeutic option. 03/27/2024 8:49 AM CDT 03/27/2024 8:50 AM CDT us Flaca Alaniz MD LAB BLOOD ORDERABLE S Final Result [facility] [address] [place] [address] * (ABNORMAL) Comprehensive metabolic panel (03/27/2024 8:49 AM CDT) Glucose 148(H) 65 - 99 mg/dL [facility] Comment: Fasting reference interval For someone without known diabetes, a glucose value >125 mg/dL indicates that they may have diabetes and this should be confirmed with a follow-up test. BUN 15 7 - 25 mg/dL [facility] Creatinine 0.81 0.50 - 1.03 mg/dL [facility] eGFR 86 > OR = 60 mL/min/1.7 3m2 [facility] BUN/creat ratio SEE NOTE: 6 - 22 (calc) [facility] Comment: Not Reported: BUN and Creatinine are within reference range. Sodium 136 135 - 146 mmol/L [facility] Potassium, pl 4.1 3.5 - 5.3 mmol/L [facility] Chloride 102 98 - 110 mmol/L [facility] CO2 27 20 - 32 mmol/L [facility] Calcium 9.0 8.6 - 10.4 mg/dL [facility] Protein, sr 6.6 6.1 - [...] ORDERABLE S Final Result Performing Organization Address City/State/[facility] Co de Phone Number [facility] [address] [place] [address] * DIABETES EYE EXAM (07/17/2023 8:29 AM LAUNCH ENGINEER) Historical Provider HEALTH MAINTENANCE Edited Result - Final from Last 3 Months or Most Recently Relevant to Health Maintenance Insurance [employer] [facility] [id number] [facility] [id number] Care Teams Personal Banking Representative Relationship Specialty Start Date End Date Dannie Molina PA [address] [place] [id number] PCP - General Internal Medicine 03/26/24
== END 2025-02-18 22:09 | disposition left against medical advice (07) ==
LOC: ANHED 23:18
PROVIDERS: Emergency Provider Registered Nurse
DX: R51.9 Headache, unspecified (principal); I10 Essential (primary) hypertension; E11.9 Type 2 diabetes mellitus without complications; E03.9 Hypothyroidism, unspecified; F41.9 Anxiety disorder, unspecified; F32.A Depression, unspecified; Z87.891 Personal history of nicotine dependence; Z90.49 Acquired absence of other specified parts of digestive tract; Z79.85 Long-term (current) use of injectable non-insulin antidiabetic drugs; Z79.899 Other long term (current) drug therapy
CPT/HCPCS: 36415; 70450; 80053; 81001; 82948; 85025; 85610; 85730; 93005; 99284

== ENCOUNTER 2025-02-26 09:11 | Emergency (ER) | payer OTHER, SELFPAY ==
--- NOTE | ~2025-02-26 | XR_ITS ---
XR thoracic spine 3V 02/26/2025 09:56 Indication: Back pain for 2 weeks Procedure: 3 views thoracic spine Comparison: No prior studies for comparison. Findings: Vertebral body heights are maintained. Normal thoracic alignment. No paraspinal soft tissue abnormality. There are cholecystectomy clips. Surrounding osseous structures Impression: 1: No acute abnormality of the thoracic spine. Reviewed, dictated and finalized at location B. Impression: 1: No acute abnormality of the thoracic spine.
--- NOTE | ~2025-02-26 | XR_ITS ---
EXAMINATION:XR_CERV2-3V_CR DATE: 02/26/2025 09:56 INDICATION: 2 weeks of nontraumatic right neck and upper back pain. TECHNIQUE: AP, lateral and odontoid views of the cervical spine are provided. COMPARISON: None FINDINGS: Mild reversal of the normal cervical lordosis. Odontoid is intact. Moderate atlantoaxial osteoarthrit is. Vertebral body heights are normal. Mild disc height loss with small anterior and posterior endpla te osteophytes at C5-C6, the latter which contributes to mild central canal stenosis at this level. M ultilevel mild cervical facet and uncovertebral osteoarthritis. Prevertebral soft tissues are normal . IMPRESSION: 1. Mild cervical spondylosis. Reviewed, dictated and finalized at location A.
[2025-02-26 09:21] VITALS: BP 110/78; PULSE 64; RESP 16; TEMP 35.7; O2SAT 100
--- NOTE | 2025-02-26 09:43 | ED.EXTPRO ---
HPI - Extremity Problem General Chief complaint: Extremity Problem,Nontraumatic Stated complaint: R SHOULDER PAIN Time Seen by Provider: 02/26/25 09:30 Source: patient and RN notes reviewed Mode of arrival: ambulatory Limitations: no limitations History of Present Illness HPI Narrative: 54 year old female presents to [facility] Care complete of right shoulder/upper back pain/neck pain. Patient denies any injuries or falls. She was years approximately 2 weeks ago is given muscle relaxers and a course of steroids and said it helped with symptoms. Patient has ran out of her muscle relaxers reports the pain is getting worse again. Patient reports pain is worse with certain movements of her right arm along with movements of her neck. Patient reports having history of degenerative disc disease. Patient has also been taking Motrin to help with the pain with minimal relief. Patient denies any numbness or tingling, focal weakness, headaches, slurred speech, vision changes, or any other symptoms. Related Data Home Medications ?Medication ?Instructions ?Recorded ?Confirmed ?Last Taken ?Type alprazolam 0.5 mg tablet 0.5 mg PO TID PRN Anxiety 02/12/20 10/08/24 02/14/20 11:00 History blood sugar diagnostic (Accu-Chek 02/12/20 05/23/24 Unknown History Susie Plus test strips) blood-glucose sensor (Dexcom G6 02/12/20 08/26/24 Unknown History Sensor device) hydrochlorothiazide 25 mg tablet 25 mg PO DAILY 02/12/20 10/08/24 02/13/20 History levothyroxine 112 mcg capsule 112 mcg PO DAILY 02/12/20 10/08/24 02/14/20 08:30 History propranolol 80 mg capsule,24 80 mg PO DIRECTED 02/02/24 10/08/24 Unknown History hr,extended release rimegepant 75 mg disintegrating 75 mg PO DIRECTED 02/02/24 10/08/24 Unknown History tablet (Nurtec ODT) tirzepatide 7.5 mg/0.5 mL 7.5 mg subcut DIRECTED 02/02/24 10/08/24 Unknown History subcutaneous pen injector (Mounjaro) galcanezumab-gnlm 120 mg/mL 120 mg subcut MONTHLY 05/23/24 10/08/24 Unknown History subcutaneous pen injector (Emgality Pen) cyanocobalamin (vitamin B-12) 1,000 mcg IM DIRECTED 07/06/24 10/08/24 Unknown History 1,000 mcg/mL injection solution buspirone 10 mg tablet mg 02/26/25 Unknown History omeprazole 20 mg capsule,delayed mg 02/26/25 Unknown History release tirzepatide 10 mg/0.5 mL mg subcut 02/26/25 Unknown History subcutaneous pen injector (Luciountadro) Allergies Allergy/AdvReac Type Severity Reaction Status Date / Time No Known Allergies Allergy Verified 02/26/25 09:36 Review of Systems Review of Systems: CONSTITUTIONAL: Denies fever, chills, or sweats. EYES: Denies visual changes, redness, or discharge. ENT: Denies rhinorrhea, congestion, sore throat, or otalgia. CARDIOVASCULAR: Denies chest pain, palpitations, or edema. RESPIRATORY: Denies cough or dyspnea. GASTROINTESTINAL: Denies abdominal pain, nausea, vomiting, or diarrhea. GENITOURINARY: Denies dysuria or hematuria. SKIN: Denies rash or itching. MUSCULOSKELETAL: Denies joint pain, or myalgia. Positive for right upper back pain, right neck pain NEUROLOGIC: Denies headache, numbness, or weakness. PSYCHIATRIC: Denies anxiety or depression. All other systems reviewed are negative, except as documented in HPI. PMFSH Past Medical History Medical History Hypothyroid Hypertension Diabetes Surgical History Surgical History Hx of cholecystectomy Social History Social History Smoking packs per day: 0.5 Smoking cigarettes per day: 10.0 Smoking status: Former smoker Alcohol intake: never Last use: 1997 Living arrangements: with family Gender identity (if verbalized by the patient): Female Spiritual care concerns: No Comments At the time of my signature, I reviewed and agree with the nursing past medical, surgical, social, and family history. There is no relevant family history pertinent to the patient complaint. Exam Narrative: GENERAL: This is a well-nourished, well-developed adult, in no apparent distress. They are non ill-appearing, nontoxic appearing. HEAD: normocephalic, atraumatic. EYES: Sclera clear/white. Conjunctiva normal. Vision is grossly intact. Extraocular movements intact EARS: External ears normal, Hearing grossly intact. NOSE: External nose normal THROAT: Mucous membranes moist, . NECK: Neck supple, non-tender without lymphadenopathy, masses or thyromegaly. No cervical point tenderness, crepitus, or step-offs. Limited range of motion due to pain. CARDIOVASCULAR: Regular rate and rhythm RESPIRATORY: Respiratory rate normal, respiratory effort nonlabored, no respiratory distress SKIN: warm, Dry, intact with no suspicious lesions or rash, good texture and turgor. NEURO: awake, alert, and oriented to person, place and time. There were no obvious focal neurologic abnormalities. EXTREMITIES: No joint tenderness, effusion, or edema noted. Right shoulder: No bony tenderness, no obvious deformity, injury, swelling, present, redness. There is pain through full range of motion. Right radial pulse 2 +palpable. Neurovascular status intact. BACK: Tenderness to palpation to the right lateral thoracic spine approximally near T3 through T4. No midline tenderness. No lumbar point tenderness. Crepitus, or step-offs. No CVA tenderness. Course Course Emergency Course: Portions of this record may have been created with voice recognition software Level of Care: Express Care Visit Vital Signs Vital signs: Vital Signs Temperature 96.2 F L 02/26/25 09:21 Pulse Rate 64 02/26/25 09:21 Respiratory Rate 16 02/26/25 09:21 Blood Pressure 110/78 02/26/25 09:21 Pulse Oximetry 100 02/26/25 09:21 Temperature 96.2 F L 02/26/25 09:21 Pulse Rate 64 02/26/25 09:21 Respiratory Rate 16 02/26/25 09:21 Blood Pressure 110/78 02/26/25 09:21 Pulse Oximetry 100 02/26/25 09:21 Reviewed MDM - Extremity (Nontraumatic) MDM Narrative Medical decision making narrative: Patient's pain appears to primarily originate near the thoracic spine of the right upper back. Pain is reproducible to palpation to the right lateral side of thoracic spine proximally around T 3-4. Pain elicited with movement of right shoulder or the neck. X-ray of cervical spine thoracic spine shows mild cervical spondylosis, otherwise no acute findings. Recommend patient follow-up PCP possibly see a airport operations specialist or pain management. Will refill patient's methocarbamol prescribe a short course of Canadian as needed for severe pain. Discussed physical exam findings. Advised supportive measures and signs/symptoms to go to the ER. Pt is appropriate for outpt treatment and f/u. Differential Diagnosis Differential diagnosis: Likely other (Cervical spondylosis, thoracic spondylosis, radiculopathy, muscle sprain, cervical strain) Imaging Data Radiologist's impression: ITS Impressions Thoracic Spine X-Ray 02/26/25 10:45 Impression: 1: No acute abnormality of the thoracic spine. Cervical Spine X-Ray 02/26/25 10:56 IMPRESSION: 1. Mild cervical spondylosis. Critical Care Time Critical Care Time Critical Care Time: No Discharge Plan Discharge Clinical Impression: Upper back pain on right side Patient Disposition: Home Condition: Stable Instructions: Cervical Spinal Stenosis (ED), Cervical Radiculopathy (ED) Additional Instructions: The x-ray of your cervical spine showed mild cervical spondylosis, and x-ray of her thoracic spine was negative for any acute findings. Continue to take the methocarbamol as directed. You may use hydrocodone with Tylenol as needed for severe pain. You may continue to use ibuprofen as needed for pain as well, follow the instructions on the bottle. Do not drive or operate machinery while taking muscle relaxers or hydrocodone as they may make you drowsy. Do not take these medications together. Follow-up with your PCP in 3-5 days. Continue [id number] exercises and stretching to help with your neck/back pain. May also use ice or heat as needed 20 minutes at a time, few times a day. Patient Language: Comoran Prescriptions: New methocarbamol 750 mg tablet 750 mg PO TID Qty: 20 0RF hydrocodone-acetaminophen 5-325 mg tablet 1 tablet PO Q6H PRN (Reason: pain) Qty: 12 0RF No Action propranolol 80 mg capsule,extended release 24hr 80 mg PO DIRECTED Nurtec ODT 75 mg tablet,disintegrating 75 mg PO DIRECTED Mounjaro 7.5 mg/0.5 mL pen injector 7.5 mg SUBCUT DIRECTED Emgality Pen 120 mg/mL pen injector 120 mg SUBCUT MONTHLY cyanocobalamin (vitamin B-12) 1,000 mcg/mL solution 1,000 mcg IM DIRECTED ondansetron 4 mg tablet,disintegrating 4 mg PO Q8H PRN (Reason: nausea and vomiting) Qty: 8 0RF buspirone 10 mg tablet omeprazole 20 mg capsule,delayed release(DR/EC) Mounjaro 10 mg/0.5 mL pen injector SUBCUT alprazolam 0.5 mg tablet 0.5 mg PO TID PRN (Reason: Anxiety) hydrochlorothiazide 25 mg tablet 25 mg PO DAILY (DME) DexCisiv G6 Sensor Device MISCELLANEOUS levothyroxine 112 mcg Capsule 112 mcg PO DAILY (DME) Accu-Chek Susie Plus test strp Strip MISCELLANEOUS Follow-up/Referrals: Saúl,Deneen Mccormick, GROUP BILLING COORDINATOR [Primary Care Provider] - Time of Disposition: 11:09
== END 2025-02-26 09:33 | disposition home or self-care (01) ==
DX: M54.6 Pain in thoracic spine (principal); Z87.891 Personal history of nicotine dependence; I10 Essential (primary) hypertension; E11.9 Type 2 diabetes mellitus without complications; E03.9 Hypothyroidism, unspecified
CPT/HCPCS: 72040; 72072; 99213; G0463

== ENCOUNTER 2025-03-14 08:12 | Outpatient (CLI) | payer OTHER, SELFPAY ==
--- NOTE | ~2025-03-14 | XR_ITS ---
XR shoulder RT min 2V 03/14/2025 08:34 Indication: Right shoulder pain Procedure: 5 views right shoulder Comparison: No prior studies for comparison. Findings: There is mild osteoarthritis of the acromioclavicular joint. No fracture, subluxation or di slocation. No foreign bodies. Impression: 1: Mild osteoarthritis of the acromioclavicular joint. Reviewed, dictated and finalized at location A. Impression: 1: Mild osteoarthritis of the acromioclavicular joint.
--- OUTSIDE RECORDS SUMMARY | 2025-03-14 08:16 | XMS_ITS | Clinical Summary ---
Author Organization [facility] Address [address] [place] [address] Care Team Providers Care Bill Distributor Name Role Phone Unavailable Primary Care Provider [...] Cervical Cancer Screening (CCS) 1998 HPV/Cotest 1998 Cologuard 2013 Colonoscopy 2013 Colorectal Cancer Screening 2013 Immunochemical Fecal Occult Blood 2013 Pneumococcal Immunization (50+ years) (1 of 1 - PCV) 2018 Zoster Immunization (1 of 2) 2018 SARS-COV-2 Immunization (3 - season) 2024 09/16/2020, 08/06/2020 Influenza Immunization (#1) 03/31/202509/2019, 05/01/2018, 04/29/2017, Additional history exists Respiratory Syncytial Virus (RSV) Immunization (Adult) (1 - 1-dose 75+ series) 2043 Human Papillomavirus (HPV) Immunization Aged Out No longer eligible based on patient's age to complete this topic Meningococcal Immunization (ACWY) Aged Out No longer eligible based on patient's age to complete this topic Rotavirus Immunization Aged Out No lo nger eligible based on patient's age to complete this topic
--- OUTSIDE RECORDS SUMMARY | 2025-03-14 08:16 | XMS_ITS | Clinical Summary ---
Author Organization [facility] Address [address] [place] [address] Care Team Providers Care Tour Operator Name Role Phone Unknown, Provider Primary Care Provider Unavaila ble Source Comments [facility],non-owned Affiliates and Associated Physician Practices is amultiple site organization consisting of ambulatory clinics and hospital sitesin [place], [place], [place] and [place]. This disclosure is being madepursuant to the Care Everywhere program and may not contain all information available regarding this patient. Last updated 18.[employer] [facility] Allergies No known active allergies Medications * [...] Description 12/24/2024 1:15 PM CDT Office Visit [facility] - Neurosurgery [address] [place] [address] Moe Farrell MD Brain aneurysm (HCC) (Primary Dx) 12/24/2024 Travel 12/19/2024 Travel 12/13/2024 7:13 AM CDT - 12/13/2024 2:50 PM CDT Hospital Encounter [facility] [address] [place] [address] Moe Farrell MD [facility] Discharge Disposition: [...] evaluation, please review the evaluation forms in [facility]. For details on monitored clinical parameters during the intra-service sedation time, please review the procedure nurse documentation in [facility]. Deep Alfred MD have personally reviewed and interpreted this examination/study. > Interpreting Provider: Deep Cordon MD on 12/17/2024 12:55 PM Narrative 12/17/2024 12:55 PM CDT Procedure: Diagnostic Catheter Cerebral Angiogram Comparison Study: CTA dated 10/31/2024 History: The patient is a 54 year old right handed woman with Right MCA bifurcation saccular aneurysm. Plan is for diagnostic cerebral angiogram to characterize aneurysm angio-architecture. Proposal Manager: Dr. Jennifer Cordon Terminal Carman(s): Conner Aldana G Kaur Vessels: Ultrasound Guided Access of Radial Artery Right Vertebral Artery Angiogram: Cerebral Right Internal Carotid Artery Angiogram: Cerebral 3D Aundrea CT was obtained by injection of contrast with the catheter in the right internal carotid. The data was sent to a [facility]eg[facility] work station and analyzed with surface rendering. Anesthesia: Dr. Jennifer Alfred was personally present during the entire procedure. The entire procedure was performed under my supervision. Moderate sedation on this adult patient was ordered by the banbury operator, administered intravenously in my presence, and [...] patient evaluation, please review the evaluation in [facility]. For details on monitored clinical parameters during the intra-service sedation time, please review the procedure nurse documentation in [facility]. Procedural detail: The risks, benefits, and [...] Following a series of exchanges, a 5 Bolivian 11 cm Glidesheath slender was placed in the radial artery. A radial angiogram was performed through the sheath. A spasmolytic cocktail containing 3000u heparin, 2.5mg verapamil, and 200mcg of nitroglycerin was administered. A 5 Bolivian Glidecath Bustos 2 diagnostic catheter along with [...] for diagnostic cerebral angiogramto characterize aneurysm angio-architecture. Proposal Manager: Dr. Jennifer Cordon Terminal Carman(s): Conner Aldana G Kaur Vessels: Ultrasound Guided Access of Radial Artery Right Vertebral Artery Angiogram: Cerebral Right Internal Carotid Artery Angiogram: Cerebral 3D Aundrea CT was obtained by injection of contrast with the catheter inthe right internal carotid. The data was sent to a Daegis work station and analyzed with surface rendering. Anesthesia: I, Dr. Jennifer Cordon was personally present during the entire procedure.The entire procedure was performed under my supervision. Moderate sedationon this adult patient was ordered by the banbury operator, administeredintravenously in my presence, and monitored [...] sedation patientevaluation, please review the evaluation in [facility]. For details on monitored clinical parameters during the intra-service sedation time, please review the procedure nurse documentation in [facility]. Procedural detail: The risks, benefits, and [...] Following a series of exchanges, a 5 Bolivian 11 cm Glidesheath slender was placed in the radial artery. A radial angiogram wasperformed through the sheath. A spasmolytic cocktail containing 3000u heparin,2.5mg verapamil, and 200mcg of nitroglycerin was administered. A 5 Bol[place]ian Glidecath [employer] 2 diagnostic catheter along with a 0.035 [...] patient evaluation,please review the evaluation forms in [facility]. For details on monitored clinical parameters during the intra-service sedation time, please review the procedure nurse documentation in [facility]. IDeep MD have personally reviewed and interpreted this examination/study. > Interpreting Provider: Deep Cordon MD on 12/17/2024 12:55 PM us Moe Farrell MD IR ORDERABLES Final Result * (ABNORMAL) GLUCOSE - POINT OF CARE (12/13/2024 7:57 AM CDT) Glucose WB/POC 164(H) 70 - 99 mg/dL 12/16/2024 7:08 AM CDT [facility] Specimen Type Cap Fingerstick 2024 7:08 AM CDT [facility] Blood BLOOD SPECIMEN / Unknown 12/13/2024 7:57 AM CDT 12/16/2024 7:08 AM CDT Moe Farrell MD LAB - POINT OF CARE ORDERABL ES Final Result Performing Organization Address [facility] de Phone Number [facility] [address] [place] [address], [facility] [phone] * PT-INR [facility] (12/13/2024 7:51 AM CDT) PT 12.1 12.1 - 14.8 Seconds 12/13/2024 8:30 AM T [facility] INR 0.9 See Comment 12/13/2024 8:30 AM [facility] Comment:The suggested therap eutic range for standard coumadin (warfarin) therapy is an INR of 2.0-3.0. For high-risk patients (Mechanical Mitral Valve Prosthesis, etc.), the suggested prophylactic therapeutic range is an INR of 2.5-3.5. Blood BLOOD SPECIMEN / Unknown Venipuncture / Unknown 12/13/2024 7:51 AM CDT 12/13/2024 8:22 AM CDT us Fabian Sim MD LAB - COAGULATION ORDERABLES Final Result Performing Organization Address [facility] Co de Phone Number [facility] [address] [place] [address], [facility] [phone] * (ABNORMAL) CBC W AUTO DIFFERENTIAL (12/13/2024 7:51 AM CDT) WBC 5.6 4.0 - 10.7 x10E9/L 12/13/2024 8:23 AM CDT [facility] RBC Count 5.09 3.90 - 5.20 x10E12/L 12/13/2024 8:23 AM T [facility] Hemoglobin 16.3(H) 11.9 - 15.8 g/dL 12/13/2024 8:23 AM [facility] Hematocrit 46.7(H) 34.8 - 46.1 % 12/13/2024 8:23 AM [facility] MCV 91.7 80.0 - 98.0 fL 12/13/2024 8:23 AM [facility] MCH 32.0 26.7 - 33.6 pg 12/13/2024 8:23 AM [facility] MCHC 34.9 31.7 - 36.3 g/dL 12/13/2024 8:23 AM [facility] RDW-CV 12.3 11.3 - 14.8 % 12/13/2024 8:23 AM [facility] Platelet Count 210 150 - 420 x10E9/L 12/13/2024 8:23 AM [facility] MPV 11.2 7.8 - 11.4 fL 12/13/2024 8:23 AM [facility] Neutrophil % 60.4 41.0 - 74.0 % 12/13/2024 8:23 AM [facility] Lymphocyte % 26.4 17.0 - 47.0 % 12/13/2024 8:23 AM [facility] Monocyte % 9.2 3.0 - 11.0 % 12/13/2024 8:23 AM [facility] Eosinophil % 2.5 0.0 - 7.0 % 12/13/2024 8:23 AM [facility] Basophil % 1.3 0.0 - 1.6 % 12/13/2024 8:23 AM [facility] Immature Granulocytes % 0.2 0.0 - 1.0 % 12/13/2024 8:23 AM [facility] Neutrophil Absolute 3.37 1.60 - 7.50 x10E9/L 12/13/2024 8:23 AM [facility] Lymphocyte Absolute 1.47 1.00 - 4.40 x10E9/L 12/13/2024 8:23 AM [facility] Monocyte Absolute 0.51 0.15 - 1.00 x10E9/L 12/13/2024 8:23 AM [facility] Eosinophil Absolute 0.14 0.00 - 0.60 x10E9/L 12/13/2024 8:23 AM [facility] Basophil Absolute 0.07 0.00 - 0.13 x10E9/L 12/13/2024 8:23 AM [facility] Blood BLOOD SPECIMEN / Unknown Venipuncture / Unknown 12/13/2024 7:51 AM CDT 12/13/2024 8:17 AM T us Fabian Sim MD LAB - HEMATOLOGY ORDERABLES Final Result [facility] [address] [place] [address], [facility] [phone] * (ABNORMAL) BASIC METABOLIC PANEL (CALCIUM TOTAL) (12/13/2024 7:51 AM [facility]) BUN 16 7 - 26 mg/dL 12/13/2024 9:06 AM [facility] Creatinine 0.93 0.56 - 0.96 mg/dL 12/13/2024 9:06 AM [facility] Sodium 143 136 - 145 mmol/L 12/13/2024 9:06 AM [facility] Potassium 3.4(L) 3.5 - 4.5 mmol/L 12/13/2024 9:06 AM [facility] Chloride 106 98 - 107 mmol/L 12/13/2024 9:06 AM [facility] CO2 27 22 - 29 mmol/L 12/13/2024 9:06 AM [facility] Glucose 155(H) 70 - 99 mg/dL 12/13/2024 9:06 AM [facility] Calcium 9.0 8.4 - 10.2 mg/dL 12/13/2024 9:06 AM [facility] Anion Gap 10 6 - 16 12/13/2024 9:06 AM [facility] BUN/Creatinine Ratio 17 7 - 23 12/13/2024 9:06 AM [facility] Osmolality Calculated 300(H) 275 - 295 mOsm/kg 12/13/2024 9:06 AM CDT [facility] eGFR by CKD-EPI 72(L) >=90 mL/min/1.7 3 m2 12/13/2024 9:06 AM CDT [facility] Blood BLOOD SPECIMEN / Unknown Venipuncture / Unknown 12/13/2024 7:51 AM CDT 12/13/2024 8:21 AM CDT Fabian Sim MD LAB - CHEMISTRY ORDERABLES F inal Result [facility] [address] [place] [address], [facility] [phone] from Last 3 Months Insurance [employer] Care Teams Tour Operator Relationship Specialty Start Date End Date Unknown, Provider PCP - General 11/12/24
--- OUTSIDE RECORDS SUMMARY | 2025-03-14 08:16 | XMS_ITS | Encounter Summary ---
Author Organization [facility] Address [address] [place] [address] Care Team Providers Care Floor And Wall Applier Liquid Name Role Phone Nhung Mello MD Primary Care Provider [phone] Dannie Molina Primary Care Provider + Encounter Details Date Type Department Care Team (Late st Contact Info) Description 12/22/2011 Orders Only [facility] Information Management [address] [place] [id number] Scanning, Provider Social History Tobacco Use Types Packs/Day Years Used Date Smoking Tobacco: Never Assessed Alcohol Use Standard Drinks/Week Comments Yes 0 (1 standard drink = 0.6 oz pur e alcohol) Comments Unknown Sex and Gender Information Value Date Recorded Sex Assigned at Not on file Legal Sex Female 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
--- OUTSIDE RECORDS SUMMARY | 2025-03-14 08:16 | XMS_ITS | Clinical Summary ---
Author Organization [facility] [address] Address [address] [place] [address] Care Team Providers Care Shoe Handler Name Role Phone Dannie Molina Primary Care Provider + Allergies Active Allergy Reactions Criticality Noted Date Comments Xgbkowc-Yhx-Qsa Reductase Inhibitors Muscle pain Medium 03/25/2024 Medications [...] without long-term current use of insulin ([facility]) INJECT 12.5MG SUBCUTANEOUSLY ONCE WEEKLY 12 mL 1 12/31/19 25 Active tirzepatide (Mounjaro) 12.5 mg/0.5 mL pen injector injectionIndicatio ns:Type 2 diabetes mellitus with hyperglycemia, without long-term current use of insulin ([facility]) Inject 0.5 mL (12.5 mg total) under [...] 07/15/2024 Assessment & Plan (07/15/2024 9:27 AM STAYING MACHINE OPERATOR): Chronic problem. Controlled on current propranolol LA 80mg daily, HCTZ 50mg daily Pneumonia 07/11/2024 Thiamine deficiency 06/24/2024 Rash and other nonspecific skin eruption 024 Type 2 diabetes mellitus wit h hyperglycemia, without long-term current use of insulin 03/25/2024 Assessment & Plan (07/15/2024 10:09 AM STAYING MACHINE OPERATOR): Chronic problem. A1c worsened from 6.5% 03/25/24 [...] 03/25/2024 Assessment & Plan (07/15/2024 9:24 AM STAYING MACHINE OPERATOR): Chronic problem. Not on any statins; statin intolerance (myalgias). Last lipid panel: 03/27/24 LDL=81, KL=666. Assessment & Plan (03/25/2024 4:20 PM CDT): Patient defers statin therapy she failed atorvastatin due to myalgias Patient did not want to try other statin therapy Acquired hypothyroidism 03/25/2024 Assessment & Plan (07/15/2024 9:26 AM STAYING MACHINE OPERATOR): Chronic problem. Currently taking Synthroid 112 mcg daily. Aware to take 1st thing in morning, 30-60 minutes before food/drink/other medications. Clinically euthyroid but biochemically subclinical hyperthyroidism. Will repeat TFTs today. Verified that she uses mychart. Aware to check results/results letter in [place]. Will contact by phone if needed. Assessment [...] 03/25/2024 Assessment & Plan (07/15/2024 10:02 AM STAYING MACHINE OPERATOR): Vitamin D normal when checked 03/27/24. Assessment [...] Description 12/24/2024 9:20 AM CDT Office Visit [facility] Neurosurgery [address] [place] [address] Advanced Medicine 6th [place] [address] [place] [address] Gael Mendoza MD Cerebral aneurysm, nonruptured (Primary Dx) 12/24/2024 8:31 AM CDT - 12/24/2024 11:59 PM CDT Hospital Encounter [facility] ([facility]) [address] [place] [address] Discharge Disposition: Discharge to home or self care 12/24/2024 8:29 AM CDT - 12/24/2024 11:59 PM CDT Hospital Encounter [facility] ([facility]) [address] [place] [address] Discharge Disposition: Discharge to home or self care 12/24/2024 8:28 AM CDT - 12/24/2024 11:59 PM CDT Hospital Encounter [facility] ([facility]) [address] [place] [address] Discharge Disposition: Discharge to home or self care 12/24/2024 8:26 AM CDT - 12/24/2024 11:59 PM CDT Hospital Encounter [facility] ([facility]) [address] [place] [address] Discharge Disposition: Discharge to home or self care 12/24/2024 8:18 AM CDT - 12/24/2024 11:59 PM CDT Hospital Encounter [facility] ([facility]) [address] [place] [address] Discharge Disposition: Discharge to home or self care 12/24/2024 7:51 AM CDT - 12/24/2024 11:59 PM CDT Hospital Encounter [facility] ([facility]) [address] [place] [address] Discharge Disposition: Discharge to home or self care 12/24/2024 Telephone [facility] [address] [facility] 6th [place] [address] [place] [address] Zunilda Moon RN from Last 3 Months Immunizations Immunization Administration [...] on file Legal Sex Female 2:02 AM STAYING MACHINE OPERATOR Gender Identity Female 11/28/2018 12:54 PM CDT [...] 1968 Meningococcal B Vaccine (1 o f 4 - Increased Risk) 1978 Hepatitis B Screening 1986 Regular Well Visit/Exam 18-64 1986 Pneumococcal vaccine <65 (1 of 2 - PCV) 1987 Zoster Vaccine (1 of 2) 2018 Covid-19 Vaccine (3 - 2023-2 5 season) 2024 09/16/2020, 08/06/2020 Dilated Eye Exam 07/17/2024 07/17/2023 Foot Exam 03/25/2025 03/25/2024 Albumin Creatinine Ratio, Urine 03/27/2025 Lipid Panel 03/27/2025 03/27/2024, 02/2 10/2021, 08/03/2018 eGFR 03/27/2025 03/27/2024 Influenza Vaccine (#1) 2025 4, 06/01/2022, 05/02/2020, Additional history exists Hemoglobin A1C [...] DIABETES EYE EXAM Routine 07/17/2023 8:29 AM STAYING MACHINE OPERATOR from Last 3 Months or Most Recently Relevant to Health Maintenance Results * Neuro CT Outside Reference (12/24/2024 8:31 AM CDT) Impressions RAD_PACS[facility] - 12/24/2024 8:31 AM CDT These images are for Reference purposes only and have not been reviewed by [facility]. There will be no report generated by a [facility] Radiologist. Narrative [facility] - 12/24/2024 8:31 AM CDT EXAMINATION: Images For Reference Purposes Only us Gael Mendoza MD IMG CT PROCEDURES Final Resul t Performing Organization Address [facility] de Phone Number [email or web address] * Neuro CT Outside Reference (12/24/2024 8:29 AM CDT) Impressions [facility] - 12/24/2024 8:29 AM CDT These images are for Reference purposes only and have not been reviewed by [facility]. There will be no report generated by a [facility] Radiologist. Narrative [facility] - 12/24/2024 8:29 AM CDT EXAMINATION: Images For Reference Purposes Only us Gael Mendoza MD IMG CT PROCEDURES Final Resul t Performing Organization Address [facility] de Phone Number [email or web address] * Neuro CT Outside Reference (12/24/2024 8:28 AM CDT) Impressions [facility] - 12/24/2024 8:28 AM CDT These images are for Reference purposes only and have not been reviewed by [facility]. There will be no report generated by a [facility] Radiologist. Narrative [facility] - 12/24/2024 8:28 AM CDT EXAMINATION: Images For Reference Purposes Only us Gael Mendoza MD IMG CT PROCEDURES Final Resul t Performing Organization Address [facility] de Phone Number [email or web address] * Neuro MR Outside Reference (12/24/2024 8:26 AM CDT) Impressions [facility] - 12/24/2024 8:26 AM CDT These images are for Reference purposes only and have not been reviewed by [facility]iology. There will be no report generated by a [facility] Radiologist. Narrative RAD_PACS_[facility] - 12/24/2024 8:26 AM CDT EXAMINATION: Images For Reference Purposes Only us Gael Mendoza MD IMG MRI PROCEDURES Final Resu lt Performing Organization Address [facility] de Phone Number [email or web address] * Neuro CT Outside Reference (12/24/2024 8:18 AM CDT) Impressions RAD_PACS[facility] - 12/24/2024 8:18 AM CDT These images are for Reference purposes only and have not been reviewed by [facility]. There will be no report generated by a [facility] Radiologist. Narrative RAD_PACS_[facility] - 12/24/2024 8:18 AM CDT EXAMINATION: Images For Reference Purposes Only us Gael Mendoza MD IMG CT PROCEDURES Final Resul t Performing Organization Address [facility] de Phone Number [email or web address] * Neuro CT Outside Reference (12/24/2024 7:51 AM CDT) Impressions [facility] - 12/24/2024 7:51 AM CDT These images are for Reference purposes only and have not been reviewed by [facility]. There will be no report generated by a [facility] Radiologist. Narrative RAD_PACS_[facility] - 12/24/2024 7:51 AM CDT EXAMINATION: Images For Reference Purposes Only us Gael Mendoza MD IMG CT PROCEDURES Final Resul t Performing Organization Address [facility] de Phone Number [email or web address] * POCT [...] LAB URINE ORDERABLE S Final Result [facility] [address] [place] [address] * Lipid panel (03/27/2024 8:49 AM CDT) Cholesterol 167 <200 mg/dL [facility] HDL 66 > OR = 50 mg/dL [facility] Triglycerides 103 <150 mg/dL [facility] LDL 81 mg/dL (calc) [facility] Comment: Reference range: <100 Desirable range <100 mg/dL for primary prevention; <70 mg/dL for patients with CHD or diabetic patients with > or = 2 CHD risk factors. LDL-C is now calculated using the Johnathon calculation, which is a validated novel method providing better accuracy than the Friedewald equation in the estimation of LDL-C. Camilo RIVERS et al. SWEETIE. 2013;310(19): 6528-3778 (http://education.Endocyte/faq/TAC832) Chol/HDL ratio 2.5 <5.0 (calc) [facility] Non-HDL, (LDL+VLDL) 101 <130 mg/dL (calc) [facility] Comment: For patients with diabetes plus 1 major ASCVD risk factor, treating to a non-HDL-C goal of <100 mg/dL (LDL-C of <70 mg/dL) is considered a therapeutic option. 03/27/2024 8:49 AM CDT 03/27/2024 8:50 AM CDT us Flaca Alaniz MD LAB BLOOD ORDERABLE S Final Result [facility] [address] [place] [address] * (ABNORMAL) Comprehensive metabolic panel (03/27/2024 8:49 AM CDT) Glucose 148(H) 65 - 99 mg/dL [facility] Comment: Fasting reference interval For someone without known diabetes, a glucose value >125 mg/dL indicates that they may have diabetes and this should be confirmed with a follow-up test. BUN 15 7 - 25 mg/dL [facility] Creatinine 0.81 0.50 - 1.03 mg/dL [facility] eGFR 86 > OR = 60 mL/min/1.7 3m2 [facility] BUN/creat ratio SEE NOTE: 6 - 22 (calc) [facility] Comment: Not Reported: BUN and Creatinine are within reference range. Sodium 136 135 - 146 mmol/L [facility] Potassium, pl 4.1 3.5 - 5.3 mmol/L [facility] Chloride 102 98 - 110 mmol/L [facility] CO2 27 20 - 32 mmol/L [facility] Calcium 9.0 8.6 - 10.4 mg/dL [facility] Protein, sr 6.6 6.1 - 8.1 g/dL [facility] Albumin 4.2 3.6 - 5.1 g/dL [facility] GLOBULIN 2.4 1.9 - 3.7 g/dL (calc) [facility] Alb/glob ratio 1.8 1.0 - 2.5 (calc) [facility] Bilirubin, total 0.8 0.2 - 1.2 mg/dL [facility] Alk phos 78 37 - 153 U/L [facility] AST 31 10 - 35 U/L [facility] ALT (SGPT) 38(H) 6 - 29 U/L [facility] 03/27/2024 8:49 AM CDT 03/27/2024 8:50 AM CDT Flaca Alaniz MD LAB BLOOD ORDERABLE S Final Result [facility] [address] [place] [address] * DIABETES EYE EXAM (07/17/2023 8:29 AM STAYING MACHINE OPERATOR) us Historical Provider HEALTH MAINTENANCE Edited Result - Final from Last 3 Months or Most Recently Relevant to Health Maintenance Insurance [employer] [facility] [id number] [facility] [id number] Care Teams Shoe Handler Relationship Specialty Start Date End Date Dannie Molina PA [address] [place] [id number] PCP - General Internal Medicine 03/26/24
== END 2025-03-14 08:13 | disposition home or self-care (01) ==
DX: M19.011 Primary osteoarthritis, right shoulder (principal)
CPT/HCPCS: 73030

== ENCOUNTER 2025-05-26 17:14 | Emergency (ER) | payer OTHER, SELFPAY ==
[2025-05-26 17:24] VITALS: BP 121/77; PULSE 83; RESP 16; TEMP 36.1; O2SAT 100
[2025-05-26 17:36] LABS: EDUAAPPEAR Cloudy; EDUABILI Negative (Negative); EDUABLOOD 1+ (Negative); EDUACOLOR1 Yellow; EDUAGLUCOSE Negative (Negative); EDUAKETONE Negative (Negative); EDUALEUKO Negative (Negative); EDUANITRATE Negative (Negative); EDUAPH 5.0; EDUAPROTEIN 1+ (Negative); EDUASPGRAVITY 1.030; EDUAUROBILI 0.2
--- NOTE | 2025-05-26 17:57 | ED.FEMALEGU ---
HPI - Female Genitourinary General Chief complaint: Urogenital-Female Stated complaint: Uti Symptoms Time Seen by Provider: 05/26/25 17:45 Source: patient and RN notes reviewed Mode of arrival: ambulatory Limitations: no limitations History of Present Illness HPI Narrative: 54-year-old female presents Express Care complaining of urinary symptoms since last night. Patient reports having dysuria, increased frequency, hesitancy, nausea. Patient denies any fevers, abdominal pain, body aches, chills, nausea, vomiting, diarrhea, vaginal bleeding or vaginal discharge. Patient does report she has been feeling hot today. Patient has not taken anything [id number] for symptoms. Related Data Home Medications ?Medication ?Instructions ?Recorded ?Confirmed ?Last Taken ?Type alprazolam 0.5 mg tablet 0.5 mg PO TID PRN Anxiety 02/12/20 05/26/25 02/14/20 11:00 History blood sugar diagnostic (Accu-Chek 02/12/20 05/23/24 Unknown History Susie Plus test strips) blood-glucose sensor (Dexcom G6 02/12/20 08/26/24 Unknown History Sensor device) hydrochlorothiazide 25 mg tablet 25 mg PO DAILY 02/12/20 05/26/25 02/13/20 History levothyroxine 112 mcg capsule 112 mcg PO DAILY 02/12/20 05/26/25 02/14/20 08:30 History propranolol 80 mg capsule,24 80 mg PO DIRECTED 02/02/24 05/26/25 Unknown History hr,extended release rimegepant 75 mg disintegrating 75 mg PO DIRECTED 02/02/24 05/26/25 Unknown History tablet (Nurtec ODT) galcanezumab-gnlm 120 mg/mL 120 mg subcut MONTHLY 05/23/24 05/26/25 Unknown History subcutaneous pen injector (Emgality Pen) cyanocobalamin (vitamin B-12) 1,000 mcg IM DIRECTED 07/06/24 05/26/25 Unknown History 1,000 mcg/mL injection solution buspirone 10 mg tablet mg 02/26/25 Unknown History omeprazole 20 mg capsule,delayed mg 02/26/25 Unknown History release tirzepatide 10 mg/0.5 mL 15 mg subcut 02/26/25 Unknown History subcutaneous pen injector (Mounjaro) cariprazine .ROUTE 05/26/25 Unknown History Allergies Allergy/AdvReac Type Severity Reaction Status Date / Time No Known Allergies Allergy Verified 05/26/25 17:32 Review of Systems Review of Systems: CONSTITUTIONAL: Denies fever, chills, body aches, or sweats. EYES: Denies visual changes, redness, or discharge. ENT: Denies rhinorrhea, congestion, sore throat, or otalgia. CARDIOVASCULAR: Denies chest pain, palpitations, or edema. RESPIRATORY: Denies cough or dyspnea. GASTROINTESTINAL: Denies abdominal pain, nausea, vomiting, or diarrhea. GENITOURINARY: Positive for dysuria, hesitancy, increased frequency. Negative for hematuria, vaginal bleeding, vaginal discharge. SKIN: Denies rash or itching. MUSCULOSKELETAL: Denies back pain, joint pain, or myalgia. NEUROLOGIC: Denies headache, numbness, or weakness. PSYCHIATRIC: Denies anxiety or depression. All other systems reviewed are negative, except as documented in HPI. [facility] Past Medical History Medical History Hypothyroid Hypertension Diabetes Surgical History Surgical History Hx of cholecystectomy Social History Social History Smoking packs per day: 0.5 Smoking cigarettes per day: 10.0 Smoking status: Former smoker Alcohol intake: never Last use: 1997 Living arrangements: with family Gender identity (if verbalized by the patient): Female Spiritual care concerns: No Comments At the time of my signature, I reviewed and agree with the nursing past medical, surgical, social, and family history. There is no relevant family history pertinent to the patient complaint. Exam Narrative: GENERAL: This is a well-nourished, well-developed adult, in no apparent distress. They are non ill-appearing, nontoxic appearing. HEAD: normocephalic, atraumatic. EYES: Sclera clear/white. Vision is grossly intact. Conjunctiva normal bilaterally. Extraocular movements intact. EARS: External ears normal,Hearing grossly intact. NOSE: External nose normal THROAT: Mucous membranes moist NECK: Normal range of motion CARDIOVASCULAR: Regular rate and rhythm. Normal S1-S2. No clicks, gallops, rubs, murmurs. RESPIRATORY: Respiratory rate normal, respiratory effort nonlabored, no respiratory distress. Lung sounds clear to auscultation throughout. Lung sounds equal bilaterally. No adventitious lung sounds. GASTROINTESTINAL: Abdomen soft, flat, non-tender, nondistended. Bowel sounds are active. No hepato-splenomegaly, or palpable masses. No guarding or rigidity. No rebound tenderness. SKIN: warm, Dry, intact with no suspicious lesions or rash, good texture and turgor. NEURO: awake, alert, and oriented to person, place and time. There were no obvious focal neurologic abnormalities. EXTREMITIES: No joint tenderness, effusion, or edema noted. BACK: Nontender without deformity. No CVA tenderness. Course Course Emergency Course: Portions of this record may have been created with voice recognition software Level of Care: Express Care Visit Vital Signs Vital signs: Vital Signs Temperature 97 F L 05/26/25 17:24 Pulse Rate 83 05/26/25 17:24 Respiratory Rate 16 05/26/25 17:24 Blood Pressure 121/77 05/26/25 17:24 Pulse Oximetry 100 05/26/25 17:24 Temperature 97 F L 05/26/25 17:24 Pulse Rate 83 05/26/25 17:24 Respiratory Rate 16 05/26/25 17:24 Blood Pressure 121/77 05/26/25 17:24 Pulse Oximetry 100 05/26/25 17:24 MDM - Female Genitourinary MDM Narrative Medical decision making narrative: Urine dipstick shows 1+ blood 1+ protein. Urine culture pending. Symptoms are clinically consistent with urinary tract infection, through shared decision making with patient discussed presumptively treat for UTI are awaiting culture result. Patient like to go ahead and start UTI treatment. Treat with Bactrim. Discussed physical exam findings. Advised supportive measures and signs/symptoms to go to the ER. Pt is appropriate for outpt treatment and f/u. Differential Diagnosis Differential diagnosis: Likely urinary tract infection, cystitis and other (Pyelonephritis) Lab Data Attestation: I reviewed the patient's lab results. Labs: Lab Results 05/26/25 Range/Units 17:28 POC Urine Color Yellow POC Urine Clarity Cloudy POC Urine pH 5.0 POC Ur Specif Alexis 1.030 POC Urine Protein 1+ (Negative) POC Ur Glucose (UA) Negative (Negative) POC Urine Ketones Negative (Negative) POC Urine Blood 1+ (Negative) POC Urine Nitrite Negative (Negative) POC Urine Bilirubin Negative (Negative) POC Urine Urobilinogen 0.2 POC U Leukocyte Esteras Negative (Negative) Discharge Plan Discharge Clinical Impression: Urinary tract infection Qualifiers: Urinary tract infection type: site unspecified Hematuria presence: with hematuria Qualified Code(s): N39.0 - Urinary tract infection, site not specified Patient Disposition: Home Condition: Stable Instructions: Antibiotic Form, Urinary Tract Infection in Women (ED) Additional Instructions: Take the antibiotic as prescribed The urine will be sent of for a culture to identify what type of bacteria is causing your infection. If the culture shows that the antibiotic will not get rid of your infection, you will be notified and a new antibiotic will be called in for you. Increase water intake you will need to follow up with your PCP 3-5 days. Go to the ER for any worsening symptoms, abdominal pain, fevers, nausea, vomiting, or any other concerns Patient Language: Grenadian Prescriptions: New sulfamethoxazole-trimethoprim [Bactrim DS] 800-160 mg tablet 1 tablet PO Q12H 5 Days Qty: 10 0RF No Action propranolol 80 mg capsule,extended release 24hr 80 mg PO DIRECTED Nurtec ODT 75 mg tablet,disintegrating 75 mg PO DIRECTED Emgality Pen 120 mg/mL pen injector 120 mg SUBCUT MONTHLY cyanocobalamin (vitamin B-12) 1,000 mcg/mL solution 1,000 mcg IM DIRECTED ondansetron 4 mg tablet,disintegrating 4 mg PO Q8H PRN (Reason: nausea and vomiting) Qty: 8 0RF cariprazine [Vraylar] .ROUTE buspirone 10 mg tablet omeprazole 20 mg capsule,delayed release(DR/EC) Mounjaro 10 mg/0.5 mL pen injector 15 mg SUBCUT methocarbamol 750 mg tablet 750 mg PO TID Qty: 20 0RF hydrocodone-acetaminophen 5-325 mg tablet 1 tablet PO Q6H PRN (Reason: pain) Qty: 12 0RF alprazolam 0.5 mg tablet 0.5 mg PO TID PRN (Reason: Anxiety) hydrochlorothiazide 25 mg tablet 25 mg PO DAILY (DME) revoPT G6 Sensor Device MISCELLANEOUS levothyroxine 112 mcg Capsule 112 mcg PO DAILY (DME) Accu-Chek Susie Plus test strp Strip MISCELLANEOUS Follow-up/Referrals: Saúl,Deneen Mccormick, CHAR FILTER TANK TENDER [Primary Care Provider, Unknown] Time of Disposition: 17:55
== END 2025-05-26 18:00 | disposition home or self-care (01) ==
DX: N39.0 Urinary tract infection, site not specified (principal); E11.9 Type 2 diabetes mellitus without complications; Z79.85 Long-term (current) use of injectable non-insulin antidiabetic drugs; I10 Essential (primary) hypertension; E03.9 Hypothyroidism, unspecified; Z87.891 Personal history of nicotine dependence
CPT/HCPCS: 81003; 87086; 99213; G0463

== ENCOUNTER 2025-06-09 16:55 | Emergency (ER) | payer OTHER, SELFPAY ==
[2025-06-09 17:07] VITALS: BP 130/86; PULSE 69; RESP 16; TEMP 36.3; O2SAT 98
--- NOTE | 2025-06-09 17:28 | ED.URI ---
HPI - URI/Sore Throat General Chief Complaint: Upper Respiratory Infection Stated Complaint: Sore Throat/Headache Time Seen by Provider: 06/09/25 17:20 Source: patient, RN notes reviewed and old records reviewed Mode of arrival: ambulatory Limitations: no limitations History of Present Illness HPI Narrative: 54 year old female presents to [facility] care with complaints of sore throat, headache,and runny nose which started yesterday. Patient reports that sh has not had any fevers, chills or sweats. Patient reports that headache is different than her normal migraines. Patient reports that she did feel tired yesterdy. She states that she has taken Ibuprofen. MD elicited complaint: sore throat, rhinorrhea, nasal congestion and other (headache) Pertinent past history: other (migraines) Onset (ago): day(s) (since yesterday) Pain scale (0-10): 5 Description of mucous: clear Able to tolerate fluids by mouth: Yes Treatments prior to arrival: ibuprofen Related Data Home Medications ?Medication ?Instructions ?Recorded ?Confirmed ?Last Taken ?Type alprazolam 0.5 mg tablet 0.5 mg PO TID PRN Anxiety 02/12/20 06/09/25 02/14/20 11:00 History blood sugar diagnostic (Accu-Chek 02/12/20 05/23/24 Unknown History Susie Plus test strips) blood-glucose sensor (Dexcom G6 02/12/20 08/26/24 Unknown History Sensor device) hydrochlorothiazide 25 mg tablet 25 mg PO DAILY 02/12/20 06/09/25 02/13/20 History levothyroxine 112 mcg capsule 112 mcg PO DAILY 02/12/20 06/09/25 02/14/20 08:30 History propranolol 80 mg capsule,24 80 mg PO DIRECTED 02/02/24 06/09/25 Unknown History hr,extended release rimegepant 75 mg disintegrating 75 mg PO DIRECTED 02/02/24 06/09/25 Unknown History tablet (Nurtec ODT) galcanezumab-gnlm 120 mg/mL 120 mg subcut MONTHLY 05/23/24 06/09/25 Unknown History subcutaneous pen injector (Emgality Pen) cyanocobalamin (vitamin B-12) 1,000 mcg IM DIRECTED 07/06/24 06/09/25 Unknown History 1,000 mcg/mL injection solution buspirone mg tablet mg 02/26/25 Unknown History omeprazole 20 mg capsule,delayed mg 02/26/25 Unknown History release tirzepatide 10 mg/0.5 mL 15 mg subcut 02/26/25 Unknown History subcutaneous pen injector (Mounjaro) cariprazine .Route 05/26/25 Unknown History Allergies Allergy/AdvReac Type Severity Reaction Status Date / Time No Known Allergies Allergy Verified 06/09/25 17:05 Review of Systems Review of Systems: CONSTITUTIONAL: Reports malaise, no chills, sweats, or fever. EYES: Denies visual changes, redness, or discharge. ENT: Reports rhinorrhea, congestion, sinus pain, no otalgia and positive for sore throat. CARDIOVASCULAR: Denies chest pain, palpitations, or edema. RESPIRATORY: Reports no cough.? Denies dyspnea. GASTROINTESTINAL: Denies abdominal pain, nausea, vomiting, diarrhea SKIN: Denies rash or itching. MUSCULOSKELETAL: Denies myalgia. NEUROLOGIC: Reports headache. All systems reviewed & are unremarkable except as noted in HPI and below PMFSH Past Medical History Medical History (Updated 06/12/25 @ 08:22 by Farzana Valente APRN) Anxiety and depression Migraine Calculus of left ureter Urinary tract infection Hypothyroid Hypertension Diabetes Surgical History Surgical History Hx of cholecystectomy Social History Social History Smoking packs per day: 0.5 Smoking cigarettes per day: 10.0 Alcohol intake: never Last use: 1997 Living arrangements: with family Gender identity (if verbalized by the patient): Female Spiritual care concerns: No Comments At time of signature, agree with nursing past medical, surgical, social and family history. There is no relevant family history pertinent to the presenting complaint Exam Narrative: GENERAL: Well-appearing, well-nourished, and in no acute distress. HEAD: Normocephalic EYES: PERRLA, conjunctivae clear ENT: Nares clear, turbinates edematous and erythematous, clear discharge sinus pressure and headache. Mucous membranes moist. TM pearly [place] with dull light reflex bilaterally; no tragal tenderness. Oropharynx erythematous without lesions. Tonsils not enlarged and without exudate, no drooling, no hoarseness, no trismus, uvula midline.post nasal drainage NECK: Supple. No lymphadenopathy CHEST: Clear to auscultation, breath sounds equal. No wheezing, rhonchi, rales, or stridor. No respiratory distress, speaks in full sentences.no cough noted SAO2 98% on room air HEART: Regular rate and rhythm. No murmur heard. SKIN: Warm, dry, no rash. NEURO: Alert and oriented x3. PSYCH: Normal mood and affect Course Course Emergency Course: Patient is aware of diagnosis, understands and agrees to treatment plan.? Anticipatory guidance given.? Patient agrees to follow-up as directed and is aware of reasons to seek care at the emergency department. Portions of this record may have been created with voice recognition software Level of Care: Express Care Visit Vital Signs Vital signs: Vital Signs Temperature 36.3 C L 06/09/25 17:07 Pulse Rate 69 06/09/25 17:07 Respiratory Rate 16 06/09/25 17:07 Blood Pressure 130/86 06/09/25 17:07 Pulse Oximetry 98 06/09/25 17:07 Temperature 36.3 C L 06/09/25 17:07 Pulse Rate 69 06/09/25 17:07 Respiratory Rate 16 06/09/25 17:07 Blood Pressure 130/86 06/09/25 17:07 Pulse Oximetry 98 06/09/25 17:07 Reviewed MDM - URI/Sore Throat MDM Narrative Medical decision making narrative: Differential diagnosis considered: Read virus, strep pharyngitis, allergic rhinitis, upper respiratory tract infection, sinusitis, rhinosinusitis, nasopharyngitis. viral pharyngitis, otitis media, otitis externa, pneumonia, bronchitis, viral cough syndrome, viral syndrome, and influenza.? Exam findings show no acute concerns or changes; patient is non-toxic appearing and is in no distress.? Patient is appropriate for outpatient treatment and follow-up. Differential Diagnosis Differential diagnosis: Likely upper respiratory infection, viral infection, pharyngitis and other (strep pharyngitis) Medical Records Attestation: I reviewed the patient's medical records. Lab Data Attestation: I reviewed the patient's lab results. Lab results narrative: strep screen negative, culture sent, COVID antigen negative Labs: Lab Results 06/09/25 06/09/25 Range/Units 17:39 17:52 POC SARS CoV-2 Ag Negative (Negative) POC Grp A Strep Screen Negative (Negative) Critical Care Time Critical Care Time Critical Care Time: No Discharge Plan Discharge Clinical Impression: Upper respiratory infection Qualifiers: URI type: unspecified URI Qualified Code(s): J06.9 - Acute upper respiratory infection, unspecified Pharyngitis Qualifiers: Pharyngitis/tonsillitis etiology: unspecified etiology Qualified Code(s): J02.9 - Acute pharyngitis, unspecified Patient Disposition: Home Condition: Stable Instructions: Antibiotic Form, Upper Respiratory Infection (ED) Additional Instructions: Increase fluids especially juices and water [id number] cough and cold medicine of your choice for your symptoms Tylenol or ibuprofen for any fever pain Zyrtec Claritin or Slime daily Steroids as directed--take with food heat to the face 20-30 minutes 4-6 times a day for pain Salt water gargles, throat lozenges or throat sprays as desired Your strep test today was negative. A throat culture will be sent to the laboratory for further testing. IF the test is positive, you will receive a phone call within 48 hours and an appropriate antibiotic will be initiated at that time. Flonase nasal spray take as prescribed If your symptoms persist, change or worsen significantly before you can contact your personal physician then please, without delay, go to the emergency department for further evaluation. Follow-up with PCP in 7-10 days or sooner if needed Follow up with PCP soon in regards to your blood pressure which is elevated above threshold for referral. Blood pressure above 120/80 may indicate pre-hypertension. 130/86 Patient Language: Faroese Prescriptions: New methylprednisolone [Medrol (Vincent)] 4 mg tablets,dose pack See Rx Instructions .ROUTE .COMPLEX Qty: 21 0RF Rx Instructions: orally per package directions fluticasone propionate [Flonase Allergy Relief] 50 mcg/actuation spray,suspension 1 spray intranasal DAILY Qty: 16 0RF Rx Instructions: administer into each nostril No Action propranolol 80 mg capsule,extended release 24hr 80 mg PO DIRECTED Nurtec ODT 75 mg tablet,disintegrating 75 mg PO DIRECTED Emgality Pen 120 mg/mL pen injector 120 mg SUBCUT MONTHLY cyanocobalamin (vitamin B-12) 1,000 mcg/mL solution 1,000 mcg IM DIRECTED ondansetron 4 mg tablet,disintegrating 4 mg PO Q8H PRN (Reason: nausea and vomiting) Qty: 8 0RF cariprazine [Vraylar] .Route sulfamethoxazole-trimethoprim [Bactrim DS] 800-160 mg tablet 1 tablet PO Q12H 5 Days Qty: 10 0RF buspirone 10 mg tablet omeprazole 20 mg capsule,delayed release(DR/EC) Mounjaro 10 mg/0.5 mL pen injector 15 mg SUBCUT methocarbamol 750 mg tablet 750 mg PO TID Qty: 20 0RF hydrocodone-acetaminophen 5-325 mg tablet 1 tablet PO Q6H PRN (Reason: pain) Qty: 12 0RF alprazolam 0.5 mg tablet 0.5 mg PO TID PRN (Reason: Anxiety) hydrochlorothiazide 25 mg tablet 25 mg PO DAILY (DME) Dexcom G6 Sensor Device MISCELLANEOUS levothyroxine 112 mcg Capsule 112 mcg PO DAILY (DME) Accu-Chek Susie Plus test strp Strip MISCELLANEOUS Follow-up/Referrals: Saúl,Deneen Mccormick, CERTIFIED REGISTERED LOCKSMITH [Primary Care Provider, Unknown] Time of Disposition: 17:55 Quality [place] Coma Scale Eyes: Open Verbal: Oriented and Alert Motor: Follows Commands [place] Coma Total Score: 15
[2025-06-09 17:41] LABS: EDSTREPNEGPOS1 Negative (Negative)
[2025-06-09 17:54] LABS: EDCOVIDSCREEN Negative (Negative)
== END 2025-06-09 18:00 | disposition home or self-care (01) ==
PROVIDERS: Emergency Provider Registered Nurse
DX: J06.9 Acute upper respiratory infection, unspecified (principal); J02.9 Acute pharyngitis, unspecified; Z20.822 Contact with and (suspected) exposure to COVID-19; F17.210 Nicotine dependence, cigarettes, uncomplicated; I10 Essential (primary) hypertension; E11.9 Type 2 diabetes mellitus without complications; Z79.85 Long-term (current) use of injectable non-insulin antidiabetic drugs; E03.9 Hypothyroidism, unspecified; F41.9 Anxiety disorder, unspecified; F32.A Depression, unspecified
CPT/HCPCS: 87081; 87426; 87880; 99213; G0463

== ENCOUNTER 2025-07-08 10:01 | Emergency (ER) | payer OTHER, SELFPAY ==
[2025-07-08 10:15] VITALS: BP 130/98; PULSE 77; RESP 18; TEMP 36.2; O2SAT 100
--- NOTE | 2025-07-08 10:55 | ED.URI ---
HPI - URI/Sore Throat General Chief Complaint: Upper Respiratory Infection Stated Complaint: COUGH/SNEEZING/SINUS Time Seen by Provider: 07/08/25 10:57 Source: patient, RN notes reviewed and old records reviewed Mode of arrival: ambulatory Limitations: no limitations History of Present Illness HPI Narrative: 54-year-old female presents to the [facility] with 10 day history of Headache,fatigue, nasal congestion, sinus pressure, sneezing, cough. Has felt feverish but did not check temperature. Reports taking Mucinex, Sudafed, ibuprofen and Flonase. Onset (ago): day(s) (10) Treatments prior to arrival: ibuprofen and cold medicine Related Data Home Medications ?Medication ?Instructions ?Recorded ?Confirmed ?Last Taken ?Type alprazolam 0.5 mg tablet 0.5 mg PO TID PRN Anxiety 02/12/20 06/09/25 02/14/20 11:00 History blood sugar diagnostic (Accu-Chek 02/12/20 05/23/24 Unknown History Susie Plus test strips) blood-glucose sensor (Dexcom G6 02/12/20 08/26/24 Unknown History Sensor device) hydrochlorothiazide 25 mg tablet 25 mg PO DAILY 02/12/20 06/09/25 02/13/20 History levothyroxine 112 mcg capsule 112 mcg PO DAILY 02/12/20 06/09/25 02/14/20 08:30 History propranolol 80 mg capsule,24 80 mg PO DIRECTED 02/02/24 06/09/25 Unknown History hr,extended release rimegepant 75 mg disintegrating 75 mg PO DIRECTED 02/02/24 06/09/25 Unknown History tablet (Nurtec ODT) galcanezumab-gnlm 120 mg/mL 120 mg subcut MONTHLY 05/23/24 06/09/25 Unknown History subcutaneous pen injector (Emgality Pen) cyanocobalamin (vitamin B-12) 1,000 mcg IM DIRECTED 07/06/24 06/09/25 Unknown History 1,000 mcg/mL injection solution buspirone 10 mg tablet mg 02/26/25 Unknown History omeprazole 20 mg capsule,delayed mg 02/26/25 Unknown History release tirzepatide 10 mg/0.5 mL 15 mg subcut 02/26/25 Unknown History subcutaneous pen injector (Mounjaro) cariprazine .Route 05/26/25 Unknown History Allergies Allergy/AdvReac Type Severity Reaction Status Date / Time No Known Allergies Allergy Verified 07/08/25 10:24 Review of Systems Review of Systems: All systems reviewed & are unremarkable except as noted in HPI and below Constitutional: Constitutional: Reports as per HPI, Reports body ache(s), Reports chills, Reports fatigue and Reports headache(s) ENT: Reports as per HPI, Reports nasal congestion, Reports sinus pain and Reports sinus pressure Cardiovascular: Cardiovascular: Reports no additional cardiovascular complaints, Denies chest pain and Denies dyspnea Respiratory: Respiratory: Reports as per HPI, Denies chest congestion, Reports cough and Denies dyspnea Musculoskeletal: Musculoskeletal: Reports no additional musculoskeletal complaints Integumentary/Breasts: Skin/Breast: Reports system reviewed and no additional complaints, except as docu PMFSH Past Medical History Medical History Anxiety and depression Migraine Calculus of left ureter Urinary tract infection Hypothyroid Hypertension Diabetes Surgical History Surgical History Hx of cholecystectomy Social History Social History Smoking packs per day: 0.5 Smoking cigarettes per day: 10.0 Smoking status: Former smoker Alcohol intake: never Last use: 1997 Living arrangements: with family Gender identity (if verbalized by the patient): Female Spiritual care concerns: No Comments At the time of my signature, I reviewed and agree with the nursing past medical, surgical, social, and family history. There is no relevant family history pertinent to the patient complaint. Exam Const: General: cooperative, no acute distress, well developed, alert, tired appearing, uncomfortable and well nourished Nutritional Appearance: well nourished Orientation/consciousness: patient oriented x3 Limitations: no limitations HENMT: Head: normal to inspection Ears: hearing grossly normal bilaterally, external ears normal, TM's normal bilaterally, EAC's normal, mastoids normal and no periauricular adenopathy Face/Nose/Sinus: Normal external nose present and Abnormal mucous membranes and turbinates present boggy and erythematous Face and sinus: face symmetric and sinus tenderness frontal and maxillary Mouth: Yes Normal oral and palatal mucosa present, Yes lip normal, Yes tongue normal and Yes moist mucous membranes Throat: posterior oropharynx normal, uvula midline and no uvular edema Eyes: General: appearance normal, both eyes and all related structures Alignment and Position: alignment normal Neck: Neck: normal visual inspection, full ROM, no lymphadenopathy and no meningeal signs Chest: Chest palpation & inspection: normal inspection of the chest Resp: Effort & Inspection: normal respiratory effort and able to speak in complete sentences Auscultation: clear to auscultation bilaterally, no crackles, no rales, no rhonchi and no wheezes Cardio: Rate: regular rate Skin: General skin exam: normal color and no rashes or lesions noted Neuro: General: patient oriented x3, gait normal, moves all extremities and no meningeal signs Cognition (Neuro): normal cognition Speech: normal speech Gait exam (Neuro): Normal gait present Extrem: General: normal to inspection, full ROM, capillary refill normal and normal gait Psych: Appearance: grossly normal and well kempt Mental Status: mental status grossly normal Speech and movement: Normal speech and movement present and Clear speech present Affect: normal affect Attitude: cooperative Course Course Level of Care: Express Care Visit Vital Signs Vital signs: Vital Signs Temperature 97.1 F L 07/08/25 10:15 Pulse Rate 77 07/08/25 10:15 Respiratory Rate 18 07/08/25 10:15 Blood Pressure 130/98 H 07/08/25 10:15 Pulse Oximetry 100 07/08/25 10:15 Oxygen Delivery Room Air 07/08/25 10:15 Temperature 97.1 F L 07/08/25 10:15 Pulse Rate 77 07/08/25 10:15 Respiratory Rate 18 07/08/25 10:15 Blood Pressure 130/98 H 07/08/25 10:15 Pulse Oximetry 100 07/08/25 10:15 Oxygen Delivery Room Air 07/08/25 10:15 reviewed MDM MDM Narrative Medical decision making narrative: patient sitting in exam room. Patient is nontoxic, vitals stable. Patient with 10 day history of sinusitis/ URI symptoms. Discussed continuing [id number] products, will add doxycycline. Patient appropriate for outpatient treatment with close follow-up Discharge instructions reviewed with patient, as well as provided in writing per nursing staff. The instructions also include specific and strict return/GO TO THE ER as well as f/u information. All questions have been answered, and the patient deny any further questions with discharge and discharge plan. Some parts of this dictation were generated by voice recognition software and may contain typographical and/or grammatical inaccuracies. Differential Diagnosis Differential Diagnosis: Differential diagnostic considerations for upper respiratory infection include upper respiratory infection, croup, otitis media, sinusitis, viral infection, bronchitis, influenza, pharyngitis, strep, uvulitis.? Discharge Plan Discharge Clinical Impression: Sinusitis Patient Disposition: Home Condition: Stable Instructions: Antibiotic Form, Sinusitis (ED) Additional Instructions: It is very important to treat your symptoms. Drink plenty of water, Gatorade, Pedialyte, ice pops or Jell-O. -Alternate Tylenol and Motrin per package directions for fever or pain. You can alternate every 4 hours -Antihistamine medication such as Zyrtec/Claritin during the day can help improve symptoms. -doing daily nasal irrigations can help relieve pressure your sinuses. Things like a Neti pot -Use Flonase twice a day for 5 days then daily to help reduce the inflammation and dry up your sinuses. -You can also use Mucinex. Be sure to drink plenty of water with this medication at least 8 ounces with every dose and it is important to drink 8 to 10 glasses of water per day. Water is a natural decongestant -Eat and drink things that are easy to swallow, like tea or soup, or popsicles. -Oral rinses such as: Salt water gargles and/or may use topical anesthetic (eg. Chloraseptic spray) or lozenges to relieve dryness or throat pain). -Frequent hand washing or hand mission systems engineer is one of the best ways to prevent spread of infection. -Using a vaporizer or humidifier at night will also help thin secretions and help with coughing up phlegm. -Follow up with primary care provider in 7-10 days if condition is not improving - For new or worsening symptoms go directly to the nearest ER Patient Language: Japanese Prescriptions: New doxycycline monohydrate 100 mg tablet 100 mg PO BID Qty: 14 0RF No Action propranolol 80 mg capsule,extended release 24hr 80 mg PO DIRECTED Nurtec ODT 75 mg tablet,disintegrating 75 mg PO DIRECTED Emgality Pen 120 mg/mL pen injector 120 mg SUBCUT MONTHLY cyanocobalamin (vitamin B-12) 1,000 mcg/mL solution 1,000 mcg IM DIRECTED cariprazine [Vraylar] .Route buspirone 10 mg tablet omeprazole 20 mg capsule,delayed release(DR/EC) Mounjaro 10 mg/0.5 mL pen injector 15 mg SUBCUT fluticasone propionate [Flonase Allergy Relief] 50 mcg/actuation spray,suspension 1 spray intranasal DAILY Qty: 16 0RF Rx Instructions: administer into each nostril alprazolam 0.5 mg tablet 0.5 mg PO TID PRN (Reason: Anxiety) hydrochlorothiazide 25 mg tablet 25 mg PO DAILY (DME) GroupT[employer] G6 Sensor Device MISCELLANEOUS levothyroxine 112 mcg Capsule 112 mcg PO DAILY (DME) Accu-Chek Susie Plus test strp Strip MISCELLANEOUS Follow-up/Referrals: Saúl,Deneen Mccormick, HYDROGEN BRAZE FURNACE OPERATOR [Primary Care Provider, Unknown] - 1 Week Clinical Impression: Sinusitis Time of Disposition: 11:10
== END 2025-07-08 11:18 | disposition home or self-care (01) ==
PROVIDERS: Emergency Provider Nurse Practitioner
DX: J32.9 Chronic sinusitis, unspecified (principal); I10 Essential (primary) hypertension; E11.9 Type 2 diabetes mellitus without complications; E03.9 Hypothyroidism, unspecified; F41.9 Anxiety disorder, unspecified; F32.A Depression, unspecified; Z87.891 Personal history of nicotine dependence
CPT/HCPCS: 99213; G0463